=== PATIENT | male | born 1940 | race Caucasian/White ===

== ENCOUNTER 2019-03-06 09:00 | Outpatient (RCR) | payer MEDICARE, BC, SELFPAY ==
[2019-02-26 09:43] VITALS: BP 127/88; PULSE 73; RESP 18; TEMP 35.9; BMI 27.2
--- NOTE | 2019-02-26 11:29 | PCM.WC.HP ---
(1) Ulcer of left lower extremity with fat layer exposed Status: Acute Current Visit: Yes Code(s): L97.922 - Non-pressure chronic ulcer of unspecified part of left lower leg with fat layer exposed (2) Swelling of both lower extremities Status: Acute Current Visit: Yes Code(s): M79.89 - Other specified soft tissue disorders History of Present Illness Date of Service: 02/26/19 Chief Complaint: Non healing left lower extremity ulcer. History of Wound: Mr. Quiñonez is an 78 year old who was referred by his PCP due to non healing left lower extremity ulcer. Initial noted in November. Denies nay known precipitating factor but did state that he had much worse lower extremity swelling at that time. He was seen at an urgent care and advised to apply neosporin ointment and was also treated with oral antibiotics. He did this for about 3 months without any significnat improvement. He subsequentky followed up with his PCP and was reffered here. He attests to mild drainage and pain. He however deneis chills, fever or otherwise feeling of unwell. Past Medical History Allergies/Adverse Reactions: Allergies No Known Allergies Allergy (Verified 02/26/19 10:14) Home Medications: Ambulatory Orders Medication Instructions Recorded Calcium Carb/Vitamin D3/Vit K1 1 ea PO 02/26/19 [Calcium + D Soft Chewable Tab] Digoxin DAILY 02/26/19 Esomeprazole Mag Trihydrate 20 mg PO 02/26/19 [Nexium] Fluticasone 0.05% [Flonase Nasal 2 spray NASAL DAILY 02/26/19 Penelope] Metoprolol Succinate 25 mg PO BID 02/26/19 Spironolactone 25 mg 02/26/19 Tamsulosin HCl 0 mg 02/26/19 Warfarin [Coumadin ([facility])] 4 mg PO DAILY 02/26/19 Smoking Status: Former smoker Review of Systems Constitutional: Denies: Anorexia, Chills, Fever Eyes: Denies: Pain, Redness HEENT: Denies: Difficulty Swallowing Cardiovascular: Denies: Chest Pain, Chest Pressure Respiratory: Denies: Cough, Hemoptysis Gastrointestinal: Denies: Hematemesis Skin: Denies: Jaundice - Physical Exam Vital Signs Temp Pulse Resp BP 96.6 F L 73 18 127/88 H 02/26/19 09:43 02/26/19 09:43 02/26/19 09:43 02/26/19 09:43 General: Alert, Oriented x3, Cooperative, No apparent distress HEENT: Atraumatic, Normocephalic Oral: Moist Mucosa Neck: Supple Lungs: Normal air movement Cardiovascular: Regular rate, - - Irregularly irregular rhythm Abdomen: Soft, Non Tender Extremities: No cyanosis, Edema Skin: Ulcer/ Wound Wound Measurements and Assessment WC - Nurse 1 - General Ulcer Measurement Start: 02/26/19 09:41 Freq: Status: Active Protocol: Activity Type Activity Date Activity User E-Sign Co-Sign Detail Recorded Client Recorded Date Recorded By Document 02/26/19 09:43 DL [id number] 02/26/19 10:10 DL Document 02/26/19 10:34 MW [id number] 02/26/19 10:34 MW 02/26/19 02/26/19 09:43 10:34 Wound Center Nurse 1 [Ulcer Assessment] #1 LLE Med -Current Size (cm) - Length 1.6 -Current Size (cm) - Width 1.8 -Current Size (cm) - Depth 0.2 -Total Square Cm 2.88 -Photo Taken Yes -Epithelialization None Present -Classification - Thickness Full Thickness without Exposed Support Structure -Exudate Amt Small -Exudate Type Serosanguineous -Wound Margin Distinct, Outline Attached -Granulation Amt None Present (0 %) -Necrosis Amt Large (67-100%) -Necrotic Tissue Type Adherent Slough -Structure Exposed N/A -Texture (Julia-wound Skin Appearance) Localized Edema ,Scarring -Color (Julia-wound Skin Appearance) Erythema -Temperature (Julia-wound Skin No Abnormality Appearance) (Pt Warm) -Tenderness on Palpation (Julia-wound No Skin Appearance) -Ulcer Cleansing Rinsed/ Irrigated with Saline -Anesthetic Used 5% Lidocaine Gel [Edema Assessment] -Lower Limb Edema Present Yes -Right Calf (cm) 34.0 -Right Ankle (cm) 21.0 -Left Calf (cm) 33.5 -Left Ankle (cm) 22.0 WC - Nurse 2 - General Ulcer CM Notes Start: 02/26/19 09:41 Freq: Status: Active Protocol: Activity Type Activity Date Activity User E-Sign Co-Sign Detail Recorded Client Recorded Date Recorded By Document 02/26/19 10:26 MW [id number] 02/26/19 10:32 MW 02/26/19 10:26 Wound Center Nurse 2 [Procedure/Treatment] #1 LLE Med -Time 10:26 -Correct Patient Yes -Correct Side, Site, Position Yes -Correct Procedure Yes -Procedure Performed Yes -Type of Procedure Debridement -Clinical Debridement Subcutaneous -Post Debridement Size (cm) - Length 1.6 -Post Debridement Size (cm) - Width 1.2 -Post Debridement Size (cm) - Depth 0.2 -Total Square Cm 1.92 -Wound/Ulcer Outcome Not Healed -Ulcer Cleansing Rinsed/ Irrigated with Saline -Foul Odor after Cleansing No -Bioengineered Tissue No -Bleeding Controlled with Pressure -Offloading No -Treatment Response Procedure Tolerated Well [See Physician Procedure note for Specifics] Pain Scale: 0-10 Numeric [Pain] -Is Patient Pain Free? Yes Musculoskeletal: No Muscle Wasting Neurological: Cranial nerves II-XII grossly intact Psych/Mental Status: Normal Affect Debridement Note Post-Debridement Measurements/Treatment WC - Nurse 2 - General Ulcer CM Notes Start: 02/26/19 09:41 Freq: Status: Active Protocol: Activity Type Activity Date Activity User E-Sign Co-Sign Detail Recorded Client Recorded Date Recorded By Document 02/26/19 10:26 MW [id number] 02/26/19 10:32 MW 02/26/19 10:26 Wound Center Nurse 2 #1 LLE Med -Time 10:26 -Correct Patient Yes -Correct Side, Site, Position Yes -Correct Procedure Yes -Procedure Performed Yes -Type of Procedure Debridement -Clinical Debridement Subcutaneous -Post Debridement Size (cm) - Length 1.6 -Post Debridement Size (cm) - Width 1.2 -Post Debridement Size (cm) - Depth 0.2 -Total Square Cm 1.92 -Wound/Ulcer Outcome Not Healed -Ulcer Cleansing Rinsed/ Irrigated with Saline -Foul Odor after Cleansing No -Bioengineered Tissue No -Bleeding Controlled with Pressure -Offloading No -Treatment Response Procedure Tolerated Well Pain Scale: 0-10 Numeric Is Patient Pain Free? Yes Wound debrided: Left lower extremity Wound Grade/Stage: Stage II Type of Debridement: Excisional debridement Anesthesia Used: 4% Lidocaine Solution Depth: Down to and including healthy tissue, in the subcutaneous layer Percentage of wound debrided: 100 Instrument Used: 7mm curette Tissue Removed: Slough and devitalized tissue Severity: Fat Layer Exposed Amount of bleeding with debridement: Mild Bleeding Controlled with: Pressure Patient tolerated procedure well Assessment/Plan Active Problems Ulcer of left lower extremity with fat layer exposed (Acute) Swelling of both lower extremities (Acute) Assessment: Non healing left lower extremity ulcer likley secondary to Venous insufficiency. Plan: Debridement done as documented above, procedure was well tolerated.Venous and arterial studies ordered. No cultures taken today. Pomogran daily with adaptic over top. Double layer Tubi investigation manager for edema management. He was also advised to exercise as tolerated, elevate lower extremities when seated and in bed and avoid ildle standing. His questions were answered and he was advised to call with any further questions or concerns. Follow up in 1 week.
[2019-03-05 09:26] VITALS: BP 126/61; PULSE 71; RESP 18; TEMP 36.1; BMI 27.2
--- NOTE | 2019-03-05 09:51 | PCM.WC.PN ---
(1) Ulcer of left lower extremity with fat layer exposed Status: Acute Current Visit: Yes Code(s): L97.922 - Non-pressure chronic ulcer of unspecified part of left lower leg with fat layer exposed (2) Swelling of both lower extremities Status: Acute Current Visit: Yes Code(s): M79.89 - Other specified soft tissue disorders Type of Wound Date of Service: 03/05/19 Chief Complaint: Non healing left lower extremity ulcer. History of Wound: Mr. Quiñonez is an 78 year old who was referred by his PCP due to non healing left lower extremity ulcer. Initial noted in November. Denies nay known precipitating factor but did state that he had much worse lower extremity swelling at that time. He was seen at an urgent care and advised to apply neosporin ointment and was also treated with oral antibiotics. He did this for about 3 months without any significnat improvement. He subsequentky followed up with his PCP and was reffered here. He attests to mild drainage and pain. He however deneis chills, fever or otherwise feeling of unwell. Progress of Wound: Improving. No new concerns at this time. - Physical Exam Vital Signs Temp Pulse Resp BP 97 F L 71 18 126/61 H 03/05/19 09:26 03/05/19 09:26 03/05/19 09:26 03/05/19 09:26 General: Alert, Oriented x3, Cooperative, No apparent distress HEENT: Atraumatic, Normocephalic Oral: Moist Mucosa Neck: Supple Lungs: Normal air movement Extremities: No cyanosis Skin: Ulcer/ Wound Wound Measurements and Assessment WC - Nurse 1 - General Ulcer Measurement Start: 02/26/19 09:41 Freq: Status: Active Protocol: Activity Type Activity Date Activity User E-Sign Co-Sign Detail Recorded Client Recorded Date Recorded By Document 03/05/19 09:26 RB [id number] 03/05/19 09:28 RB 03/05/19 09:26 Wound Center Nurse 1 [Ulcer Assessment] #1 LLE Med -Combined with other wound No -Current Size (cm) - Length 1.7 -Current Size (cm) - Width 1.7 -Current Size (cm) - Depth 0.1 -Total Square Cm 2.89 -Tunneling No -Undermining/Tunneling No -Circular Undermining No -Exudate Amt Small -Exudate Type Serosanguineous -Wound Margin Distinct, Outline Attached -Granulation Amt Medium (34-66%) -Granulation Quality [place] -Slough/Fibrin Yes -Necrosis Amt Small (1-33%) -Necrotic Tissue Type Adherent Slough -Structure Exposed N/A -Texture (Julia-wound Skin Appearance) Assessed -Moisture (Julia-wound Skin Appearance Assessed ) -Color (Julia-wound Skin Appearance) Assessed -Temperature (Julia-wound Skin No Abnormality Appearance) (Pt Warm) -Tenderness on Palpation (Julia-wound No Skin Appearance) -Ulcer Cleansing Wound Cleanser -Foul Odor after Cleansing No -Anesthetic Used 5% Lidocaine Gel [Edema Assessment] -Lower Limb Edema Present Yes -Left Calf (cm) 33 -Left Ankle (cm) 20.5 WC - Nurse 2 - General Ulcer CM Notes Start: 02/26/19 09:41 Freq: Status: Active Protocol: Activity Type Activity Date Activity User E-Sign Co-Sign Detail Recorded Client Recorded Date Recorded By Document 03/05/19 09:39 MW [id number] 03/05/19 09:41 MW 03/05/19 09:39 Wound Center Nurse 2 [Procedure/Treatment] #1 LLE Med -Time 09:39 -Correct Patient Yes -Correct Side, Site, Position Yes -Correct Procedure Yes -Procedure Performed Yes -Type of Procedure Debridement -Clinical Debridement Subcutaneous -Post Debridement Size (cm) - Length 1.1 -Post Debridement Size (cm) - Width 1.5 -Post Debridement Size (cm) - Depth 0.1 -Total Square Cm 1.65 -Wound/Ulcer Outcome Not Healed -Ulcer Cleansing Rinsed/ Irrigated with Saline -Foul Odor after Cleansing No -Bioengineered Tissue No -Bleeding Controlled with Pressure -Offloading No -Treatment Response Procedure Tolerated Well [See Physician Procedure note for Specifics] Pain Scale: 0-10 Numeric [Pain] -Is Patient Pain Free? Yes Musculoskeletal: No Muscle Wasting Neurological: Cranial nerves II-XII grossly intact Psych/Mental Status: Normal Affect Debridement Note Post-Debridement Measurements/Treatment WC - Nurse 2 - General Ulcer CM Notes Start: 02/26/19 09:41 Freq: Status: Active Protocol: Activity Type Activity Date Activity User E-Sign Co-Sign Detail Recorded Client Recorded Date Recorded By Document 02/26/19 10:26 MW [id number] 02/26/19 10:32 MW Document 03/05/19 09:39 MW [id number] 03/05/19 09:41 MW 02/26/19 03/05/19 10:26 09:39 Wound Center Nurse 2 #1 LARISA Med -Time 10: 09:39 -Correct Patient Yes Yes -Correct Side, Site, Position Yes Yes -Correct Procedure Yes Yes -Procedure Performed Yes Yes -Type of Procedure Debridement Debridement -Clinical Debridement Subcutaneous Subcutaneous -Post Debridement Size (cm) - Length 1.6 1.1 -Post Debridement Size (cm) - Width 2.0 1.5 -Post Debridement Size (cm) - Depth 0.2 0.1 -Total Square Cm 3.20 1.65 -Wound/Ulcer Outcome Amputation Not Healed Anticipated -Ulcer Cleansing Rinsed/ Rinsed/ Irrigated with Irrigated with Saline Saline -Foul Odor after Cleansing No No -Bioengineered Tissue No No -Bleeding Controlled with Pressure Pressure -Offloading No No -Treatment Response Procedure Procedure Tolerated Well Tolerated Well Pain Scale: 0-10 Numeric Is Patient Pain Free? Yes Yes Wound debrided: Left lower extremity Wound Grade/Stage: Stage II Type of Debridement: Excisional debridement Anesthesia Used: 4% Lidocaine Solution Depth: Down to and including healthy tissue, in the subcutaneous layer Percentage of wound debrided: 100 Instrument Used: 3mm curette Tissue Removed: Slough and devitalized tissue Severity: Fat Layer Exposed Amount of bleeding with debridement: Mild Bleeding Controlled with: Pressure Patient tolerated procedure well Assessment/Plan Active Problems Ulcer of left lower extremity with fat layer exposed (Acute) Swelling of both lower extremities (Acute) Assessment: Non healing left lower extremity ulcer likley secondary to Venous insufficiency. Plan: Improving. Debridement done as documented above, procedure was well tolerated.Venous and arterial studies ordered and scheduled for tomorrow. . Continue Pomogran daily with adaptic over top. Double layer Tubi principal security architect for edema management. He was also advised to exercise as tolerated, elevate lower extremities when seated and in bed and avoid ildle standing. His questions were answered and he was advised to call with any further questions or concerns. Follow up in 1 week.
--- NOTE | 2019-03-06 08:48 | VDLE_ITS ---
Reason For Study: EDEMA` RIGHT LEFT CFV is compressible, spontaneous, phasic, CFV is compressible, spontaneous, phasic, competent and demonstrates normal competent, and demonstrates normal augmentation. augmentation. FV is compressible, spontaneous, phasic, FV is compressible, spontaneous, phasic, competent and demonstrates normal competent and demonstrates normal augmentation. augmentation. POP V is compressible, spontaneous, phasic, POP V is compressible, spontaneous, phasic, competent and demonstrates normal competent and demonstrates normal augmentation. augmentation. T/P Trunk is compressible. T/P Trunk is compressible. PTV is compressible. PTV is compressible. RT PerV is compressible. LT PerV is compressible. SFJ is competent and measures .62 X .64 cm. SFJ is competent and measures .37 X .40 cm. SSV at junction is competent and measures .33 SSV at junction is competent and measures .22 X .36 cm. X .23 cm. GSV above knee is competent. GSV above knee is competent. GSV below knee is competent. GSV below knee is INCOMPETENT for greater Procedure than 0.5 seconds. Exam performed in department. Left Embroidery Operator , located approximately 10 cm A preliminary report was called and/or faxed from the [facility], is INCOMPETENT for to [facility]. greater than .5 seconds. Interpretation Summary Deep veins of the lower extremities are bilaterally patent and compressible segmentally. There is no evidence of deep vein thrombosis on either side. Valvular competence appears intact within the proximal deep venous systems bilaterally. The great saphenous veins appear bilaterally patent and compressible segmentally. Sapheno-femoral junctions are bilaterally competent . The right great saphenous vein appears segmentally competent. The left great saphenous vein appears competent above the knee. The left great saphenous vein appears incompetent below the knee. Small saphenous veins are patent and competent bilaterally. An incompetent environmental services tech vein is noted in the left calf, located 10 centimeters proximal to the left medial malleolus. Ordering Physician: Abdirahman Cross Referring Physician: ISAAC HERBERT Performed By: Preeti Ling RDCS, RVT
--- NOTE | 2019-03-06 08:48 | ART_ITS ---
Reason For Study: PAD Procedure A bilateral lower extremity continuous wave Doppler with analog waveform analysis,segmental pressures,and ankle brachial indexes without exercise. Left Segmental Pressures Left brachial= 138mmHg. Left posterior tibial artery = 211mmHg. Left dorsalis pedis artery = NCmmHg. Left digit = 82 mmHg. The left posterior tibial artery waveforms are biphasic. The left dorsalis pedis waveforms are monophasic. Right Segmental Pressures Right brachial= 131mmHg. Right posterior tibial artery = NCmmHg. Right dorsalis pedis artery = 219mmHg. Right digit = 109 mmHg. The right posterior tibial artery waveforms are monophasic. The right dorsalis pedis waveforms are biphasic. Indices The right ankle brachial index by the dorsalis pedis is 1.59. The right digital-brachial index is .79. The left ankle brachial index by the posterior tibial artery is 1.53. The left digital- brachial index is .59. Interpretation Summary Biphasic and monophasic Doppler waveforms are noted at ankle level bilaterally. Pulse-volume recording waveform amplitudes appear diminished at calf and ankle levels bilaterally. Resting ankle- brachial indices are supra-normal bilaterally. The right digital-brachial index is normal. The left digital-brachial index is mildly diminished. There is evidence of arterial calcification bilaterally, which artifactually elevates arterial pressure measurements. Therefore, calculated ankle-brachial indices and digital-brachial indices may be unreliable in determining the presence of arterial occlusive disease. 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 Clinical correlation is advised. Ordering Physician: Abdirahman Cross Referring Physician: ARABELLA HERBERT Performed By: YANIRA FREY RDCS
== END 2019-03-08 23:59 ==
LOC: CVS 09:00
PROVIDERS: Family Provider Family Medicine; PCP Family Medicine; Visit Provider Internal Medicine
DX: I73.9 Peripheral vascular disease, unspecified (principal); L97.822 Non-pressure chronic ulcer of other part of left lower leg with fat layer exposed; R60.0 Localized edema; M79.89 Other specified soft tissue disorders; Z87.891 Personal history of nicotine dependence
CPT/HCPCS: 11042; 93923; 93970; 99203; G0463

== ENCOUNTER 2019-04-03 08:45 | Outpatient (RCR) | payer MEDICARE, BC, SELFPAY ==
[2019-03-05 09:26] VITALS: BMI 27.2
[2019-03-09 01:13] VITALS: BP 126/61; PULSE 71; RESP 18; TEMP 36.1
[2019-03-13 10:14] VITALS: BP 140/71; PULSE 64; RESP 16; TEMP 35.7; BMI 27.2
--- NOTE | 2019-03-13 12:37 | PCM.WC.PN ---
(1) Swelling of both lower extremities Status: Chronic Current Visit: Yes Code(s): M79.89 - Other specified soft tissue disorders (2) Ulcer of left lower extremity with fat layer exposed Status: Chronic Current Visit: Yes Code(s): L97.922 - Non-pressure chronic ulcer of unspecified part of left lower leg with fat layer exposed Type of Wound Date of Service: 03/13/19 Chief Complaint: Non healing left lower extremity ulcer. History of Wound: Mr. Quiñonez is an 78 year old who was referred by his PCP due to non healing left lower extremity ulcer. Initial noted in November. Denies nay known precipitating factor but did state that he had much worse lower extremity swelling at that time. He was seen at an urgent care and advised to apply neosporin ointment and was also treated with oral antibiotics. He did this for about 3 months without any significnat improvement. He subsequentky followed up with his PCP and was reffered here. He attests to mild drainage and pain. He however deneis chills, fever or otherwise feeling of unwell. Progress of Wound: Improving. No new concerns at this time. - Physical Exam Vital Signs Temp Pulse Resp BP 96.2 F L 64 16 140/71 H 03/13/19 10:14 03/13/19 10:14 03/13/19 10:14 03/13/19 10:14 General: Alert, Oriented x3, Cooperative, No apparent distress HEENT: Atraumatic, Normocephalic Oral: Moist Mucosa Neck: Supple Lungs: Normal air movement Extremities: No cyanosis Skin: Ulcer/ Wound Wound Measurements and Assessment WC - Nurse 1 - General Ulcer Measurement Start: 03/13/19 10:14 Freq: Status: Active Protocol: Activity Type Activity Date Activity User E-Sign Co-Sign Detail Recorded Client Recorded Date Recorded By Document 03/13/19 10:14 [facility] [id number] 03/13/19 10:21 [facility] 03/13/19 10:14 Wound Center Nurse 1 [Ulcer Assessment] #1 LLE Med -Combined with other wound No -Current Size (cm) - Length 1.6 -Current Size (cm) - Width 1.3 -Current Size (cm) - Depth 0.2 -Total Square Cm 2.08 -Photo Taken No -Epithelialization None Present -Tunneling No -Undermining/Tunneling No -Circular Undermining No -Exudate Amt Small -Exudate Type Serosanguineous -Wound Margin Distinct, Outline Attached -Granulation Amt Small (1-33%) -Granulation Quality Red -Slough/Fibrin Yes -Necrosis Amt Medium (34-66%) -Necrotic Tissue Type Adherent Slough -Texture (Julia-wound Skin Appearance) Assessed, Scarring -Moisture (Julia-wound Skin Appearance Assessed ) -Color (Julia-wound Skin Appearance) Assessed -Temperature (Julia-wound Skin No Abnormality Appearance) (Pt Warm) -Tenderness on Palpation (Julia-wound Yes Skin Appearance) -Ulcer Cleansing Rinsed/ Irrigated with Saline -Foul Odor after Cleansing No -Anesthetic Used 5% Lidocaine Gel [Edema Assessment] -Lower Limb Edema Present Yes -Left Calf (cm) 33.2 -Left Ankle (cm) 20.9 WC - Nurse 2 - General Ulcer CM Notes Start: 03/13/19 10:14 Freq: Status: Active Protocol: Activity Type Activity Date Activity User E-Sign Co-Sign Detail Recorded Client Recorded Date Recorded By Document 03/13/19 10:40 MW [id number] 03/13/19 10:43 MW 03/13/19 10:40 Wound Center Nurse 2 [Procedure/Treatment] #1 LLE Med -Time 10:40 -Correct Patient Yes -Correct Side, Site, Position Yes -Correct Procedure Yes -Procedure Performed Yes -Type of Procedure Debridement -Clinical Debridement Subcutaneous -Post Debridement Size (cm) - Length 1.1 -Post Debridement Size (cm) - Width 1.1 -Post Debridement Size (cm) - Depth 0.1 -Total Square Cm 1.21 -Wound/Ulcer Outcome Not Healed -Ulcer Cleansing Rinsed/ Irrigated with Saline -Foul Odor after Cleansing No -Bioengineered Tissue No -Bleeding Controlled with Pressure -Offloading No -Treatment Response Procedure Tolerated Well [See Physician Procedure note for Specifics] Pain Scale: 0-10 Numeric [Pain] -Is Patient Pain Free? Yes Neurological: Cranial nerves II-XII grossly intact Psych/Mental Status: Normal Affect Debridement Note Post-Debridement Measurements/Treatment WC - Nurse 2 - General Ulcer CM Notes Start: 03/13/19 10:14 Freq: Status: Active Protocol: Activity Type Activity Date Activity User E-Sign Co-Sign Detail Recorded Client Recorded Date Recorded By Document 03/13/19 10:40 MW [id number] 03/13/19 10:43 MW 03/13/19 10:40 Wound Center Nurse 2 #1 LLE Med -Time 10:40 -Correct Patient Yes -Correct Side, Site, Position Yes -Correct Procedure Yes -Procedure Performed Yes -Type of Procedure Debridement -Clinical Debridement Subcutaneous -Post Debridement Size (cm) - Length 1.1 -Post Debridement Size (cm) - Width 1.1 -Post Debridement Size (cm) - Depth 0.1 -Total Square Cm 1.21 -Wound/Ulcer Outcome Not Healed -Ulcer Cleansing Rinsed/ Irrigated with Saline -Foul Odor after Cleansing No -Bioengineered Tissue No -Bleeding Controlled with Pressure -Offloading No -Treatment Response Procedure Tolerated Well Pain Scale: 0-10 Numeric Is Patient Pain Free? Yes Wound debrided: Left lower extremity Wound Grade/Stage: Stage II Type of Debridement: Excisional debridement Anesthesia Used: 4% Lidocaine Solution Depth: Down to and including healthy tissue, in the subcutaneous layer Percentage of wound debrided: 100 Instrument Used: 3mm curette Tissue Removed: Slough and devitalized tissue Severity: Fat Layer Exposed Amount of bleeding with debridement: Mild Bleeding Controlled with: Compression and gauze Patient tolerated procedure well Assessment/Plan Active Problems Ulcer of left lower extremity with fat layer exposed (Chronic) Swelling of both lower extremities (Chronic) Assessment: Non healing left lower extremity ulcer likley secondary to Venous insufficiency. Plan: Improving. Debridement done as documented above, procedure was well tolerated. Venous and arterial studies reviewed. Evidence of venous insufficiency and moderate arterial disease. Advised to follow-up with primary care physician/vascular surgery. Continue Pomogran daily with adaptic over top. Double layer Tubi embedded systems developer for edema management. He was also advised to exercise as tolerated, elevate lower extremities when seated and in bed and avoid ildle standing. His questions were answered and he was advised to call with any further questions or concerns. Follow up in 1 week.
[2019-03-20 10:10] VITALS: BP 118/74; PULSE 75; RESP 16; TEMP 36.1; BMI 27.2
--- NOTE | 2019-03-20 10:39 | PN.PCM_ITS ---
(1) Swelling of both lower extremities Status: Chronic Current Visit: Yes Code(s): M79.89 - Other specified soft tissue disorders (2) Ulcer of left lower extremity with fat layer exposed Status: Chronic Current Visit: Yes Code(s): L97.922 - Non-pressure chronic ulcer of unspecified part of left lower leg with fat layer exposed Type of Wound Date of Service: 03/20/19 Chief Complaint: Non healing left lower extremity ulcer. History of Wound: Mr. Quiñonez is an 78 year old who was referred by his PCP due t o non healing left lower extremity ulcer. Initial noted in November. Denies nay known precipitating factor but did state that he had much worse lower extremity swelling at that time. He was seen at an urgent care and advised to apply neosporin ointment and was also treated with oral antibiotics. He did this for about 3 months without any significnat improvement. He subsequentky followed up with his PCP and was reffered here. He attests to mild drainage and pain. He however deneis chills, fever or otherwise feeling of unwell. Progress of Wound: Stable. No new concerns at this time. - Physical Exam Vital Signs Temp Pulse Resp BP 97 F L 75 16 118/74 03/20/19 10:10 03/20/19 10:10 03/20/19 10:10 03/20/19 10:10 General: Alert, Oriented x3, Cooperative, No apparent distress HEENT: Atraumatic, Normocephalic Oral: Moist Mucosa Neck: Supple Lungs: Normal air movement Extremities: No cyanosis Skin: Ulcer/ Wound Wound Measurements and Assessment WC - Nurse 1 - General Ulcer Measurement Start: 03/13/19 10:14 Freq: Status: Active Protocol: Activity Type Activity Date Activity User E-Sign Co-Sign Detail Recorded Client Recorded Date Recorded By Document 03/20/19 10:10 [facility] [id number] 03/20/19 10:13 [facility] 03/20/19 10:10 Wound Center Nurse 1 [Ulcer Assessment] #1 LLE Med -Combined with other wound No -Current Size (cm) - Length 1.1 -Current Size (cm) - Width 1 -Current Size (cm) - Depth 0.1 -Total Square Cm 1.1 -Date of Last Picture (Recall this 03/20/19 field) -Photo Taken Yes -Epithelialization Small 1-33% -Tunneling No -Undermining/Tunneling No -Circular Undermining No -Exudate Amt Small -Exudate Type Serosanguineous -Wound Margin Distinct, Outline Attached -Granulation Amt Medium (34-66%) -Granulation Quality Red -Slough/Fibrin Yes -Necrosis Amt Medium (34-66%) -Necrotic Tissue Type Adherent Slough -Texture (Julia-wound Skin Appearance) Assessed, Scarring -Moisture (Julia-wound Skin Appearance Assessed,Dry/ ) Scaly -Color (Julia-wound Skin Appearance) Assessed, Hemosiderin Staining -Temperature (Julia-wound Skin No Abnormality Appearance) (Pt Warm) -Tenderness on Palpation (Julia-wound No Skin Appearance) -Ulcer Cleansing Rinsed/ Irrigated with Saline -Foul Odor after Cleansing No -Anesthetic Used 5% Lidocaine Gel [Edema Assessment] -Lower Limb Edema Present No -Left Calf (cm) 33 -Left Ankle (cm) 19.9 WC - Nurse 2 - General Ulcer CM Notes Start: 03/13/19 10:14 Freq: Status: Active Protocol: Activity Type Activity Date Activity User E-Sign Co-Sign Detail Recorded Client Recorded Date Recorded By Document 03/20/19 10:32 MW [id number] 03/20/19 10:37 MW 03/20/19 10:32 Wound Center Nurse 2 [Procedure/Treatment] #1 LLE Med -Time 10:32 -Correct Patient Yes -Correct Side, Site, Position Yes -Correct Procedure Yes -Procedure Performed Yes -Type of Procedure Debridement -Clinical Debridement Subcutaneous -Post Debridement Size (cm) - Length 1.1 -Post Debridement Size (cm) - Width 1.1 -Post Debridement Size (cm) - Depth 0.1 -Total Square Cm 1.21 -Wound/Ulcer Outcome Not Healed -Ulcer Cleansing Rinsed/ Irrigated with Saline -Foul Odor after Cleansing No -Bioengineered Tissue No -Bleeding Controlled with Pressure -Offloading No -Treatment Response Procedure Tolerated Well [See Physician Procedure note for Specifics] Pain Scale: 0-10 Numeric [Pain] -Is Patient Pain Free? Yes Musculoskeletal: No Muscle Wasting Neurological: Cranial nerves II-XII grossly intact Psych/Mental Status: Normal Affect Debridement Note Post-Debridement Measurements/Treatment WC - Nurse 2 - General Ulcer CM Notes Start: 03/13/19 10:14 Freq: Status: Active Protocol: Activity Type Activity Date Activity User E-Sign Co-Sign Detail Recorded Client Recorded Date Recorded By Document 03/13/19 10:40 MW [id number] 03/13/19 10:43 MW Document 03/20/19 10:32 MW [id number] 03/20/19 10:37 MW 03/13/19 03/20/19 10:40 10:32 Wound Center Nurse 2 #1 LLE Med -Time 10:40 10:32 -Correct Patient Yes Yes -Correct Side, Site, Position Yes Yes -Correct Procedure Yes Yes -Procedure Performed Yes Yes -Type of Procedure Debridement Debridement -Clinical Debridement Subcutaneous Subcutaneous -Post Debridement Size (cm) - Length 1.1 1.1 -Post Debridement Size (cm) - Width 1.1 1.1 -Post Debridement Size (cm) - Depth 0.1 0.1 -Total Square Cm 1.21 1.21 -Wound/Ulcer Outcome Not Healed Not Healed -Ulcer Cleansing Rinsed/ Rinsed/ Irrigated with Irrigated with Saline Saline -Foul Odor after Cleansing No No -Bioengineered Tissue No No -Bleeding Controlled with Pressure Pressure -Offloading No No -Treatment Response Procedure Procedure Tolerated Well Tolerated Well Pain Scale: 0-10 Numeric Is Patient Pain Free? 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 Plan: Stable. No significantt change in the past week. Debridement done as documented above, procedure was well tolerated. Venous and arterial studies reviewed. Evidence of venous insufficiency and moderate arterial disease. Advised to follow-up with primary care physician/vascular surgery. Continue Po mogran daily with adaptic over top. 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 Will apply for a skin sub. Has had 4 weeks of traditional woundcare here so far with modest improvement and no change in the past week. He also had woundcare prior to coming in here. He was also advised to exercise as tolerated, elevate lower extremities when seated and in bed and avoid ildle standing. His questions were answered and he was advised to call with any further questions or concerns. Follow up in 1 week.
[2019-03-27 10:53] VITALS: BP 126/81; PULSE 75; RESP 18; TEMP 36; BMI 27.2
--- NOTE | 2019-03-27 12:43 | PN.PCM_ITS ---
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 History of Wound: Mr. Quiñonez is an 78 year old who was referred by his PCP due t o non healing left lower extremity ulcer. Initial noted in November. Denies nay known precipitating factor but did state that he had much worse lower extremity swelling at that time. He was seen at an urgent care and advised to apply neosporin ointment and was also treated with oral antibiotics. He did this for about 3 months without any significnat improvement. He subsequentky followed up with his PCP and was reffered here. He attests to mild drainage and pain. He however deneis chills, fever or otherwise feeling of unwell. Progress of Wound: Mild improvement. No new concerns at this time. Now approved for Grafix. - Physical Exam Vital Signs Temp Pulse Resp BP 96.8 F L 75 18 126/81 H 03/27/19 10:53 03/27/19 10:53 03/27/19 10:53 03/27/19 10:53 General: Alert, Oriented x3, Cooperative, No apparent distress HEENT: Atraumatic, Normocephalic Oral: Moist Mucosa Neck: Supple Lungs: Normal air movement Extremities: No cyanosis Skin: Ulcer/ Wound Wound Measurements and Assessment WC - Nurse 1 - General Ulcer Measurement Start: 03/13/19 10:14 Freq: Status: Active Protocol: Activity Type Activity Date Activity User E-Sign Co-Sign Detail Recorded Client Recorded Date Recorded By Document 03/27/19 10:53 DL [id number] 03/27/19 11:00 DL 03/27/19 10:53 Wound Center Nurse 1 [Ulcer Assessment] #1 LLE Med -Current Size (cm) - Length 0.8 -Current Size (cm) - Width 0.9 -Current Size (cm) - Depth 0.2 -Total Square Cm 0.72 -Photo Taken No -Exudate Amt Small -Exudate Type Serosanguineous -Wound Margin Distinct, Outline Attached -Granulation Amt Large (67-100%) -Granulation Quality Red -Necrosis Amt Small (1-33%) -Necrotic Tissue Type Adherent Slough -Structure Exposed N/A -Texture (Julia-wound Skin Appearance) Scarring -Moisture (Julia-wound Skin Appearance No Abnormality ) -Color (Julia-wound Skin Appearance) Hemosiderin Staining -Temperature (Julia-wound Skin No Abnormality Appearance) (Pt Warm) -Tenderness on Palpation (Julia-wound No Skin Appearance) -Ulcer Cleansing Rinsed/ Irrigated with Saline -Foul Odor after Cleansing No -Anesthetic Used 5% Lidocaine Gel [Edema Assessment] -Left Calf (cm) 32 -Left Ankle (cm) 19 WC - Nurse 2 - General Ulcer CM Notes Start: 03/13/19 10:14 Freq: Status: Active Protocol: Activity Type Activity Date Activity User E-Sign Co-Sign Detail Recorded Client Recorded Date Recorded By Document 03/27/19 11:36 MW [id number] 03/27/19 11:40 MW 03/27/19 11:36 Wound Center Nurse 2 [Procedure/Treatment] #1 LLE Med -Time 11:36 -Correct Patient Yes -Correct Side, Site, Position Yes -Correct Procedure Yes -Procedure Performed Yes -Type of Procedure Debridement -Clinical Debridement Subcutaneous -Post Debridement Size (cm) - Length 1.0 -Post Debridement Size (cm) - Width 1.0 -Post Debridement Size (cm) - Depth 0.1 -Total Square Cm 1.00 -Wound/Ulcer Outcome Not Healed -Ulcer Cleansing Rinsed/ Irrigated with Saline -Foul Odor after Cleansing No -Bioengineered Tissue Yes -Type of bioengineered Tissue GRAFIX-Pime -Expiration Date 01/01/20 -Product Lot Number [id number] -Percent Used 100 -Saline Lot Number [id number] -Bleeding Controlled with Pressure -Offloading No -Treatment Response Procedure Tolerated Well [See Physician Procedure note for Specifics] Pain Scale: 0-10 Numeric [Pain] -Is Patient Pain Free? Yes Musculoskeletal: No Muscle Wasting Neurological: Cranial nerves II-XII grossly intact Psych/Mental Status: Normal Affect Debridement Note Post-Debridement Measurements/Treatment WC - Nurse 2 - General Ulcer CM Notes Start: 03/13/19 10:14 Freq: Status: Active Protocol: Activity Type Activity Date Activity User E-Sign Co-Sign Detail Recorded Client Recorded Date Recorded By Document 03/13/19 10:40 MW [id number] 03/13/19 10:43 MW Document 03/20/19 10:32 MW [id number] 03/20/19 10:37 MW Document 03/27/19 11:36 MW [id number] 03/27/19 11:40 MW 03/13/19 03/20/19 03/27/19 10:40 10:32 11:36 Wound Center Nurse 2 #1 LLE Med -Time 10:40 10:32 11:36 -Correct Patient Yes Yes Yes -Correct Side, Site, Position Yes Yes Yes -Correct Procedure Yes Yes Yes -Procedure Performed Yes Yes Yes -Type of Procedure Debridement Debridement Debridement -Clinical Debridement Subcutaneous Subcutaneous Subcutaneous -Post Debridement Size (cm) - Length 1.1 1.1 1.0 -Post Debridement Size (cm) - Width 1.1 1.1 1.0 -Post Debridement Size (cm) - Depth 0.1 0.1 0.1 -Total Square Cm 1.21 1.21 1.00 -Wound/Ulcer Outcome Not Healed Not Healed Not Healed -Ulcer Cleansing Rinsed/ Rinsed/ Rinsed/ Irrigated with Irrigated with Irrigated with Saline Saline Saline -Foul Odor after Cleansing No No No -Bioengineered Tissue No No Yes -Type of bioengineered Tissue Master -Expiration Date 01/01/20 -Product Lot Number [id number] -Percent Used 100 -Saline Lot Number [id number] -Bleeding Controlled with Pressure Pressure Pressure -Offloading No No No -Treatment Response Procedure Procedure Procedure Tolerated Well Tolerated Well Tolerated Well Pain Scale: 0-10 Numeric Is Patient Pain Free? 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 Plan: Debridement done as documented above, procedure was well tolerated. Initial application of Grafix done today using 100% of product. Moistened with saline and adaptic touch over top. 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 He was also advised to exercise as tolerated, elevate lower extremities when seated and in bed and avoid ildle standing. Increased protein intake also recommended. His questions were answered and he was advised to call with any further questions or concerns. Follow up in 1 week.
[2019-04-03 10:15] VITALS: BP 137/70; PULSE 77; RESP 16; TEMP 36.4; BMI 27.2
--- NOTE | 2019-04-03 11:08 | PCM.WC.PN ---
(1) Swelling of both lower extremities Status: Chronic Current Visit: Yes Code(s): M79.89 - Other specified soft tissue disorders (2) Ulcer of left lower extremity with fat layer exposed Status: Chronic Current Visit: Yes Code(s): L97.922 - Non-pressure chronic ulcer of unspecified part of left lower leg with fat layer exposed Type of Wound Date of Service: 04/03/19 Chief Complaint: Non healing left lower extremity ulcer. History of Wound: Mr. Quiñonez is an 78 year old who was referred by his PCP due to non healing left lower extremity ulcer. Initial noted in November. Denies nay known precipitating factor but did state that he had much worse lower extremity swelling at that time. He was seen at an urgent care and advised to apply neosporin ointment and was also treated with oral antibiotics. He did this for about 3 months without any significnat improvement. He subsequentky followed up with his PCP and was reffered here. He attests to mild drainage and pain. He however deneis chills, fever or otherwise feeling of unwell. Progress of Wound: No new concerns at this time. Improving. Has had 1 application of Grafix so far. - Physical Exam Vital Signs Temp Pulse Resp BP 97.5 F L 77 16 137/70 H 04/03/19 10:15 04/03/19 10:15 04/03/19 10:15 04/03/19 10:15 General: Alert, Oriented x3, Cooperative, No apparent distress HEENT: Atraumatic, Normocephalic Oral: Moist Mucosa Lungs: Normal air movement Extremities: No cyanosis Skin: Ulcer/ Wound Wound Measurements and Assessment WC - Nurse 1 - General Ulcer Measurement Start: 03/13/19 10:14 Freq: Status: Active Protocol: Activity Type Activity Date Activity User E-Sign Co-Sign Detail Recorded Client Recorded Date Recorded By Document 04/03/19 10:15 [id number] 04/03/19 10:23 BS 04/03/19 10:15 Wound Center Nurse 1 [Ulcer Assessment] #1 LLE Med -Combined with other wound No -Current Size (cm) - Length 1.0 -Current Size (cm) - Width 1.0 -Current Size (cm) - Depth 0.1 -Total Square Cm 1.00 -Photo Taken No -Granulation Quality [place],Red -Moisture (Julia-wound Skin Appearance Assessed,Dry/ ) Scaly -Temperature (Julia-wound Skin No Abnormality Appearance) (Pt Warm) -Tenderness on Palpation (Julia-wound No Skin Appearance) -Ulcer Cleansing Rinsed/ Irrigated with Saline -Anesthetic Used 5% Lidocaine Gel - Nurse 2 - General Ulcer CM Notes Start: 03/13/19 10:14 Freq: Status: Active Protocol: Activity Type Activity Date Activity User E-Sign Co-Sign Detail Recorded Client Recorded Date Recorded By Document 04/03/19 10:42 MW [id number] 04/03/19 10:48 MW 04/03/19 10:42 Wound Center Nurse 2 [Procedure/Treatment] -Time 10:43 -Correct Patient Yes -Correct Side, Site, Position Yes -Correct Procedure Yes -Procedure Performed Yes -Type of Procedure Debridement -Clinical Debridement Subcutaneous -Post Debridement Size (cm) - Length 0.8 -Post Debridement Size (cm) - Width 0.7 -Post Debridement Size (cm) - Depth 0.1 -Total Square Cm 0.56 -Wound/Ulcer Outcome Not Healed -Ulcer Cleansing Rinsed/ Irrigated with Saline -Foul Odor after Cleansing No -Bioengineered Tissue No -Type of bioengineered Tissue GRAFIX-Pime -Expiration Date 01/07/20 -Product Lot Number [id number] -Percent Used 100 -Saline Lot Number [id number] -Bleeding Controlled with Pressure -Offloading No -Treatment Response Procedure Tolerated Well [See Physician Procedure note for Specifics] Pain Scale: 0-10 Numeric [Pain] -Is Patient Pain Free? Yes Neurological: Cranial nerves II-XII grossly intact Psych/Mental Status: Normal Affect Debridement Note Post-Debridement Measurements/Treatment - Nurse 2 - General Ulcer CM Notes Start: 03/13/19 10:14 Freq: Status: Active Protocol: Activity Type Activity Date Activity User E-Sign Co-Sign Detail Recorded Client Recorded Date Recorded By Document 03/13/19 10:40 MW [id number] 03/13/19 10:43 MW Document 03/20/19 10:32 MW [id number] 03/20/19 10:37 MW Document 03/27/19 11:36 MW [id number] 03/27/19 11:40 MW Document 04/03/19 10:42 MW [id number] 04/03/19 10:48 MW 03/13/19 03/20/19 03/27/19 10:40 10:32 11:36 Wound Center Nurse 2 #1 [facility] Med -Time 10:40 10:32 11:36 -Correct Patient Yes Yes Yes -Correct Side, Site, Position Yes Yes Yes -Correct Procedure Yes Yes Yes -Procedure Performed Yes Yes Yes -Type of Procedure Debridement Debridement Debridement -Clinical Debridement Subcutaneous Subcutaneous Subcutaneous -Post Debridement Size (cm) - Length 1.1 1.1 1.0 -Post Debridement Size (cm) - Width 1.1 1.1 1.0 -Post Debridement Size (cm) - Depth 0.1 0.1 0.1 -Total Square Cm 1.21 1.21 1.00 -Wound/Ulcer Outcome Not Healed Not Healed Not Healed -Ulcer Cleansing Rinsed/ Rinsed/ Rinsed/ Irrigated with Irrigated with Irrigated with Saline Saline Saline -Foul Odor after Cleansing No No No -Bioengineered Tissue No No Yes -Type of bioengineered Tissue GRAFIX-Pime -Expiration Date 01/01/20 -Product Lot Number [id number] -Percent Used 100 -Saline Lot Number [id number] -Bleeding Controlled with Pressure Pressure Pressure -Offloading No No No -Treatment Response Procedure Procedure Procedure Tolerated Well Tolerated Well Tolerated Well Pain Scale: 0-10 Numeric Is Patient Pain Free? Yes Yes Yes 04/03/19 10:42 Wound Center Nurse 2 #1 [facility] Med -Time 10:43 -Correct Patient Yes -Correct Side, Site, Position Yes -Correct Procedure Yes -Procedure Performed Yes -Type of Procedure Debridement -Clinical Debridement Subcutaneous -Post Debridement Size (cm) - Length 0.8 -Post Debridement Size (cm) - Width 0.7 -Post Debridement Size (cm) - Depth 0.1 -Total Square Cm 0.56 -Wound/Ulcer Outcome Not Healed -Ulcer Cleansing Rinsed/ Irrigated with Saline -Foul Odor after Cleansing No -Bioengineered Tissue No -Type of bioengineered Tissue GRAFIX-Pime -Expiration Date 01/07/20 -Product Lot Number [id number] -Percent Used 100 -Saline Lot Number [id number] -Bleeding Controlled with Pressure -Offloading No -Treatment Response Procedure Tolerated Well Pain Scale: 0-10 Numeric Is Patient Pain Free? 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 Plan: Debridement done as documented above, procedure was well tolerated. 2nd application of Grafix done today using 100% of product. Moistened with saline and adaptic touch over top. 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 He was also advised to exercise as tolerated, elevate lower extremities when seated and in bed and avoid ildle standing. Increased protein intake also recommended. His questions were answered and he was advised to call with any further questions or concerns. Follow up in 1 week.
== END 2019-04-07 23:59 ==
LOC: WC 08:45
PROVIDERS: Family Provider Family Medicine; PCP Family Medicine; Visit Provider Internal Medicine
DX: I87.2 Venous insufficiency (chronic) (peripheral) (principal); M79.89 Other specified soft tissue disorders; L97.822 Non-pressure chronic ulcer of other part of left lower leg with fat layer exposed
CPT/HCPCS: 11042; 15271; Q4132; Q4133

== ENCOUNTER 2019-05-01 09:45 | Outpatient (RCR) | payer MEDICARE, BC, SELFPAY ==
[2019-04-08 01:04] VITALS: BP 137/70; PULSE 77; RESP 16; TEMP 36.4
[2019-04-10 11:59] VITALS: BP 133/78; PULSE 18; RESP 18; TEMP 36.4; BMI 27.2
--- NOTE | 2019-04-10 12:39 | PCM.WC.PN ---
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 History of Wound: Mr. Quiñonez is an 78 year old who was referred by his PCP due to non healing left lower extremity ulcer. Initial noted in November. Denies nay known precipitating factor but did state that he had much worse lower extremity swelling at that time. He was seen at an urgent care and advised to apply neosporin ointment and was also treated with oral antibiotics. He did this for about 3 months without any significnat improvement. He subsequentky followed up with his PCP and was reffered here. He attests to mild drainage and pain. He however deneis chills, fever or otherwise feeling of unwell. Progress of Wound: No new concerns at this time. Improving. Has had 2 application of Grafix so far. - Physical Exam Vital Signs Temp Pulse Resp BP 97.6 F L 18 L 18 133/78 H 04/10/19 11:59 04/10/19 11:59 04/10/19 11:59 04/10/19 11:59 General: Alert, Oriented x3, Cooperative, No apparent distress HEENT: Atraumatic, Normocephalic Oral: Moist Mucosa Neck: Supple Lungs: Normal air movement Extremities: No cyanosis Skin: Ulcer/ Wound Wound Measurements and Assessment WC - Nurse 1 - General Ulcer Measurement Start: 04/10/19 11:59 Freq: Status: Active Protocol: Activity Type Activity Date Activity User E-Sign Co-Sign Detail Recorded Client Recorded Date Recorded By Document 04/10/19 11:59 DL [id number] 04/10/19 12:01 DL 04/10/19 11:59 Wound Center Nurse 1 [Ulcer Assessment] #1 LLE Med -Current Size (cm) - Length 0.8 -Current Size (cm) - Width 0.8 -Current Size (cm) - Depth 0.1 -Total Square Cm 0.64 -Photo Taken No -Exudate Type Sanguineous -Wound Margin Distinct, Outline Attached -Granulation Amt None Present (0 %) -Necrosis Amt Large (67-100%) -Necrotic Tissue Type Adherent Slough -Structure Exposed N/A -Texture (Julia-wound Skin Appearance) Scarring -Color (Julia-wound Skin Appearance) Hemosiderin Staining -Temperature (Julia-wound Skin No Abnormality Appearance) (Pt Warm) -Ulcer Cleansing Wound Cleanser -Foul Odor after Cleansing No -Anesthetic Used 5% Lidocaine Gel [Edema Assessment] -Left Calf (cm) 31.5 -Left Ankle (cm) 19 WC - Nurse 2 - General Ulcer CM Notes Start: 04/10/19 11:59 Freq: Status: Active Protocol: Activity Type Activity Date Activity User E-Sign Co-Sign Detail Recorded Client Recorded Date Recorded By Document 04/10/19 12:24 MW [id number] 04/10/19 12:30 MW 04/10/19 12:24 Wound Center Nurse 2 [Procedure/Treatment] #1 LLE Med -Time 12:24 -Correct Patient Yes -Correct Side, Site, Position Yes -Correct Procedure Yes -Procedure Performed Yes -Type of Procedure Debridement -Clinical Debridement Subcutaneous -Post Debridement Size (cm) - Length 0.6 -Post Debridement Size (cm) - Width 0.5 -Post Debridement Size (cm) - Depth 0.1 -Total Square Cm 0.30 -Wound/Ulcer Outcome Not Healed -Ulcer Cleansing Rinsed/ Irrigated with Saline -Foul Odor after Cleansing No -Bioengineered Tissue Yes -Type of bioengineered Tissue GRAFIX-Pime -Expiration Date 09/11/19 -Product Lot Number [id number] -Percent Used 100 -Saline Lot Number [id number] -Bleeding Controlled with Pressure -Offloading No -Treatment Response Procedure Tolerated Well [See Physician Procedure note for Specifics] Pain Scale: 0-10 Numeric [Pain] -Is Patient Pain Free? Yes Musculoskeletal: No Muscle Wasting Neurological: Cranial nerves II-XII grossly intact Psych/Mental Status: Normal Affect Debridement Note Post-Debridement Measurements/Treatment - Nurse 2 - General Ulcer CM Notes Start: 04/10/19 11:59 Freq: Status: Active Protocol: Activity Type Activity Date Activity User E-Sign Co-Sign Detail Recorded Client Recorded Date Recorded By Document 04/10/19 12:24 MW [id number] 04/10/19 12:30 MW 10/03/19 12:24 Wound Center Nurse 2 #1 LLKavon Med -Time 12:24 -Correct Patient Yes -Correct Side, Site, Position Yes -Correct Procedure Yes -Procedure Performed Yes -Type of Procedure Debridement -Clinical Debridement Subcutaneous -Post Debridement Size (cm) - Length 0.6 -Post Debridement Size (cm) - Width 0.5 -Post Debridement Size (cm) - Depth 0.1 -Total Square Cm 0.30 -Wound/Ulcer Outcome Not Healed -Ulcer Cleansing Rinsed/ Irrigated with Saline -Foul Odor after Cleansing No -Bioengineered Tissue Yes -Type of bioengineered Tissue GRAFIX-Pime -Expiration Date 09/11/19 -Product Lot Number [id number] -Percent Used 100 -Saline Lot Number [id number] -Bleeding Controlled with Pressure -Offloading No -Treatment Response Procedure Tolerated Well Pain Scale: 0-10 Numeric Is Patient Pain Free? 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 Plan: Debridement done as documented above, procedure was well tolerated. 3rd application of Grafix done today using 100% of product. Moistened with saline and adaptic touch over top. Double layer Tubi hotshot superintendent for edema management. He was also advised to exercise as tolerated, elevate lower extremities when seated and in bed and avoid ildle standing. Increased protein intake also recommended. His questions were answered and he was advised to call with any further questions or concerns. Follow up in 1 week.
[2019-04-17 10:59] VITALS: BP 132/76; PULSE 69; RESP 18; TEMP 36.6; BMI 27.2
--- NOTE | 2019-04-17 11:28 | PN.PCM_ITS ---
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 History of Wound: Mr. Quiñonez is an 78 year old who was referred by his PCP due t o non healing left lower extremity ulcer. Initial noted in November. Denies nay known precipitating factor but did state that he had much worse lower extremity swelling at that time. He was seen at an urgent care and advised to apply neosporin ointment and was also treated with oral antibiotics. He did this for about 3 months without any significnat improvement. He subsequentky followed up with his PCP and was reffered here. He attests to mild drainage and pain. He however deneis chills, fever or otherwise feeling of unwell. Progress of Wound: No new concerns at this time. Improving. Has had 3 application of Grafix so far. - Physical Exam Vital Signs Temp Pulse Resp BP 98 F 69 18 132/76 H 04/17/19 10:59 04/17/19 10:59 04/17/19 10:59 04/17/19 10:59 General: Alert, Oriented x3, Cooperative, No apparent distress HEENT: Atraumatic, Normocephalic Oral: Moist Mucosa Neck: Supple Lungs: Normal air movement Skin: Ulcer/ Wound Wound Measurements and Assessment WC - Nurse 1 - General Ulcer Measurement Start: 04/10/19 11:59 Freq: Status: Active Protocol: Activity Type Activity Date Activity User E-Sign Co-Sign Detail Recorded Client Recorded Date Recorded By Document 04/17/19 10:59 RB [id number] 04/17/19 11:01 RB 04/17/19 10:59 Wound Center Nurse 1 [Ulcer Assessment] #1 LLE Med -Combined with other wound No -Current Size (cm) - Length 0.1 -Current Size (cm) - Width 0.1 -Current Size (cm) - Depth 0.1 -Total Square Cm 0.01 -Tunneling No -Undermining/Tunneling No -Circular Undermining No -Exudate Amt Small -Exudate Type Serosanguineous -Wound Margin Flat & Intact -Granulation Amt Small (1-33%) -Granulation Quality [place] -Slough/Fibrin Yes -Necrosis Amt Large (67-100%) -Necrotic Tissue Type Adherent Slough -Structure Exposed N/A -Texture (Julia-wound Skin Appearance) Assessed -Moisture (Julia-wound Skin Appearance Assessed ) -Color (Julia-wound Skin Appearance) Assessed -Temperature (Julia-wound Skin No Abnormality Appearance) (Pt Warm) -Tenderness on Palpation (Julia-wound No Skin Appearance) -Ulcer Cleansing Wound Cleanser -Foul Odor after Cleansing No -Anesthetic Used 5% Lidocaine Gel [Edema Assessment] -Lower Limb Edema Present Yes -Left Calf (cm) 32.5 -Left Ankle (cm) 20 WC - Nurse 2 - General Ulcer CM Notes Start: 04/10/19 11:59 Freq: Status: Active Protocol: Activity Type Activity Date Activity User E-Sign Co-Sign Detail Recorded Client Recorded Date Recorded By Document 04/17/19 11:20 MW [id number] 04/17/19 11:27 MW 04/17/19 11:20 Wound Center Nurse 2 [Procedure/Treatment] #1 LLE Med -Time 11:20 -Correct Patient Yes -Correct Side, Site, Position Yes -Correct Procedure Yes -Procedure Performed Yes -Type of Procedure Debridement -Clinical Debridement Subcutaneous -Post Debridement Size (cm) - Length 0.4 -Post Debridement Size (cm) - Width 0.4 -Post Debridement Size (cm) - Depth 0.1 -Total Square Cm 0.16 -Wound/Ulcer Outcome Not Healed -Ulcer Cleansing Rinsed/ Irrigated with Saline -Foul Odor after Cleansing No -Bioengineered Tissue Yes -Type of bioengineered Tissue GRAFIX-Pime -Expiration Date 09/11/19 -Product Lot Number [id number] -Percent Used 100 -Saline Lot Number [id number] -Bleeding Controlled with Pressure -Offloading No -Treatment Response Procedure Tolerated Well [See Physician Procedure note for Specifics] Pain Scale: 0-10 Numeric [Pain] -Is Patient Pain Free? Yes Musculoskeletal: No Muscle Wasting Neurological: Cranial nerves II-XII grossly intact Psych/Mental Status: Normal Affect Debridement Note Post-Debridement Measurements/Treatment WC - Nurse 2 - General Ulcer CM Notes Start: 04/10/19 11:59 Freq: Status: Active Protocol: Activity Type Activity Date Activity User E-Sign Co-Sign Detail Recorded Client Recorded Date Recorded By Document 04/10/19 12:24 MW [id number] 04/10/19 12:30 MW Document 04/17/19 11:20 MW [id number] 04/17/19 11:27 MW 04/10/19 04/17/19 12:24 11:20 Wound Center Nurse 2 #1 LLE Med -Time 12:24 11:20 -Correct Patient Yes Yes -Correct Side, Site, Position Yes Yes -Correct Procedure Yes Yes -Procedure Performed Yes Yes -Type of Procedure Debridement Debridement -Clinical Debridement Subcutaneous Subcutaneous -Post Debridement Size (cm) - Length 0.6 0.4 -Post Debridement Size (cm) - Width 0.5 0.4 -Post Debridement Size (cm) - Depth 0.1 0.1 -Total Square Cm 0.30 0.16 -Wound/Ulcer Outcome Not Healed Not Healed -Ulcer Cleansing Rinsed/ Rinsed/ Irrigated with Irrigated with Saline Saline -Foul Odor after Cleansing No No -Bioengineered Tissue Yes Yes -Type of bioengineered Tissue GRAFIX-Pime GRAFIX-Pime -Expiration Date 09/11/19 09/11/19 -Product Lot Number [id number] -Percent Used 100 100 -Saline Lot Number [id number] -Bleeding Controlled with Pressure Pressure -Offloading No No -Treatment Response Procedure Procedure Tolerated Well Tolerated Well Pain Scale: 0-10 Numeric Is Patient Pain Free? 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 Plan: Debridement done as documented above, procedure was well tolerated. 4th application of Grafix done today using 100% of product. Moistened with saline and adaptic touch over top. Double layer Tubi slope hoist operator for edema management. He was also advised to exercise as tolerated, elevate lower extremities when seated and in bed and avoid ildle standing. Increased protein intake also recommended. His questions were answered and he was advised to call with any further questions or concerns. Follow up in 1 week.
[2019-04-24 09:50] VITALS: BP 132/75; PULSE 77; RESP 16; TEMP 35.6; BMI 27.2
--- NOTE | 2019-04-24 10:32 | PN.PCM_ITS ---
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 History of Wound: Mr. Quiñonez is an 78 year old who was referred by his PCP due t o non healing left lower extremity ulcer. Initial noted in November. Denies nay known precipitating factor but did state that he had much worse lower extremity swelling at that time. He was seen at an urgent care and advised to apply neosporin ointment and was also treated with oral antibiotics. He did this for about 3 months without any significnat improvement. He subsequentky followed up with his PCP and was reffered here. He attests to mild drainage and pain. He however deneis chills, fever or otherwise feeling of unwell. Progress of Wound: No new concerns at this time. Minimal area left. - Physical Exam Vital Signs Temp Pulse Resp BP 96.0 F L 77 16 132/75 H 04/24/19 09:50 04/24/19 09:50 04/24/19 09:50 04/24/19 09:50 General: Alert, No apparent distress HEENT: Atraumatic, Normocephalic Oral: Moist Mucosa Neck: Supple Extremities: No clubbing Skin: Ulcer/ Wound Wound Measurements and Assessment WC - Nurse 1 - General Ulcer Measurement Start: 04/10/19 11:59 Freq: Status: Active Protocol: Activity Type Activity Date Activity User E-Sign Co-Sign Detail Recorded Client Recorded Date Recorded By Document 04/24/19 09:50 [id number] 04/24/19 09:56 CS 04/24/19 09:50 Wound Center Nurse 1 [Ulcer Assessment] #1 LLE Med -Combined with other wound No -Current Size (cm) - Length 0.1 -Current Size (cm) - Width 0.1 -Current Size (cm) - Depth 0.1 -Total Square Cm 0.01 -Photo Taken No -Epithelialization Medium 34-66% -Tunneling No -Undermining/Tunneling No -Circular Undermining No -Exudate Amt None Present -Wound Margin Distinct, Outline Attached -Granulation Amt None Present (0 %) -Granulation Quality N/A -Necrosis Amt Large (67-100%) -Necrotic Tissue Type Eschar -Structure Exposed N/A -Texture (Julia-wound Skin Appearance) No Abnormality, Assessed -Moisture (Julia-wound Skin Appearance No Abnormality, ) Assessed -Color (Julia-wound Skin Appearance) No Abnormality, Assessed -Temperature (Julia-wound Skin No Abnormality Appearance) (Pt Warm) -Tenderness on Palpation (Julia-wound No Skin Appearance) -Ulcer Cleansing Rinsed/ Irrigated with Saline -Foul Odor after Cleansing No -Anesthetic Used 5% Lidocaine Gel [Edema Assessment] -Lower Limb Edema Present No -Left Calf (cm) 32.0 -Left Ankle (cm) 19.6 WC - Nurse 2 - General Ulcer CM Notes Start: 04/10/19 11:59 Freq: Status: Active Protocol: Activity Type Activity Date Activity User E-Sign Co-Sign Detail Recorded Client Recorded Date Recorded By Document 04/24/19 10:01 MW [id number] 04/24/19 10:04 MW 04/24/19 10:01 Wound Center Nurse 2 [Procedure/Treatment] #1 LLE Med -Time 10:02 -Correct Patient Yes -Correct Side, Site, Position Yes -Correct Procedure Yes -Procedure Performed Yes -Type of Procedure Debridement -Clinical Debridement Selective -Post Debridement Size (cm) - Length 0.1 -Post Debridement Size (cm) - Width 0.1 -Post Debridement Size (cm) - Depth 0.1 -Total Square Cm 0.01 -Wound/Ulcer Outcome Not Healed -Ulcer Cleansing Rinsed/ Irrigated with Saline -Foul Odor after Cleansing No -Bioengineered Tissue No -Bleeding Controlled with Pressure -Offloading No -Treatment Response Procedure Tolerated Well [See Physician Procedure note for Specifics] Pain Scale: 0-10 Numeric [Pain] -Is Patient Pain Free? Yes Musculoskeletal: No Muscle Wasting Neurological: Cranial nerves II-XII grossly intact Psych/Mental Status: Normal Affect Debridement Note Post-Debridement Measurements/Treatment WC - Nurse 2 - General Ulcer CM Notes Start: 04/10/19 11:59 Freq: Status: Active Protocol: Activity Type Activity Date Activity User E-Sign Co-Sign Detail Recorded Client Recorded Date Recorded By Document 04/10/19 12:24 MW [id number] 04/10/19 12:30 MW Document 04/17/19 11:20 MW [id number] 04/17/19 11:27 MW Document 04/24/19 10:01 MW [id number] 04/24/19 10:04 MW 04/10/19 04/17/19 04/24/19 12:24 11:20 10:01 Wound Center Nurse 2 #1 LARISA Med -Time 12:24 11:20 10:02 -Correct Patient Yes Yes Yes -Correct Side, Site, Position Yes Yes Yes -Correct Procedure Yes Yes Yes -Procedure Performed Yes Yes Yes -Type of Procedure Debridement Debridement Debridement -Clinical Debridement Subcutaneous Subcutaneous Selective -Post Debridement Size (cm) - Length 0.6 0.4 0.1 -Post Debridement Size (cm) - Width 0.5 0.4 0.1 -Post Debridement Size (cm) - Depth 0.1 0.1 0.1 -Total Square Cm 0.30 0.16 0.01 -Wound/Ulcer Outcome Not Healed Not Healed Not Healed -Ulcer Cleansing Rinsed/ Rinsed/ Rinsed/ Irrigated with Irrigated with Irrigated with Saline Saline Saline -Foul Odor after Cleansing No No No -Bioengineered Tissue Yes Yes No -Type of bioengineered Tissue GRAFIX-Pime GRAFIX-Pime -Expiration Date 09/11/19 09/11/19 -Product Lot Number [id number] -Percent Used 100 100 -Saline Lot Number [id number] -Bleeding Controlled with Pressure Pressure Pressure -Offloading No No No -Treatment Response Procedure Procedure Procedure Tolerated Well Tolerated Well Tolerated Well Pain Scale: 0-10 Numeric Is Patient Pain Free? Yes Yes Yes Wound debrided: Left leg Type of Debridement: Selective debridement Anesthesia Used: 4% Lidocaine Solution Depth: Down to and including healthy tissue Percentage of wound debrided: 100 Instrument Used: - - 1mm Tissue Removed: Devitalized tissue Severity: Fat Layer Exposed Amount of bleeding with debridement: Mild Bleeding Controlled with: Pressure Patient tolerated procedure well Assessment/Plan Active Problems Ulcer of left lower extremity with fat layer exposed (Chronic) Swelling of both lower extremities (Chronic) Assessment: Non healing left lower extremity ulcer likley secondary to Venous insufficiency. Plan: Debridement done as documented above, procedure was well tolerated. Minimal area left. No Grafix applied today. Pomogran daily with adaptic over top. Moisturize skiin adequately. Double layer Tubi well point pumping supervisor for edema management. He was also advised to exercise as tolerated, elevate lower extremities when seated and in bed and avoid ildle standing. Increased protein intake also recommended. His questions were answered and he was advised to call with any further questions or concerns. Follow up in 1 week.
[2019-05-01 09:50] VITALS: BP 123/70; PULSE 79; RESP 18; TEMP 35.9; BMI 27.2
--- NOTE | 2019-05-01 10:10 | PN.PCM_ITS ---
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 History of Wound: Mr. Quiñonez is an 78 year old who was referred by his PCP due t o non healing left lower extremity ulcer. Initial noted in November. Denies nay known precipitating factor but did state that he had much worse lower extremity swelling at that time. He was seen at an urgent care and advised to apply neosporin ointment and was also treated with oral antibiotics. He did this for about 3 months without any significnat improvement. He subsequentky followed up with his PCP and was reffered here. He attests to mild drainage and pain. He however deneis chills, fever or otherwise feeling of unwell. Progress of Wound: No new concerns at this time. Healed. - Physical Exam Vital Signs Temp Pulse Resp BP 96.7 F L 79 18 123/70 H 05/01/19 09:50 05/01/19 09:50 05/01/19 09:50 05/01/19 09:50 General: Alert, Oriented x3, Cooperative, No apparent distress HEENT: Atraumatic, Normocephalic Oral: Moist Mucosa Neck: Supple Lungs: Normal air movement Extremities: No cyanosis, Edema Wound Measurements and Assessment WC - Nurse 1 - General Ulcer Measurement Start: 04/10/19 11:59 Freq: Status: Active Protocol: Activity Type Activity Date Activity User E-Sign Co-Sign Detail Recorded Client Recorded Date Recorded By Document 05/01/19 09:50 DL [id number] 05/01/19 09:57 DL 05/01/19 09:50 Wound Center Nurse 1 [Ulcer Assessment] #1 LLE Med -Current Size (cm) - Length 0.1 -Current Size (cm) - Width 0.1 -Current Size (cm) - Depth 0.1 -Total Square Cm 0.01 -Photo Taken No -Exudate Amt None Present -Wound Margin Flat & Intact -Granulation Amt Large (67-100%) -Granulation Quality Grimsley -Necrosis Amt None Present (0 %) -Structure Exposed N/A -Texture (Julia-wound Skin Appearance) Scarring -Moisture (Julia-wound Skin Appearance No Abnormality, ) Dry/Scaly -Color (Julia-wound Skin Appearance) Hemosiderin Staining -Temperature (Julia-wound Skin No Abnormality Appearance) (Pt Warm) -Tenderness on Palpation (Julia-wound No Skin Appearance) -Ulcer Cleansing Rinsed/ Irrigated with Saline -Foul Odor after Cleansing No -Anesthetic Used 5% Lidocaine Gel [Edema Assessment] -Left Calf (cm) 31 -Left Ankle (cm) 18.7 WC - Nurse 2 - General Ulcer CM Notes Start: 04/10/19 11:59 Freq: Status: Active Protocol: Activity Type Activity Date Activity User E-Sign Co-Sign Detail Recorded Client Recorded Date Recorded By Document 05/01/19 10:07 MW [id number] 05/01/19 10:08 MW 05/01/19 10:07 Wound Center Nurse 2 [Procedure/Treatment] #1 LLE Med -Time 10:08 -Correct Patient Yes -Correct Side, Site, Position Yes -Correct Procedure Yes -Procedure Performed No -Post Debridement Size (cm) - Length 0 -Post Debridement Size (cm) - Width 0 -Post Debridement Size (cm) - Depth 0 -Total Square Cm 0 -Wound/Ulcer Outcome Healed- Epithelialized [See Physician Procedure note for Specifics] Pain Scale: 0-10 Numeric [Pain] -Is Patient Pain Free? Yes Musculoskeletal: No Muscle Wasting Neurological: Cranial nerves II-XII grossly intact Debridement Note Post-Debridement Measurements/Treatment - Nurse 2 - General Ulcer CM Notes Start: 04/10/19 11:59 Freq: Status: Active Protocol: Activity Type Activity Date Activity User E-Sign Co-Sign Detail Recorded Client Recorded Date Recorded By Document 04/10/19 12:24 MW [id number] 04/10/19 12:30 MW Document 04/17/19 11:20 MW [id number] 04/17/19 11:27 MW Document 04/24/19 10:01 MW [id number] 04/24/19 10:04 MW Document 05/01/19 10:07 MW [id number] 05/01/19 10:08 MW 04/10/19 04/17/19 04/24/19 12:24 11:20 10:01 Wound Center Nurse 2 #1 [facility] Med -Time 12:24 11:20 10:02 -Correct Patient Yes Yes Yes -Correct Side, Site, Position Yes Yes Yes -Correct Procedure Yes Yes Yes -Procedure Performed Yes Yes Yes -Type of Procedure Debridement Debridement Debridement -Clinical Debridement Subcutaneous Subcutaneous Selective -Post Debridement Size (cm) - Length 0.6 0.4 0.1 -Post Debridement Size (cm) - Width 0.5 0.4 0.1 -Post Debridement Size (cm) - Depth 0.1 0.1 0.1 -Total Square Cm 0.30 0.16 0.01 -Wound/Ulcer Outcome Not Healed Not Healed Not Healed -Ulcer Cleansing Rinsed/ Rinsed/ Rinsed/ Irrigated with Irrigated with Irrigated with Saline Saline Saline -Foul Odor after Cleansing No No No -Bioengineered Tissue Yes Yes No -Type of bioengineered Tissue GRAFIX-Pime GRAFIX-Pime -Expiration Date 09/11/19 09/11/19 -Product Lot Number [id number] -Percent Used 100 100 -Saline Lot Number [id number] -Bleeding Controlled with Pressure Pressure Pressure -Offloading No No No -Treatment Response Procedure Procedure Procedure Tolerated Well Tolerated Well Tolerated Well Pain Scale: 0-10 Numeric Is Patient Pain Free? Yes Yes Yes 05/01/19 10:07 Wound Center Nurse 2 #1 [facility] Med -Time 10:08 -Correct Patient Yes -Correct Side, Site, Position Yes -Correct Procedure Yes -Procedure Performed No -Type of Procedure -Clinical Debridement -Post Debridement Size (cm) - Length 0 -Post Debridement Size (cm) - Width 0 -Post Debridement Size (cm) - Depth 0 -Total Square Cm 0 -Wound/Ulcer Outcome Healed- Epithelialized -Ulcer Cleansing -Foul Odor after Cleansing -Bioengineered Tissue -Type of bioengineered Tissue -Expiration Date -Product Lot Number -Percent Used -Saline Lot Number -Bleeding Controlled with -Offloading -Treatment Response Pain Scale: 0-10 Numeric Is Patient Pain Free? 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 Plan: Healed. No new concerns at this time. Pomogran and adaptic for 1 week then adaptic over area x 2 weeks. Call with any concerns. Moisturize skiin adequately. Double layer Tubi key worker for edema management. He was also advised to exercise as tolerated, elevate lower extremities when seated and in bed and avoid ildle standing. His questions were answered and he was advised to call with any further questions or concerns. Discharged from the wound clinic.
--- NOTE | 2019-05-01 10:20 | WC ---
healed photo taken of wound . adaptic and gauze applied to healed area.
== END 2019-05-08 23:59 ==
LOC: WC 09:45
PROVIDERS: Family Provider Family Medicine; PCP Family Medicine; Visit Provider Internal Medicine
DX: I87.2 Venous insufficiency (chronic) (peripheral) (principal); L97.822 Non-pressure chronic ulcer of other part of left lower leg with fat layer exposed; M79.89 Other specified soft tissue disorders
CPT/HCPCS: 15271; 97597; 99213; Q4132; Q4133; G0463

== ENCOUNTER 2019-12-08 10:05 | Emergency (ER) | payer MEDICARE, BC, SELFPAY ==
[2019-12-08 10:06] VITALS: BP 152/91; PULSE 86; RESP 17; TEMP 36.1; O2SAT 91; BMI 25.9
--- NOTE | 2019-12-08 10:17 | ED.VIS.GEN ---
History of Present Illness Chief Complaint: Nosebleed Narrative: Patient is an 79-year-old male who presents with epistaxis. Couple of weeks ago his warfarin dosing was increased because his INR was subtherapeutic. His last INR was 2.2 about 1 week ago. He has been having intermittent nosebleeds over the past 5 days. This has mostly been from the left side. His current episode began while in the shower just before presentation here. He otherwise denies any recent illness such as fevers cough congestion rhinorrhea vomiting chest pain shortness of breath. Past Medical History - Allergies and Home Meds Allergies/Adverse Reactions: Allergies No Known Allergies Allergy (Verified 12/08/19 10:06) Primary Care Physician: Vin Zuñiga MD [Primary Care Provider] - Past Medical History: - - Atrial fibrillation Smoking Status: Former smoker Review of Systems All systems negative except as indicated General: Denies: Fever Eyes: Denies: Visual changes - bilaterally ENT: Reports: - - Epistaxis. Denies: Bilateral ear pain Cardiovascular: Denies: Chest pain Respiratory: Denies: Dyspnea Gastrointestinal: Denies: Nausea, Vomiting Skin: Denies: Rash Neurological: Denies: Headache Hematologic: Reports: Easy bleeding Allergy: Denies: Uticaria Physical Exam Vital Signs/Narrative: Vital Signs Temp Pulse Resp BP Pulse Ox 12/08/19 10:06 96.9 F L 86 17 152/91 H 91 Inital Vital Signs reviewed: Yes General: Well nourished Head: Normocephalic Eyes: EOMI ENT: - - Dried blood and mild oozing bilateral nares no clots unable to identify definite source of bleeding Cardiovascular: Regular rate Respiratory: No distress Skin: Normal color Neurological: Alert Psychological: Normal affect Diagnostic/Tx/Re-eval Laboratory Last Values PT 23.6 SECONDS (11.7-14.9) H 12/08/19 10:35 INR 2.2 12/08/19 10:35 - Medical Decision Making INR 2.2. At initial presentation patient had no brisk bleeding but did have some bilateral oozing. Afrin was sprayed in both nostrils. FloSeal was used bilaterally. Patient has been observed. His bleeding has remained controlled. No active bleeding on reevaluation. Patient referred to otolaryngology for outpatient follow-up and understands to return for new worsening or recurrent symptoms. He is agreeable with this plan. Patient was discharged. ED Disposition - Plan for ED Patient: Disposition: Home or Assisted Living Diagnosis: Epistaxis Instructions: ED Epistaxis Adult Referrals: Vin Zuñiga MD [Primary Care Provider] - Colton Paz MD [STAFF PHYSICIAN] -
[2019-12-08 10:51] LABS: International Normalized Ratio 2.2; Prothrombin Time (Protime)PT. 23.6 SECONDS (11.7-14.9)
[2019-12-08] MEDS: Oxymetazoline 0.05% 1 SPRAY SPRAY.BTL 2 SPRAY NASAL (12:12)
== END 2019-12-08 12:16 | disposition home or self-care (01) ==
PROVIDERS: Emergency Provider Emergency Medicine; PCP Family Medicine
DX: R04.0 Epistaxis (principal); I48.91 Unspecified atrial fibrillation; Z87.891 Personal history of nicotine dependence
CPT/HCPCS: 85610; 99282

== ENCOUNTER 2020-03-16 09:47 | Outpatient (RCR) | payer MEDICARE, BC, SELFPAY ==
[2020-03-16 10:54] LABS: International Normalized Ratio 2.6; Prothrombin Time (Protime)PT. 27.4 SECONDS (11.7-14.9)
== END 2020-03-16 18:00 | disposition home or self-care (01) ==
LOC: LAB 09:47
PROVIDERS: PCP Family Medicine
DX: I48.21 Permanent atrial fibrillation (principal)
CPT/HCPCS: 36415; 85610

== ENCOUNTER → 2020-03-30 11:28 | Outpatient (CLI) | payer MEDICARE, BC, SELFPAY ==
[2020-03-30 15:54] LABS: Hematocrit 49.3 % (40-54); Hemoglobin 15.8 g/dL (13.0-16.5); Mean Corpuscular Hgb 32.3 pg (27.0-32.0); Mean Corpuscular Volume 100.8 fL (80-94); Mean Platelet Vol. 9.9 fl (6.2-12.0); Platelet Count 205 K/mm3 (150-450); RBC Distribution Width CV 13.2 % (11.6-14.6); RBC Distribution Width SD 48.7 fl (35.1-43.9); Red Blood Count 4.89 M/mm3 (4.6-6.2); White Blood Count 8.1 K/mm3 (4.4-11.0)
[2020-03-30 16:31] LABS: Iron 106 ug/dL (65-175)
[2020-03-30 16:49] LABS: Erythrocyte Sedimentation Rate 5 mm/hr (0-20)
== END ==
PROVIDERS: PCP Family Medicine; Referring Provider Internal Medicine Gastroenterology; Visit Provider Internal Medicine Gastroenterology
DX: D64.9 Anemia, unspecified (principal); K62.5 Hemorrhage of anus and rectum
CPT/HCPCS: 36415; 83540; 85027; 85652

== ENCOUNTER 2020-04-15 09:47 | Outpatient (RCR) | payer MEDICARE, BC, SELFPAY ==
[2020-04-15 10:14] LABS: International Normalized Ratio 2.3; Prothrombin Time (Protime)PT. 25.2 SECONDS (11.7-14.9)
== END 2020-04-15 18:00 | disposition home or self-care (01) ==
LOC: LAB 09:47
PROVIDERS: PCP Family Medicine
DX: I48.21 Permanent atrial fibrillation (principal)
CPT/HCPCS: 36415; 85610

== ENCOUNTER → 2020-04-21 09:18 | Outpatient (CLI) | payer MEDICARE, BC, SELFPAY ==
[2020-04-21 10:55] LABS: Digoxin Level 1.77 ng/mL (0.80-2.00)
== END ==
PROVIDERS: PCP Family Medicine
DX: I48.21 Permanent atrial fibrillation (principal)
CPT/HCPCS: 36415; 80162

== ENCOUNTER 2020-05-12 10:20 | Outpatient (RCR) | payer MEDICARE, BC, SELFPAY ==
[2020-05-12 11:29] LABS: International Normalized Ratio 2.5; Prothrombin Time (Protime)PT. 26.7 SECONDS (11.7-14.9)
== END 2020-05-12 18:00 | disposition home or self-care (01) ==
LOC: LAB 10:20
PROVIDERS: PCP Family Medicine
DX: I48.21 Permanent atrial fibrillation (principal)
CPT/HCPCS: 36415; 85610

== ENCOUNTER 2020-06-16 10:16 | Outpatient (RCR) | payer MEDICARE, BC, SELFPAY ==
[2020-06-16 11:14] LABS: International Normalized Ratio 2.3; Prothrombin Time (Protime)PT. 24.8 SECONDS (11.7-14.9)
== END 2020-06-16 18:00 | disposition home or self-care (01) ==
LOC: LAB 10:16
PROVIDERS: PCP Family Medicine
DX: I48.21 Permanent atrial fibrillation (principal)
CPT/HCPCS: 36415; 85610

== ENCOUNTER 2020-07-15 10:20 | Outpatient (RCR) | payer MEDICARE, BC, SELFPAY ==
[2020-07-15 12:56] LABS: International Normalized Ratio 2.2; Prothrombin Time (Protime)PT. 23.6 SECONDS (11.7-14.9)
== END 2020-07-15 18:00 | disposition home or self-care (01) ==
LOC: LAB 10:20
PROVIDERS: PCP Family Medicine
DX: I48.21 Permanent atrial fibrillation (principal)
CPT/HCPCS: 36415; 85610

== ENCOUNTER 2020-08-18 09:43 | Outpatient (RCR) | payer MEDICARE, BC, SELFPAY ==
[2020-08-18 11:07] LABS: International Normalized Ratio 2.3; Prothrombin Time (Protime)PT. 24.6 SECONDS (11.7-14.9)
== END 2020-08-18 18:00 | disposition home or self-care (01) ==
LOC: LAB 09:43
PROVIDERS: PCP Family Medicine
DX: I48.21 Permanent atrial fibrillation (principal)
CPT/HCPCS: 36415; 85610

== ENCOUNTER 2020-09-16 09:20 | Outpatient (RCR) | payer MEDICARE, BC, SELFPAY ==
[2020-09-16 10:15] LABS: Prothrombin Time (Protime)PT. 22.1 SECONDS (11.7-14.9)
== END 2020-09-16 18:00 | disposition home or self-care (01) ==
LOC: LAB 09:20
PROVIDERS: PCP Family Medicine
DX: I48.21 Permanent atrial fibrillation (principal)
CPT/HCPCS: 36415; 85610

== ENCOUNTER 2020-11-03 09:29 | Outpatient (RCR) | payer MEDICARE, BC, SELFPAY ==
[2020-10-19 10:24] LABS: International Normalized Ratio 1.9
[2020-11-03 09:51] LABS: International Normalized Ratio 2.5
== END 2020-11-03 18:00 | disposition home or self-care (01) ==
LOC: LAB 09:29
PROVIDERS: PCP Family Medicine
DX: I48.21 Permanent atrial fibrillation (principal)
CPT/HCPCS: 36415; 85610

== ENCOUNTER 2020-11-17 09:24 | Outpatient (RCR) | payer MEDICARE, BC, SELFPAY ==
[2020-11-17 10:07] LABS: International Normalized Ratio 2.1; Prothrombin Time (Protime)PT. 22.8 SECONDS (11.7-14.9)
== END 2020-11-17 18:00 | disposition home or self-care (01) ==
LOC: LAB 09:24
PROVIDERS: PCP Family Medicine
DX: I48.21 Permanent atrial fibrillation (principal)
CPT/HCPCS: 36415; 85610

== ENCOUNTER 2020-12-29 09:27 | Outpatient (RCR) | payer MEDICARE, BC, SELFPAY ==
[2020-12-15 10:05] LABS: International Normalized Ratio 2.8; Prothrombin Time (Protime)PT. 28.4 SECONDS (11.7-14.9)
[2020-12-29 10:42] LABS: International Normalized Ratio 2.1; Prothrombin Time (Protime)PT. 22.9 SECONDS (11.7-14.9)
== END 2020-12-29 18:00 | disposition home or self-care (01) ==
LOC: LAB 09:27
PROVIDERS: PCP Family Medicine
DX: I48.21 Permanent atrial fibrillation (principal)
CPT/HCPCS: 36415; 85610

== ENCOUNTER 2021-02-03 09:19 | Outpatient (RCR) | payer MEDICARE, BC, SELFPAY ==
[2021-01-12 10:05] LABS: International Normalized Ratio 2.1; Prothrombin Time (Protime)PT. 22.8 SECONDS (11.7-14.9)
[2021-02-03 09:42] LABS: International Normalized Ratio 1.8
== END 2021-02-03 18:00 | disposition home or self-care (01) ==
LOC: LAB 09:19
PROVIDERS: PCP Family Medicine
DX: I48.21 Permanent atrial fibrillation (principal)
CPT/HCPCS: 36415; 85610

== ENCOUNTER 2021-02-16 09:20 | Outpatient (RCR) | payer MEDICARE, BC, SELFPAY ==
[2021-02-16 10:06] LABS: International Normalized Ratio 2.1; Prothrombin Time (Protime)PT. 23.2 SECONDS (11.7-14.9)
== END 2021-02-16 18:00 | disposition home or self-care (01) ==
LOC: LAB 09:20
PROVIDERS: PCP Family Medicine
DX: I48.21 Permanent atrial fibrillation (principal)
CPT/HCPCS: 36415; 85610

== ENCOUNTER 2021-03-22 09:25 | Outpatient (RCR) | payer MEDICARE, BC, SELFPAY ==
[2021-03-08 19:48] VITALS: BMI 25.9
[2021-03-22 10:09] LABS: International Normalized Ratio 2.7; Prothrombin Time (Protime)PT. 27.7 SECONDS (11.7-14.9)
== END 2021-04-20 09:36 | disposition home or self-care (01) ==
LOC: LAB 09:25
PROVIDERS: PCP Family Medicine
DX: I48.21 Permanent atrial fibrillation (principal)
CPT/HCPCS: 36415; 85610

== ENCOUNTER 2021-04-20 09:38 | Outpatient (RCR) | payer MEDICARE, BC, SELFPAY ==
[2021-04-20 09:38] VITALS: BMI 25.9
[2021-04-20 10:50] LABS: International Normalized Ratio 2.2; Prothrombin Time (Protime)PT. 23.9 SECONDS (11.7-14.9)
== END 2021-05-08 03:23 | disposition home or self-care (01) ==
LOC: LAB 09:38
PROVIDERS: PCP Family Medicine
DX: I48.21 Permanent atrial fibrillation (principal)
CPT/HCPCS: 36415; 85610

== ENCOUNTER 2021-05-19 09:52 | Outpatient (RCR) | payer MEDICARE, BC, SELFPAY ==
[2021-05-08 03:23] VITALS: BMI 25.9
[2021-05-19 10:27] LABS: International Normalized Ratio 2.7; Prothrombin Time (Protime)PT. 28.2 SECONDS (11.7-14.9)
== END 2021-06-07 18:00 | disposition home or self-care (01) ==
LOC: LAB 09:52
PROVIDERS: PCP Family Medicine
DX: I48.21 Permanent atrial fibrillation (principal)
CPT/HCPCS: 36415; 85610

== ENCOUNTER 2021-06-13 09:24 | Outpatient (RCR) | payer MEDICARE, BC, SELFPAY ==
[2021-06-08 02:04] VITALS: BMI 25.9
[2021-06-13 10:49] LABS: International Normalized Ratio 3.6; Prothrombin Time (Protime)PT. 35.2 SECONDS (11.7-14.9)
== END 2021-07-09 18:00 | disposition home or self-care (01) ==
LOC: LAB 09:24
PROVIDERS: PCP Family Medicine
DX: I48.21 Permanent atrial fibrillation (principal)
CPT/HCPCS: 36415; 85610

== ENCOUNTER 2021-08-09 09:29 | Outpatient (RCR) | payer MEDICARE, BC, SELFPAY ==
[2021-07-10 03:40] VITALS: BMI 25.9
[2021-08-09 11:26] LABS: International Normalized Ratio 2.5; Prothrombin Time (Protime)PT. 26.6 SECONDS (11.7-14.9)
== END 2021-08-09 18:00 | disposition home or self-care (01) ==
LOC: LAB 09:29
PROVIDERS: PCP Family Medicine
DX: I48.21 Permanent atrial fibrillation (principal)
CPT/HCPCS: 36415; 85610

== ENCOUNTER 2021-09-08 12:02 | Outpatient (RCR) | payer MEDICARE, BC, SELFPAY ==
[2021-09-06 09:22] VITALS: BMI 25.9
[2021-09-07 11:42] LABS: Hematocrit 50.9 % (40-54); Hemoglobin 16.6 g/dL (13.0-16.5); Mean Corp Hgb Conc 32.6 g/dL (32-36); Mean Corpuscular Hgb 32.2 pg (27.0-32.0); Mean Corpuscular Volume 98.8 fL (80-94); Mean Platelet Vol. 9.6 fl (6.2-12.0); Platelet Count 220 K/mm3 (150-450); RBC Distribution Width CV 13.1 % (11.6-14.6); RBC Distribution Width SD 47.8 fl (35.1-43.9); Red Blood Count 5.15 M/mm3 (4.6-6.2); White Blood Count 8.4 K/mm3 (4.4-11.0)
[2021-09-08 12:49] LABS: INR Fingerstick 2.5; Prothrombin Time Fingerstick 29.1 SEC (11.7-14.9)
== END 2021-10-06 18:00 | disposition home or self-care (01) ==
LOC: LAB 12:02
PROVIDERS: PCP Family Medicine
DX: I48.21 Permanent atrial fibrillation (principal)
CPT/HCPCS: 36415; 36416; 85027; 85610

== ENCOUNTER 2021-10-12 09:20 | Outpatient (RCR) | payer MEDICARE, BC, SELFPAY ==
[2021-10-07 01:00] VITALS: BMI 25.9
[2021-10-12 10:29] LABS: INR Fingerstick 2.7; Prothrombin Time Fingerstick 31.4 SEC (11.7-14.9)
== END 2021-10-12 18:00 | disposition home or self-care (01) ==
LOC: LAB 09:20
PROVIDERS: PCP Family Medicine
DX: I48.21 Permanent atrial fibrillation (principal)
CPT/HCPCS: 36416; 85610

== ENCOUNTER 2021-11-30 09:17 | Outpatient (RCR) | payer MEDICARE, BC, SELFPAY ==
[2021-11-06 02:42] VITALS: BMI 25.9
[2021-11-11 07:43] LABS: INR Fingerstick 3.1; Prothrombin Time Fingerstick 35.6 SEC (11.7-14.9)
[2021-11-19 09:18] LABS: INR Fingerstick 2.6; Prothrombin Time Fingerstick 30.4 SEC (11.7-14.9)
[2021-11-30 10:08] LABS: Prothrombin Time Fingerstick 28.1 SEC (11.7-14.9)
[2021-11-30 10:09] LABS: INR Fingerstick 2.4
== END 2021-11-30 18:00 | disposition home or self-care (01) ==
LOC: LAB 09:17
PROVIDERS: PCP Family Medicine
DX: I48.21 Permanent atrial fibrillation (principal)
CPT/HCPCS: 36416; 85610

== ENCOUNTER 2022-01-04 08:47 | Outpatient (RCR) | payer MEDICARE, BC, SELFPAY ==
[2021-12-06 20:19] VITALS: BMI 25.9
[2022-01-04 10:06] LABS: INR Fingerstick 2.1; Prothrombin Time Fingerstick 25.1 SEC (11.7-14.9)
== END 2022-01-04 23:59 | disposition home or self-care (01) ==
LOC: LAB 08:47
PROVIDERS: PCP Family Medicine
DX: I48.21 Permanent atrial fibrillation (principal)
CPT/HCPCS: 36416; 85610

== ENCOUNTER 2022-02-08 09:34 | Outpatient (RCR) | payer MEDICARE, BC, SELFPAY ==
[2022-01-06 06:44] VITALS: BMI 25.9
[2022-02-08 10:42] LABS: INR Fingerstick 2.8; Prothrombin Time Fingerstick 32.6 SEC (11.7-14.9)
== END 2022-02-08 18:00 | disposition home or self-care (01) ==
LOC: LAB 09:34
PROVIDERS: PCP Family Medicine
DX: I48.21 Permanent atrial fibrillation (principal)
CPT/HCPCS: 36416; 85610

== ENCOUNTER 2022-03-17 08:59 | Outpatient (RCR) | payer MEDICARE, BC, SELFPAY ==
[2022-03-08 22:25] VITALS: BMI 25.9
[2022-03-20 08:36] LABS: INR Fingerstick 2.3; Prothrombin Time Fingerstick 27.1 SEC (11.7-14.9)
== END 2022-03-17 18:00 | disposition home or self-care (01) ==
LOC: LAB 08:59
PROVIDERS: PCP Family Medicine
DX: I48.21 Permanent atrial fibrillation (principal)
CPT/HCPCS: 36416; 85610

== ENCOUNTER 2022-04-12 08:48 | Outpatient (RCR) | payer MEDICARE, BC, SELFPAY ==
[2022-04-07 20:26] VITALS: BMI 25.9
[2022-04-12 09:14] LABS: INR Fingerstick 2.8; Prothrombin Time Fingerstick 32.3 SEC (11.7-14.9)
== END 2022-04-12 18:00 | disposition home or self-care (01) ==
LOC: LAB 08:48
PROVIDERS: PCP Family Medicine
DX: I48.21 Permanent atrial fibrillation (principal)
CPT/HCPCS: 36416; 85610

== ENCOUNTER → 2022-04-20 | Outpatient (CLI) | payer MEDICARE, BC, SELFPAY ==
--- NOTE | 2022-04-20 12:50 | ART_ITS ---
Reason For Study: PVD Procedure A bilateral lower extremity continuous wave Doppler with analog waveform analysis,segmental pressures,and ankle brachial indexes without exercise. Left Segmental Pressures Left brachial= 129mmHg. Left thigh = 179mmHg. Left calf = 124mmHg. Left posterior tibial artery = >254mmHg. Left dorsalis pedis artery = 110mmHg. Left digit = 43 mmHg. The left posterior tibial artery waveforms are biphasic. The left dorsalis pedis waveforms are monophasic. Right Segmental Pressures Right brachial= 133mmHg. Right thigh = 181mmHg. Right calf = 130mmHg. Right posterior tibial artery = 114mmHg. Right dorsalis pedis artery = >254mmHg. Right digit = 82 mmHg. The right posterior tibial artery waveforms are biphasic. The right dorsalis pedis waveforms are monophasic. Indices The right ankle brachial index by the dorsalis pedis is N/C. The right ankle brachial index by the posterior tibial artery is 0.86. The right digital-brachial index is 0.62. The left ankle brachial index by the dorsalis pedis is 0.83. The left ankle brachial index by the posterior tibial artery is N/C. The left digital-brachial index is 0.32. VL/Lower Ext Art Exam w/o Exercis Interpretation Summary Right DOUGLAS 0.86, mild arterial insufficiency. Doppler/PVR waveforms and segmenta l pressures reveal distal SFA/popliteal disease Left DOUGLAS 0.83, mild arterial insufficiency. Doppler/PVR waveforms and segmental pressures reveal distal SFA/popliteal disease Ordering Physician: Juni Correia Referring Physician: JUIN CORREIA DPM Performed By: NATALIE WONG [facility]
== END | disposition home or self-care (01) ==
LOC: CVS 12:44
PROVIDERS: PCP Family Medicine; Visit Provider Podiatrist
DX: I73.9 Peripheral vascular disease, unspecified (principal)
CPT/HCPCS: 93923

== ENCOUNTER 2022-05-17 09:01 | Outpatient (RCR) | payer MEDICARE, BC, SELFPAY ==
[2022-05-09 10:02] VITALS: BMI 25.9
[2022-05-17 09:19] LABS: INR Fingerstick 2.4; Prothrombin Time Fingerstick 28.1 SEC (11.7-14.9)
== END 2022-06-07 18:00 | disposition home or self-care (01) ==
LOC: LAB 09:01
PROVIDERS: PCP Family Medicine
DX: I48.21 Permanent atrial fibrillation (principal)
CPT/HCPCS: 36416; 85610

== ENCOUNTER 2022-06-21 09:03 | Outpatient (RCR) | payer MEDICARE, BC, SELFPAY ==
[2022-06-07 22:45] VITALS: BMI 25.9
[2022-06-21 10:43] LABS: INR Fingerstick 2.3; Prothrombin Time Fingerstick 27.1 SEC (11.7-14.9)
== END 2022-06-21 18:00 | disposition home or self-care (01) ==
LOC: LAB 09:03
PROVIDERS: PCP Family Medicine
DX: I48.21 Permanent atrial fibrillation (principal)
CPT/HCPCS: 36416; 85610

== ENCOUNTER 2022-07-19 09:12 | Outpatient (RCR) | payer MEDICARE, BC, SELFPAY ==
[2022-07-08 22:52] VITALS: BMI 25.9
[2022-07-19 14:59] LABS: INR Fingerstick 2.5; Prothrombin Time Fingerstick 29.1 SEC (11.7-14.9)
== END 2022-07-19 11:00 | disposition home or self-care (01) ==
LOC: LAB 09:12
PROVIDERS: PCP Family Medicine
DX: I48.21 Permanent atrial fibrillation (principal)
CPT/HCPCS: 36416; 85610

== ENCOUNTER 2022-08-23 09:11 | Outpatient (RCR) | payer MEDICARE, BC, SELFPAY ==
[2022-08-09 07:53] VITALS: BMI 25.9
[2022-08-23 10:23] LABS: International Normalized Ratio 2.8; Prothrombin Time (Protime)PT. 29.5 SECONDS (11.7-14.9)
[2022-08-23 10:52] LABS: Digoxin Level 1.55 ng/mL (0.80-2.00)
== END 2022-08-23 18:00 | disposition home or self-care (01) ==
LOC: LAB 09:11
PROVIDERS: PCP Family Medicine
DX: I48.21 Permanent atrial fibrillation (principal)
CPT/HCPCS: 36415; 80162; 85610

== ENCOUNTER 2022-09-28 09:17 | Outpatient (RCR) | payer MEDICARE, BC, SELFPAY ==
[2022-09-05 19:51] VITALS: BMI 25.9
== END 2022-10-06 21:30 | disposition home or self-care (01) ==
LOC: LAB 09:17
PROVIDERS: PCP Family Medicine
DX: I48.0 Paroxysmal atrial fibrillation (principal)

== ENCOUNTER 2022-11-01 08:48 | Outpatient (RCR) | payer MEDICARE, BC, SELFPAY ==
[2022-10-06 21:30] VITALS: BMI 25.9
[2022-11-02 12:16] LABS: INR Fingerstick 3.3; Prothrombin Time Fingerstick 35.1 SEC (11.7-14.9)
== END 2022-11-05 00:32 | disposition home or self-care (01) ==
LOC: LAB 08:48
PROVIDERS: PCP Family Medicine
DX: I48.0 Paroxysmal atrial fibrillation (principal)
CPT/HCPCS: 36416; 85610

== ENCOUNTER 2022-12-01 09:09 | Outpatient (RCR) | payer MEDICARE, BC, SELFPAY ==
[2022-11-05 00:32] VITALS: BMI 25.9
[2022-11-16 08:22] LABS: INR Fingerstick 2.9; Prothrombin Time Fingerstick 30.8 SEC (11.7-14.9)
[2022-12-01 09:18] LABS: INR Fingerstick 2.7; Prothrombin Time Fingerstick 29.2 SEC (11.7-14.9)
== END 2022-12-01 11:00 | disposition home or self-care (01) ==
LOC: LAB 09:09
PROVIDERS: PCP Family Medicine; Referring Provider Nurse Practitioner Acute Care; Visit Provider Nurse Practitioner Acute Care
DX: I48.0 Paroxysmal atrial fibrillation (principal)
CPT/HCPCS: 36416; 85610

== ENCOUNTER 2023-01-04 09:15 | Outpatient (RCR) | payer MEDICARE, BC, SELFPAY ==
[2022-12-07 08:10] VITALS: BMI 25.9
[2023-01-04 09:28] LABS: INR Fingerstick 2.7; Prothrombin Time Fingerstick 29.4 SEC (11.7-14.9)
== END 2023-01-04 18:00 | disposition home or self-care (01) ==
LOC: LAB 09:15
PROVIDERS: PCP Family Medicine; Referring Provider Nurse Practitioner Acute Care; Visit Provider Nurse Practitioner Acute Care
DX: I48.0 Paroxysmal atrial fibrillation (principal)
CPT/HCPCS: 36416; 85610

== ENCOUNTER → 2023-01-22 | Outpatient (CLI) | payer MEDICARE, BC, SELFPAY ==
[2023-01-22 10:10] LABS: Absolute Lymphocyte Count 3.09 X10^3/uL (0.83-4.51); Absolute Neutrophil Count 3.2 X10^3/uL (2.0-7.7); Basophil% 1.3 % (0-1); Eosinophil# 0.33 X10^3/uL; Eosinophils% 4.4 % (0-5); Hematocrit 52.4 % (40-54); Lymphocyte # 3.09 X10^3/ul (0.83-4.51); Lymphocyte % 41.1 % (19-41); Mean Corp Hgb Conc 32.4 g/dL (32-36); Mean Corpuscular Hgb 32.7 pg (27.0-32.0); Mean Corpuscular Volume 100.8 fL (80-94); Mean Platelet Vol. 9.9 fl (6.2-12.0); Monocyte# 0.78 X10^3/uL; Monocyte% 10.4 % (0-10); NRBC Flagged by Analyzer 0 % (0-5); Neutrophil # 3.21 X10^3/uL (2.7-7.7); Neutrophil % 42.7 % (47-70); Platelet Count 193 K/mm3 (150-450); RBC Distribution Width CV 13.3 % (11.6-14.6); RBC Distribution Width SD 49.1 fl (35.1-43.9); White Blood Count 7.5 K/mm3 (4.4-11.0)
[2023-01-22 10:35] LABS: ALB/GLOB Ratio 0.8 RATIO (0.9-2.4); AST(SGOT) 49 U/L (15-37); Alanine Aminotransfer ALT/SGPT 84 U/L (16-61); Albumin, Serum 3.4 g/dL (3.2-5.0); Alkaline Phosphatase 99 U/L (45-117); Anion Gap 2 (5-15); BUN 17 mg/dL (7-18); BUN/Creat Ratio 12.6 RATIO (10-20); Calcium,Total 10.1 mg/dL (8.5-10.1); Chloride 105 mmol/L (98-107); Cholesterol 123 mg/dL (200); Creatinine, Serum 1.35 mg/dL (0.70-1.30); EST Glomerular Filtration Rate 54 mL/min (>60); Est Glom Filt Rate - Afr Amer 65 mL/min (>60); Globulin 4.2 g/dL (2.2-4.2); Glucose 120 mg/dL (74-106); High Density Lipoprotein 35 mg/dL; Potassium 4.8 mmol/L (3.5-5.1); Protein, Total 7.6 g/dL (6.4-8.2); Sodium Level 139 mmol/L (136-145); Triglycerides 127 mg/dL; Very Low Density Lipoprotein 25 mg/dL (5-40)
== END | disposition home or self-care (01) ==
LOC: MTLAB 09:09
PROVIDERS: PCP Family Medicine; Referring Provider Family Medicine; Visit Provider Family Medicine
DX: I10 Essential (primary) hypertension (principal); I48.91 Unspecified atrial fibrillation
CPT/HCPCS: 36415; 80053; 80061; 85025

== ENCOUNTER 2023-02-01 09:10 | Outpatient (RCR) | payer MEDICARE, BC, SELFPAY ==
[2023-01-05 21:13] VITALS: BMI 25.9
[2023-02-01 09:21] LABS: INR Fingerstick 2.4; Prothrombin Time Fingerstick 25.9 SEC (11.7-14.9)
[2023-02-01 12:27] LABS: Anion Gap 6 (5-15); BUN 16 mg/dL (7-18); BUN/Creat Ratio 11.1 RATIO (10-20); Calcium,Total 9.6 mg/dL (8.5-10.1); Chloride 104 mmol/L (98-107); Creatinine, Serum 1.44 mg/dL (0.70-1.30); EST Glomerular Filtration Rate 50 mL/min (>60); Est Glom Filt Rate - Afr Amer 60 mL/min (>60); Glucose 120 mg/dL (74-106); Potassium 4.6 mmol/L (3.5-5.1); Sodium Level 141 mmol/L (136-145)
[2023-02-01 13:07] LABS: Hemoglobin A1c 6.2 % (3.8-5.6)
== END 2023-02-05 18:00 | disposition home or self-care (01) ==
LOC: LAB 09:10
PROVIDERS: PCP Family Medicine; Referring Provider Nurse Practitioner Acute Care; Visit Provider Nurse Practitioner Acute Care
DX: I48.0 Paroxysmal atrial fibrillation (principal); R73.9 Hyperglycemia, unspecified
CPT/HCPCS: 36415; 36416; 80048; 83036; 85610

== ENCOUNTER → 2023-02-05 | Outpatient (CLI) | payer MEDICARE, BC, SELFPAY ==
--- NOTE | 2023-02-05 11:00 | RAD_ITS ---
INDICATION: pain EXAMINATION/TECHNIQUE: X-RAY - XR Abdomen W/ Decub and/or Erect Views COMPARISON: None FINDINGS: BOWEL GAS PATTERN: Non-obstructive. Large amount retained stool in the colon. FREE AIR: Not assessed on a single supine view. ORGANOMEGALY: Not seen. CALCIFICATIONS: No abnormal calcifications observed. LOWER CHEST: No acute pathology. BONES AND SOFT TISSUES: No acute pathology. Degenerative changes of the spine and hips. RAD/Abd Inc Decub and/or Erect IMPRESSION: Non-obstructive bowel gas pattern. Large amount retained stool in the colon. Electronically Signed: Jim Stephen MD at 2:30 EDT ,
[2023-02-05 12:42] LABS: Absolute Lymphocyte Count 2.89 X10^3/uL (0.83-4.51); Absolute Neutrophil Count 7.4 X10^3/uL (2.0-7.7); Basophil# 0.07 X10^3/uL; Basophil% 0.6 % (0-1); Eosinophil# 0.08 X10^3/uL; Eosinophils% 0.7 % (0-5); Hemoglobin 17.1 g/dL (13.0-16.5); Lymphocyte # 2.89 X10^3/ul (0.83-4.51); Lymphocyte % 24.5 % (19-41); Mean Corp Hgb Conc 32.9 g/dL (32-36); Mean Corpuscular Hgb 32.5 pg (27.0-32.0); Mean Corpuscular Volume 98.9 fL (80-94); Mean Platelet Vol. 10.4 fl (6.2-12.0); Monocyte# 1.32 X10^3/uL; Monocyte% 11.2 % (0-10); NRBC Flagged by Analyzer 0 % (0-5); Neutrophil # 7.42 X10^3/uL (2.7-7.7); Neutrophil % 62.7 % (47-70); Platelet Count 230 K/mm3 (150-450); RBC Distribution Width CV 12.8 % (11.6-14.6); RBC Distribution Width SD 46.1 fl (35.1-43.9); Red Blood Count 5.26 M/mm3 (4.6-6.2); White Blood Count 11.8 K/mm3 (4.4-11.0)
[2023-02-05 12:44] LABS: Erythrocyte Sedimentation Rate 5 mm/hr (0-20)
[2023-02-05 12:51] LABS: Bacteria 0 SEEN /hpf (None Seen); Mucous, Urine 0 SEEN /hpf (<or=2+); Squamous Epithelial Cells - UA 0 SEEN /hpf (0-5); White Blood Cells 0 SEEN /hpf (0-5)
[2023-02-05 13:18] LABS: Color, Urine Yellow (Yellow); Glucose, Dipstick Normal (Normal); Ketone-Dipstick 5 mg/dl (Negative); Leukocyte Esterase-Dipstick Negative /ul (Negative); Nitrite-Dipstick Negative (Negative); Occult Blood-Urine 25 /ul (Negative); Protein-Dipstick 500 mg/dl (Negative); Urine Bilirubin Dipstick Negative (Negative); Urine Clarity Clear (Clear); Urine Urobilinogen Normal (Normal)
[2023-02-05 13:28] LABS: Red Blood Cells-Urine 0-5 SEEN /hpf (0-5)
[2023-02-05 14:33] LABS: ALB/GLOB Ratio 0.8 RATIO (0.9-2.4); AST(SGOT) 25 U/L (15-37); Alanine Aminotransfer ALT/SGPT 31 U/L (16-61); Albumin, Serum 3.7 g/dL (3.2-5.0); Alkaline Phosphatase 83 U/L (45-117); Amylase 49 U/L (25-115); Anion Gap 8 (5-15); BUN 14 mg/dL (7-18); BUN/Creat Ratio 10.9 RATIO (10-20); Calcium,Total 10.1 mg/dL (8.5-10.1); Chloride 97 mmol/L (98-107); Creatinine, Serum 1.28 mg/dL (0.70-1.30); EST Glomerular Filtration Rate 57 mL/min (>60); Est Glom Filt Rate - Afr Amer 69 mL/min (>60); Globulin 4.6 g/dL (2.2-4.2); Glucose 142 mg/dL (74-106); Lipase 41 U/L (13-75); Potassium 3.3 mmol/L (3.5-5.1); Protein, Total 8.3 g/dL (6.4-8.2); Sodium Level 133 mmol/L (136-145)
== END | disposition home or self-care (01) ==
PROVIDERS: PCP Family Medicine; Referring Provider Family Medicine; Visit Provider Family Medicine
DX: R10.9 Unspecified abdominal pain (principal); R31.9 Hematuria, unspecified
CPT/HCPCS: 36415; 74019; 80053; 81001; 82150; 83690; 85025; 85652; 87086

== ENCOUNTER 2023-02-16 16:50 | Emergency (ER) | payer MEDICARE, BC, SELFPAY ==
[2023-02-16 16:51] VITALS: BP 161/82; PULSE 79; RESP 18; TEMP 36.6; O2SAT 98; BMI 25.2
--- NOTE | 2023-02-16 18:27 | ED.RN ---
PT LWBS [id number]
== END 2023-02-16 18:27 | disposition left against medical advice (07) ==
LOC: ED 18:30
PROVIDERS: PCP Family Medicine
DX: R10.9 Unspecified abdominal pain (principal)

== ENCOUNTER → 2023-02-16 | Outpatient (CLI) | payer MEDICARE, BC, SELFPAY ==
--- NOTE | 2023-02-16 10:56 | CT_ITS ---
STUDY: CT ABDOMEN AND PELVIS WITHOUT CONTRAST REASON FOR EXAM: Male, 82 years old. ABD PAIN RADIATION DOSAGE (If Supplied By Facility): CTDIvol = ( 17.08 ) mGy, DLP = ( 849.90 ) mGycm TECHNIQUE: Transaxial images were obtained from the dome of the diaphragm to the symphysis pubis without oral contrast, and without intravenous contrast. Sagittal and coronal images were reconstructed. Individualized dose optimization techniques were used for this CT. COMPARISON: None. FINDINGS: There is a 1.8 cm x 1.1 cm irregular nodule in the right lower lobe adjacent to the pleural surface. Thickening of the right major fissure. Tiny bilateral pleural effusions. Coronary artery calcification. Normal liver. There are multiple gallstones. Mild thickening of the gallbladder wall. Increased markings in the surrounding peritoneal fat. Cholecystitis should be ruled out. Normal spleen. Normal pancreas. Normal bilateral adrenal glands. Questionable 1.9 cm x 1.9 cm solid nodule in the upper pole of the right kidney. Normal left kidney. Normal visualized stomach. Normal small intestine. There is thickening of the descending colon with increased markings in the surrounding fat. Focal colitis should be ruled out. There are multiple colonic diverticula consistent with diverticulosis. There is non-visualization of the appendix. There is diffuse atherosclerotic calcification of the abdominal aorta and its major visceral branches, without a demonstrated aneurysm. Normal inferior vena cava. Normal retroperitoneum. Normal urinary bladder. There is enlargement of the prostate gland. It measures 4.4 cm x 6.6 cm. This causes indentation at the bladder base. Small amount of free fluid in the pelvis. Normal abdominal wall. There are diffuse degenerative changes of the visualized lumbar spine. CT/Abdomen/Pelvis without Cont IMPRESSION: 1.8 cm x 1.1 cm spiculated nodule in the right lower lobe. Multiple gallstones. Mild degree of gallbladder wall thickening with increased markings in the surrounding fat. Thickening of the ascending colon with increased markings in the surrounding fat. Inflammatory process should be ruled out. Prostatic enlargement with indentation of the bladder base. 1.9 cm x 1.9 sinus all nodule in the upper pole of the right kidney. Electronically Signed: Britton Salvador MD at 11:55 EDT ,
== END | disposition home or self-care (01) ==
LOC: CT 10:12
PROVIDERS: PCP Family Medicine; Referring Provider Family Medicine; Visit Provider Family Medicine
DX: R10.9 Unspecified abdominal pain (principal)
CPT/HCPCS: 74176

== ENCOUNTER 2023-03-08 09:48 | Outpatient (RCR) | payer MEDICARE, BC, SELFPAY ==
[2023-02-06 00:10] VITALS: BMI 25.9
[2023-03-08 10:02] LABS: INR Fingerstick 2.4; Prothrombin Time Fingerstick 26.2 SEC (11.7-14.9)
== END 2023-03-08 18:00 | disposition home or self-care (01) ==
LOC: LAB 09:48
PROVIDERS: Nurse Practitioner Acute Care; PCP Family Medicine; Visit Provider Family Medicine
DX: I48.0 Paroxysmal atrial fibrillation (principal)
CPT/HCPCS: 36416; 85610

== ENCOUNTER → 2023-03-26 | Outpatient (CLI) | payer MEDICARE, BC, SELFPAY ==
--- NOTE | 2023-03-26 13:10 | CT_ITS ---
INDICATION: Incidental lung nodule noted on CT abdomen EXAMINATION: CT CHEST WITHOUT CONTRAST - CT Chest W/O Contrast Injection TECHNIQUE: Helically acquired images were obtained of the chest. A radiation dose optimization technique was used for this scan. IV Contrast dosage and agent: None. RADIATION DOSAGE (If Supplied By Facility): CTDIvol = ( 11.93 ) mGy, DLP = ( 394.23 ) mGycm COMPARISON: CT scan of the abdomen and pelvis of 02/16/2023. FINDINGS: LUNGS, PLEURA AND LARGE AIRWAYS: Persistent 1.6 x 1.6 x 1.4 cm nodular density in the right lower lobe contiguous with linear atelectatic changes extending to the right hilum. Mild stranding/scarring in the left lower lobe. No focal consolidation otherwise is seen. No evidence of pleural effusions. No pneumothorax. THYROID: No thyroid lesions. HEART AND PERICARDIUM: Dextrocardia. Mild cardiomegaly. No pericardial effusion. CORONARY ARTERIES: Coronary artery calcification are seen. VESSELS: Atherosclerotic calcifications and tortuosity of the thoracic aorta without evidence of aneurysm. MEDIASTINUM AND HUDSON: Prominent mediastinal nodes in the aortopulmonic window, the largest measures about 1.7 cm. Mildly dilated distal esophagus with reflect gastroesophageal reflux. No hiatal hernia. UPPER ABDOMEN: No acute pathology. BONES: Degenerative changes of the thoracic spine and increased kyphosis. CT/Chest without Contrast IMPRESSION: 1. Persistent right lower lobe nodule associated with linear atelectatic changes which although it could be due to scarring, malignancy cannot be excluded. Correlation with PET scan is recommended. 2. Prominent mediastinal nodes. 3. Dextrocardia and mild cardiomegaly. Electronically Signed: David Sotomayor MD at 8:58 EDT ,
== END | disposition home or self-care (01) ==
LOC: CT 13:10
PROVIDERS: PCP Family Medicine; Referring Provider Family Medicine; Visit Provider Family Medicine
DX: R91.1 Solitary pulmonary nodule (principal)
CPT/HCPCS: 71250

== ENCOUNTER 2023-04-04 09:15 | Outpatient (RCR) | payer MEDICARE, BC, SELFPAY ==
[2023-03-08 21:52] VITALS: BMI 25.9
[2023-04-04 09:24] LABS: INR Fingerstick 2.2; Prothrombin Time Fingerstick 23.8 SEC (11.7-14.9)
== END 2023-04-04 18:00 | disposition home or self-care (01) ==
LOC: LAB 09:15
PROVIDERS: PCP Family Medicine; Referring Provider Family Medicine; Visit Provider Family Medicine
DX: I48.91 Unspecified atrial fibrillation
CPT/HCPCS: 36416; 85610

== ENCOUNTER → 2023-04-17 | Outpatient (CLI) | payer MEDICARE, BC, SELFPAY ==
--- NOTE | 2023-04-17 08:30 | PET_ITS ---
EXAMINATION: FDG PET-CT INDICATIONS: An 82-year-old male with a history of pulmonary nodularity. COMPARISON EXAMINATION: None available. INDEX LESION SIZE SUV INTERPRETATION Right lower lung field, right lower lobe 1.6 max Quantitative criteria for viable neoplasm are not fulfilled, sequential radiologic investigation recommended. NON-INDEX LESION SIZE SUV INTERPRETATION Carinal level mediastinum 2.3 max Quantitative criteria for viable neoplasm are not fulfilled, TECHNIQUE: Following the intravenous administration of 10.6 mCi of F-18 deoxyglucose, multiplanar image acquisitions of the head, neck, chest, abdomen and pelvis to level of mid-thigh, lower extremities obtained at one hour post radiopharmaceutical administration contemporaneously interpreted with the current CT of the head, neck, chest, abdomen and pelvis to level of mid-thigh, lower extremities dated 04/17/23 via coregistration reveal: HEIGHT: 72 inches. WEIGHT: 182 lbs. FINDINGS: Head/Neck: There is no evidence of abnormal increased glucose metabolism in the pharyngeal mucosal space, parapharyngeal space, bilateral-lateral and anterior neck, hypopharynx and distribution of the laryngeal structures. The visualized portion of the cerebral cortical-subcortical structures demonstrate symmetric and preserved glucose metabolism. CHEST: Enhanced radiopharmaceutical concentration is defined in the right lower posterolateral lung zone, right lower lobe. The calculated maximum standard uptake value is 1.6. Facilitated uptake is noted in the right lower paratracheal lymph node station 4R. The calculated maximum standard uptake value is 2.3. Pertinent chest CT findings are as follows. There is atherosclerotic calcification defined in the thoracic aorta without evidence of dilatation-aneurysm formation. Coronary arterial calcification is observed. Bilateral axillary soft tissue densities are ametabolic. A small right hemithorax pleural effusion demonstrates no evidence of increased tracer uptake. Abdomen/Pelvis: Normal physiologic distribution of the radiopharmaceutical is apparent in the hepatic (3.6) and splenic parenchyma, both renal units, bladder and visualized intestinal tract. Diffuse radiopharmaceutical concentration is noted in all four quadrants of the abdomen and pelvis. Abdomen and pelvis CT findings are as follows. There is atherosclerotic calcification defined in the abdominal aorta without evidence of dilatation-aneurysm formation. Abdominal-pelvic arterial calcification is observed. Calcification is demonstrated in the pancreatic tail. Cholelithiasis is defined. Colonic diverticulosis is noted without evidence of diverticulitis. A fat containing left inguinal hernia is noted. Right and left inguinal soft tissue densities with fatty hilus are ametabolic. Skeletal: Degenerative changes are noted in the cervical, thoracic and lumbar spine. There is no visualized sclerotic-lytic changes manifest on review of the appendicular-axial skeletal structures. PET/PET/CT Tumor Base -Thigh Init IMPRESSION: 1. NEGATIVE EXAMINATION. There is no definitive quantitative scintigraphic evidence of viable neoplasm. 2. Enhanced tracer uptake noted in the right lower lung field, right lower lobe does not fulfill quantitative criteria for malignant transformation. (Munoz et al, Annals of Internal Medicine, 138:724, 2003) 3. Metabolic and/or anatomic stability may be ensured in the right hemithorax pulmonary parenchymal abnormality with repeat FDG PET study and/or CT of the thorax in three-six months if clinically indicated. (Xiu, Journal of Nuclear Medicine 45:88, P2004 Jaqueline, Seminars in Thoracic and Cardiovascular Surgery 14:292, 2002) 4. Facilitated uptake is noted in the carinal level mediastinum to the right of the midline does not fulfill quantitative criteria for malignant transformation. (Keshav gamboa al, Journal of Clinical Oncology 16:2142, 1998) Electronic Signature Kingsley Mejia D.O. Accurate Quantification of SUVs for this report are calculated using the exclusive [employer], ([place].S. Patent No. [id number] [id number] [id number] [place] patent [id number] [id number] ). Standardization and correction of the FDG SUV metric exclusively available with [employer] intellectual property, allow for vendor non-specific objective quantitative sequential FDG PET-CT comparison and otherwise unobtainable optimization of the sensitivity and specificity of the examination. [email or web address] Electronically Signed: Kingsley Mejia DO at 23:28 EDT ,
== END | disposition home or self-care (01) ==
LOC: ONC 08:36
PROVIDERS: PCP Family Medicine; Referring Provider Family Medicine; Visit Provider Family Medicine
DX: R91.1 Solitary pulmonary nodule (principal)
CPT/HCPCS: 78815; A9552

== ENCOUNTER 2023-05-02 09:43 | Outpatient (RCR) | payer MEDICARE, BC, SELFPAY ==
[2023-04-08 01:42] VITALS: BMI 25.9
[2023-05-02 09:50] LABS: INR Fingerstick 2.7; Prothrombin Time Fingerstick 29.4 SEC (11.7-14.9)
== END 2023-05-02 18:00 | disposition home or self-care (01) ==
LOC: LAB 09:43
PROVIDERS: PCP Family Medicine; Referring Provider Family Medicine; Visit Provider Family Medicine
DX: I48.91 Unspecified atrial fibrillation
CPT/HCPCS: 36416; 85610

== ENCOUNTER 2023-06-07 09:23 | Outpatient (RCR) | payer MEDICARE, BC, SELFPAY ==
[2023-05-08 22:46] VITALS: BMI 25.9
[2023-06-07 09:33] LABS: INR Fingerstick 2.3; Prothrombin Time Fingerstick 24.8 SEC (11.7-14.9)
== END 2023-06-07 18:00 | disposition home or self-care (01) ==
LOC: LAB 09:23
PROVIDERS: PCP Family Medicine; Referring Provider Family Medicine; Visit Provider Family Medicine
DX: I48.91 Unspecified atrial fibrillation
CPT/HCPCS: 36416; 85610

== ENCOUNTER 2023-07-05 09:55 | Outpatient (RCR) | payer MEDICARE, BC, SELFPAY ==
[2023-06-08 03:04] VITALS: BMI 25.9
[2023-07-05 11:28] LABS: Anion Gap 3 (5-15); BUN 17 mg/dL (7-18); BUN/Creat Ratio 12.8 RATIO (10-20); Calcium,Total 9.8 mg/dL (8.5-10.1); Chloride 106 mmol/L (98-107); Creatinine, Serum 1.33 mg/dL (0.70-1.30); EST Glomerular Filtration Rate 54 mL/min (>60); Est Glom Filt Rate - Afr Amer 66 mL/min (>60); Glucose 151 mg/dL (74-106); Potassium 4.3 mmol/L (3.5-5.1); Sodium Level 142 mmol/L (136-145)
[2023-07-05 11:31] LABS: Prothrombin Time (Protime)PT. 22.4 SECONDS (11.7-14.9)
== END 2023-07-08 18:00 | disposition home or self-care (01) ==
LOC: LAB 09:55
PROVIDERS: PCP Family Medicine; Referring Provider Family Medicine; Visit Provider Family Medicine
DX: I48.91 Unspecified atrial fibrillation
CPT/HCPCS: 36415; 80048; 85610

== ENCOUNTER 2023-08-08 09:26 | Outpatient (RCR) | payer MEDICARE, BC, SELFPAY ==
[2023-07-08 20:53] VITALS: BMI 25.9
[2023-08-08 09:37] LABS: INR Fingerstick 2.4
== END 2023-08-08 18:00 | disposition home or self-care (01) ==
LOC: LAB 09:26
PROVIDERS: PCP Family Medicine; Referring Provider Family Medicine; Visit Provider Family Medicine
DX: I48.91 Unspecified atrial fibrillation (principal)
CPT/HCPCS: 36416; 85610

== ENCOUNTER 2023-09-05 09:26 | Outpatient (RCR) | payer MEDICARE, BC, SELFPAY ==
[2023-08-08 21:40] VITALS: BMI 25.9
[2023-09-05 09:46] LABS: INR Fingerstick 2.6; Prothrombin Time Fingerstick 26.2 SEC (11.7-14.9)
== END 2023-09-06 18:00 | disposition home or self-care (01) ==
LOC: LAB 09:26
PROVIDERS: PCP Family Medicine; Referring Provider Family Medicine; Visit Provider Family Medicine
DX: I48.91 Unspecified atrial fibrillation
CPT/HCPCS: 36416; 85610

== ENCOUNTER 2023-10-03 09:31 | Outpatient (RCR) | payer MEDICARE, BC, SELFPAY ==
[2023-09-06 22:09] VITALS: BMI 25.9
[2023-10-03 09:46] LABS: INR Fingerstick 2.4; Prothrombin Time Fingerstick 25.1 SEC (11.7-14.9)
== END 2023-10-06 18:00 | disposition home or self-care (01) ==
LOC: LAB 09:31
PROVIDERS: PCP Family Medicine; Referring Provider Family Medicine; Visit Provider Family Medicine
DX: I48.91 Unspecified atrial fibrillation
CPT/HCPCS: 36416; 85610

== ENCOUNTER → 2023-11-26 | Outpatient (CLI) | payer MEDICARE, BC, SELFPAY ==
--- NOTE | 2023-12-03 10:49 | STRESSREP ---
Stress Test Report Date: 11/26/2023 Procedure: Pharmacologic stress nuclear imaging study Indications: Chest pain, dyspnea on exertion Consent: Per the patient Procedure: The patient underwent pharmacologic (Regadenoson) evaluation with a peak heart rate of 112 beats per minute (82%predicted maximal heart rate) and a peak blood pressure of 166/94 mmHg. The baseline ECG demonstrated atrial fibrillation left bundle branch block. EKG during lexiscan infusion revealed no significant ischemic changes. EKG post infusion revealed no significant ischemic changes [There were no cardiac dysrhythmias pretest, during pharmacologic infusion, or recovery]. [There was no complaint of chest discomfort during pharmacologic infusion or recovery]. The examination was discontinued secondary to completion of protocol. Impression: 1. Lexiscan stress test test is negative for Lexiscan infusion induced EKG changes of ischemia. 2. Lexiscan stress test test is negative for Lexiscan infusion induced chest pain. 3. Results of the nuclear portion of the test is as below Myocardial perfusion imaging study: Technique: The patient was injected with 11.8 millicuries of technetium 99m Cardiolite and subsequently rest SPECT Cardiolite nuclear imaging was obtained in the horizontal long, vertical long, and short axis views. The patient underwent pharmacologic [Regadenoson 0.4mg] evaluation. Please see above for details. The patient was injected with 32.5 millicuries of technetium 99m Cardiolite and subsequently stress SPECT Cardiolite nuclear imaging was obtained in the horizontal long, vertical long, and short axis views. A gated Cardiolite study at peak stress was obtained. Interpretation: Rest and stress SPECT Cardiolite nuclear imaging status post realignment, normalization, and attenuation correction demonstrate no evidence of significant ischemia or infarction. Gated images reveal septal hypokinesis. The reported LVEF is 69%. Impression: 1. There is no evidence of significant ischemia or infarction. 2. Estimated ejection fraction is 69%. This note was generated with Ocean[employer] software. It may contain incorrect words, spelling, and punctuation that were not noted in checking the note before signing.
== END | disposition home or self-care (01) ==
PROVIDERS: PCP Family Medicine
DX: R06.09 Other forms of dyspnea (principal)
CPT/HCPCS: 78452; 93017; A9500; A4216; J2785

== ENCOUNTER 2023-12-05 09:57 | Outpatient (RCR) | payer MEDICARE, BC, SELFPAY ==
[2023-10-06 21:31] VITALS: BMI 25.9
[2023-11-07 09:32] LABS: INR Fingerstick 2.6; Prothrombin Time Fingerstick 26.3 SEC (11.7-14.9)
[2023-12-05 10:16] LABS: INR Fingerstick 2.6; Prothrombin Time Fingerstick 26.8 SEC (11.7-14.9)
== END 2023-12-05 18:00 | disposition home or self-care (01) ==
LOC: LAB 09:57
PROVIDERS: PCP Family Medicine; Referring Provider Family Medicine; Visit Provider Family Medicine
DX: I48.91 Unspecified atrial fibrillation
CPT/HCPCS: 36416; 85610

== ENCOUNTER 2024-01-02 09:41 | Outpatient (RCR) | payer MEDICARE, BC, SELFPAY ==
[2023-12-10 08:51] VITALS: BMI 25.9
[2024-01-02 09:54] LABS: INR Fingerstick 2.4; Prothrombin Time Fingerstick 24.9 SEC (11.7-14.9)
== END 2024-01-02 18:00 | disposition home or self-care (01) ==
LOC: LAB 09:41
PROVIDERS: PCP Family Medicine; Referring Provider Family Medicine; Visit Provider Family Medicine
DX: I48.91 Unspecified atrial fibrillation
CPT/HCPCS: 36416; 85610

== ENCOUNTER 2024-02-06 09:20 | Outpatient (RCR) | payer MEDICARE, BC, SELFPAY ==
[2024-01-06 22:23] VITALS: BMI 25.9
[2024-02-06 09:30] LABS: INR Fingerstick 2.6; Prothrombin Time Fingerstick 26.7 SEC (11.7-14.9)
== END 2024-02-06 18:00 | disposition home or self-care (01) ==
LOC: LAB 09:20
PROVIDERS: PCP Family Medicine; Referring Provider Family Medicine; Visit Provider Family Medicine
DX: I48.91 Unspecified atrial fibrillation
CPT/HCPCS: 36416; 85610

== ENCOUNTER 2024-03-05 09:53 | Outpatient (RCR) | payer MEDICARE, BC, SELFPAY ==
[2024-02-06 20:25] VITALS: BMI 25.9
[2024-03-05 10:14] LABS: INR Fingerstick 3.4; Prothrombin Time Fingerstick 33.4 SEC (11.7-14.9)
== END 2024-03-05 18:00 | disposition home or self-care (01) ==
LOC: LAB 09:53
PROVIDERS: PCP Family Medicine; Referring Provider Family Medicine; Visit Provider Family Medicine
DX: I48.91 Unspecified atrial fibrillation
CPT/HCPCS: 36416; 85610

== ENCOUNTER → 2024-03-12 | Outpatient (CLI) | payer MEDICARE, BC, SELFPAY ==
[2024-03-12 10:44] LABS: Digoxin Level 1.02 ng/mL (0.80-2.00)
== END | disposition home or self-care (01) ==
PROVIDERS: PCP Family Medicine; Referring Provider Nurse Practitioner Adult Health; Visit Provider Nurse Practitioner Adult Health
DX: I48.21 Permanent atrial fibrillation (principal)
CPT/HCPCS: 36415; 80162

== ENCOUNTER 2024-03-19 08:10 | Outpatient (RCR) | payer MEDICARE, BC, SELFPAY ==
[2024-03-09 02:05] VITALS: BMI 25.9
[2024-03-19 08:31] LABS: Absolute Lymphocyte Count 2.87 X10^3/uL (0.83-4.51); Absolute Neutrophil Count 3.3 X10^3/uL (2.0-7.7); Basophil# 0.07 X10^3/uL; Eosinophil# 0.28 X10^3/uL; Eosinophils% 3.9 % (0-5); Hematocrit 48.2 % (40-54); Hemoglobin 15.7 g/dL (13.0-16.5); Lymphocyte # 2.87 X10^3/ul (0.83-4.51); Lymphocyte % 39.6 % (19-41); Mean Corp Hgb Conc 32.6 g/dL (32-36); Mean Corpuscular Hgb 32.8 pg (27.0-32.0); Mean Corpuscular Volume 100.6 fL (80-94); Mean Platelet Vol. 9.8 fl (6.2-12.0); Monocyte# 0.68 X10^3/uL; Monocyte% 9.4 % (0-10); NRBC Flagged by Analyzer 0 % (0-5); Neutrophil # 3.32 X10^3/uL (2.7-7.7); Neutrophil % 45.8 % (47-70); Platelet Count 185 K/mm3 (150-450); RBC Distribution Width CV 13.8 % (11.6-14.6); RBC Distribution Width SD 50.1 fl (35.1-43.9); Red Blood Count 4.79 M/mm3 (4.6-6.2); White Blood Count 7.2 K/mm3 (4.4-11.0)
[2024-03-19 08:48] LABS: International Normalized Ratio 2.3
[2024-03-19 09:43] LABS: ALB/GLOB Ratio 0.9 RATIO (0.9-2.4); AST(SGOT) 26 U/L (15-37); Alanine Aminotransfer ALT/SGPT 24 U/L (16-61); Albumin, Serum 3.7 g/dL (3.2-5.0); Alkaline Phosphatase 78 U/L (45-117); Anion Gap 3 (5-15); BUN 16 mg/dL (7-18); BUN/Creat Ratio 12.4 RATIO (10-20); Calcium,Total 10.1 mg/dL (8.5-10.1); Chloride 107 mmol/L (98-107); Cholesterol 125 mg/dL (200); Creatinine, Serum 1.29 mg/dL (0.70-1.30); EST Glomerular Filtration Rate 56 mL/min (>60); Est Glom Filt Rate - Afr Amer 68 mL/min (>60); Globulin 3.9 g/dL (2.2-4.2); Glucose 121 mg/dL (74-106); High Density Lipoprotein 37 mg/dL; PSA,Total- Diagnostic 2.23 ng/mL (0.0-4.0); Potassium 4.3 mmol/L (3.5-5.1); Protein, Total 7.6 g/dL (6.4-8.2); Sodium Level 139 mmol/L (136-145); Triglycerides 86 mg/dL; Very Low Density Lipoprotein 17 mg/dL (5-40)
== END 2024-03-19 18:00 | disposition home or self-care (01) ==
LOC: LAB 08:10
PROVIDERS: PCP Family Medicine; Referring Provider Family Medicine; Visit Provider Family Medicine
DX: I10 Essential (primary) hypertension; N40.0 Benign prostatic hyperplasia without lower urinary tract symptoms; I48.91 Unspecified atrial fibrillation
CPT/HCPCS: 36415; 80053; 80061; 84153; 84443; 85025; 85610

== ENCOUNTER 2024-04-17 16:06 | Outpatient (RCR) | payer MEDICARE, BC, SELFPAY ==
[2024-04-07 22:58] VITALS: BMI 25.9
[2024-04-17 16:33] LABS: International Normalized Ratio 2.2; Prothrombin Time (Protime)PT. 24.5 SECONDS (11.7-14.9)
[2024-05-08 07:21] LABS: INR Fingerstick 1.9; Prothrombin Time Fingerstick 20.4 SEC (11.7-14.9)
== END 2024-04-17 18:00 | disposition home or self-care (01) ==
LOC: LAB 16:06
PROVIDERS: PCP Family Medicine; Referring Provider Family Medicine; Visit Provider Family Medicine
DX: Z79.01 Long term (current) use of anticoagulants
CPT/HCPCS: 36416; 85610

== ENCOUNTER 2024-05-14 09:42 | Outpatient (RCR) | payer MEDICARE, BC, SELFPAY ==
[2024-05-08 20:55] VITALS: BMI 25.9
[2024-05-14 09:53] LABS: INR Fingerstick 2.1; Prothrombin Time Fingerstick 23.4 SEC (11.7-14.9)
== END 2024-06-07 18:00 | disposition home or self-care (01) ==
LOC: LAB 09:42
PROVIDERS: PCP Family Medicine; Referring Provider Family Medicine; Visit Provider Family Medicine
DX: I48.0 Paroxysmal atrial fibrillation (principal)

== ENCOUNTER 2024-06-12 08:56 | Outpatient (RCR) | payer MEDICARE, BC, SELFPAY ==
[2024-06-07 22:42] VITALS: BMI 25.9
[2024-06-12 09:18] LABS: INR Fingerstick 2.3; Prothrombin Time Fingerstick 24.6 SEC (11.7-14.9)
== END 2024-06-12 18:00 | disposition home or self-care (01) ==
LOC: LAB 08:56
PROVIDERS: PCP Family Medicine; Referring Provider Family Medicine; Visit Provider Family Medicine
DX: I48.0 Paroxysmal atrial fibrillation (principal)
CPT/HCPCS: 36416; 85610

== ENCOUNTER 2024-07-17 07:09 | Inpatient (IN) | payer MEDICARE, BC, SELFPAY ==
[2024-07-17] VITALS (15 sets, daily range): BP systolic 96–126; BP diastolic 64–77; PULSE 76–98; RESP 15–24; TEMP 36.6–37.8; O2SAT 89–98; BMI 25.0; BMI 20.5
--- NOTE | 2024-07-17 07:23 | EKG12_ITS ---
Test Reason : fall Blood Pressure : */* mmHG Vent. Rate : 96 BPM Atrial Rate : * BPM P-R Int : * ms QRS Dur : 136 ms QT Int : 354 ms P-R-T Axes : * 0 189 degrees QTcB Int : 447 ms Atrial fibrillation with premature ventricular or aberrantly conducted complexes Non-specific intra-ventricular conduction block T wave abnormality, consider inferior ischemia T wave abnormality, consider anterolateral ischemia Abnormal ECG Confirmed by Dmitri Francisco ([id number]), editor book STEPHY JORDAN ([id number]) on 07/18/2024 9:34:01 AM Referred By: Confirmed By: Dmitri Francisco
--- NOTE | 2024-07-17 07:25 | EDS_ITS ---
HPI HPI - Fall History of Present Illness Chief Complaint: Fall Narrative Narrative: 83-year-old male presents with his via EMS status post fall this morning. He also had a generalized weakness. He has past medical history of atrial fibrillation, on warfarin. He saw his construction coordinator yesterday who was pleased and states that he does not have to see him for quite some time. This morning, as the patient usually sleeps in a swivel recliner, and sometimes gets up to watch TV in the middle of the night, was found facedown on the floor. He states he went to get up, and felt very weak. He called for his in the bedroom. She called a neighbor to attempt to stand him up, but they were unable to do so. Instead they called the squad because he was too weak to stand. He denies hitting his head or loss of consciousness, no headache or neck pain. did state that he did complain that he did feel short of breath. PFSH PFS Home Medications ?Medication ?Instructions ?Recorded ?Last Taken ?Type Tamsulosin Hcl 0 mg 02/26/19 Unknown History calcium 500 mg-vitamin D3 1,000 1 ea PO 02/26/19 Unknown History unit-vitamin K 40 mcg chewable tablet digoxin 250 mcg (0.25 mg) tablet DAILY 02/26/19 Unknown History esomeprazole magnesium 20 mg 20 mg PO 02/26/19 Unknown History capsule,delayed release fluticasone propionate 50 2 spray NASAL DAILY 02/26/19 Unknown History mcg/actuation nasal spray,suspension metoprolol succinate 25 mg 25 mg PO BID 02/26/19 Unknown History tablet,extended release 24 hr warfarin 4 mg tablet 4 mg PO MOWEFR 02/26/19 Unknown History warfarin 2 mg tablet 2 mg PO SUTUTHSA 12/08/19 Unknown History spironolactone 25 mg tablet 25 mg PO BID 07/17/24 Unknown History Allergy/AdvReac Type Severity Reaction Status Date / Time No Known Allergies Allergy Verified 02/16/23 16:53 Social History Smoking Status: Former smoker ROS ROS ED ROS Narrative Constitutional: No fever, no chills. HEENT: No sore throat. No neck pain. No loss of vision. No rhinorrhea. Cardiovascular: No chest pain. No palpitations. No pedal edema. Respiratory: No cough, positive shortness of breath. Abdominal: No abdominal pain. No nausea. No vomiting. Genitourinary: No dysuria. No hematuria. Musculoskeletal: No myalgias. No arthralgias. Neurologic: No headaches. No dizziness. No lightheadedness. Skin: No rash. No change in color. EXAM Physical Exam Narrative Exam Narrative: Temperature 100.0 ?F. Vital signs noted. Nontoxic-appearing. HEENT exam is grossly unremarkable. Neck soft and supple. Cardiovascular examination reveals an irregularly irregular rhythm that is rate controlled. Lungs are clear to auscultation bilaterally with decreased breath sounds at the left base. Abdomen is soft nontender with normoactive bowel sounds. Neurological examination is nonfocal and nonlateralizing. No noted pedal edema. Const Vital Signs: 07/17/24 07:09 07/17/24 07:23 07/17/24 07:24 Temperature 100.0 F H 100.0 F H Temperature Source Oral Oral Pulse Rate 88 92 Respiratory Rate 16 24 H Blood Pressure 114/77 119/64 Blood Pressure Mean 89 82 Pulse Ox 89 89 89 Oxygen Delivery Method Room Air Nasal Cannula Room Air MDM MDM MDM Narrative Medical decision making narrative: As patient has elevated temperature here although is not tachycardic sepsis workup was pursued. He was 89% on room air and does not wear oxygen at home. Differential diagnosis includes but not limited to pneumonia versus upper respiratory infection versus urinary tract infection versus other viral syndrome. Patient administered Tylenol. He was placed on a environmental monitoring specialist. Additionally, patient hypoxic at 89% on room air and does not wear oxygen at home. He was placed on nasal cannula oxygen with resultant pulse ox at 96 to 97%. I reviewed his laboratory work and he has elevated white count of 13.0, hemoglobin 16.4 with hematocrit 47.8, platelet count normal at 234. INR subtherapeutic at 1.8, sodium normal at 136 with potassium 4.1, chloride 103, BUN of 18 and creatinine 1.22. Lactic acid is normal at 1.7. Initially, he was not meeting other SIRS criteria. BNP is elevated at 409 but I doubt florid CHF. I do not feel this is the cause of his hypoxia. Additionally, chest x-ray in 1 view interpreted by myself independently shows bibasilar pneumonia. I reviewed the radiologist report which comments on atelectasis versus infiltrate. While I doubt severe sepsis, given his low-grade fever, hypoxia, and leukocytosis, a fever pneumonia. His states that he is not coughing that much. He was started on azithromycin and Rocephin. Blood culture obtained. I reviewed his respiratory swab and is negative for COVID, influenza, and RSV. Given his age and comorbidities, I do feel that he requires admission for pneumonia. Patient was discussed with Dr. Pearl for admission. Patient is in stable condition. History & Record Review Discussion w/independent historian: Patient and Family Lab Data Attestation: I reviewed the patient's lab results. Labs: Laboratory Results - last 24 hr 07/17/24 07/17/24 06:52 07:32 WBC 13.0 H RBC 4.97 Hgb 16.4 Hct 47.8 MCV 96.2 H MCH 33.0 H MCHC 34.3 RDW Std Deviation 45.1 H RDW Coeff of Hillary 13.0 Plt Count 234 MPV 9.8 Immature Gran % (Auto) 0.500 Neut % (Auto) 79.8 H Lymph % (Auto) 10.7 L Jay % (Auto) 7.8 Eos % (Auto) 0.5 Baso % (Auto) 0.7 Absolute Neuts (auto) 10.4 H Absolute Lymphs (auto) 1.39 Nucleated RBC % 0 PT 21.0 H INR 1.8 APTT 32.0 Sodium 136 Potassium 4.1 Chloride 103 Carbon Dioxide 26.0 Anion Gap 7 BUN 18 Creatinine 1.22 Estim Creat Clear Calc 48.59 Est GFR (MDRD) Af Amer 73 Est GFR (MDRD) Non-Af 60 BUN/Creatinine Ratio 14.8 Glucose 152 H Lactic Acid 1.7 Calcium 10.4 H Total Bilirubin 2.10 H AST 30 ALT 26 Alkaline Phosphatase 83 B-Natriuretic Peptide 409.8 H Total Protein 7.6 Albumin 3.5 Globulin 4.1 Albumin/Globulin Ratio 0.9 Radiography Diagnostic Testing: Clinical Impression(s) from Imaging Studies Chest X-Ray 07/17/24 07:40 IMPRESSION: Dextrocardia. Mild cardiomegaly. Findings suggestive of bibasilar atelectasis and/or mild scarring. Electronically Signed: Britton Salvador MD at 8:53 EST , Discharge Plan Dx/Rx/DC Orders Clinical Impression: Pneumonia, Hypoxia, Elevated brain natriuretic peptide (BNP) level, Fall, Skin tear, Weakness Disposition Disposition: Acute Care [facility]
--- NOTE | 2024-07-17 07:40 | RAD_ITS ---
STUDY: X-RAY CHEST REASON FOR EXAM: Male, 83 years old. Shortness of breath . Hypoxic. TECHNIQUE: Single AP portable view of the chest. COMPARISON: None. FINDINGS: EKG electrodes are seen. Minimal increased markings at the lung bases suggestive of atelectasis and/or infiltrate. There is no demonstrated pleural abnormality. Dextrocardia. Cardiomegaly. Normal mediastinum and jaydon. Normal visualized pulmonary arteries. There is atherosclerotic calcification of the aortic arch with tortuosity. There are diffuse degenerative changes of the visualized thoracic spine. Normal visualized ribs, clavicles, and shoulders. There is no demonstrated abnormality of the visualized soft tissue structures of the upper abdomen. RAD/Chest 1 View (Portable) IMPRESSION: Dextrocardia. Mild cardiomegaly. Findings suggestive of bibasilar atelectasis and/or mild scarring. Electronically Signed: Britton Salvador MD at 8:53 EST ,
[2024-07-17 07:43] LABS: Absolute Lymphocyte Count 1.39 X10^3/uL (0.83-4.51); Absolute Neutrophil Count 10.4 X10^3/uL (2.0-7.7); Basophil# 0.09 X10^3/uL; Basophil% 0.7 % (0-1); Eosinophil# 0.06 X10^3/uL; Eosinophils% 0.5 % (0-5); Hematocrit 47.8 % (40-54); Hemoglobin 16.4 g/dL (13.0-16.5); Lymphocyte # 1.39 X10^3/ul (0.83-4.51); Lymphocyte % 10.7 % (19-41); Mean Corp Hgb Conc 34.3 g/dL (32-36); Mean Corpuscular Volume 96.2 fL (80-94); Mean Platelet Vol. 9.8 fl (6.2-12.0); Monocyte# 1.01 X10^3/uL; Monocyte% 7.8 % (0-10); NRBC Flagged by Analyzer 0 % (0-5); Neutrophil # 10.38 X10^3/uL (2.7-7.7); Neutrophil % 79.8 % (47-70); Platelet Count 234 K/mm3 (150-450); RBC Distribution Width SD 45.1 fl (35.1-43.9); Red Blood Count 4.97 M/mm3 (4.6-6.2)
[2024-07-17 08:01] LABS: ALB/GLOB Ratio 0.9 RATIO (0.9-2.4); AST(SGOT) 30 U/L (15-37); Alanine Aminotransfer ALT/SGPT 26 U/L (16-61); Albumin, Serum 3.5 g/dL (3.2-5.0); Alkaline Phosphatase 83 U/L (45-117); Anion Gap 7 (5-15); BUN 18 mg/dL (7-18); BUN/Creat Ratio 14.8 RATIO (10-20); Calcium,Total 10.4 mg/dL (8.5-10.1); Chloride 103 mmol/L (98-107); Creatinine, Serum 1.22 mg/dL (0.70-1.30); EST Glomerular Filtration Rate 60 mL/min (>60); Est Glom Filt Rate - Afr Amer 73 mL/min (>60); Estimated Creatinine Clearance 48.59 ml/min; Globulin 4.1 g/dL (2.2-4.2); Glucose 152 mg/dL (74-106); Potassium 4.1 mmol/L (3.5-5.1); Protein, Total 7.6 g/dL (6.4-8.2); Sodium Level 136 mmol/L (136-145)
[2024-07-17 08:09] LABS: BNP,B-Type NATRIURETIC PEPTIDE 409.8 pg/mL (0-100)
[2024-07-17] MEDS: Acetaminophen 325 MG Tablet 650 MG PO (08:12)
[2024-07-17 08:13] LABS: Lactic Acid 1.7 mmol/L (0.4-1.9)
[2024-07-17] MEDS: Diphth,Pertuss(Acell),Tet Vac 0.5 ML Vial IM (08:14)
[2024-07-17 08:48] LABS: International Normalized Ratio 1.8
[2024-07-17 09:27] LABS: Bacteria 0 SEEN /hpf (None Seen); Mucous, Urine 0 SEEN /hpf (<or=2+); White Blood Cells 0 SEEN /hpf (0-5)
--- NOTE | 2024-07-17 09:41 | HP.PCM.HOS_ITS ---
HPI - General General Date of Service: 07/17/24 HPI Narrative ROMAN JONES, is a 83 M who presents with progressive generalized weakness. Patient has multiple comorbidities including paroxysmal A-fib, hypothyroidism dextrocardia. The patient woke up on the morning of his presentation with profound generalized weakness. Patient apparently later found denied hitting his head or losing consciousness. On further questioning patient denied any subjective fever no chills presented to the emergency department as a result. Imaging studies demonstrated bibasilar infiltrates. Patient was found to have leukocytosis as well as low-grade fever patient was also found to have elevated proBNP admitted to a monitored bed for further management [facility] Home Medications ?Medication ?Instructions ?Recorded ?Last Taken ?Type digoxin 250 mcg (0.25 mg) tablet 0.25 mg PO DAILY 02/26/19 07/16/24 History fluticasone propionate 50 2 spray NASAL DAILY 02/26/19 07/16/24 History mcg/actuation nasal spray,suspension metoprolol succinate 25 mg 25 mg PO BID 02/26/19 07/16/24 History tablet,extended release 24 hr levothyroxine 25 mcg tablet 25 mcg PO DAILY 07/17/24 07/16/24 History (Synthroid) multivitamin (Daily Multi-Vitamin 1 tab PO DAILY 07/17/24 07/16/24 History tablet) omega 3 350 mg-dha 235 mg-epa 90 1 cap PO DAILY 07/17/24 07/16/24 History mg-fish oil 597 mg capsule,delay rel ([place]-3) spironolactone 25 mg tablet 12.5 mg PO BID 07/17/24 07/16/24 History warfarin 2.5 mg tablet 2.5 mg PO DAILY 07/17/24 07/16/24 History Allergy/AdvReac Type Severity Reaction Status Date / Time No Known Allergies Allergy Verified 02/16/23 16:53 Social History Smoking Status: Former smoker ROS ROS Narrative GENERAL: denies fever, chills, night sweats, weight loss, anorexia HEENT: denies headache, sinus congestion, or drainage, dysphagia RESPIRATORY: denies cough, sputum production, shortness of breath, dyspnea on exertion CARDIAC: denies chest pain, palpitations, orthopnea, PND GASTROINTESTINAL: denies abdominal pain, nausea, vomiting, melena, GENITOURINARY: denies dysuria, urgency, frequency, heamaturia EXTREMITY: denies swelling MUSCULOSKELETAL: denies current joint pain or tenderness NEUROLOGIC: denies focal numbness, weakness, tingling HEMATOLOGIC: denies easy bruising and/or hemorrhage INTEGUMENT: denies rashes PSYCHIATRIC: denies suicidal or homicidal ideation Vital Signs Vital Signs Vital Signs: 07/17/24 07:09 07/17/24 07:23 07/17/24 07:24 Temperature 100.0 F H 100.0 F H Temperature Source Oral Oral Pulse Rate 88 92 Respiratory Rate 16 24 H Blood Pressure 114/77 119/64 Blood Pressure Mean 89 82 Pulse Ox 89 89 89 Oxygen Delivery Method Room Air Nasal Cannula Room Air Weight Weight: 83.6 kg Body Mass Index (BMI) 25.0 Physical Exam Narrative GENERAL: cooperative HEENT: Atraumatic; normocephalic EYES; Anicteric, Normal Conjunctiva NECK; supple, normal thyroid, RESPIRATORY: Diminished to auscultation CARDIOVASCULAR: Regular S1 S2, GI: soft, normoactive bowel sounds, : No Renal angle tenderness; EXTREMITIES: No edema, no clubbing, MUSCULOSKELETAL: no muscle wasting NEURO: Awake; no lateralizing signs. SKIN: No Rash PSYCH; Flat affect Results Lab / Micro Data 07/17/24 06:52 07/17/24 06:52 Labs: Laboratory Results - last 24 hr 07/17/24 06:52: WBC 13.0 H, RBC 4.97, Hgb 16.4, Hct 47.8, MCV 96.2 H, MCH 33.0 H , MCHC 34.3, RDW Std Deviation 45.1 H, RDW Coeff of Hillary 13.0, Plt Count 234, MPV 9.8, Immature Gran % (Auto) 0.500, Neut % (Auto) 79.8 H, Lymph % (Auto) 10.7 L, [place] % (Auto) 7.8, Eos % (Auto) 0.5, Baso % (Auto) 0.7, Absolute Neuts (auto) 10.4 H, Absolute Lymphs (auto) 1.39, Nucleated RBC % 0, PT 21.0 H, INR 1.8, APTT 32.0, Sodium 136, Potassium 4.1, Chloride 103, Carbon Dioxide 26.0, Anion Gap 7, BUN 18, Creatinine 1.22, Estim Creat Clear Calc 48.59, Est GFR (MDRD) Af Amer 73, Est GFR (MDRD) Non-Af 60, BUN/Creatinine Ratio 14.8, Glucose 152 H, Calcium 10.4 H, Total Bilirubin 2.10 H, AST 30, ALT 26, Alkaline Phosphatase 83, Total Protein 7.6, Albumin 3.5, Globulin 4.1, Albumin/Globulin Ratio 0.9 07/17/24 07:32: Lactic Acid 1.7, B-Natriuretic Peptide 409.8 H Micro: Microbiology 07/17/24 07:32 Mucosa - Nose SARS-CoV-2, Influenza & RSV (PCR) - Final Imaging Radiology Impression Chest X-Ray 07/17/24 07:40 IMPRESSION: Dextrocardia. Mild cardiomegaly. Findings suggestive of bibasilar atelectasis and/or mild scarring. Electronically Signed: Britton Salvador MD at 8:53 EST , Assessment & Plan Assessment/Plan (1) Fall: (2) Elevated brain natriuretic peptide (BNP) level: (3) Hypoxia: PLAN: Plan Patient is an 83-year-old gentleman presented with progressive generalized weakness patient was found to have acute hypoxia with elevated proBNP bibasilar infiltrate low-grade fever and leukocytosis admitted to monitored bed for further management 1. Acute hypoxia ? Suspected to be secondary to combination of congestive heart failure and suspected pneumonia admitted to regular nursing floor where patient is currently being managed 2. Pneumonia - Suspected to be secondary to streptococcal pneumonia, Blood and sputum cultures sent. Also requested for COVID assay as well as acute viral respiratory panel. Patient placed on Rocephin and Zithromax and placed on oxygen titrated to keep Pulse Ox greater than 90 3. Acute congestive heart failure Unspecified. Admitted to monitored bed patient started on Lasix ordered 2D echo for EF assessment 4. Paroxysmal A-fib Rate controlled on metoprolol and digoxin, patient is on systemic anticoagulation with warfarin continued ordered daily PT/INR for further evaluation 5. Hypertension ? Blood pressure controlled, home medications continued with dose adjustment as needed 6. Hypothyroidism ? Patient is on levothyroxine home dose continued 7. Physical deconditioning ? Requested for PT OT eval and social worker assistant to assist with discharge planning 8. DVT prophylaxis ? Patient is on warfarin no need for additional measures Time spent in the patient's overall evaluation,decision-making process, review of diagnostic data, adjustment of management, discussion with other providers, nursing nursing and ancillary staff involved in patient's care documentation, 75 Minutes Advance planning; did discuss with the patient and family regarding advanced directives as well as CODE STATUS. Did explain the various scenarios involved ( FULL CODE, DNR CCA, DNR CCA with no intubation, and DNR CC and what each meant) patient elected to be DNR CCA no intubation. Order was placed. Time spent on discussion 16 minutes. Charges/Coding Multi Select Codes Visit Charges Visit Charges: 12410 Init Hosp Hospitalists' Procedures Procedures: 60413 Advncd Care Plan 30 Min
[2024-07-17 10:00] LABS: Color, Urine Yellow (Yellow); Glucose, Dipstick Normal (Normal); Ketone-Dipstick Negative (Negative); Leukocyte Esterase-Dipstick Negative /ul (Negative); Nitrite-Dipstick Negative (Negative); Occult Blood-Urine 150 /ul (Negative); Protein-Dipstick 100 mg/dl (Negative); Urine Bilirubin Dipstick Negative (Negative); Urine Clarity Clear (Clear); Urine Urobilinogen Normal (Normal)
[2024-07-17 10:08] LABS: Red Blood Cells-Urine 0-5 SEEN /hpf (0-5); Squamous Epithelial Cells - UA 0-5 SEEN /hpf (0-5)
--- NOTE | 2024-07-17 10:14 | CASEMGMT ---
Care Management Face to Face with patient for initial transition planning/care coordination assessment in the ED. This rfp writer introduced self and role at [facility]. Patient lying in bed, alert and oriented. Patient's , Rosita, and [id number], Analia, bedside. Patient willing to participate in assessment and is able to answer all questions appropriately; patient's answered some as well. Admitting Diagnosis: Elevated brain natriuretic peptide (BNP) level; fall; hypoxia Other diagnosis history: a-fib, hypothyroidism, dextrocardia PCP: Dr. Rebollar Specialists: Dr. Braydon Saucedo, auto claim representative in [place]. Dr. Perez, medical laboratory assistant in [place]. Dr. Correia, fire dispatcher. [facility] for hearing aids. Preferred Pharmacy: [facility]. [facility] mail-in as well. Insurance: Medicare A and B (primary). [place] (secondary). Prescription Benefit: yes, [employer] Living Will/HPOA: patient's HCPOA is patient's , Rosita. Rosita states having documents at home, but stated patient would not want me to bring them in. Patient and patient's were educated that copies would be made to keep on file if brought in. LNOK: 3 children; 1 son, Tae, lives locally. Living Arrangements: 1 story condo with a finished basement; patient's man oma is in the basement with handrails present; independent at baseline. Transportation: patient and patient's both drive. DME: walker, cane, walk in shower, shower seat, suction cup grab bar. Patient on O2 in ED, but states not needing it at home. HHC: none SNF/Rehab: none Patient goals: Patient wishes to discharge home and denies need for SNF or HHC at this time. This SW broached topic of SNF/HHC and educated patient and patient's on PT/OT evaluations and possible need for additional supports at discharge. Patient states having no further needs or concerns at this time. Disposition Plan: admission to acute; RN CM/SW to follow for discharge planning needs that may arise. Amber Lux, CHANGE MANAGEMENT, CRANE RIGGER
[2024-07-17] MEDS: Ceftriaxone 2 GM in 0.9% Normal Saline (50mL MB+) 50 ML IV (10:37)
[2024-07-17] MEDS: Digoxin 250 MCG Tablet PO (11:28)
[2024-07-17] MEDS: Metoprolol(XL)Succ 25 MG Tablet PO ×2 (11:28→22:47)
[2024-07-17] MEDS: Spironolactone 25 MG Tablet 12.5 MG PO ×2 (11:31→22:48)
--- NOTE | 2024-07-17 12:07 | ECHOCS_ITS ---
Reason For Study: CONGESTIVE HEART FAILURE Procedure This was a 2D Doppler, Color Flow transthoracic echocardiogram. The study was technically difficult. Contrast injection was performed. The patient was scanned supine. Patient has dextrocardia. The study was technically limited. Exam performed portable in patient room. Left Ventricle Normal LV size. Moderate concentric left ventricular hypertrophy. The left ventricular ejection fraction is 40 %. There is mild to moderate global hypokinesis of the left ventricle. Right Ventricle Normal RV size. Normal systolic function. Tricuspid Valve Normal tricuspid valve. Mild (1+) tricuspid valve insufficiency. Pulmonary artery systolic pressure is 34 mmHg. Aortic Valve Trisinus/trileaflet aortic valve. Mild focal aortic valve calcification. Pulmonic Valve The pulmonic valve is not well visualized. Great Vessels Calcified aortic root. Pericardium/Pleural No pericardial effusion. Medication Diluted definity 3ml given slow IV push to enhance endocardial definition. MMode/2D Measurements & Calculations LVIDd: 3.5 cm IVSd: 1.4 cm LVOT diam: 2.4 cm LVIDs: 2.1 cm LVPWd: 1.4 cm LVOT area: 4.4 cm2 FS: 39.0 % Ao root diam: 3.0 cm Ao sinus diam: 3.[address] Junction: 2.6 cm LA dimension(2D): 4.3 cm Doppler Measurements & Calculations MV E max mitzy: 97.8 cm/sec Ao V2 max: 165.9 cm/sec LV V1 max: 167.1 cm/sec Ao max P.1 mmHg LV V1 max P.2 mmHg Ao V2 mean: 112.3 cm/sec LV V1 mean P.5 mmHg Ao mean P.6 mmHg LV V1 mean: 120.9 cm/sec Ao V2 VTI: 29.1 cm LV V1 VTI: 29.7 cm AV (velocity ratio): 1.0 NIC(I,D): 4.5 cm2 NIC(V,D): 4.4 cm2 SV(LVOT): 130.4 ml TV V2 max: 258.9 cm/sec PA V2 max: 87.2 cm/sec TV max P.8 mmHg TR max mitzy: 278.0 cm/sec TR max P.9 mmHg ECHO/Echo Complete W/ Contrast Interpretation Summary The left ventricular ejection fraction is 40 %. Normal LV size. There is mild to moderate global hypokinesis of the left ventricle. Moderate concentric left ventricular hypertrophy. Mild focal aortic valve calcification. The study was technically difficult. The study was technically limited. Contras t injection was performed. Ordering Physician: Rome Stanley Performed By: Kylah Cedeño RDCS
[2024-07-17] MEDS: Azithromycin 500 MG in 0.9% Normal Saline (250mL Bag) 250 ML 255 MG IV (12:17)
[2024-07-17 13:07] LABS: Troponin-I HS 90 pg/mL (3.0-78.0)
[2024-07-17 13:38] LABS: Digoxin Level 2.45 ng/mL (0.80-2.00)
[2024-07-17] MEDS: Furosemide 40 MG/4 ML Vial IV ×2 (14:34→22:48)
[2024-07-17 15:36] LABS: Troponin-I HS 82 pg/mL (3.0-78.0)
[2024-07-17 18:39] LABS: Troponin-I HS 84 pg/mL (3.0-78.0)
[2024-07-18 04:10] VITALS: BP 134/87; PULSE 87; RESP 18; TEMP 36.6; O2SAT 95
[2024-07-18 06:00] VITALS: BMI 20.5
[2024-07-18 06:23] LABS: Absolute Lymphocyte Count 2.58 X10^3/uL (0.83-4.51); Absolute Neutrophil Count 7.1 X10^3/uL (2.0-7.7); Basophil# 0.08 X10^3/uL; Basophil% 0.7 % (0-1); Eosinophil# 0.33 X10^3/uL; Eosinophils% 2.9 % (0-5); Hematocrit 45.8 % (40-54); Hemoglobin 15.6 g/dL (13.0-16.5); Lymphocyte # 2.58 X10^3/ul (0.83-4.51); Lymphocyte % 22.7 % (19-41); Mean Corp Hgb Conc 34.1 g/dL (32-36); Mean Corpuscular Hgb 33.1 pg (27.0-32.0); Mean Platelet Vol. 9.8 fl (6.2-12.0); Monocyte# 1.19 X10^3/uL; Monocyte% 10.5 % (0-10); NRBC Flagged by Analyzer 0 % (0-5); Neutrophil # 7.12 X10^3/uL (2.7-7.7); Neutrophil % 62.8 % (47-70); Platelet Count 229 K/mm3 (150-450); RBC Distribution Width CV 13.1 % (11.6-14.6); RBC Distribution Width SD 46.5 fl (35.1-43.9); Red Blood Count 4.72 M/mm3 (4.6-6.2); White Blood Count 11.4 K/mm3 (4.4-11.0)
[2024-07-18] MEDS: Furosemide 40 MG/4 ML Vial IV (06:44)
[2024-07-18 06:51] LABS: Anion Gap 5 (5-15); BUN 23 mg/dL (7-18); BUN/Creat Ratio 15.8 RATIO (10-20); Calcium,Total 9.9 mg/dL (8.5-10.1); Chloride 101 mmol/L (98-107); Creatinine, Serum 1.46 mg/dL (0.70-1.30); EST Glomerular Filtration Rate 49 mL/min (>60); Est Glom Filt Rate - Afr Amer 59 mL/min (>60); Estimated Creatinine Clearance 35.89 ml/min; Glucose 106 mg/dL (74-106); Magnesium 1.9 mg/dL (1.6-2.6); Sodium Level 138 mmol/L (136-145)
[2024-07-18 07:00] LABS: International Normalized Ratio 1.6; Prothrombin Time (Protime)PT. 19.2 SECONDS (11.7-14.9)
--- NOTE | 2024-07-18 07:24 | PN.HOSP_ITS ---
Reason for Visit Reason for Visit: Diagnoses Hypoxemia (07/17/24) Other specified abnormal findings of blood chemistry (07/17/24) Unspecified fall, initial encounter (07/17/24) Subjective Subjective Patient seen admit to significant improvement in overall clinical condition. Breathing continues to improve. Adjusted patient Lasix dose. Objective Data Objective Data Vital Signs: Vital Signs Temp Pulse Resp BP Pulse Ox O2 Del Method O2 Flow Rate 98 F 87 18 134/87 H 95 Room Air 2 07/18/24 04:10 07/18/24 04:10 07/18/24 04:10 07/18/24 04:10 07/18/24 04:10 07/18/24 04:15 07/17/24 14:30 Oxygen Flow Rate (L/min) 2 Oxygen Delivery Method Room Air Weight: 68.6 kg Body Mass Index (BMI) 20.5 Intake & Output: Intake and Output for Last 24 Hours 07/16/24 07/17/24 07/18/24 23:59 23:59 23:59 Intake Total 305 / 305 600 / 600 Balance 305 / 305 600 / 600 Lab / Micro Data 07/18/24 05:26 07/18/24 05:26 Labs: Laboratory Results - last 24 hr 07/17/24 06:52: WBC 13.0 H, RBC 4.97, Hgb 16.4, Hct 47.8, MCV 96.2 H, MCH 33.0 H , MCHC 34.3, RDW Std Deviation 45.1 H, RDW Coeff of Hillary 13.0, Plt Count 234, MPV 9.8, Immature Gran % (Auto) 0.500, Neut % (Auto) 79.8 H, Lymph % (Auto) 10.7 L, [place] % (Auto) 7.8, Eos % (Auto) 0.5, Baso % (Auto) 0.7, Absolute Neuts (auto) 10.4 H, Absolute Lymphs (auto) 1.39, Nucleated RBC % 0, PT 21.0 H, INR 1.8, APTT 32.0, Sodium 136, Potassium 4.1, Chloride 103, Carbon Dioxide 26.0, Anion Gap 7, BUN 18, Creatinine 1.22, Estim Creat Clear Calc 48.59, Est GFR (MDRD) Af Amer 73, Est GFR (MDRD) Non-Af 60, BUN/Creatinine Ratio 14.8, Glucose 152 H, Calcium 10.4 H, Total Bilirubin 2.10 H, AST 30, ALT 26, Alkaline Phosphatase 83, Total Protein 7.6, Albumin 3.5, Globulin 4.1, Albumin/Globulin Ratio 0.9 07/17/24 07:32: Lactic Acid 1.7, B-Natriuretic Peptide 409.8 H 07/17/24 09:25: Urine Color Yellow, Urine Clarity Clear, Urine pH 5.0, Ur Specific [place] 1.020, Urine Protein 100 H, Urine Glucose (UA) Normal, Urine Ketones Negative, Urine Occult Blood 150 H, Urine Nitrite Negative, Urine Bilirubin Negative, Urine Urobilinogen Normal, Ur Leukocyte Esterase Negative, Urine RBC 0-5 SEEN, Urine WBC 0 SEEN, Ur Squamous Epith Cells 0-5 SEEN, Urine Bacteria 0 SEEN, Urine Mucus 0 SEEN 07/17/24 12:30: Troponin I High Sens 90 H, Digoxin 2.45 H* 07/17/24 14:30: Troponin I High Sens 82 H 07/17/24 17:56: Troponin I High Sens 84 H 07/18/24 05:26: WBC 11.4 H, RBC 4.72, Hgb 15.6, Hct 45.8, MCV 97.0 H, MCH 33.1 H , MCHC 34.1, RDW Std Deviation 46.5 H, RDW Coeff of Hillary 13.1, Plt Count 229, MPV 9.8, Immature Gran % (Auto) 0.400, Neut % (Auto) 62.8, Lymph % (Auto) 22.7, [place] % (Auto) 10.5 H, Eos % (Auto) 2.9, Baso % (Auto) 0.7, Absolute Neuts (auto) 7.1, Absolute Lymphs (auto) 2.58, Nucleated RBC % 0, PT 19.2 H, INR 1.6, Sodium 138, Potassium 4.0, Chloride 101, Carbon Dioxide 31.0, Anion Gap 5, BUN 23 H, C reatinine 1.46 H, Estim Creat Clear Calc 35.89, Est GFR (MDRD) Af Amer 59 L, Est GFR (MDRD) Non-Af 49 L, BUN/Creatinine Ratio 15.8, Glucose 106, Calcium 9.9, Magnesium 1.9 Micro: Microbiology 07/17/24 14:38 Urine, Clean Catch Legionella Antigen - Final 07/17/24 14:38 Urine, Clean Catch Streptococcus pneumoniae Antigen (M - Final 07/17/24 13:47 Nasal Secretion MRSA (PCR) - Final 07/17/24 12:30 Mucosa - Nasopharyngeal Coronavirus COVID-19 PCR - Final 07/17/24 12:30 Mucosa - Nasopharyngeal Respiratory Panel (PCR) - Final 07/17/24 07:32 Mucosa - Nose SARS-CoV-2, Influenza & RSV (PCR) - Final Radiography Diagnostic Testing: Radiology Impression Chest X-Ray 07/17/24 07:40 IMPRESSION: Dextrocardia. Mild cardiomegaly. Findings suggestive of bibasilar atelectasis and/or mild scarring. Electronically Signed: Britton Salvador MD at 8:53 EST , Physical Exam Narrative GENERAL: cooperative HEENT: Atraumatic; normocephalic EYES; Anicteric, Normal Conjunctiva NECK; supple, normal thyroid, RESPIRATORY: Diminished to auscultation CARDIOVASCULAR: Regular S1 S2, GI: soft, normoactive bowel sounds, : No Renal angle tenderness; EXTREMITIES: No edema, no clubbing, MUSCULOSKELETAL: no muscle wasting NEURO: Awake; no lateralizing signs. SKIN: No Rash PSYCH; Flat affect Assessment & Plan Assessment/Plan (1) Fall: (2) Elevated brain natriuretic peptide (BNP) level: (3) Hypoxia: PLAN: Plan Patient is an 83-year-old gentleman presented with progressive generalized weakness patient was found to have acute hypoxia with elevated proBNP bibasilar infiltrate low-grade fever and leukocytosis admitted to monitored bed for further management 1. Acute hypoxia ? Suspected to be secondary to combination of congestive heart failure and suspected pneumonia admitted to regular nursing floor where patient is currently being managed ? 07/18/2024; patient hypoxia improving. 2. Pneumonia - Suspected to be secondary to streptococcal pneumonia, Blood and sputum cultures sent. Also requested for COVID assay as well as acute viral respiratory panel. Patient placed on Rocephin and Zithromax and placed on oxygen titrated to keep Pulse Ox greater than 90 3. Acute congestive heart failure Unspecified. Admitted to monitored bed patient started on Lasix ordered 2D echo for EF assessment ? 07/18/2024 4. Elevated troponins - due to demand ischemia from hypoxia, 2D echo ordered for regional wall motion abnormality 5. Paroxysmal A-fib Rate controlled on metoprolol and digoxin, patient is on systemic anticoagulation with warfarin continued ordered daily PT/INR for further evaluation 6. Hypertension ? Blood pressure controlled, home medications continued with dose adjustment as needed 7. Hypothyroidism ? Patient is on levothyroxine home dose continued 8. Physical deconditioning ? Requested for PT OT eval and geriatric social worker to assist with discharge planning 9. DVT prophylaxis ? Patient is on warfarin no need for additional measures Time spent in the patient's overall evaluation,decision-making process, review of diagnostic data, adjustment of management, discussion with other providers, nursing nursing and ancillary staff involved in patient's care documentation, 50 Minutes Charges/Coding Visit Charges Inpatient E&M: [address] [facility] Hosp L3
[2024-07-18 09:42] LABS: Digoxin Level 1.24 ng/mL (0.80-2.00)
[2024-07-18] MEDS: Ceftriaxone 2 GM in 0.9% Normal Saline (50mL MB+) 50 ML IV (10:39)
[2024-07-18] MEDS: Spironolactone 25 MG Tablet 12.5 MG PO ×2 (10:40→21:22)
[2024-07-18 10:42] VITALS: PULSE 82
[2024-07-18] MEDS: Metoprolol(XL)Succ 25 MG Tablet PO ×2 (10:42→21:22)
[2024-07-18] MEDS: Multivitamins,Therapeutic Tablet 1 TABLET PO (10:42)
[2024-07-18] MEDS: Levothyroxine 25 MCG TABLET PO (10:42)
[2024-07-18 10:48] VITALS: BP 120/63; PULSE 87; RESP 16; TEMP 36.9; O2SAT 92
[2024-07-18] MEDS: Fluticasone 0.05% 1 SPRAY NASAL.SRY 2 SPRAY NASAL (11:04)
[2024-07-18] MEDS: Azithromycin 500 MG in 0.9% Normal Saline (250mL Bag) 250 ML 255 MG IV (11:35)
--- NOTE | 2024-07-18 14:06 | CASEMGMT ---
TIMOTHY CM into pt room, pt sitting up in chair in no distress on RA. Pt denies any need for homegoing services. Pt states that he feels his strength is fine and he denies need for a SN to check on his respiratory status or for any disease/medication teaching.
[2024-07-18 14:59] VITALS: BP 122/73; PULSE 76; RESP 16; TEMP 36.9; O2SAT 93
[2024-07-18 17:16] LABS: Phosphorus 3.3 mg/dL (2.5-4.9)
[2024-07-18] MEDS: Furosemide 20 MG Tablet PO (17:54)
[2024-07-18 21:22] VITALS: BP 137/74; PULSE 95
[2024-07-18 21:26] VITALS: BP 137/74; PULSE 95; RESP 16; TEMP 37; O2SAT 96
[2024-07-19 00:29] VITALS: PULSE 82
[2024-07-19 03:33] VITALS: BP 129/79; PULSE 78; RESP 16; TEMP 36.7; O2SAT 94
[2024-07-19 05:34] VITALS: BMI 20.5
[2024-07-19 06:45] LABS: Absolute Lymphocyte Count 2.71 X10^3/uL (0.83-4.51); Absolute Neutrophil Count 5.4 X10^3/uL (2.0-7.7); Basophil# 0.09 X10^3/uL; Basophil% 0.9 % (0-1); Eosinophil# 0.48 X10^3/uL; Eosinophils% 4.8 % (0-5); Hematocrit 46.4 % (40-54); Hemoglobin 15.7 g/dL (13.0-16.5); Lymphocyte # 2.71 X10^3/ul (0.83-4.51); Lymphocyte % 27.3 % (19-41); Mean Corp Hgb Conc 33.8 g/dL (32-36); Mean Corpuscular Hgb 32.7 pg (27.0-32.0); Mean Corpuscular Volume 96.7 fL (80-94); Mean Platelet Vol. 9.7 fl (6.2-12.0); Monocyte# 1.26 X10^3/uL; Monocyte% 12.7 % (0-10); NRBC Flagged by Analyzer 0 % (0-5); Neutrophil # 5.35 X10^3/uL (2.7-7.7); Neutrophil % 53.9 % (47-70); Platelet Count 241 K/mm3 (150-450); RBC Distribution Width CV 12.9 % (11.6-14.6); RBC Distribution Width SD 45.6 fl (35.1-43.9); White Blood Count 9.9 K/mm3 (4.4-11.0)
[2024-07-19 06:59] LABS: International Normalized Ratio 1.4; Prothrombin Time (Protime)PT. 17.8 SECONDS (11.7-14.9)
[2024-07-19 07:18] LABS: Anion Gap 7 (5-15); BUN 31 mg/dL (7-18); BUN/Creat Ratio 20.1 RATIO (10-20); Calcium,Total 9.6 mg/dL (8.5-10.1); Chloride 102 mmol/L (98-107); Creatinine, Serum 1.54 mg/dL (0.70-1.30); EST Glomerular Filtration Rate 46 mL/min (>60); Est Glom Filt Rate - Afr Amer 55 mL/min (>60); Estimated Creatinine Clearance 34.08 ml/min; Glucose 103 mg/dL (74-106); Potassium 3.7 mmol/L (3.5-5.1); Sodium Level 137 mmol/L (136-145)
[2024-07-19 07:35] VITALS: O2SAT 94
[2024-07-19 07:57] VITALS: PULSE 73
[2024-07-19] MEDS: Metoprolol(XL)Succ 25 MG Tablet PO (07:57)
[2024-07-19] MEDS: Multivitamins,Therapeutic Tablet 1 TABLET PO (07:58)
[2024-07-19] MEDS: Furosemide 20 MG Tablet PO (07:58)
[2024-07-19] MEDS: Levothyroxine 25 MCG TABLET PO (07:58)
[2024-07-19] MEDS: Fluticasone 0.05% 1 SPRAY NASAL.SRY 2 SPRAY NASAL (07:59)
[2024-07-19] MEDS: Spironolactone 25 MG Tablet 12.5 MG PO (07:59)
[2024-07-19 08:35] VITALS: BP 116/79; PULSE 73; RESP 16; TEMP 36.6; O2SAT 94
[2024-07-19 08:40] VITALS: PULSE 99
--- NOTE | 2024-07-19 09:44 | DS.PCM_ITS ---
Providers Date of Admission: 07/17/24 Date of Discharge: 07/19/24 Primary Care Physician: Deshawn Rebollar MD Reason For Visit: PNEUMONIA Diagnosis Discharge Diagnosis (1) Fall: Status: Acute Code(s): W19.XXXA - Unspecified fall, initial encounter (2) Elevated brain natriuretic peptide (BNP) level: Status: Acute Code(s): R79.89 - Other specified abnormal findings of blood chemistry (3) Hypoxia: Status: Acute Code(s): R09.02 - Hypoxemia Plan Patient is an 83-year-old gentleman presented with progressive generalized weakness patient was found to have acute hypoxia with elevated proBNP bibasilar infiltrate low-grade fever and leukocytosis admitted to monitored bed for further management 1. Acute hypoxia ? Suspected to be secondary to combination of congestive heart failure and suspected pneumonia admitted to regular nursing floor where patient is currently being managed ? 07/18/2024; patient hypoxia improving. 2. Pneumonia - Suspected to be secondary to streptococcal pneumonia, Blood and sputum cultures sent. Also requested for COVID assay as well as acute viral respiratory panel. Patient placed on Rocephin and Zithromax and placed on oxygen titrated to keep Pulse Ox greater than 90 3. 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 The left ventricular ejection fraction is 40 %. Normal LV size. There is mild to moderate global hypokinesis of the left ventricle. Moderate concentric left ventricular hypertrophy. Mild focal aortic valve calcification. The study was technically difficult. The study was technically limited. Contrast injection was performed. Discharged on lasix, aldactone amd TEJAS I 4. Elevated troponins - due to demand ischemia from hypoxia, 2D echo ordered for regional wall motion abnormality 5. Paroxysmal A-fib Rate controlled on metoprolol and digoxin, patient is on systemic anticoagulation with warfarin continued ordered daily PT/INR for further evaluation 6. Hypertension ? Blood pressure controlled, home medications continued with dose adjustment as needed 7. Hypothyroidism ? Patient is on levothyroxine home dose continued 8. Physical deconditioning ? Requested for PT OT eval and school social worker to assist with discharge planning 9. DVT prophylaxis ? Patient is on warfarin no need for additional measures Time spent in the patient's overall evaluation,decision-making process, review of diagnostic data, adjustment of management, discussion with other providers, nursing nursing and ancillary staff involved in patient's care documentation, 35 Minutes Medications at Discharge Home Medications digoxin 250 mcg (0.25 mg) tablet 0.25 mg PO DAILY 02/26/19 fluticasone propionate 50 mcg/actuation nasal spray,suspension 2 spray NASAL DAILY 02/26/19 metoprolol succinate 25 mg tablet,extended release 24 hr 25 mg PO BID 02/26/19 levothyroxine 25 mcg tablet (Synthroid) 25 mcg PO DAILY 07/17/24 multivitamin (Daily Multi-Vitamin tablet) 1 tab PO DAILY 07/17/24 omega 3 350 mg-dha 235 mg-epa 90 mg-fish oil 597 mg capsule,delay rel ([place]-3) 1 cap PO DAILY 07/17/24 spironolactone 25 mg tablet 12.5 mg PO BID 07/17/24 warfarin 2.5 mg tablet 2.5 mg PO DAILY 07/17/24 cefdinir 300 mg capsule 300 mg PO BID #10 caps 07/19/24 furosemide 20 mg tablet 20 mg PO DAILY #30 tabs 07/19/24 lisinopril 2.5 mg tablet 2.5 mg PO DAILY #30 tabs 07/19/24 Physical Exam Narrative GENERAL: cooperative HEENT: Atraumatic; normocephalic EYES; Anicteric, Normal Conjunctiva NECK; supple, normal thyroid, RESPIRATORY: Diminished to auscultation CARDIOVASCULAR: Regular S1 S2, GI: soft, normoactive bowel sounds, : No Renal angle tenderness; EXTREMITIES: No edema, no clubbing, MUSCULOSKELETAL: no muscle wasting NEURO: Awake; no lateralizing signs. SKIN: No Rash PSYCH; Flat affect Weight / BMI Weight Weight: 68.7 kg Body Mass Index (BMI) 20.5 ABG / Lab / Microbiology Data 07/19/24 06:27 07/19/24 06:27 Laboratory: Laboratory Results - last 24 hr 07/18/24 05:26: Phosphorus 3.3 07/19/24 06:27: WBC 9.9, RBC 4.80, Hgb 15.7, Hct 46.4, MCV 96.7 H, MCH 32.7 H, MCHC 33.8, RDW Std Deviation 45.6 H, RDW Coeff of Hillary 12.9, Plt Count 241, MPV 9.7, Immature Gran % (Auto) 0.400, Neut % (Auto) 53.9, Lymph % (Auto) 27.3, [place] % (Auto) 12.7 H, Eos % (Auto) 4.8, Baso % (Auto) 0.9, Absolute Neuts (auto) 5.4, Absolute Lymphs (auto) 2.71, Nucleated RBC % 0, PT 17.8 H, INR 1.4, Sodium 137, Potassium 3.7, Chloride 102, Carbon Dioxide 29.0, Anion Gap 7, BUN 31 H, C reatinine 1.54 H, Estim Creat Clear Calc 34.08, Est GFR (MDRD) Af Amer 55 L, Est GFR (MDRD) Non-Af 46 L, BUN/Creatinine Ratio 20.1 H, Glucose 103, Calcium 9.6 Microbiology: Microbiology 07/17/24 14:38 Urine, Clean Catch Legionella Antigen - Final 07/17/24 14:38 Urine, Clean Catch Streptococcus pneumoniae Antigen (M - Final 07/17/24 13:47 Nasal Secretion MRSA (PCR) - Final 07/17/24 12:30 Mucosa - Nasopharyngeal Coronavirus COVID-19 PCR - Final 07/17/24 12:30 Mucosa - Nasopharyngeal Respiratory Panel (PCR) - Final 07/17/24 07:32 Mucosa - Nose SARS-CoV-2, Influenza & RSV (PCR) - Final Radiography Diagnostic Testing: Radiology Impression Echocardiogram 07/17/24 12:07 Interpretation Summary The left ventricular ejection fraction is 40 %. Normal LV size. There is mild to moderate global hypokinesis of the left ventricle. Moderate concentric left ventricular hypertrophy. Mild focal aortic valve calcification. The study was technically difficult. The study was technically limited. Contrast injection was performed. Ordering Physician: Rome Stanley Performed By: Kylah Cedeño RDCS D/C Instructions Discharge Diet: 2000 mg Sodium Diet Discharge Activity: Return to Normal Activity Call your doctor if you observe: Fever of 101 or Higher, Shortness of breath, Fainting spells and Chest pain DC O2, CPAP, BIPAP Needs Home O2 Discharge instructions: No DC home with Oxygen: No Meaningful Use Info Meaningful Use Meaningful Use Diagnoses (Choose all that apply): CHF CHF TEJAS/ARB ordered at discharge?: Yes Documented LVEF (%): 40 Ischemic Stroke Statin Dosing Therapy Reference: STATIN DOSE THERAPY REFERENCE: * Patients > 75 years receive moderate or high dose statin therapy. * Patients 75 years or YOUNGER should receive HIGH intensity statin dose unless contraindicated. You will be required to document reason for non-treatment if statin daily dose does not meet guidelines. HIGH DOSE STATIN THERAPY DAILY Atorvastatin > than or = to 40 mg Rosuvastatin > than or = to 20 mg Amlodipine + Atorvastatin > than or = to 2.5/40 mg Ezetimibe + Simvastatin 10/80 mg Simvastatin 80mg Discharge Plan Admission Admit Date/Time: 07/17/24 09:35 Attending Provider: Rome Stanley Primary Care Provider: Deshawn Rebollar Discharge Orders/Prescriptions Prescriptions: New furosemide 20 mg Tablet 20 mg PO DAILY Qty: 30 0RF cefdinir 300 mg capsule 300 mg PO BID Qty: 10 0RF lisinopril 2.5 mg tablet 2.5 mg PO DAILY Qty: 30 0RF Continued digoxin 250 MCG tablet 0.25 mg PO DAILY metoprolol succinate 25 MG tablet extended release 24 hr 25 mg PO BID fluticasone propionate 1 SPRAY spray,suspension 2 spray NASAL DAILY spironolactone 25 mg tablet 12.5 mg PO BID multivitamin [Daily Multi-Vitamin] Tablet 1 tab PO DAILY [place]-3 350 mg-235 mg- 90 mg-597 mg capsule,delayed release(DR/EC) 1 cap PO DAILY warfarin 2.5 mg tablet 2.5 mg PO DAILY levothyroxine [Synthroid] 25 mcg tablet 25 mcg PO DAILY Referrals / Follow Up: Desahwn Rebollar MD [Primary Care Provider] - Within 1 Week Disposition Disposition (needs filled in before D/C Order can be placed): Home, Self Care Charges/Coding Visit Charges Inpatient E&M: 73007 Disch Hosp >30min
[2024-07-19] MEDS: Ceftriaxone 2 GM in 0.9% Normal Saline (50mL MB+) 50 ML IV (09:49)
[2024-07-19] MEDS: Acetaminophen 325 MG Tablet 650 MG PO (09:51)
[2024-07-19] MEDS: Azithromycin 500 MG in 0.9% Normal Saline (250mL Bag) 250 ML 255 MG IV (10:32)
== END 2024-07-19 12:15 | disposition home or self-care (01) | DRG 194 ==
LOC: ED 09:37 → MS3 11:17
PROVIDERS: Admitting Provider Internal Medicine; Emergency Provider Emergency Medicine; PCP Family Medicine; Visit Provider Internal Medicine
DX: J15.4 Pneumonia due to other streptococci (principal); I24.89 Other forms of acute ischemic heart disease; E03.9 Hypothyroidism, unspecified; I10 Essential (primary) hypertension; I48.0 Paroxysmal atrial fibrillation; W19.XXXA Unspecified fall, initial encounter; R09.02 Hypoxemia; Z87.891 Personal history of nicotine dependence; Z23 Encounter for immunization; R79.89 Other specified abnormal findings of blood chemistry; Z79.899 Other long term (current) drug therapy; Z79.890 Hormone replacement therapy; R53.81 Other malaise
CPT/HCPCS: 36415; 71045; 80048; 80053; 80162; 81001; 83605; 83735; 83880; 84100; 84484; 85025; 85610; 85730; 87040; 87077; 87086; 87088; 87449; 87631; 87633; 87635; 87641; 90715; 93005; 93306; 94668; 97116; 97162; 97530; 97802; 99252; 99285; Q9957; A4216; C8929; G0463; J0696; J1940

== ENCOUNTER → 2024-07-29 | Outpatient (CLI) | payer MEDICARE, BC, SELFPAY ==
[2024-07-29 12:32] LABS: International Normalized Ratio 2.1; Prothrombin Time (Protime)PT. 24.2 SECONDS (11.7-14.9)
== END | disposition home or self-care (01) ==
LOC: MFPLAB 09:58
PROVIDERS: PCP Family Medicine; Referring Provider Family Medicine; Visit Provider Family Medicine
DX: Z09 Encounter for follow-up examination after completed treatment for conditions other than malignant neoplasm (principal); I48.91 Unspecified atrial fibrillation
CPT/HCPCS: 36415; 85610

== ENCOUNTER 2024-09-02 10:16 | Outpatient (RCR) | payer MEDICARE, BC, SELFPAY ==
[2024-07-09 03:48] VITALS: BMI 25.9
[2024-09-02 10:25] LABS: INR Fingerstick 2.1; Prothrombin Time Fingerstick 22.7 SEC (11.7-14.9)
== END 2024-09-05 18:00 | disposition home or self-care (01) ==
LOC: LAB 10:16
PROVIDERS: PCP Family Medicine; Referring Provider Family Medicine; Visit Provider Family Medicine
DX: I48.91 Unspecified atrial fibrillation
CPT/HCPCS: 36416; 85610

== ENCOUNTER → 2024-09-18 | Outpatient (CLI) | payer MEDICARE, BC, SELFPAY ==
[2024-09-18 15:49] LABS: Anion Gap 12 (5-15); BUN 21 mg/dL (4-19); BUN/Creat Ratio 15.9 RATIO (10-20); Calcium,Total 10.3 mg/dL (7.6-11.0); Carbon Dioxide 26.3 mmol/L (21.0-32.0); Chloride 101 mmol/L (98-108); Creatinine, Serum 1.31 mg/dL (0.70-1.20); EST Glomerular Filtration Rate 53 (>60); Glucose 107 mg/dL (70-99); Potassium 4.2 mmol/L (3.3-5.1); Sodium Level 139 mmol/L (133-145)
== END | disposition home or self-care (01) ==
LOC: MFPLAB 11:52
PROVIDERS: PCP Family Medicine; Referring Provider Family Medicine; Visit Provider Family Medicine
DX: E03.8 Other specified hypothyroidism (principal); N18.30 Chronic kidney disease, stage 3 unspecified
CPT/HCPCS: 36415; 80048; 84443

== ENCOUNTER 2024-09-30 10:17 | Outpatient (RCR) | payer MEDICARE, BC, SELFPAY ==
[2024-09-06 03:43] VITALS: BMI 25.9
[2024-09-30 10:27] LABS: INR Fingerstick 1.9; Prothrombin Time Fingerstick 21.3 SEC (11.7-14.9)
== END 2024-09-30 18:00 | disposition home or self-care (01) ==
LOC: LAB 10:17
PROVIDERS: PCP Family Medicine; Referring Provider Family Medicine; Visit Provider Family Medicine
DX: I48.91 Unspecified atrial fibrillation (principal)
CPT/HCPCS: 36416; 85610

== ENCOUNTER 2024-10-14 10:16 | Outpatient (RCR) | payer MEDICARE, BC, SELFPAY ==
[2024-10-06 21:45] VITALS: BMI 25.9
[2024-10-14 10:25] LABS: INR Fingerstick 2.3; Prothrombin Time Fingerstick 24.4 SEC (11.7-14.9)
== END 2024-11-05 18:00 | disposition home or self-care (01) ==
LOC: LAB 10:16
PROVIDERS: PCP Family Medicine; Referring Provider Family Medicine; Visit Provider Family Medicine
DX: I48.91 Unspecified atrial fibrillation
CPT/HCPCS: 36416; 85610

== ENCOUNTER 2024-11-25 09:29 | Outpatient (RCR) | payer MEDICARE, BC, SELFPAY ==
[2024-11-05 20:35] VITALS: BMI 25.9
[2024-11-11 10:18] LABS: INR Fingerstick 1.9
[2024-11-18 10:00] LABS: INR Fingerstick 1.9; Prothrombin Time Fingerstick 20.9 SEC (11.7-14.9)
[2024-11-25 09:37] LABS: INR Fingerstick 2.1; Prothrombin Time Fingerstick 23.4 SEC (11.7-14.9)
== END 2024-11-25 18:00 | disposition home or self-care (01) ==
LOC: LAB 09:29
PROVIDERS: PCP Family Medicine; Referring Provider Family Medicine; Visit Provider Family Medicine
DX: I48.91 Unspecified atrial fibrillation
CPT/HCPCS: 36416; 85610

== ENCOUNTER 2024-12-30 09:38 | Outpatient (RCR) | payer MEDICARE, BC, SELFPAY ==
[2024-12-06 20:37] VITALS: BMI 25.9
[2024-12-30 09:50] LABS: INR Fingerstick 4.2; Prothrombin Time Fingerstick 41.6 SEC (11.7-14.9)
[2024-12-30 10:11] LABS: International Normalized Ratio 4.1; Prothrombin Time (Protime)PT. 40.7 SECONDS (11.7-14.9)
== END 2024-12-30 18:00 | disposition home or self-care (01) ==
LOC: LAB 09:38
PROVIDERS: PCP Family Medicine; Referring Provider Family Medicine; Visit Provider Family Medicine
DX: I48.91 Unspecified atrial fibrillation (principal)
CPT/HCPCS: 36415; 36416; 85610

== ENCOUNTER 2025-02-03 09:31 | Outpatient (RCR) | payer MEDICARE, BC, SELFPAY ==
[2025-01-06 10:12] LABS: INR Fingerstick 2.1
[2025-02-03 09:40] LABS: INR Fingerstick 2.2
== END 2025-02-05 20:52 | disposition home or self-care (01) ==
LOC: LAB 09:31
PROVIDERS: PCP Family Medicine; Referring Provider Family Medicine; Visit Provider Family Medicine
DX: I48.91 Unspecified atrial fibrillation (principal)
CPT/HCPCS: 36416; 85610

== ENCOUNTER 2025-03-03 10:07 | Outpatient (RCR) | payer MEDICARE, BC, SELFPAY ==
[2025-03-03 10:17] LABS: INR Fingerstick 1.9
== END 2025-03-03 18:00 | disposition home or self-care (01) ==
LOC: LAB 10:07
PROVIDERS: PCP Family Medicine; Referring Provider Family Medicine; Visit Provider Family Medicine
DX: I48.91 Unspecified atrial fibrillation (principal)
CPT/HCPCS: 36416; 85610

== ENCOUNTER 2025-03-25 10:06 | Outpatient (RCR) | payer MEDICARE, BC, SELFPAY ==
[2025-03-18 10:03] LABS: INR Fingerstick 1.8
[2025-03-25 10:17] LABS: INR Fingerstick 2.5
== END 2025-04-07 18:00 | disposition home or self-care (01) ==
LOC: LAB 10:06
PROVIDERS: PCP Family Medicine; Referring Provider Family Medicine; Visit Provider Family Medicine
DX: Z51.81 Encounter for therapeutic drug level monitoring
CPT/HCPCS: 36416; 85610

== ENCOUNTER → 2025-04-03 | Outpatient (CLI) | payer MEDICARE, BC, SELFPAY ==
--- NOTE | 2025-04-03 | LES_PTH ---
PATIENT: ROMAN JONES LOC: [facility] U#:[id number] AGE/SX: 84/M ROOM: RE04/03/[address]: Deshawn Rebollar MD : [id number] BED: DIS: 04/03/2025 SPEC #: [id number] RECD: 04/03/25 16:03 STATUS: CARROLL IRAIS #: [id number] NARINDER: 04/03/25 00:[address]: Deshawn Rebollar DEPT: SURGICAL PATHOLOGY RECD BY: Jose Mcdonald Tissues: A - Skin of arm Procedures: Surgery Specimen Level IV HEADER OPERATION: Skin biopsy of left forearm PRE-OP DIAGNOSIS: Skin lesion TISSUE SUBMITTED: A- Left arm MICROSCOPIC DIAGNOSIS A. Skin, left arm, "lesion", excision: * Basal cell carcinoma, ulcerated, involving deep and peripheral surgical margins. MICROSCOPIC DESCRIPTION Slides are reviewed. GROSS DESCRIPTION A. Received in formalin labeled with the patient's name and date of . Designated as " left arm" is a 1.0 x 0.7 x 0.4 cm sorto-boone irregular portion of skin. The resection margin is inked green. There is a 0.8 x 0.7 cm sorto-yellow to red-dark brown scab comprising approximately 90% of the epidermal surface. The specimen is serially sectioned. Entirely submitted in 1 cassette. MO 04/06/2025 CPT:38204
== END | disposition home or self-care (01) ==
LOC: LABSPEC 13:44
PROVIDERS: PCP Family Medicine; Referring Provider Family Medicine; Visit Provider Family Medicine
DX: C44.619 Basal cell carcinoma of skin of left upper limb, including shoulder (principal)
CPT/HCPCS: 88305

== ENCOUNTER 2025-04-29 10:01 | Outpatient (RCR) | payer MEDICARE, BC, SELFPAY ==
[2025-04-29 11:30] LABS: Prothrombin Time (Protime)PT. 27.6 SECONDS (11.7-14.9)
== END 2025-04-29 18:00 | disposition home or self-care (01) ==
LOC: LAB 10:01
PROVIDERS: PCP Family Medicine; Referring Provider Family Medicine; Visit Provider Family Medicine
DX: E03.9 Hypothyroidism, unspecified; Z51.81 Encounter for therapeutic drug level monitoring
CPT/HCPCS: 36415; 84443; 85610

== ENCOUNTER 2025-05-29 09:30 | Outpatient (RCR) | payer MEDICARE, BC, SELFPAY ==
[2025-05-29 10:49] LABS: Prothrombin Time (Protime)PT. 26.6 SECONDS (11.7-14.9)
== END 2025-06-06 18:00 | disposition home or self-care (01) ==
LOC: LAB 09:30
PROVIDERS: PCP Family Medicine; Referring Provider Family Medicine; Visit Provider Family Medicine
DX: Z51.81 Encounter for therapeutic drug level monitoring; I48.91 Unspecified atrial fibrillation
CPT/HCPCS: 36415; 85610; 96374

== ENCOUNTER 2025-06-24 09:56 | Outpatient (RCR) | payer MEDICARE, BC, SELFPAY ==
[2025-06-24 10:09] LABS: INR Fingerstick 2.0
== END 2025-06-24 18:00 | disposition home or self-care (01) ==
LOC: LAB 09:56
PROVIDERS: PCP Family Medicine; Referring Provider Family Medicine; Visit Provider Family Medicine
DX: Z51.81 Encounter for therapeutic drug level monitoring
CPT/HCPCS: 36416; 85610

== ENCOUNTER 2025-06-26 10:12 | Inpatient (IN) | payer MEDICARE, BC, SELFPAY ==
[2025-06-26] VITALS (15 sets, daily range): BP systolic 131–181; BP diastolic 59–97; PULSE 80–141; RESP 17–30; TEMP 36.6–37.9; O2SAT 88–99; BMI 23.2; BMI 23.0
--- NOTE | 2025-06-26 10:28 | EX.ED.DYSGE1 ---
HPI History of Present Illness Chief Complaint: Shortness of Breath Informant: patient Onset/Context/Timing Onset: Today Context: Sudden Onset Timing: Continuous Quality: Heaviness Location: Chest Worsened by: Activity, moving Relieved by: Rest Narrative Narrative: Patient presents with shortness of breath that began this morning. He states he woke up he felt like his heart was beating fast. Patient states a history of atrial fibrillation. states the patient is almost always in atrial fibrillation. states that they have followed with cardiology who states that there is no other treatment to keep him in a sinus rhythm. Patient is on Coumadin. Patient states he feels like there is heaviness in his chest. Patient states it is worse with any movement or activity. Patient states it is better with rest. Patient admits to some subjective chills. states patient has been shaking more today. [facility] Medical History Shingles Venous insufficiency Tricuspid insufficiency PVD (peripheral vascular disease) Orthostatic hypotension Macular degeneration Hypertension GERD (gastroesophageal reflux disease) Cor pulmonale CHF (congestive heart failure) Pulmonary hypertension Ankylosing spondylitis Hypothyroidism Atrial fibrillation Home Medications ?Medication ?Instructions ?Recorded ?Last Taken ?Type digoxin 250 mcg (0.25 mg) tablet 0.25 mg PO DAILY 02/26/19 07/16/24 History fluticasone propionate 50 2 spray NASAL DAILY 02/26/19 07/16/24 History mcg/actuation nasal spray,suspension levothyroxine 25 mcg tablet 25 mcg PO DAILY 07/17/24 07/16/24 History (Synthroid) multivitamin (Daily Multi-Vitamin 1 tab PO DAILY 07/17/24 07/16/24 History tablet) omega 3 350 mg-dha 235 mg-epa 90 1 cap PO DAILY 07/17/24 07/16/24 History mg-fish oil 597 mg capsule,delay rel ([place]-3) spironolactone 25 mg tablet 12.5 mg PO BID 07/17/24 07/16/24 History warfarin 2.5 mg tablet 2.5 mg PO DAILY 07/17/24 07/16/24 History furosemide 20 mg tablet 20 mg PO DAILY #30 tabs 07/19/24 Unknown Rx lisinopril 2.5 mg tablet 2.5 mg PO DAILY #30 tabs 07/19/24 Unknown Rx cholecalciferol (vitamin D3) 125 125 mcg PO QDAY 08/12/24 Unknown History mcg (5,000 unit) capsule esomeprazole magnesium 20 mg 20 mg PO QDAY 08/12/24 Unknown History capsule,delayed release (Nexium) vitamins A,C,V-wqmz-mzoolu 4,296 1 cap PO BID 08/12/24 Unknown History mcg-226 mg-90 mg capsule (PreserVision AREDS) metoprolol succinate 25 mg mg PO BID 09/08/24 Unknown History tablet,extended release 24 hr Allergy/AdvReac Type Severity Reaction Status Date / Time No Known Allergies Allergy Verified 06/26/25 10:14 Family History Father Heart disease Brother Heart disease Sister Heart valve replaced Surgical History History of hand surgery History of cardiac radiofrequency ablation Social History Smoking Status: Former smoker ROS ROS ED Constitutional Constitutional ED: Reports chills and subjective; Denies fever(s) Eyes Eyes: Denies blurry vision or change in vision ENT ENT ED: Denies rhinorrhea or sore throat Cardiovascular Cardiovascular: Reports chest pain; Denies palpitations Respiratory/Chest Respiratory/Chest: Reports dyspnea; Denies cough Gastrointestinal Gastrointestinal: Reports nausea and vomiting Genitourinary Genitourinary ED: Denies dysuria or hematuria Musculoskeletal Musculoskeletal: Denies back pain or neck pain Integumentary Denies abscess or rash Neurologic Neurologic: Denies headache(s) or weakness Allergic/Immunologic Allergic/Immunologic ED: Denies mouth swelling or urticaria EXAM Physical Exam Const Vital Signs: 06/26/25 10:13 06/26/25 10:40 06/26/25 11:13 Temperature 98.2 F Temperature Source Oral Pulse Rate 141 H 100 Respiratory Rate 20 H 30 H Respiratory Effort Short of Breath Blood Pressure 181/86 H 154/97 H Blood Pressure Mean 117 116 Pulse Ox 94 95 Oxygen Delivery Method Room Air Room Air Room Air Positive well nourished and well developed General Appearance ED: well developed and NAD HEENT Reports moist mucous membranes Neck supple and no JVD Resp normal respiratory effort Auscultation: diminished lung sounds Cardio Rate: tachycardic Rhythm: abnormal rhythm irregularly irregular GI non-tender and non-distended Palpation: soft Neuro oriented x3, CN's II-XII intact bilaterally and no sensory deficits noted Sensorium / Orientation: alert Motor Exam: strength 5/5 throughout Psych mental status grossly normal MDM MDM MDM Narrative Medical decision making narrative: Differential diagnosis includes cardiac dysrhythmia, cardiac ischemia, pneumonia, bronchitis, sepsis, urinary tract infection, dehydration, and viral illness. EKG will be obtained to assess for cardiac dysrhythmia and cardiac ischemia. Chest x-ray will be obtained to assess for pneumonia or bronchitis. CBC will be obtained to assess for leukocytosis and anemia. Basic metabolic profile will be obtained to assess for electrolyte abnormality and renal function. Serum lactate will be obtained to assess for sepsis. PT with INR and PTT will be obtained to assess for coagulopathy. Digoxin level will be obtained to assess for digoxin toxicity. Urinalysis will be obtained to assess for urinary tract infection and hematuria. COVID-19, influenza, and RSV PCR will be obtained to assess for viral illness. Blood cultures will be obtained to assess for sepsis. Urine culture will be obtained to assess for urinary tract infection. History & Record Review Additional record(s) reviewed:: Prior inpatient record, Prior outpatient record and Prior labs Lab Data Attestation: I reviewed the patient's lab results. Lab results narrative: CBC was reviewed. There is a leukocytosis of 12.2. The remainder is within normal limits. Basic metabolic profile was reviewed BUN was slightly elevated at 23 and creatinine was 1.33. Glucose was slightly elevated at 142. PT with INR and PTT were reviewed. Pro time was 24.1. INR is 2.1. PTT was 37.1. Serum lactate was reviewed and was elevated at 4.0. Urinalysis was reviewed. There is no evidence of urinary tract infection or hematuria. Serum digoxin level was reviewed and was therapeutic at 1.1. COVID-19 PCR was reviewed and was negative. Influenza PCR was reviewed and was negative for influenza A and influenza B. RSV PCR was reviewed and was negative. Labs: Laboratory Results - last 24 hr 06/26/25 06/26/25 10:45 10:47 WBC 12.2 H RBC 4.52 L Hgb 15.4 Hct 45.9 MCV 101.5 H MCH 34.1 H MCHC 33.6 RDW Std Deviation 48.7 H RDW Coeff of [place] 13.9 Plt Count 228 MPV 9.5 Immature Gran % (Auto) 0.500 Neut % (Auto) 76.6 H Lymph % (Auto) 14.7 L [place] % (Auto) 6.8 Eos % (Auto) 1.0 Baso % (Auto) 0.4 Absolute Neuts (auto) 9.4 H Absolute Lymphs (auto) 1.80 Nucleated RBC % 0 PT 24.1 H INR 2.1 APTT 37.1 H Sodium 139 Potassium 4.8 Chloride 98 Carbon Dioxide 29.3 Anion Gap 12 BUN 23 H Creatinine 1.33 H Estim Creat Clear Calc 43.76 L Est GFR (MDRD) Non-Af 52 L BUN/Creatinine Ratio 17.5 Glucose 142 H Lactic Acid 4.0 H* Calcium 10.3 Urine Color Yellow Urine Clarity Clear Urine pH 6.0 Ur Specific [place] 1.010 Urine Protein 100 H Urine Glucose (UA) Normal Urine Ketones Negative Urine Occult Blood 25 H Urine Nitrite Negative Urine Bilirubin Negative Urine Urobilinogen Normal Ur Leukocyte Esterase Negative Urine RBC 0 SEEN Urine WBC 0 SEEN Ur Squamous Epith Cells 0 SEEN Urine Bacteria 0 SEEN Urine Mucus 0 SEEN Digoxin 1.10 Radiography Chest X-Ray - ED: 2 View, Read by ED Physician, Read by Radiologist and Left Infiltrate Diagnostic Testing: Clinical Impression(s) from Imaging Studies Chest X-Ray 06/26/25 11:43 IMPRESSION: Patchy left lung opacities, consistent with pneumonia. Reading Location: [facility] [place] and lateral chest x-ray was obtained. There are 2 views. On my independent interpretation, lung granado show a left lower lobe infiltrate. There is dextrocardia. Bony thorax is normal. Radiologist also interpreted the x-ray and agrees. EKG Initial EKG: Attestation: I personally reviewed and interpreted this EKG as follows: Interpretation: Atrial Fibrillation (115) and LBBB Comments: EKG was obtained. On my independent interpretation, shows atrial fibrillation with a rate of 115. QRS interval slightly prolonged at 128 ms. QTc interval was 392 ms. [place] was normal. There is a left bundle branch block pattern noted. Prior EKG tracings: available for review Prior: Unchanged (07/17/2024) Management Discussion w/another healthcare provider: Hospitalist (Dr. Ortega) Treatment and Re-Evaluation :: Patient was given IV fluids. Patient was started on Rocephin and Zithromax. Case was discussed with the hospitalist. She will admit the patient to her service. Patient understood and was agreeable with the plan. All questions were answered. Discharge Plan Dx/Rx/DC Orders Clinical Impression: Pneumonia, Sepsis, LBBB (left bundle branch block), Atrial fibrillation Disposition Disposition: Acute Care Hospital [facility]
--- NOTE | 2025-06-26 10:34 | EKG12_ITS ---
Test Reason : AFIB Blood Pressure : */* mmHG Vent. Rate : 115 BPM Atrial Rate : * BPM P-R Int : * ms QRS Dur : 128 ms QT Int : 284 ms P-R-T Axes : * 8 187 degrees QTcB Int : 392 ms Atrial fibrillation with rapid ventricular response Left bundle branch block Abnormal ECG Reconfirmed by Jhon Lees ([id number]), editorial project manager SUSANNA BROWNING ([id number]) on 06/29/2025 10:16:43 AM Also confirmed by Jhon Lees ([id number]), editorial project manager SUSANNA BROWNING ([id number]) on 06/30/2025 8:13:39 AM Referred By: CLARICE/JESSICA Confirmed By: Jhon Lees
[2025-06-26] MEDS: 0.9% Normal Saline (1000mL) 1,000 ML 1000 ML IV (10:44)
[2025-06-26 10:55] LABS: Hematocrit 45.9 % (40-54); Hemoglobin 15.4 g/dL (13.0-16.5); Immature Granulocytes Count 0.060 X10^3/uL (0.0-0.0); Mean Corp Hgb Conc 33.6 g/dL (32-36); Mean Corpuscular Volume 101.5 fL (80-94); Mean Platelet Vol. 9.5 fl (6.2-12.0); NRBC Flagged by Analyzer 0 % (0-5); Platelet Count 228 K/mm3 (150-450); RBC Distribution Width CV 13.9 % (11.6-14.6); RBC Distribution Width SD 48.7 fl (35.1-43.9); Red Blood Count 4.52 M/mm3 (4.6-6.2); White Blood Count 12.2 K/mm3 (4.4-11.0)
[2025-06-26 11:05] LABS: Prothrombin Time (Protime)PT. 24.1 SECONDS (11.7-14.9)
[2025-06-26 11:06] LABS: Partial Thromboplast Time 37.1 Seconds (24.1-36.2)
[2025-06-26 11:06] LABS: Mucous, Urine 0 SEEN /hpf (<or=2+); Red Blood Cells-Urine 0 SEEN /hpf (0-5); Squamous Epithelial Cells - UA 0 SEEN /hpf (0-5)
[2025-06-26 11:11] LABS: Color, Urine Yellow (Yellow); Glucose, Dipstick Normal (Normal); Ketone-Dipstick Negative (Negative); Leukocyte Esterase-Dipstick Negative /ul (Negative); Nitrite-Dipstick Negative (Negative); Occult Blood-Urine 25 /ul (Negative); Protein-Dipstick 100 mg/dl (Negative); Specific Gravity, Urine 1.010 (1.002-1.030); Urine Bilirubin Dipstick Negative (Negative)
[2025-06-26 11:25] LABS: Anion Gap 12 (5-15); BUN 23 mg/dL (4-19); BUN/Creat Ratio 17.5 RATIO (10-20); Calcium,Total 10.3 mg/dL (7.6-11.0); Carbon Dioxide 29.3 mmol/L (21.0-32.0); Chloride 98 mmol/L (98-108); Estimated Creatinine Clearance 43.76 ml/min (50-250); Glucose 142 mg/dL (70-99); Potassium 4.8 mmol/L (3.3-5.1)
--- NOTE | 2025-06-26 11:43 | RAD_ITS ---
PROCEDURE: CHEST PA AND LATERAL 06/26/2025 REASON FOR EXAM: DYSPNEA. History of AFib. TECHNIQUE: Procedure Code: RADCXR Modality: DX Procedure: CHEST PA AND LATERAL COMPARISON: 07/17/2024 FINDINGS: LUNGS AND PLEURA: Patchy opacity in the left mid and lower lung. No pleural effusion or pneumothorax. HEART AND MEDIASTINUM: Dextrocardia again noted. The cardiac silhouette is enlarged. The mediastinal contour is normal. AORTA: Calcified thoracic aorta. BONES: No acute osseous abnormality. RAD/Chest PA and Lateral IMPRESSION: Patchy left lung opacities, consistent with pneumonia. Reading Location: [id number]
--- NOTE | 2025-06-26 12:25 | PCM.HP.STD ---
HPI - General General Date of Admission: 06/26/25 Date of Service: 06/26/25 Chief Complaint: shortness of breath HPI Narrative ROMAN JONES, is a 84 M with a PMH as outlined who was admitted via [facility] ED On 06/26/2025 with a complaint of shortness of breath. He woke up feeling like his heart was beating very fast;he also had chills and rigor. He does have a history of afib and is always in afib, though often rate controlled. HE admitted to chest heaviness and a cough which was not productive. He had no other complaints. decided to bring him to the ED to be evaluated. Vitals in the ED were blood pressure of 154/97, pulse rate of 100 and respiratory rate of 30. He was saturating at 95% on room air. CBC showed hemoglobin of 15.4 with WBC of 12.2 and platelets of 228. Chemistry showed sodium of 139 with potassium of 4.8 and Bicarb of 29.3. Creatinine is 1.33. Lactic acid is 4. Urinalysis showed no evidence of UTI. Respiratory panel for COVID influenza and RSV were negative. Chest x-ray showed patchy left lung opacities consistent with pneumonia. He has been admitted to medicine for hypoxia due to community-acquired pneumonia. [facility] Medical History Shingles Venous insufficiency Tricuspid insufficiency PVD (peripheral vascular disease) Orthostatic hypotension Macular degeneration Hypertension GERD (gastroesophageal reflux disease) Cor pulmonale CHF (congestive heart failure) Pulmonary hypertension Ankylosing spondylitis Hypothyroidism Atrial fibrillation Home Medications ?Medication ?Instructions ?Recorded ?Last Taken ?Type digoxin 250 mcg (0.25 mg) tablet 0.25 mg PO DAILY 02/26/19 07/16/24 History fluticasone propionate 50 2 spray NASAL DAILY 02/26/19 07/16/24 History mcg/actuation nasal spray,suspension levothyroxine 25 mcg tablet 25 mcg PO DAILY 07/17/24 07/16/24 History (Synthroid) multivitamin (Daily Multi-Vitamin 1 tab PO DAILY 07/17/24 07/16/24 History tablet) omega 3 350 mg-dha 235 mg-epa 90 1 cap PO DAILY 07/17/24 07/16/24 History mg-fish oil 597 mg capsule,delay rel ([place]-3) spironolactone 25 mg tablet 12.5 mg PO BID 07/17/24 07/16/24 History warfarin 2.5 mg tablet 3 mg PO DAILY 07/17/24 07/16/24 History furosemide 20 mg tablet 20 mg PO DAILY #30 tabs 07/19/24 Unknown Rx lisinopril 2.5 mg tablet 2.5 mg PO DAILY #30 tabs 07/19/24 Unknown Rx cholecalciferol (vitamin D3) 125 125 mcg PO QDAY 08/12/24 Unknown History mcg (5,000 unit) capsule vitamins A,C,A-kdlo-qgpkit 4,296 1 cap PO BID 08/12/24 Unknown History mcg-226 mg-90 mg capsule (PreserVision AREDS) metoprolol succinate 25 mg 25 mg PO BID 09/08/24 Unknown History tablet,extended release 24 hr Allergy/AdvReac Type Severity Reaction Status Date / Time No Known Allergies Allergy Verified 06/26/25 10:14 Family History Father Heart disease Brother Heart disease Sister Heart valve replaced Surgical History History of hand surgery History of cardiac radiofrequency ablation Social History Smoking Status: Former smoker ROS Constitutional Constitutional: Reports chills, fatigue, malaise and weakness; Denies anorexia or fever(s) Eyes Eyes: Denies change in vision ENT HEENT: Denies dysphagia, headache(s), nasal congestion, nasal discharge or sore throat Cardiovascular Cardiovascular: Reports chest pain, dyspnea on exertion, palpitations and rapid heart rate; Denies edema, lightheadedness, orthopnea, paroxysmal nocturnal dyspnea or syncope Respiratory/Chest Respiratory/Chest: Reports cough, dyspnea, productive cough, shortness of breath at rest and shortness of breath with exertion; Denies excessive phlegm production, hemoptysis or wheezing Gastrointestinal Gastrointestinal: Denies abdominal pain, constipation, diarrhea, dyspepsia, nausea or vomiting Genitourinary Genitourinary: Denies burning urination or dysuria Neurologic Neurologic: Denies confusion, dizziness, focal weakness, headache(s), numbness, seizures or syncope Psychiatric Psychiatric: Denies anxiety or depression Endocrine Endocrinology: Denies cold intolerance Patient's Goals Of Care . What would you like to achieve or improve as a result of your hospital stay?: to get better Vital Signs Vital Signs Vital Signs: 06/26/25 10:13 06/26/25 10:40 06/26/25 11:13 Temperature 98.2 F Temperature Source Oral Pulse Rate 141 H 100 Respiratory Rate 20 H 30 H Respiratory Effort Short of Breath Blood Pressure 181/86 H 154/97 H Blood Pressure Mean 117 116 Pulse Ox 94 95 Oxygen Delivery Method Room Air Room Air Room Air Weight Weight: 171 lb 5 oz Body Mass Index (BMI) 23.2 Physical Exam Const alert, oriented x3 and no apparent distress Constitutional Narrative: frail, weak General Appearance: cooperative HEENT normocephalic, head/scalp atraumatic, moist oral mucous membranes and oropharynx normal Mouth: oral and palatal mucosa normal Eyes EOMs intact bilaterally and conjunctivae normal Neck supple and no JVD Resp Resp Narrative: moderately diminished breath sounds bibasally. Coarse crackles in left lower lung field, no wheezing. on 2L of oxygen by nasal canula Cardio S1 normal heart sound, S2 normal heart sound and no murmurs Cardio Narrative: afib, now rate controlled GI normal to inspection, nondistended, normoactive bowel sounds, soft to palpation, non-tender and non-distended Extremity full ROM and no clubbing, cyanosis or edema Neuro oriented x3, moves all extremities and no focal motor deficits Sensorium / Orientation: awake Motor Exam: strength 5/5 throughout Psych affect normal Results Lab / Micro Data 06/26/25 10:47 06/26/25 10:47 Labs: Laboratory Results - last 24 hr 06/26/25 10:45: Urine Color Yellow, Urine Clarity Clear, Urine pH 6.0, Ur Specific [place] 1.010, Urine Protein 100 H, Urine Glucose (UA) Normal, Urine Ketones Negative, Urine Occult Blood 25 H, Urine Nitrite Negative, Urine Bilirubin Negative, Urine Urobilinogen Normal, Ur Leukocyte Esterase Negative, Urine RBC 0 SEEN, Urine WBC 0 SEEN, Ur Squamous Epith Cells 0 SEEN, Urine Bacteria 0 SEEN, Urine Mucus 0 SEEN 06/26/25 10:47: WBC 12.2 H, RBC 4.52 L, Hgb 15.4, Hct 45.9, MCV 101.5 H, MCH 34.1 H, MCHC 33.6, RDW Std Deviation 48.7 H, RDW Coeff of [place] 13.9, Plt Count 228, MPV 9.5, Immature Gran % (Auto) 0.500, Neut % (Auto) 76.6 H, Lymph % (Auto) 14.7 L, [place] % (Auto) 6.8, Eos % (Auto) 1.0, Baso % (Auto) 0.4, Absolute Neuts (auto) 9.4 H, Absolute Lymphs (auto) 1.80, Nucleated RBC % 0, PT 24.1 H, INR 2.1, APTT 37.1 H, Sodium 139, Potassium 4.8, Chloride 98, Carbon Dioxide 29.3, Anion Gap 12, BUN 23 H, Creatinine 1.33 H, Estim Creat Clear Calc 43.76 L, Est GFR (MDRD) Non-Af 52 L, BUN/Creatinine Ratio 17.5, Glucose 142 H, Lactic Acid 4.0 H*, Calcium 10.3, Digoxin 1.10 Micro: Microbiology 06/26/25 10:40 Mucosa - Nose SARS-CoV-2, Influenza & RSV (PCR) - Final Imaging Radiology Impression Chest X-Ray 06/26/25 11:43 IMPRESSION: Patchy left lung opacities, consistent with pneumonia. Reading Location: [facility] Assessment & Plan Assessment/Plan (1) Sepsis: (2) Pneumonia: PLAN: Plan #Severe Sepsis due to pneumonia Admit to PCU. Admitted with a complaint of shortness of breath. WBCs elevated at 12.2 and lactic acid is 4. Chest x-ray does show evidence of pneumonia. Hydrated with IV fluid normal saline at 125 cc/h. Started on IV vancomycin and Zosyn. Get urine for strep and Legionella. Get blood cultures and sputum cultures. Repeat lactic acid after hydration to monitor for resolution. #A-fib: Was in RVR on admission but heart rate is now controlled. On metoprolol. Also on Coumadin. monitor INR #Hypertension: on lisinopril, metoprolol and spironolactone #Hypothyroidism: on sythroid #Heart failure: Not in exacerbation. On Lasix and metoprolol as well as spironolactone and lisinopril. Hold lisinopril and Lasix close patient is here for sepsis and has been hydrated with IV fluids. #GERD: On PPI DVT prophylaxis: not indicated as patient already on coumadin Code status:full code Patient counseled extensively about different types of CODE STATUS including full code, DNR CCA and DNR CCA. Patient elects to be full code. Total [id number] time 17 minutes. # Charges/Coding Visit Charges Inpatient E&M: 76850 Init Hosp L3 Procedures Hospitalists Procedures: 00007 Advncd Care Plan 30 Min
[2025-06-26] MEDS: Ceftriaxone 2 GM in 0.9% Normal Saline (50mL MB+) 50 ML IV (12:41)
[2025-06-26] MEDS: 0.9% Normal Saline (1000mL) 1,000 ML 999 ML IV (12:42)
[2025-06-26] MEDS: Azithromycin 500 MG in 0.9% Normal Saline (250mL Bag) 250 ML 255 MG IV (13:27)
[2025-06-26 14:50] LABS: Reflex Lactate? Y
--- OUTSIDE RECORDS SUMMARY | 2025-06-26 15:53 | XMS RPT_ITS | CCD ---
Author Organization [facility] Care Team Providers Care Director Of Enterprise Architecture Name Role Phone BRAYDON SAUCEDO Attending Unavailable PROVIDER, UNKNOWN Referring Unavailable Vin Zuñiga Primary Care Unavailable Dr. Vin Zuñiga Primary Care Provider Dr. Juan Carlos Meyer Attending Provider [phone] Tamiko Correia Referring Provider Dr. Vin Zuñiga Primary Care Provider Dr. Juan Carlos Meyer Attending Provider [phone] Tamiko Correia Referring Provider Cesar YUSUF, Fab Jacobson Primary Care Provider Fab Guerrero MD Primary Care Provider Deshawn Rebollar MD Primary Care Provider [phone] Vin Zuñiga MD Primary Care Provider Deshawn Rebollar MD Primary Care Provider Deshawn Rebollar MD Attending Provider Deshawn Rebollar MD Referring Provider ADRIANA GRANADOS Other Provider Guillermo Mishra MD Emergency Provider Jaden YUSUF, Dr. Peter Admit Provider Unavailable Jaden YUSUF, Dr. Peter Attending Provider Unavailmiguel Sosa MD, Dr. Matute Attending Provider Dr. Rome Stanley MD Other Provider Unavailable Dr. Dmitri Francisco MD Attending Provider Deshawn Rebollar MD Primary Care Provider Deshawn Rebollar MD Attending Provider Aurelio YUSUF, Chalon Referring Provider ADRIANA GRANADOS Other Provider Aurelio YUSUF, Chalon Primary Care Provider Aurelio YUSUF, Chalon Referring Provider Aurelio YUSUF, Chaseon Attending Provider ADRIANA GRANADOS Other Provider Aurelio YUSUF, Chalon Primary Care Provider Aurelio YUSUF, Chalon Attending Provider Aurelio YUSUF, Chalon Referring Provider ADRIANA GRANADOS Other Provider Aurelio YUSUF, Chalon Primary Care Provider Aurelio YUSUF, Deshawn Attending Provider Aurelio YUSUF, Chalon Referring Provider ADRIANA GRANADOS Other Provider Fe Sharma Attending Provider Aurelio YUSUF, Deshawn Primary Care Physician Deshawn Rebollar MD Attending Physician Aureilo YUSUF, Chalon Referring Provider ADRIANA GRANADOS Nurse Practitioner Fe Sharma Attending Physician BRAYDON SAUCEDO Attending Unavailable AURELIO, CHALON Primary Care Unavailable Aurelio, Chalon Attending Unavailable Aurelio, Chalon Referring Unavailable Aurelio, Chalon Primary Care Unavailable MERCER, PATT Consulting Unavailable Aurelio, Chalon Primary Care Unavailable Aurelio, Chalon Referring Unavailable Aurelio, Chalon Attending Unavailable Aurelio, Chalon Referring Unavailable Aurelio, Chalon Attending Unavailable MERCER, PATT Consulting Unavailable Aurelio, Chalon Primary Care Unavailable Aurelio, Chalon Referring Unavailable Aurelio, Chalon Attending Unavailable MERCER, PATT Consulting Unavailable Aureilo, Chalon Primary Care Unavailable Aurelio, Chalon Referring Unavailable Aurelio, Chalon Attending Unavailable MERCER, PATT Consulting Unavailable Aurelio, Chalon Primary Care Unavailable Aurelio, Chalon Primary Care Unavailable Aurelio, Chalon Referring Unavailable Aurelio, Chalon Attending Unavailable MERCER, PATT Consulting Unavailable Aurelio, Chalon Referring Unavailable Aurelio, Chalon Attending Unavailable Aurelio, Chalon Primary Care Unavailable MERCER, PATT Consulting Unavailable Aurelio, Chalon Referring Unavailable Aurelio, Chalon Attending Unavailable Aurelio, Chalon Primary Care Unavailable MERCER, PATT Consulting Unavailable Aurelio, Chalon Referring Unavailable Aurelio, Chalon Attending Unavailable Aurelio, Chalon Primary Care Unavailable MERCER, PATT Consulting Unavailable Aurelio, Chalon Attending Unavailable Aurelio, Chalon Referring Unavailable Aurelio, Chalon Primary Care Unavailable MERCER, PATT Consulting Unavailable Aurelio, Chalon Attending Unavailable Aurelio, Chalon Referring Unavailable Aurelio, Chalon Primary Care Unavailable Aurelio, Chalon Referring Unavailable Aurelio, Chalon Primary Care Unavailable Dmitri Francisco Attending Unavailable Aurelio, Chalon Primary Care Unavailable Aurelio, Chalon Referring Unavailable Cem BURTON, Fe Attending Unavailable Rome Stanley Attending Unavailable [employer] emery Consulting Unavailable Aurelio, Chalon Primary Care Unavailable Rome Stanley Admitting Unavailable Aurelio, Chalon Primary Care Unavailable Giovani Sosa Attending Unavailable Aurelio, Chalon Primary Care Unavailable Aurelio, Chalon Referring Unavailable Aurelio, Chalon Attending Unavailable Aurelio, Chalon Attending Unavailable Aurelio, Chalon Referring Unavailable Aurelio, Chalon Primary Care Unavailable MERCER, PATT Consulting Unavailable Aurelio, Chalon Attending Unavailable Aurelio, Chalon Referring Unavailable Aurelio, Chalon Primary Care Unavailable MERCER, PATT Consulting Unavailable Aurelio, Chalon Attending Unavailable Aurelio, Chalon Referring Unavailable Aurelio, Chalon Primary Care Unavailable SYLVIE, PATT Consulting Unavailable Rome Stanley Attending Unavailable Rome Stanley Admitting Unavailable Aurelio, Chalon Primary Care Unavailable Aurelio, Chalon Primary Care Unavailable Rome Stanley Attending Unavailable Medications Current Medications Medication Drug Class(es) Dates Sig (Normalized) Sig (Original) ascorbic acid 226 mg / beta carotene 93952 unt / cuprous oxide 0.8 mg / dl-alpha tocopheryl acetate 200 unt / zinc oxide 34.8 mg oral capsule (2 sources) Vitamin C Start: 08-12-2024 Calcium Carb-Cholecalcifer ol (CALCIUM PLUS VITAMIN D3 PO) (20 sources) Calcium Carb-Cholecalciferol (CALCIUM PLUS VITAMIN D3 PO) Take by mouth See administration instructions. 2 daily Active Calcium Carb-Cho lecalciferol (CALCIUM PLUS VITAMIN D3 PO) Take by mouth See administration instructions. 2 daily 0 Active cholecalciferol 0.125 mg oral capsule (9 sources) Vitamin D Start: 08-12-2024 take 1 capsule by mouth once daily digoxin 0.25 mg oral tablet (20 sources) Cardiac Glycoside Start: 02-26-2019 take 0.25 mg by mouth once daily Start: 02-26-2019 End: 05-28-2024 take 1 tablet by mouth once daily digoxin (Lanoxin) 250 MCG tablet Take 1 tablet (250 mcg) by mouth daily. 90 tablet 3 05/28/2024 Active docosahexaenoic acid 120 mg / eicosapentaenoic acid 180 mg oral capsule (20 sources) take 2 capsules by mouth once daily omega-3 (Fish Oil) 1000 MG capsule Take 1,000 mg by mouth See administration instructions. 2 daily Active esomeprazole 20 mg delayed release oral capsule (20 sources) Proton Pump Inhibitor Start: 08-12-19 take 1 capsule by mouth once daily Start: 02-26-2019 End: 07-17-2024 Esomeprazole Magnesium 20 MG capsule Discontinued 20 mg PO February 26, 2019 12:00am July 17, 2024 10:42am Esomeprazole Mag nesium (NEXIUM PO) Take by mouth See administration instructions. As needed Active Esomeprazole Mag nesium (NEXIUM PO) Take by mouth See administration instructions. As needed 0 Active fluticasone propionate 0.05 mg/actuat metered dose nasal spray (20 sources) Corticosteroid Start: 02-26-2019 Start: 02-26-2019 Fluticasone Pr opionate Active 2 SPRAY NASAL DAILY February 26, 2019 12:00am Start: 08-27-2018 take 2 spray(s) nasa l route in the morning fluticasone (Flonase) 50 MCG/ACT nasal spray Administer 2 sprays into affected nostril(s) in the morning. 0 08/27/2018 Active furosemide 20 mg oral tablet (9 sources) Loop Diuretic Start: 07-19-2024 take 1 tablet by mouth once daily levothyroxine sodium 0.025 mg oral tablet (10 sources) l-Thyroxine Start: 07-17-2024 take 1 tablet by mouth once daily lisinopril 2.5 mg oral tablet (9 sources) Angiotensin Converting Enzyme Inhibitor Start: 07-19-2024 take 1 tablet by mouth once daily 24 hr metoprolol succinate 25 mg extended release oral tablet (20 sources) beta-Adrenergic Vincenzo Start: 09-08-2024 take 1 tablet by mouth twice daily Start: 08-12-2024 End: 09-08-2024 take 1 tablet by mouth twice daily Metoprolol Tartrate 25 mg tablet Discontinued 25 mg PO TWICE A DAY August 12, 2024 1:00am September 08, 2024 2:29pm Start: 05-17-2022 End: 08-01-2022 take 1 tablet by mouth every twenty-four hours in the morning metoprolol succinate XL (Toprol-XL) 25 MG 24 hr tablet Take 1 tablet (25 mg) by mouth in the morning and 1 tablet (25 mg) before bedtime. 180 tablet 1 05/17/2022 08/01/2022 Discontinued (Reorder) Start: 02-26-2019 End: 08-12-2024 take 1 tablet by mouth twice daily Metoprolol Succinate 25 MG tablet extended release 24 hr Discontinued 25 mg PO TWICE A DAY February 26, 2019 12:00am August 12, 2024 11:15am Multiple Vitamin (multivitamin) tablet (20 sources) take 1 tablet by sonia th once daily Multiple Vitamin (multivitamin) tablet Take 1 tablet by mouth daily. Active take 1 tablet by mouth once sanjay y Multiple Vitamin (multivitamin) tablet Take 1 tablet by mouth daily. 0 Active Multiple Vitamins-Minerals (Systane ICaps AREDS2) tablet (20 sources) take 2 tablets by mouth once daily Multiple Vitamins-Minerals (Systane ICaps AREDS2) tablet Take by mouth See administration instructions. 2 daily Active take 2 tablets by mouth once nasrin ly Multiple Vitamins-Minerals (Systane ICaps AREDS2) tablet Take by mouth See administration instructions. 2 daily 0 Active Multivitamin (Daily Multi-Vi tamin) tablet (9 sources) Start: 07-17-2024 Start: 07-17-2024 Multivitamin ( Daily Multi-Vitamin) tablet Active 1 {tbl} PO DAILY July 17, 2024 1:00am [place] 5-Hzp-Als-Fish Oil (Om ega-3) 350 mg-235 mg- 90 mg-597 mg capsule,delayed release(DR/EC) (9 sources) Start: 07-17-2024 Start: 07-17-2024 [place] 3-Dha-Ep a-Fish Oil ([place]-3) 350 mg-235 mg- 90 mg-597 mg capsule,delayed release(DR/EC) Active 1 NMA PO DAILY July 17, 2024 1:00am spironolactone 25 mg oral ta blet (20 sources) Aldosterone Antagonist Start: 07-17-2024 Start: 12-18-2022 End: 12-13-2023 spironolactone (Aldactone) 2 5 MG tablet TAKE ONE-HALF (1/2) TABLET DAILY 45 tablet 3 12/13/2023 Active Start: 05-11-2022 End: 08-01-2022 take 0.5 tablet by mouth once daily spironolactone (Aldactone) 25 MG tablet Take 0.5 tablets (12.5 mg) by mouth daily. 45 tablet 1 08/01/2022 Active Start: 02-26-2019 Spironolactone Active 25 MG February 26, 2019 10:23am Start: 02-26-2019 End: 07-17-2024 Spironolactone 25 MG tablet Discontinued 25 mg February 26, 2019 12:00am July 17, 2024 10:32am Start: 02-26-2019 Spironolactone Active 25 MG February 25, 2019 11:00pm Start: 02-26-2019 Spironolactone Active 25 MG February 26, 2019 12:00am tamsulosin hydrochloride 0.4 mg oral capsule (20 sources) alpha-Adrenergic Ivncenzo Start: 07-28-2022 End: 07-28-2023 take 1 capsule by mouth once daily tamsulosin (Flomax) 0.4 MG 24 hr capsule Take 1 capsule (0.4 mg) by mouth daily. 90 capsule 1 12/14/2022 Active Start: 02-26-2019 Tamsulosin Hcl Active 0 MG February 26, 2019 10:23am Start: 02-26-2019 End: 07-17-2024 Tamsulosin Hcl 0.4 MG capsul e Discontinued 0 mg February 26, 2019 12:00am July 17, 2024 10:42am Start: 02-26-2019 Tamsulosin Hcl Active 0 MG February 25, 2019 11:00pm Start: 02-26-2019 Tamsulosin Hcl Active 0 MG February 26, 2019 12:00am Vitamins A,C,O-Wxcm-Dlxuxq (Preservision Areds) 4,296 mcg-226 mg-90 mg capsule (7 sources) Start: 08-12-2024 Vitamins A,C,X-Pyay-Kudvrz (Preservision Areds) 4,296 mcg-226 mg-90 mg capsule Active 1 NMA PO TWICE A DAY August 12, 2024 1:00am warfarin sodium 2.5 mg oral tablet (20 sources) Vitamin K Antagonist Start: 07-17-2024 take 1 tablet by mouth once daily Start: 12-08-2019 End: 07-17-2024 take 1 tablet by mouth once Warfarin 2 MG tablet Disco ntinued 2 mg PO every Sunday, , , Sat December 08, 2019 12:00am July 17, 2024 10:42am Start: 02-26-2019 End: 07-17-2024 Warfarin 4 MG tablet Discont inued 4 mg PO MOWEFR February 26, 2019 12:00am July 17, 2024 10:42am Completed/Discontinued Medications Medication Drug Class(es) Dates Sig (Normalized) Sig (Original) calcium carbonate 1250 mg / cholecalciferol 1000 unt / vitamin k 0.4 mg chewable tablet (20 sources) Vitamin D Start: 02-26-2019 End: 07-17-2024 Calcium-Vitamin D3-Vitamin K 1 EACH tablet,chewable Discontinued 1 NMA PO February 26, 2019 12:00am July 17, 2024 10:41am Start: 02-26-2019 Calcium-Vitami n D3-Vitamin K Active 1 EACH PO February 26, 2019 12:00am cefdinir 300 mg oral capsule (9 sources) Cephalosporin Antibacterial Start: 07-19-2024 End: 09-08-2024 take 1 capsule by mouth twice daily Cefdinir 300 mg capsule Discontinued 300 mg PO TWICE A DAY 10 July 19, 2024 1:00am September 08, 2024 2:25pm ipratropium bromide 0.042 mg/actuat metered dose nasal spray (9 sources) Anticholinergic Start: 08-12-2024 End: 03-03-2025 Ipratropium [place] 42 mcg (0.06 %) spray,non-aerosol Discontinued 2 NMA INTRANASAL 3 to 4 times per day as needed August 12, 2024 1:00am September 08, 2024 2:25pm administer into each nostril polyethylene glycol 3350 17805 mg powder for oral solution (9 sources) Osmotic Laxative Start: 08-12-2024 End: 09-08-2024 Polyethylene Glycol 3350 (Miralax) 17 gram powder in packet Discontinued 17 g PO daily August 12, 2024 1:00am September 08, 2024 2:26pm Problems Active Problems Problem Classification Problem Date Documented Date Episodic/Chronic Cardiac dysrhythmias (20 sources) Chronic atrial fibrillation; Translations: [Permanent atrial fibrillation] Onset: 09-26-2016 Chronic Chronic kidney disease (20 sources) Chronic kidney disease stage 3; Translations: [Chronic renal disease, stage III] Onset: 12-02-2021 04-20-2022 Chronic Chronic ulcer of skin (20 sources) Ulcer of lower extremity; Translations: [Non-pressure chronic ulcer of unspecified part of left lower leg with fat layer exposed] Onset: 09-21-2022 12-08-2019 Chronic Conduction disorders (16 sources) Left bundle branch block; Translations: [Left bundle-branch block, unspecified] 09-08-2024 Chronic Congestive heart failure; nonhypertensive (9 sources) Congestive heart failure; Translations: [Heart failure, unspecified] 08-12-2024 Chronic Esophageal disorders (20 sources) Gastroesophageal reflux disease; Translations: [Gastro-esophageal reflux disease without esophagitis] Onset: 03-17-2020 04-20-2022 Chronic Essential hypertension (20 sources) Hypertensive disorder; Translations: [Essential (primary) hypertension] Onset: 09-26-2016 04-20-2022 Chronic Heart valve disorders (20 sources) Tricuspid valve regurgitation; Translations: [Rheumatic tricuspid insufficiency] Onset: 09-26-2016 04-20-2022 Chronic Hyperplasia of prostate (20 sources) Benign prostatic hyperplasia; Translations: [Benign prostatic hyperplasia without lower urinary tract symptoms] Onset: 09-19-2021 04-20-2022 Chronic Malaise and fatigue (11 sources) Asthenia; Translations: [Weakness] 07-27-2024 Episodic Open wounds of head; neck; and trunk (11 sources) Tear of skin; Translations: [Open wound(s) (multiple) of unspecified site(s), without mention of complication] 07-27-2024 Episodic Other aftercare (1 source) Encounter for therapeutic drug level monitoring; Translations: [Encounter for therapeutic drug level monitoring] Onset: 05-08-2025 Episodic Other aftercare (1 source) USP (current) use of anticoagulants; Translations: [USP (current) use of anticoagulants] Onset: 03-08-2025 Episodic Other and ill-defined heart disease (16 sources) Left ventricular systolic dysfunction; Translations: [Other ill-defined heart diseases] 09-08-2024 Chronic Other circulatory disease (9 sources) Orthostatic hypotension; Translations: [Orthostatic hypotension] 08-12-2024 Episodic Other connective tissue disease (20 sources) Swelling of bilateral lower limbs; Translations: [Other specified soft tissue disorders] Onset: 09-21-2022 12-08-2019 Episodic Other diseases of veins and lymphatics (9 sources) Vascular insufficiency; Translations: [Venous insufficiency (chronic) (peripheral)] 08-12-2024 Episodic Other lower respiratory disease (11 sources) Hypoxia; Translations: [Hypoxemia] 07-27-2024 Episodic Other skin disorders (1 source) Disorder of the skin and subcutaneous tissue, unspecified; Translations: [Disorder of the skin and subcutaneous tissue, unspecified] Onset: 04-09-2025 Episodic Other upper respiratory disease (20 sources) Bleeding from nose; Translations: [Epistaxis] Onset: 09-21-2022 12-09-2019 Episodic Peripheral and visceral atherosclerosis (9 sources) Peripheral vascular disease; Translations: [Peripheral vascular disease, unspecified] 08-12-2024 Chronic Pulmonary heart disease (18 sources) Pulmonary hypertension; Translations: [Pulmonary hypertension, unspecified] 08-12-2024 Chronic Retinal detachments; defects; vascular occlusion; and retinopathy (9 sources) Degenerative disorder of macula ; Translations: [Unspecified macular degeneration] 08-12-2024 Chronic Rheumatoid arthritis and related disease (20 sources) Ankylosing spondylitis; Translations: [Ankylosing spondylitis of cervicothoracic region] Onset: 09-15-2020 04-20-2022 Chronic Thyroid disorders (10 sources) Hypothyroidism; Translations: [Hypothyroidism, unspecified] Onset: 05-08-2025 08-12-2024 Chronic Unclassified (2 sources) 6 Month Follow-up; Translations: [6 Month Follow-up] Onset: 07-16-2024 Past or Other Problems Problem Classification Problem Date Documented Da te Episodic/Chronic E Codes: Fall (12 sources) Fall; Translations: [Unspecified fall, initial encounter] Onset: 07-21-2024 07-27-2024 Episodic Other aftercare (1 source) Encounter for follow-up examination after completed treatment for conditions other than malignant neoplasm; Translations: [Encounter for follow-up examination after completed treatment for conditions other than malignant neoplasm] Onset: 08-18-2024 Episodic Other lower respiratory disease (15 sources) Dyspnea on exertion; Translations: [Other forms of dyspnea] Onset: 11-06-2023 11-06-2023 Episodic Other lower respiratory disease (1 source) Hypoxemia; Translations: [Hypoxemia] Onset: 07-21-2024 Episodic Other screening for suspected conditions (not mental disorders or infectious disease) (12 sources) Hormone level - finding; Translations: [Other specified abnormal findings of blood chemistry] Onset: 07-21-2024 07-27-2024 Episodic Pneumonia (except that caused by tuberculosis or sexually transmitted disease) (12 sources) Pneumonia; Translations: [Pneumonia, unspecified organism] Onset: 07-22-2024 07-27-2024 Episodic Results Test Name Value Interpretation Reference Range Facility 36on 05-05-2025 36 Spoke with [address] pt[address] Dr Rebollar (PCP) manages his Coumadin. Dr Sosa is his narcotics agent. He does not need a refill. [facility] [address] Saucedo 07/16/2024 Annual RTC expected July 2025 INR 03/25/2025 therapeutic 2.5 - managed by Dr. Rebollar. [facility] Surgical pathology reportOrd ered By: Norma Victor on 04-08-2025 Surgical pathology study [facility] Surgery Specimen Level Kelly 04-03-2025 Surgery Specimen Level IV -------- Patient Age/Sex Location Account Attending Physician -------- RAYMOND JONES 84/M LABSPEC [id number] Dr. Deshawn Rebollar MD -------- Specimen: [id number] Received: 04/03/25 Status: CARROLL Delgado Num: [id number] Spec Type: Lesion Subm Dr: Dr. Deshawn Rebollar MD HEADER OPERATION: Skin biopsy of left forearm PRE-OP DIAGNOSIS: Skin lesion TISSUE SUBMITTED: A- Left arm -------- MICROSCOPIC DIAGNOSIS A. Skin, left arm, lesion, excision: * Basal cell carcinoma, ulcerated, involving deep and peripheral surgical margins. MICROSCOPIC DESCRIPTION Slides are reviewed. GROSS DESCRIPTION A. Received in formalin labeled with the patient's name and date of . Designated as left arm is a 1.0 x 0.7 x 0.4 cm sorto-boone irregular portion of skin. The resection margin is inked green. There is a 0.8 x 0.7 cm sorto-yellow to red-dark brown scab comprising approximately 90% of the epidermal surface. The specimen is serially sectioned. Entirely submitted in 1 cassette. [place] 04/06/2025 CPT:34300 -------- Patient Age/Sex Location Account Attending Physician -------- RAYMOND JONES 84/M [facility] [id number] Dr. Deshawn Rebollar MD -------- Signed (signature on file) Dr. Norma Victor MD 04/08/25 1036 -------- [facility] Comment on above: Performed By: #### L 300.3900 #### [facility] [address] [place], [place], [address] International normalized rat io (INR) measurement by fingerstickOrdered By: Deshawn Rebollar on 03-25-2025 INR Coag (BldC) [Relative time] 2.5 [facility] Comment on above: Critical Value > 4.0 Protime w/INR Fingerstickon 03-25-2025 INR Coag (PPP) [Relative time] 2.5 {INR} Normal [facility] Comment on above: Result Comment: Crit ical Value > 4.0 Performed By: #### L 500.2500 #### [facility] [address] [place], [place], [id number] Protime [place]agsen 26.5 SEC High 11.7-14.9 [facility] Comment on above: Performed By: #### L 500.2500 #### [facility] [address] [place], [place], [id number] Whole blood prothrombin time Ordered By: Deshawn Rebollar on 03-25-2025 PT Coag (Bld) [Time] 26.5 s High 11.7-14.9 [facility] Protime w/INR Fingerstickon 03-18-2025 INR Coag (PPP) [Relative time] 1.8 {INR} Normal [facility] Comment on above: Result Comment: Crit ical Value > 4.0 Performed By: #### L 500.2500 #### [facility] [address] [place], [place], [address] Protime [place]agsen 19.8 SEC High 11.7-14.9 [facility] Comment on above: Performed By: #### L 500.2500 #### [facility] [address] [place], [place], [id number] Cardiology Visit Reporton Cardiology Visit Report [facility] [address] [place], [place] [address] OFFICE VISIT Date of Service: 03/10/25 MR#: [id number] Acct: [id number] Name: RAYMOND JONES Rep #: [id number] : 1940 Provider: ERNST smith Age/Sex: 84/M Location: [facility] Status: Signed HPI HPI History of Present Illness Details: Patient is a 84-year-old white male who presents today for cardiovascular follow-up visit. Patient carries a history of atrial fibrillation which is now persistent/permanent. He had previously been evaluated and treated by Dr. Braydon Saucedo has had multiple cardioversions and different antiarrhythmic therapies. It was deemed that he would be remain in permanent atrial fibrillation with rate control and oral anticoagulation therapy with Coumadin by Dr. Saucedo. 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 Patient has a chronic left bundle branch block on his EKG he also has a history of LV dysfunction heart failure with preserved ejection fraction of 40% diagnosed in an echocardiogram July 2024. He was admitted to [facility] with a pneumonia in July 2024. The patient is on long-term Coumadin therapy managed through Dr. Rebollar's office. His target INR is 2???3. The patient is echocardiogram July 17, 2024 showed an LVEF of 40% with moderate global hypokinesis. He had moderate concentric left ventricular hypertrophy mild focal aortic valve calcification. The patient had a stress test which was a Lexiscan pharmacologic stress November 26, 2023. That showed no evidence of ischemia or infarction. From a cardiac standpoint, the patient is doing well. He denies any palpitations, chest pain, pressure or heaviness. He denies SOB, Orthopnea, and PND. He does not have bleeding issues; no blood in urine, stool, or nosebleeds. He denies any decrease in energy level, myalgias, or claudication. He does not have edema, or sudden weight gain. He denies lightheadedness, dizziness, syncopal or near syncopal episodes, and headaches. 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: No Accompanied by: Is patient in pain?: No Allergies No Known Allergies Allergy (Verified 03/10/25 13:37) Medications ???Medication ???Instructions ???Recorded ???Confirmed ???Type digoxin 250 mcg (0.25 mg) tablet 0.25 mg PO DAILY 02/26/19 03/10/25 History fluticasone propionate 50 2 spray NASAL DAILY 02/26/1903/10 History mcg/actuation nasal spray,suspension levothyroxine 25 mcg tablet 25 mcg PO DAILY 07/17/24 03/10/25 History (Synthroid) multivitamin (Daily Multi-Vitamin 1 tab PO DAILY 07/17/24 03/10/25 History tablet) omega 3 350 mg-dha 235 mg-epa 90 1 cap PO DAILY 07/17/24 03/10/25 H istory mg-fish oil 597 mg capsule,delay rel ([place]-3) spironolactone 25 mg tablet 12.5 mg PO BID 07/17/24 03/10/25 H istory warfarin 2.5 mg tablet 2.5 mg PO DAILY 07/17/24 03/10/25 History furosemide 20 mg tablet 20 mg PO DAILY #30 tabs 07/19/24 0 03/10/25 Rx lisinopril 2.5 mg tablet 2.5 mg PO DAILY #30 tabs 07/19/24 03/10/25 Rx cholecalciferol (vitamin D3) 125 125 mcg PO QDAY 08/12/24 03/10/25 History mcg (5,000 unit) capsule esomeprazole magnesium 20 mg 20 mg PO QDAY 08/12/24 03/10/25 Hi story capsule,delayed release (Nexium) vitamins A,C,F-cyzv-tkuvla 4,296 1 cap PO BID 08/12/24 03/10/25 His tory mcg-226 mg-90 mg capsule (PreserVision AREDS) metoprolol succinate 25 mg mg PO BID 09/08/24 03/10/25 Histor y tablet,extended release 24 hr Ejection fraction %: 40 Have you fallen in the past year?: Yes (July) [facility] Medical History Shingles Venous insufficiency Tricuspid insufficiency PVD (peripheral vascular disease) Orthostatic hypotension Macular degeneration Hypertension GERD (gastroesophageal reflux disease) Cor pulmonale CHF (congestive heart failure) Pulmonary hypertension Ankylosing spondylitis Hypothyroidism Atrial fibrillation Surgical History History of hand surgery History of cardiac radiofrequency ablation Family History Father Heart disease Brother Heart disease Sister Heart valve replaced Social History Smoking Status: Former smoker (more content not included)... Normal [facility] International normalized rat io (INR) measurement by fingerstickOrdered By: Deshawn Rebollar on 03-03-2025 INR Coag (BldC) [Relative time] 1.9 [facility] Comment on above: Critical Value > 4.0 Prothrombin Time w/INRon INR Normal [facility] Comment on above: Result Comment: PT R EFUSED IS A FINGERSTICK Performed By: #### L 100.0100 #### [facility] [address] [place], [address] PROTIME Normal 11.7-14.9 [facility] Comment on above: Result Comment: PT R EFUSED IS A FINGERSTICK Performed By: #### L 100.0100 #### [facility] [address] [place], [address] Protime w/INR Fingerstickon 03-03-2025 INR Coag (PPP) [Relative time] 1.9 {INR} Normal [facility] Comment on above: Result Comment: Crit ical Value > 4.0 Performed By: #### L 100.0100 #### [facility] [address] [place], [address] Protime Coagsen 20.8 SEC High 11.7-14.9 [facility] Comment on above: Performed By: #### L 100.0100 #### [facility] [address] [place], [address] Whole blood prothrombin time Ordered By: Deshawn Rebollar on 03-03-2025 PT Coag (Bld) [Time] 20.8 s High 11.7-14.9 [facility] International normalized rat io (INR) measurement by fingerstickOrdered By: Deshawn Rebollar on 02-03-2025 INR Coag (BldC) [Relative time] 2.2 [facility] Comment on above: Critical Value > 4.0 Prothrombin Time w/INRon INR Normal [facility] Comment on above: Order Comment: Order Date: 12/30/24Order Info: 6301-6 - PT Result Comment: ROSAURA ENT IS A FINGERSTICK Performed By: #### L 100.0100 #### [facility] [address] [place], [place], [id number] (184) PROTIME Normal 11.7-14.9 [facility] Comment on above: Order Comment: Order Date: 12/30/24Order Info: 6301-6 - PT Result Comment: ROSAURA ENT IS A FINGERSTICK Performed By: #### L 100.0100 #### [facility] [address] [place], [place], [address] (112) Protime w/INR Fingerstickon 02-03-2025 INR Coag (PPP) [Relative time] 2.2 {INR} Normal [facility] Comment on above: Result Comment: Crit ical Value > 4.0 Performed By: #### L 501.4020 #### [facility] [address] [place], [address] Protime Coagsen 23.7 SEC High 11.7-14.9 [facility] Comment on above: Performed By: #### L 501.4020 #### [facility] [address] [place], [place], [id number] Whole blood prothrombin time Ordered By: Deshawn Rebollar on 02-03-2025 PT Coag (Bld) [Time] 23.7 s High 11.7-14.9 [facility] Protime w/INR Fingerstickon 01-06-2025 INR Coag (PPP) [Relative time] 2.1 {INR} Normal [facility] Comment on above: Result Comment: Crit ical Value > 4.0 Performed By: #### L 100.0100 #### [facility] [address] [place], [place], [id number] Protime [place]agsen 22.9 SEC High 11.7-14.9 [facility] Comment on above: Performed By: #### L 100.0100 #### [facility] [address] [place], [place], [id number] International normalized rat io (INR) calculationOrdered By: Deshawn Rebollar on 12-30-2024 INR Coag (Bld) [Relative time] 4.1 {INR} Critically high [facility] Prothrombin Time w/INRon INR Coag (PPP) [Relative time] 4.1 {INR} Invalid Interpretation Code [facility] Comment on above: Order Comment: CRITI RASHIDA VALUE CALLED TO MERISSA FORD12/30/24 Mikayla Amezcua.RESULTS READ BACK BY SAME. Performed By: #### L 100.0100 #### [facility] [address] [place], [address] PT Coag (PPP) [Time] 40.7 s High 11.7-14.9 [facility] Comment on above: Order Comment: CRITI RASHIDA VALUE [facility]12/30/24 Mikayla Amezcua.RESULTS READ BACK BY SAME. Performed By: #### L 100.0100 #### [facility] [address] [place], [place], [phone] (001) Prothrombin timeOrdered By: Deshawn Rebollar on 12-30-2024 PT Coag (PPP) [Time] 40.7 s High 11.7-14.9 [facility] Protime w/INR Fingerstickon 12-30-2024 INR Coag (PPP) [Relative time] 4.2 {INR} Invalid Interpretation Code [facility] Comment on above: Result Comment: Crit ical Value > 4.0 Performed By: #### L 500.2500 #### [facility] [address] [place], [place], [id number] Protime Coagsen 41.6 SEC High 11.7-14.9 [facility] Comment on above: Performed By: #### L 500.2500 #### [facility] [address] [place], [address] Whole blood prothrombin time Ordered By: Deshawn Rebollar on 12-30-2024 PT Coag (Bld) [Time] 41.6 s High 11.7-14.9 [facility] International normalized rat io (INR) measurement by fingerstickOrdered By: Deshawn Rebollar on 11-25-2024 INR Coag (BldC) [Relative time] 2.1 [facility] Comment on above: Critical Value > 4.0 Protime w/INR Fingerstickon 11-25-2024 INR Coag (PPP) [Relative time] 2.1 {INR} Normal [facility] Comment on above: Result Comment: Crit ical Value > 4.0 Performed By: #### L 100.0100 #### [facility] [address] [place], [place], [id number] Protime [place]agsen 23.4 SEC High 11.7-14.9 [facility] Comment on above: Performed By: #### L 100.0100 #### [facility] [address] [place], [place], [phone] (517) Whole blood prothrombin time Ordered By: Deshawn Rebollar on 11-25-2024 PT Coag (Bld) [Time] 23.4 s High 11.7-14.9 [facility] Prothrombin Time w/INRon INR Normal [facility] Comment on above: Result Comment: JEFFERY ERSTICK Performed By: #### L 100.0100 #### [facility] [address] [place], [address] PROTIME Normal 11.7-14.9 [facility] Comment on above: Result Comment: FING ERSTICK Performed By: #### L 100.0100 #### [facility] [address] [place], [address] Protime w/INR Fingerstickon 11-18-2024 INR Coag (PPP) [Relative time] 1.9 {INR} Normal [facility] Comment on above: Result Comment: Crit ical Value > 4.0 Performed By: #### L 500.2500 #### [facility] [address] [place], [address] Protime Coagsen 20.9 SEC High 11.7-14.9 [facility] Comment on above: Performed By: #### L 500.2500 #### [facility] [address] [place], [address] Protime w/INR Fingerstickon 11-11-2024 INR Coag (PPP) [Relative time] 1.9 {INR} Normal [facility] Comment on above: Result Comment: Crit ical Value > 4.0 Performed By: #### L 501.4020 #### [facility] [address] [place], [address] Protime Coagsen 21.0 SEC High 11.7-14.9 [facility] Comment on above: Performed By: #### L 501.4020 #### [facility] [address] [place], [address] International normalized rat io (INR) measurement by fingerstickOrdered By: eDshawn Rebollar on 10-14-2024 INR Coag (BldC) [Relative time] 2.3 [facility] Comment on above: Critical Value > 4.0 Protime w/INR Fingerstickon 10-14-2024 INR Coag (PPP) [Relative time] 2.3 {INR} Normal [facility] Comment on above: Result Comment: Crit ical Value > 4.0 Performed By: #### L 580.4020 #### [facility] [address] [place], [address] Protime Coagsen 24.4 SEC High 11.7-14.9 [facility] Comment on above: Performed By: #### L 550.4020 #### [facility] [address] [place], [address] Whole blood prothrombin time Ordered By: Deshawn Rebollar on 10-14-2024 PT Coag (Bld) [Time] 24.4 s High 11.7-14.9 [facility] INR Coag (BldC) [Relative ti me]Ordered By: Deshawn Rebollar on 09-30-2024 INR Coag (Bld) [Relative time] 1.9 {INR} [facility] Comment on above: Critical Value > 4.0 International normalized rat io (INR) measurement by fingerstickOrdered By: Deshawn Rebollar on 09-30-2024 INR Coag (BldC) [Relative time] 1.9 [facility] Comment on above: Critical Value > 4.0 PT Coag (Bld) [Time]Ordered By: Deshawn Rebollar on 09-30-2024 Bedside Prothrombin Time 21.3 SEC High 11.7-14.9 [facility] Protime w/INR Fingerstickon 09-30-2024 INR Coag (PPP) [Relative time] 1.9 {INR} Normal [facility] Comment on above: Result Comment: Crit ical Value > 4.0 Performed By: #### L 300.3900 #### [facility] [address] [place], [address] Protime Coagsen 21.3 SEC High 11.7-14.9 [facility] Comment on above: Performed By: #### L 300.3900 #### [facility] [address] [place], [place], [address] Whole blood prothrombin time Ordered By: Deshawn Rebollar on 09-30-2024 PT Coag (Bld) [Time] 21.3 s High 11.7-14.9 [facility] Anion gap in Serum or Plasma Ordered By: Deshawn Rebollar on 09-18-2024 Anion gap [Moles/Vol] 12 mmol/L - [facility] BUN/creatinine ratioOrdered By: Deshawn Rebollar on 09-18-2024 Urea nitrogen/Creatinine [Mass ratio] 15.9 mg/mg - [facility] Basic Metabolic Profile (BMP )on 09-18-2024 BUN/CRE 15.9 RATIO Normal - [facility] Comment on above: Order Comment: Order Date: 09/18/24Order Info: 0667-1 - BMPOrder Info: 3016-3 - TSH Performed By: #### M 200.1000, L503.6005, L100.0100, L300.4310, L300.3900, L500.4050 #### [facility] [address] [place], [place], [id number] Calcium [Mass/Vol] 10.3 mg/dL Normal 7.6-11.0 [facility] Comment on above: Order Comment: Order Date: 09/18/24Order Info: 0667-1 - BMPOrder Info: 3016-3 - TSH Performed By: #### M 200.1000, L503.6005, L100.0100, L300.4310, L300.3900, L500.4050 #### [facility] [address] [place], [place], [id number] Chloride [Moles/Vol] 101 mmol/L Normal 98-108 [facility] Comment on above: Order Comment: Order Date: 09/18/24Order Info: 0667-1 - BMPOrder Info: 3016-3 - TSH Performed By: #### M 200.1000, L503.6005, L100.0100, L300.4310, L300.3900, L500.4050 #### [facility] [address] [place], [address] CO2 [Moles/Vol] 26.3 mmol/L Normal 21.0-32.0 [facility] Comment on above: Order Comment: Order Date: 09/18/24Order Info: 0667-1 - BMPOrder Info: 6-3 - TSH Performed By: #### M 200.1000, L503.6005, L100.0100, L300.4310, L300.3900, L500.4050 #### [facility] [address] [place], [address] Creatinine [Mass/Vol] 1.31 mg/dL High 0.70-1.20 [facility] Comment on above: Order Comment: Order Date: 09/18/24Order Info: 0667-1 - BMPOrder Info: 3 - TSH Performed By: #### M 200.1000, L503.6005, L100.0100, L300.4310, L300.3900, L500.4050 #### [facility] [address] [place], [address] GAP 12 Normal 5-15 [facility] Comment on above: Order Comment: Order Date: 09/18/24Order Info: 0667-1 - BMPOrder Info: 301-3 - TSH Performed By: #### M 200.1000, L503.6005, L100.0100, L300.4310, L300.3900, L500.4050 #### [facility] [address] [place], [address] GFR/1.73 sq M.predicted among non-blacks MDRD (S/P/Bld) [Vol rate/Area] 53 mL/min/{1.73_m2} Low >60 [facility] Comment on above: Order Comment: Order Date: 09/18/24Order Info: 0667-1 - BMPOrder Info: 301-3 - TSH Result Comment: mL/m in/1.73m2 CKD-EPI Creatinine Equation (2020) Performed By: #### M 200.1000, L503.6005, L100.0100, L300.4310, L300.3900, L500.4050 #### [facility] [address] [place], [address] Glucose [Mass/Vol] 107 mg/dL High 70-99 [facility] Comment on above: Order Comment: Order Date: 09/18/24Order Info: 0667-1 - BMPOrder Info: 3016-3 - TSH Performed By: #### M 200.1000, L503.6005, L100.0100, L300.4310, L300.3900, L500.4050 #### [facility] [address] [place], [address] Potassium [Moles/Vol] 4.2 mmol/L Normal 3.3-5.1 [facility] Comment on above: Order Comment: Order Date: 09/18/24Order Info: 0667-1 - BMPOrder Info: 3016-3 - TSH Performed By: #### M 200.1000, L503.6005, L100.0100, L300.4310, L300.3900, L500.4050 #### [facility] [address] [place], [address] Sodium [Moles/Vol] 139 mmol/L Normal 133-145 [facility] Comment on above: Order Comment: Order Date: 09/18/24Order Info: 0667-1 - BMPOrder Info: 3016-3 - TSH Performed By: #### M 200.1000, L503.6005, L100.0100, L300.4310, L300.3900, L500.4050 #### [facility] [address] [place], [address] Urea nitrogen [Mass/Vol] 21 mg/dL High 4-19 [facility] Comment on above: Order Comment: Order Date: 09/18/24Order Info: 0667-1 - BMPOrder Info: 3016-3 - TSH Performed By: #### M 200.1000, L503.6005, L100.0100, L300.4310, L300.3900, L500.4050 #### [facility] [address] [place], [address] Carbon dioxide, total [Moles /volume] in Central venous bloodOrdered By: Deshawn Rebollar on 09-18-2024 CO2 [Moles/Vol] 26.3 mmol/L 21.0-32.0 [facility] Chloride assayOrdered By: Leydi Rebollar on 09-18-2024 Chloride [Moles/Vol] 101 mmol/L 98-108 [facility] GFR/1.73 sq M.predicted bonifacio g non-blacks MDRD (S/P/Bld) [Vol rate/Area]Ordered By: Deshawn Rebollar on 09-18-2024 Estimated GFR (MDRD) Non-Af Amer 53 Low >60 [facility] Comment on above: mL/min/1.73m2 CKD-EP I Creatinine Equation (2020) Glomerular filtration rate ( GFR) estimation/1.73 sq m using serum, plasma, or whole bOrdered By: Deshawn Rebollar on 09-18-2024 GFR/1.73 sq M.predicted among non-blacks MDRD (S/P/Bld) [Vol rate/Area] 53 mL/min/{1.73_m2} Low >60 [facility] Comment on above: mL/min/1.73m2 CKD-EP I Creatinine Equation (2020) Potassium (Unsp spec) [Mass/ Vol]Ordered By: Deshawn Rebollar on 09-18-2024 Potassium [Moles/Vol] 4.2 mmol/L 3.3-5.1 [facility] Potassium measurement (mass/ volume)Ordered By: Deshawn Rebollar on 09-18-2024 Potassium (Unsp spec) [Mass/Vol] 4.2 mmol/L 3.3-5.1 [facility] Serum creatinine measurement (mass/volume)Ordered By: Deshawn Rebollar on 09-18-2024 Creatinine [Mass/Vol] 1.31 mg/dL High 0.70-1.20 [facility] Serum glucose measurement (m ass/volume)Ordered By: Deshawn Gomezke on 09-18-2024 Glucose [Mass/Vol] 107 mg/dL High 70-99 [facility] Serum or plasma calcium elida urement (mass/volume)Ordered By: Deshawn Rebollar on 09-18-2024 Calcium [Mass/Vol] 10.3 mg/dL 7.6-11.0 [facility] Serum or plasma urea nitroge n measurement (mass/volume)Ordered By: Deshawn Gomezke on 09-18-2024 Urea nitrogen [Mass/Vol] 21 mg/dL High 4-19 [facility] Sodium levelOrdered By: Chase lopez [facility] on 09-18-2024 Sodium [Moles/Vol] 139 mmol/L 133-145 [facility] TSH DL <= 0.005 mIU/L QnOrde red By: Deshawn Aurelio on 09-18-2024 Thyroid Stimulating Hormone (TSH) 2.680 uIU/mL 0.300-4.200 [facility] TSH Qn 2.680 uIU/mL 0.300-4.200 [facility] Thyroid Stim Hormone (TSH)on 09-18-2024 TSH 2.680 uIU/mL Normal 0.300-4.200 [facility] Comment on above: Order Comment: Order Date: 09/18/24Order Info: [id number] - BMPOrder Info: 3016-3 - TSH Performed By: #### M 200.1000, L503.6005, L100.0100, L300.4310, L300.3900, L500.4050 #### [facility] [address] [place] [place], [address] Cardiology Visit Reporton Cardiology Visit Report [facility] [address] [place] [address] OFFICE VISIT Date of Service: 09/08/24 MR#: [id number] Acct: [id number] Name: RAYMOND JONES Malik Rep #: [id number] : 1940 Provider: Dr. Dmitri lock MD Age/Sex: 83/M Location: [facility] Status: Signed HPI HPI History of Present Illness Details: Patient is a 83-year-old white male is in here for a new patient visit. Patient carries a history of atrial fibrillation which is now persistent/permanent. He had previously been evaluated and treated by Dr. Braydon Saucedo has had multiple cardioversions and different antiarrhythmic therapies. It was deemed that he would be remain in permanent atrial fibrillation with rate control and oral anticoagulation therapy with Coumadin by Dr. Saucedo. The patient denies any symptoms at this point in time he is aerobically active he does leg lifts and lifts light weights with his arms he walks in the summertime around the block at his neighborhood. 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 Patient has a chronic left bundle branch block on his EKG he also has a history of LV dysfunction heart failure with preserved ejection fraction of 40% diagnosed in an echocardiogram July 2024. He was admitted to [facility] with a pneumonia in July 2024. The patient is on long-term Coumadin therapy managed through Dr. Rebollar's office. His target INR is 2???3. It was 2.1 last week. The patient is echocardiogram July 17, 2024 showed an LVEF of 40% with moderate global hypokinesis. He had moderate concentric left ventricular hypertrophy mild focal aortic valve calcification. The patient had a stress test which was a Lexiscan pharmacologic stress November 26, 2023. That showed no evidence of ischemia or infarction. EKG done July 17, 2024 shows atrial fibrillation with a left bundle branch block and occasional PVCs. The patient denies any anginal type symptoms he denies any PND orthopnea denies any lower extremity edema. He does have a history of ankylosing spondylitis. 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 Accompanied by: Is patient in pain?: No Allergies No Known Allergies Allergy (Verified 09/08/24 13:23) Medications ???Medication ???Instructions ???Recorded ???Confirmed ???Type digoxin 250 mcg (0.25 mg) tablet 0.25 mg PO DAILY 02/26/19 09/08/24 History fluticasone propionate 50 2 spray NASAL DAILY 02/26/1909/08 History mcg/actuation nasal spray,suspension levothyroxine 25 mcg tablet 25 mcg PO DAILY 07/17/24 09/08/24 History (Synthroid) multivitamin (Daily Multi-Vitamin 1 tab PO DAILY 07/17/24 09/08/24 History tablet) omega 3 350 mg-dha 235 mg-epa 90 1 cap PO DAILY 07/17/24 09/08/24 H istory mg-fish oil 597 mg capsule,delay rel ([place]-3) spironolactone 25 mg tablet 12.5 mg PO BID 07/17/24 09/08/24 H istory warfarin 2.5 mg tablet 2.5 mg PO DAILY 07/17/24 09/08/24 History furosemide 20 mg tablet 20 mg PO DAILY #30 tabs 07/19/24 0 09/08/24 Rx lisinopril 2.5 mg tablet 2.5 mg PO DAILY #30 tabs 07/19/24 09/08/24 Rx cholecalciferol (vitamin D3) 125 125 mcg PO QDAY 08/12/24 09/08/24 History mcg (5,000 unit) capsule esomeprazole magnesium 20 mg 20 mg PO QDAY 08/12/24 09/08/24 Hi story capsule,delayed release (Nexium) vitamins A,C,J-ebvs-rfbsxf 4,296 1 cap PO BID 08/12/24 09/08/24 His tory mcg-226 mg-90 mg capsule (PreserVision AREDS) metoprolol succinate 25 mg mg PO BID 09/08/24 09/08/24 Histor y tablet,extended release 24 hr Ejection fraction %: 40 Have you fallen in the past year?: Yes (Patient denies syncope he had a profound weakness ) [facility] Medical History Shingles Venous insufficiency Tricuspid insufficiency PVD (peripheral vascular disease) Orthostatic hypotension Macular degeneration Hypertension GERD (gastroesophageal reflux disease) Cor pulmonale CHF (congestive heart failure) Pulmonary hypertension Ankylosing spondylitis Hypothyroidism Atrial fibrillation Surgical History History of hand surgery History of cardiac radiofrequency ablation Family History Father Heart disease Brother Heart disease Sister Heart valve replaced Social History ( (more content not included)... Normal [facility] INR Coag (BldC) [Relative ti me]Ordered By: Deshawn Rebollar on 09-02-2024 INR Coag (Bld) [Relative time] 2.1 {INR} [facility] Comment on above: Critical Value > 4.0 International normalized rat io (INR) measurement by fingerstickOrdered By: Deshawn Rebollar on 09-02-2024 INR Coag (BldC) [Relative time] 2.1 [facility] Comment on above: Critical Value > 4.0 PT Coag (Bld) [Time]Ordered By: Deshawn Rebollar on 09-02-2024 Bedside Prothrombin Time 22.7 SEC High 11.7-14.9 [facility] Protime w/INR Fingerstickon 09-02-2024 INR Coag (PPP) [Relative time] 2.1 {INR} Normal [facility] Comment on above: Result Comment: Crit ical Value > 4.0 Performed By: #### M 200.1000, L503.6005, L100.0100, L300.4310, L300.3900, L500.4050 #### [facility] [address] [place], [place], [id number] [phone] Protime Coagsen 22.7 SEC High 11.7-14.9 [facility] Comment on above: Performed By: #### M 200.1000, L503.6005, L100.0100, L300.4310, L300.3900, L500.4050 #### [facility] [address] [place], [address] Whole blood prothrombin time Ordered By: Deshawn Rebollar on 09-02-2024 PT Coag (Bld) [Time] 22.7 s High 11.7-14.9 [facility] International normalized rat io (INR) calculationOrdered By: Deshawn Rebollar on 07-29-2024 INR Coag (Bld) [Relative time] 2.1 {INR} [facility] Prothrombin Time w/INRon INR Coag (PPP) [Relative time] 2.1 {INR} Normal [facility] Comment on above: Order Comment: Order Date: 07/22/24Order Info: [id number] - PT Performed By: #### L 100.0100 #### [facility] [address] [place], [address] Prothrombin timeOrdered By: Deshawn Rebollar on 07-29-2024 PT Coag (PPP) [Time] 24.2 s High 11.7-14.9 [facility] Comment on above: Order Comment: Order Date: 07/22/24Order Info: [id number] - PT Performed By: #### L 100.0100 #### [facility] [address] [place], [address] Culture, Blood (WB)on 2024 CUB Blood cultures x2, from two different sites No growth in 5 days. Normal [facility] Comment on above: Performed By: #### L 300.3900 #### [facility] [address] [place], [address] Basic Metabolic Profile (BMP )on 07-21-2024 BUN Normal 7-18 [facility] Comment on above: Result Comment: Canc elled via OM: Order cancelled - Patient discharged Performed By: #### L 500.2500 #### [facility] [address] [place], [address] BUN/CRE Normal 10-20 [facility] Comment on above: Result Comment: Canc elled via OM: Order cancelled - Patient discharged Performed By: #### L 500.2500 #### [facility] [address] [place], [address] CA,Total Normal 8.5-10.1 [facility] Comment on above: Result Comment: Canc elled via OM: Order cancelled - Patient discharged Performed By: #### L 500.2500 #### [facility] [address] [place], [address] CL Normal 98-107 [facility] Comment on above: Result Comment: Canc elled via OM: Order cancelled - Patient discharged Performed By: #### L 500.2500 #### [facility] [address] [place], [address] CO2 Normal 21.0-32.0 [facility] Comment on above: Result Comment: Canc elled via OM: Order cancelled - Patient discharged Performed By: #### L 500.2500 #### [facility] [address] [place], [address] CREAT,SERUM Normal 0.70-1.30 [facility] Comment on above: Result Comment: Canc elled via OM: Order cancelled - Patient discharged Performed By: #### L 500.2500 #### [facility] [address] [place], [address] EST GFR Normal >60 [facility] Comment on above: Result Comment: Canc elled via OM: Order cancelled - Patient discharged Performed By: #### L 500.2500 #### [facility] [address] [place], [address] EST GFR - AA Normal >60 [facility] Comment on above: Result Comment: Canc elled via OM: Order cancelled - Patient discharged Performed By: #### L 500.2500 #### [facility] [address] [place], [address] GAP Normal 5-15 [facility] Comment on above: Result Comment: Canc elled via OM: Order cancelled - Patient discharged Performed By: #### L 500.2500 #### [facility] [address] [place], [address] GLU Normal 74-106 [facility] Comment on above: Result Comment: Canc elled via OM: Order cancelled - Patient discharged Performed By: #### L 500.2500 #### [facility] [address] [place], [address] Potassium Normal 3.5-5.1 [facility] Comment on above: Result Comment: Canc elled via OM: Order cancelled - Patient discharged Performed By: #### L 500.2500 #### [facility] [address] [place], [address] Basic Metabolic Profile (BMP) Normal 136-145 [facility] Comment on above: Result Comment: Canc elled via OM: Order cancelled - Patient discharged Performed By: #### L 500.2500 #### [facility] [address] [place], [address] CBC W/Diff, Automatedon 07-09 Absolute Neut Normal 2.0-7.7 [facility] Comment on above: Result Comment: Canc elled via OM: Order cancelled - Patient discharged Performed By: #### L 100.0100 #### [facility] [address] [place], [address] HCT Normal 40-54 [facility] Comment on above: Result Comment: Canc elled via OM: Order cancelled - Patient discharged Performed By: #### L 100.0100 #### [facility] [address] [place], [address] HGB Normal 13.0-16.5 [facility] Comment on above: Result Comment: Canc elled via OM: Order cancelled - Patient discharged Performed By: #### L 100.0100 #### [facility] [address] [place], [address] MCH Normal 27.0-32.0 [facility] Comment on above: Result Comment: Canc elled via OM: Order cancelled - Patient discharged Performed By: #### L 100.0100 #### [facility] [address] [place], [address] MCHC Normal 32-36 [facility] Comment on above: Result Comment: Canc elled via OM: Order cancelled - Patient discharged Performed By: #### L 100.0100 #### [facility] [address] [place], [address] MCV Normal 80-94 [facility] Comment on above: Result Comment: Canc elled via OM: Order cancelled - Patient discharged Performed By: #### L 100.0100 #### [facility] [address] [place], [address] NEUT% Normal 47-70 [facility] Comment on above: Result Comment: Canc elled via OM: Order cancelled - Patient discharged Performed By: #### L 100.0100 #### [facility] [address] [place], [address] PLT Normal 150-450 [facility] Comment on above: Result Comment: Canc elled via OM: Order cancelled - Patient discharged Performed By: #### L 100.0100 #### [facility] [address] [place], [address] RBC Normal 4.6-6.2 [facility] Comment on above: Result Comment: Canc elled via OM: Order cancelled - Patient discharged Performed By: #### L 100.0100 #### [facility] [address] [place], [address] RDW CV Normal 11.6-14.6 [facility] Comment on above: Result Comment: Canc elled via OM: Order cancelled - Patient discharged Performed By: #### L 100.0100 #### [facility] [address] [place], [address] RDW SD Normal 35.1-43.9 [facility] Comment on above: Result Comment: Canc elled via OM: Order cancelled - Patient discharged Performed By: #### L 100.0100 #### [facility] [address] [place], [address] WBC Normal 4.4-11.0 [facility] Comment on above: Result Comment: Canc elled via OM: Order cancelled - Patient discharged Performed By: #### L 100.0100 #### [facility] [address] [place], [address] Prothrombin Time w/INRon INR Normal [facility] Comment on above: Result Comment: Canc elled via OM: Order cancelled - Patient discharged Performed By: #### L 300.3900 #### [facility] [address] [place], [address] PROTIME Normal 11.7-14.9 [facility] Comment on above: Result Comment: Canc elled via OM: Order cancelled - Patient discharged Performed By: #### L 300.3900 #### [facility] [address] [place], [address] Basic Metabolic Profile (BMP )on 07-20-2024 BUN Normal 7-18 [facility] Comment on above: Result Comment: Canc elled via OM: Order cancelled - Patient discharged Performed By: #### L 501.4020 #### [facility] [address] [place], [address] BUN/CRE Normal 10-20 [facility] Comment on above: Result Comment: Canc elled via OM: Order cancelled - Patient discharged Performed By: #### L 501.4020 #### [facility] [address] [place], [address] CA,Total Normal 8.5-10.1 [facility] Comment on above: Result Comment: Canc elled via OM: Order cancelled - Patient discharged Performed By: #### L 501.4020 #### [facility] [address] [place], [address] CL Normal 98-107 [facility] Comment on above: Result Comment: Canc elled via OM: Order cancelled - Patient discharged Performed By: #### L 501.4020 #### [facility] [address] [place], [address] CO2 Normal 21.0-32.0 [facility] Comment on above: Result Comment: Canc elled via OM: Order cancelled - Patient discharged Performed By: #### L 501.4020 #### [facility] [address] [place], [address] CREAT,SERUM Normal 0.70-1.30 [facility] Comment on above: Result Comment: Canc elled via OM: Order cancelled - Patient discharged Performed By: #### L 501.4020 #### [facility] [address] [place], [address] EST GFR Normal >60 [facility] Comment on above: Result Comment: Canc elled via OM: Order cancelled - Patient discharged Performed By: #### L 501.4020 #### [facility] [address] [place], [address] EST GFR - AA Normal >60 [facility] Comment on above: Result Comment: Canc elled via OM: Order cancelled - Patient discharged Performed By: #### L 501.4020 #### [facility] [address] [place], [address] GAP Normal 5-15 [facility] Comment on above: Result Comment: Canc elled via OM: Order cancelled - Patient discharged Performed By: #### L 501.4020 #### [facility] [address] [place], [address] GLU Normal 74-106 [facility] Comment on above: Result Comment: Canc elled via OM: Order cancelled - Patient discharged Performed By: #### L 501.4020 #### [facility] [address] [place], [address] Potassium Normal 3.5-5.1 [facility] Comment on above: Result Comment: Canc elled via OM: Order cancelled - Patient discharged Performed By: #### L 501.4020 #### [facility] [address] [place], [address] Basic Metabolic Profile (BMP) Normal 136-145 [facility] Comment on above: Result Comment: Canc elled via OM: Order cancelled - Patient discharged Performed By: #### L 501.4020 #### [facility] [address] [place], [address] CBC W/Diff, Automatedon 07-09 Absolute Neut Normal 2.0-7.7 [facility] Comment on above: Result Comment: Canc elled via OM: Order cancelled - Patient discharged Performed By: #### L 501.4020 #### [facility] [address] [place], [address] HCT Normal 40-54 [facility] Comment on above: Result Comment: Canc elled via OM: Order cancelled - Patient discharged Performed By: #### L 501.4020 #### [facility] [address] [place], [address] HGB Normal 13.0-16.5 [facility] Comment on above: Result Comment: Canc elled via OM: Order cancelled - Patient discharged Performed By: #### L 501.4020 #### [facility] [address] [place], [address] MCH Normal 27.0-32.0 [facility] Comment on above: Result Comment: Canc elled via OM: Order cancelled - Patient discharged Performed By: #### L 501.4020 #### [facility] [address] [place], [address] MCHC Normal 32-36 [facility] Comment on above: Result Comment: Canc elled via OM: Order cancelled - Patient discharged Performed By: #### L 501.4020 #### [facility] [address] [place], [address] MCV Normal 80-94 [facility] Comment on above: Result Comment: Canc elled via OM: Order cancelled - Patient discharged Performed By: #### L 501.4020 #### [facility] [address] [place], [address] NEUT% Normal 47-70 [facility] Comment on above: Result Comment: Canc elled via OM: Order cancelled - Patient discharged Performed By: #### L 501.4020 #### [facility] [address] [place], [address] PLT Normal 150-450 [facility] Comment on above: Result Comment: Canc elled via OM: Order cancelled - Patient discharged Performed By: #### L 501.4020 #### [facility] [address] [place], [address] RBC Normal 4.6-6.2 [facility] Comment on above: Result Comment: Canc elled via OM: Order cancelled - Patient discharged Performed By: #### L 501.4020 #### [facility] [address] [place], [address] RDW CV Normal 11.6-14.6 [facility] Comment on above: Result Comment: Canc elled via OM: Order cancelled - Patient discharged Performed By: #### L 501.4020 #### [facility] [address] [place], [address] RDW SD Normal 35.1-43.9 [facility] Comment on above: Result Comment: Canc elled via OM: Order cancelled - Patient discharged Performed By: #### L 501.4020 #### [facility] [address] [place], [address] WBC Normal 4.4-11.0 [facility] Comment on above: Result Comment: Canc elled via OM: Order cancelled - Patient discharged Performed By: #### L 501.4020 #### [facility] [address] [place], [address] Prothrombin Time w/INRon INR Normal [facility] Comment on above: Result Comment: Canc elled via OM: Order cancelled - Patient discharged Performed By: #### L 300.3900 #### [facility] [address] [place], [address] PROTIME Normal 11.7-14.9 [facility] Comment on above: Result Comment: Canc elled via OM: Order cancelled - Patient discharged Performed By: #### L 300.3900 #### [facility] [address] [place], [address] Absolute neutrophil countOrd ered By: Rome Stanley on 07-19-2024 Neutrophils (Bld) [#/Vol] 5.4 10*3/uL 2.0-7.7 [facility] Basic Metabolic Profile (BMP )on 07-19-2024 BUN/CRE 20.1 RATIO High 10-20 [facility] Comment on above: Performed By: #### L 500.2500 #### [facility] [address] [place], [address] CA,Total 9.6 mg/dL Normal 8.5-10.1 [facility] Comment on above: Performed By: #### L 500.2500 #### [facility] [address] [place], [address] Chloride [Moles/Vol] 102 mmol/L Normal 98-107 [facility] Comment on above: Performed By: #### L 500.2500 #### [facility] [address] [place], [address] CO2 [Moles/Vol] 29.0 mmol/L Normal 21.0-32.0 [facility] Comment on above: Performed By: #### L 500.2500 #### [facility] [address] [place], [address] Creatinine [Mass/Vol] 1.54 mg/dL High 0.70-1.30 [facility] Comment on above: Result Comment: The validity of the calculated GFR GFRAA in patients over 70 years has not been determined. Clinical correlation is essential. Performed By: #### L 500.2500 #### [facility] [address] [place], [address] ECRCL 34.08 ml/min Normal [facility] Comment on above: Performed By: #### L 500.2500 #### [facility] [address] [place], [address] EST GFR - AA 55 mL/min Low >60 [facility] Comment on above: Result Comment: Afri can Gabonese GFR Calc Performed By: #### L 500.2500 #### [facility] [address] [place], [address] GAP 7 Normal 5-15 [facility] Comment on above: Performed By: #### L 500.2500 #### [facility] [address] [place], [address] GFR/1.73 sq M.predicted among non-blacks MDRD (S/P/Bld) [Vol rate/Area] 46 mL/min/{1.73_m2} Low >60 [facility] Comment on above: Result Comment: Non- GFR Calc Performed By: #### L 500.2500 #### [facility] [address] [place], [address] Glucose [Mass/Vol] 103 mg/dL Normal 74-106 [facility] Comment on above: Result Comment: Fast ing Glucose result from 100 to 125 mg/dL suggests IMPAIRED HOMEOSTASIS per A.D.A. criteria. Performed By: #### L 500.2500 #### [facility] [address] [place], [address] Potassium [Moles/Vol] 3.7 mmol/L Normal 3.5-5.1 [facility] Comment on above: Performed By: #### L 500.2500 #### [facility] [address] [place], [address] Sodium [Moles/Vol] 137 mmol/L Normal 136-145 [facility] Comment on above: Performed By: #### L 500.2500 #### [facility] [address] [place], [address] Urea nitrogen [Mass/Vol] 31 mg/dL High 7-18 [facility] Comment on above: Performed By: #### L 500.2500 #### [facility] [address] [place], [address] Basophil percentageOrdered B y: Rome Stanley on 07-19-2024 Basophils/100 WBC (Bld) 0.9 % 0-1 [facility] Blood urea nitrogen (BUN)/cr eatinine ratioOrdered By: Rome Stanley on 07-19-2024 Urea nitrogen/Creatinine [Mass ratio] 20.1 mg/mg High 10-20 [facility] CBC W/Diff, Automatedon 07-09 Absolute Lymph 2.71 X10 3/uL Normal 0.83-4.51 [facility] Comment on above: Performed By: #### L 500.2500 #### [facility] [address] [place], [address] Absolute Neut 5.4 X10 3/uL Normal 2.0-7.7 [facility] Comment on above: Performed By: #### L 500.2500 #### [facility] [address] [place], [address] Basophils/100 WBC (Bld) 0.9 % Normal 0-1 [facility] Comment on above: Performed By: #### L 500.2500 #### [facility] [address] [place], [address] Eosinophils/100 WBC (Bld) 4.8 % Normal 0-5 [facility] Comment on above: Performed By: #### L 500.2500 #### [facility] [address] [place], [address] Erythrocyte distribution width (RBC) [Ratio] 12.9 % Normal 11.6-14.6 [facility] Comment on above: Performed By: #### L 500.2500 #### [facility] [address] [place], [address] Hematocrit (Bld) [Volume fraction] 46.4 % Normal 40-54 [facility] Comment on above: Performed By: #### L 500.2500 #### [facility] [address] [place], [address] Hemoglobin (Bld) [Mass/Vol] 15.7 g/dL Normal 13.0-16.5 [facility] Comment on above: Performed By: #### L 500.2500 #### [facility] [address] [place], [address] IG% 0.400 Normal 0.0-0.9 [facility] Comment on above: Result Comment: IG% - Immature Granulocytes (promyelocytes, myelocytes and metamyelocytes) > 1% indicates that a LEFT SHIFT is Present. Performed By: #### L 500.2500 #### [facility] [address] [place], [address] Lymphocytes/100 WBC (Bld) 27.3 % Normal 19-41 [facility] Comment on above: Performed By: #### L 500.2500 #### [facility] [address] [place], [address] MCH (RBC) [Entitic mass] 32.7 pg High 27.0-32.0 [facility] Comment on above: Performed By: #### L 500.2500 #### [facility] [address] [place], [address] MCHC (RBC) [Mass/Vol] 33.8 g/dL Normal 32-36 [facility] Comment on above: Performed By: #### L 500.2500 #### [facility] [address] [place], [address] MCV (RBC) [Entitic vol] 96.7 fL High 80-94 [facility] Comment on above: Performed By: #### L 500.2500 #### [facility] [address] [place], [address] Monocytes/100 WBC (Bld) 12.7 % High 0-10 [facility] Comment on above: Performed By: #### L 500.2500 #### [facility] [address] [place], [address] Neutrophils/100 WBC (Bld) 53.9 % Normal 47-70 [facility] Comment on above: Performed By: #### L 500.2500 #### [facility] [address] [place], [address] Nucleated RBC (Bld) [#/Vol] 0 10*3/uL Normal 0-5 [facility] Comment on above: Performed By: #### L 500.2500 #### [facility] [address] [place], [address] Platelet mean volume (Bld) [Entitic vol] 9.7 fL Normal 6.2-12.0 [facility] Comment on above: Performed By: #### L 500.2500 #### [facility] [address] [place], [address] Platelets (Bld) [#/Vol] 241 10*3/uL Normal 150-450 [facility] Comment on above: Performed By: #### L 500.2500 #### [facility] [address] [place], [address] RBC (Bld) [#/Vol] 4.80 10*6/uL Normal 4.6-6.[address] [facility] Comment on above: Performed By: #### L 500.2500 #### [facility] [address] [place], [address] RDW SD 45.6 fl High 35.1-43.9 [facility] Comment on above: Performed By: #### L 500.2500 #### [facility] [address] [place], [address] WBC (Bld) [#/Vol] 9.9 10*3/uL Normal 4.4-11.0 [facility] Comment on above: Performed By: #### L 500.2500 #### [facility] [address] [place], [address] Carbon dioxide measurementOr dered By: Rome Stanley on 07-19-2024 CO2 [Moles/Vol] 29.0 mmol/L 21.0-32.0 [facility] Chloride measurementOrdered By: Rome Stanley on 07-19-2024 Chloride [Moles/Vol] 102 mmol/L 98-107 [facility] Eosinophil percentageOrdered By: Rome Stanley on 07-19-2024 Eosinophils/100 WBC (Bld) 4.8 % 0-5 [facility] Erythrocyte distribution wid th ratioOrdered By: Rome Stanley on 07-19-2024 Erythrocyte distribution width (RBC) [Ratio] 12.9 % 11.6-14.6 [facility] Erythrocyte distribution wid th standard deviationOrdered By: Rome Stanley on 07-19-2024 Erythrocyte distribution width (RBC) [Entitic vol] 45.6 fL High 35.1-43.9 [facility] Estimated glomerular filtrat ion rate (GFR) AmericanOrdered By: Rome Stalney on 07-19-2024 Estimated GFR (MDRD) Amer 55 mL/min Low >60 [facility] Comment on above: GFR Calc Estimation of creatinine rei aranceOrdered By: Rome Stanley on 07-19-2024 Estimated Creatinine Clearance Calc 34.08 ml/min [facility] Glomerular filtration rate ( GFR) estimationOrdered By: Rome Stanley on 07-19-2024 Estimated GFR (MDRD) Non-Af Amer 46 mL/min Low >60 [facility] Comment on above: Non- GFR Calc Glucose measurementOrdered B y: Rome Stanley on 07-19-2024 Glucose [Mass/Vol] 103 mg/dL 74-106 [facility] Comment on above: Fasting Glucose resu lt from 100 to 125 mg/dL suggests IMPAIRED HOMEOSTASIS per A.D.A. criteria. Hematocrit Auto (Bld) [Volum e fraction]Ordered By: Rome Stanley on 07-19-2024 Hematocrit (Bld) [Volume fraction] 46.4 % 40-54 [facility] Hemoglobin measurementOrdere d By: Rome Stanley on 07-19-2024 Hemoglobin (Bld) [Mass/Vol] 15.7 g/dL 13.0-16.5 [facility] Immature granulocytes/100 WB C Auto (Bld)Ordered By: Rome Stanley on 07-19-2024 Immature granulocytes/100 WBC (Bld) 0.400 % 0.0-0.9 [facility] Comment on above: IG% - Immature Granu locytes (promyelocytes, myelocytes and metamyelocytes) > 1% indicates that a LEFT SHIFT is Present. International normalized rat io (INR) calculationOrdered By: Rome Stanley on 07-19-2024 INR Coag (Bld) [Relative time] 1.4 {INR} [facility] Lymphocytes Auto (Unsp spec) [#/Vol]Ordered By: Rome Stanley on 07-19-2024 Lymphocytes (Bld) [#/Vol] 2.71 10*3/uL 0.83-4.51 [facility] Lymphocytes/100 WBC Auto (Un sp spec)Ordered By: Rome Stanley on 07-19-2024 Lymphocytes/100 WBC (Bld) 27.3 % 19-41 [facility] MCV (mean corpuscular volume ) determinationOrdered By: Rome Stanley on 07-19-2024 MCV (RBC) [Entitic vol] 96.7 fL High 80-94 [facility] Mean corpuscular hemoglobin (MCH) determinationOrdered By: Rome Stanley on 07-19-2024 MCH (RBC) [Entitic mass] 32.7 pg High 27.0-32.0 [facility] Mean corpuscular hemoglobin concentration (MCHC) determinationOrdered By: Rome Stanley on 07-19-2024 MCHC (RBC) [Mass/Vol] 33.8 g/dL 32-36 [facility] Mean platelet volume determi nationOrdered By: Rome Stanley on 07-19-2024 Platelet mean volume (Bld) [Entitic vol] 9.7 fL 6.2-12.0 [facility] Monocyte percentageOrdered B y: Rome Stanley on 07-19-2024 Monocytes/100 WBC (Bld) 12.7 % High 0-10 [facility] Neutrophil percentageOrdered By: Rome Stanley on 07-19-2024 Neutrophils/100 WBC (Bld) 53.9 % 47-70 [facility] Nucleated red blood cell per centageOrdered By: Rome Stanley on 07-19-2024 Nucleated RBC/100 WBC (Bld) [Ratio] 0 % 0-5 [facility] Platelet countOrdered By: Tucker Stanley on 07-19-2024 Platelets (Bld) [#/Vol] 241 10*3/uL 150-450 [facility] Potassium measurementOrdered By: Rome Stanley on 07-19-2024 Potassium [Moles/Vol] 3.7 mmol/L 3.5-5.1 [facility] Prothrombin Time w/INRon INR Coag (PPP) [Relative time] 1.4 {INR} Normal [facility] Comment on above: Performed By: #### L 300.3618 #### [facility] [address] [place], [place], [address] PT Coag (PPP) [Time] 17.8 s High 11.7-14.9 [facility] Comment on above: Performed By: #### L 300.2280 #### [facility] [address] [place], [place], [id number] Prothrombin timeOrdered By: Rome Stanley on 07-19-2024 PT Coag (PPP) [Time] 17.8 s High 11.7-14.9 [facility] RBC Auto (Bld) [#/Vol]Ordere d By: Rome Stanley on 07-19-2024 RBC (Bld) [#/Vol] 4.80 10*6/uL 4.6-6.[address] [facility] Serum anion gap measurementO rdered By: Rome Stanley on 07-19-2024 Anion gap [Moles/Vol] 7 mmol/L 5-15 [facility] Serum or plasma calcium elida urement (mass/volume)Ordered By: Rome Stanley on 07-19-2024 Calcium [Mass/Vol] 9.6 mg/dL 8.5-10.1 [facility] Serum or plasma creatinine m easurement (mass/volume)Ordered By: Rome Stanley on 07-19-2024 Creatinine [Mass/Vol] 1.54 mg/dL High 0.70-1.30 [facility] Comment on above: The validity of the calculated GFR & GFRAA in patients over 70 years has not been determined. Clinical correlation is essential. Serum or plasma urea nitroge n measurement (mass/volume)Ordered By: Rome Stanley on 07-19-2024 Urea nitrogen [Mass/Vol] 31 mg/dL High 7-18 [facility] Sodium levelOrdered By: Justin Stanley on 07-19-2024 Sodium [Moles/Vol] 137 mmol/L 136-145 [facility] Urine Cultureon 07-19-2024 URC #1, 2 Below infectio n level. Mixed Gram Positive Organisms [place] Count 1000-10,000 MIX[facility] Mixed contaminants. Submit a new specimen if indicated. STAGA [place] Count <1000 Normal [facility] Comment on above: Performed By: #### M 200.1000, L503.6005, L100.0100, L300.4310, L300.3900, L500.4050 #### [facility] [address] [place], [address] White blood cell (WBC) count Ordered By: Rome Stanley on 07-19-2024 WBC (Bld) [#/Vol] 9.9 10*3/uL 4.4-11.0 [facility] Basic Metabolic Profile (BMP )on 07-18-2024 BUN/CRE 15.8 RATIO Normal 10-20 [facility] Comment on above: Performed By: #### L 100.0100 #### [facility] [address] [place], [address] CA,Total 9.9 mg/dL Normal 8.5-10.1 [facility] Comment on above: Performed By: #### L 100.0100 #### [facility] [address] [place], [address] Chloride [Moles/Vol] 101 mmol/L Normal 98-107 [facility] Comment on above: Performed By: #### L 100.0100 #### [facility] [address] [place], [address] CO2 [Moles/Vol] 31.0 mmol/L Normal 21.0-32.0 [facility] Comment on above: Performed By: #### L 100.0100 #### [facility] [address] [place], [address] Creatinine [Mass/Vol] 1.46 mg/dL High 0.70-1.30 [facility] Comment on above: Result Comment: The validity of the calculated GFR GFRAA in patients over 70 years has not been determined. Clinical correlation is essential. Performed By: #### L 100.0100 #### [facility] [address] [place], [address] ECRCL 35.89 ml/min Normal [facility] Comment on above: Performed By: #### L 100.0100 #### [facility] [address] [place], [address] EST GFR - AA 59 mL/min Low >60 [facility] Comment on above: Result Comment: Afri can Gabonese GFR Calc Performed By: #### L 100.0100 #### [facility] [address] [place], [address] GAP 5 Normal 5-15 [facility] Comment on above: Performed By: #### L 100.0100 #### [facility] [address] [place], [address] GFR/1.73 sq M.predicted among non-blacks MDRD (S/P/Bld) [Vol rate/Area] 49 mL/min/{1.73_m2} Low >60 [facility] Comment on above: Result Comment: Non- GFR Calc Performed By: #### L 100.0100 #### [facility] [address] [place], [address] Glucose [Mass/Vol] 106 mg/dL Normal 74-106 [facility] Comment on above: Result Comment: Fast ing Glucose result from 100 to 125 mg/dL suggests IMPAIRED HOMEOSTASIS per A.D.A. criteria. Performed By: #### L 100.0100 #### [facility] [address] [place], [address] Potassium [Moles/Vol] 4.0 mmol/L Normal 3.5-5.1 [facility] Comment on above: Performed By: #### L 100.0100 #### [facility] [address] [place], [address] Sodium [Moles/Vol] 138 mmol/L Normal 136-145 [facility] Comment on above: Performed By: #### L 100.0100 #### [place] [facility] [address] [place], [address] Urea nitrogen [Mass/Vol] 23 mg/dL High 7-18 [facility] Comment on above: Performed By: #### L 100.0100 #### [facility] [address] [place], [address] CBC W/Diff, Automatedon 01- 0-2024 Absolute Lymph 2.58 X10 3/uL Normal 0.83-4.51 [facility] Comment on above: Performed By: #### L 100.0100 #### [facility] [address] [place], [address] Absolute Neut 7.1 X10 3/uL Normal 2.0-7.7 [facility] Comment on above: Performed By: #### L 100.0100 #### [facility] [address] [place], [address] Basophils/100 WBC (Bld) 0.7 % Normal 0-1 [facility] Comment on above: Performed By: #### L 100.0100 #### [facility] [address] [place], [address] Eosinophils/100 WBC (Bld) 2.9 % Normal 0-5 [facility] Comment on above: Performed By: #### L 100.0100 #### [facility] [address] [place], [address] Erythrocyte distribution width (RBC) [Ratio] 13.1 % Normal 11.6-14.6 [facility] Comment on above: Performed By: #### L 100.0100 #### [facility] [address] [place], [address] Hematocrit (Bld) [Volume fraction] 45.8 % Normal 40-54 [facility] Comment on above: Performed By: #### L 100.0100 #### [facility] [address] [place], [address] Hemoglobin (Bld) [Mass/Vol] 15.6 g/dL Normal 13.0-16.5 [facility] Comment on above: Performed By: #### L 100.0100 #### [facility] [address] [place], [address] IG% 0.400 Normal 0.0-0.9 [facility] Comment on above: Result Comment: IG% - Immature Granulocytes (promyelocytes, myelocytes and metamyelocytes) > 1% indicates that a LEFT SHIFT is Present. Performed By: #### L 100.0100 #### [facility] [address] [place] [address], [address] Lymphocytes/100 WBC (Bld) 22.7 % Normal 19-41 [facility] Comment on above: Performed By: #### L 100.0100 #### [facility] [address] [place], [address] MCH (RBC) [Entitic mass] 33.1 pg High 27.0-32.0 [facility] Comment on above: Performed By: #### L 100.0100 #### [facility] [address] [place], [address] MCHC (RBC) [Mass/Vol] 34.1 g/dL Normal 32-36 [facility] Comment on above: Performed By: #### L 100.0100 #### [facility] [address] [place], [address] MCV (RBC) [Entitic vol] 97.0 fL High 80-94 [facility] Comment on above: Performed By: #### L 100.0100 #### [facility] [address] [place], [address] Monocytes/100 WBC (Bld) 10.5 % High 0-10 [facility] Comment on above: Performed By: #### L 100.0100 #### [facility] [address] [place], [address] Neutrophils/100 WBC (Bld) 62.8 % Normal 47-70 [facility] Comment on above: Performed By: #### L 100.0100 #### [facility] [address] [place], [address] Nucleated RBC (Bld) [#/Vol] 0 10*3/uL Normal 0-5 [facility] Comment on above: Performed By: #### L 100.0100 #### [facility] [address] [place], [address] Platelet mean volume (Bld) [Entitic vol] 9.8 fL Normal 6.2-12.0 [facility] Comment on above: Performed By: #### L 100.0100 #### [facility] [address] [place], [address] Platelets (Bld) [#/Vol] 229 10*3/uL Normal 150-450 [facility] Comment on above: Performed By: #### L 100.0100 #### [facility] [address] [place], [address] RBC (Bld) [#/Vol] 4.72 10*6/uL Normal 4.6-6.[address] [facility] Comment on above: Performed By: #### L 100.0100 #### [facility] [address] [place], [address] RDW SD 46.5 fl High 35.1-43.9 [facility] Comment on above: Performed By: #### L 100.0100 #### [facility] [address] [place], [address] WBC (Bld) [#/Vol] 11.4 10*3/uL High 4.4-11.[address] [facility] Comment on above: Performed By: #### L 100.0100 #### [facility] [address] [place], [place], [address] Digoxin Levelon 07-18-2024 DIG 1.24 ng/mL Normal 0.80-2.00 [facility] Comment on above: Performed By: #### L 501.4020 #### [facility] [address] [place], [place], [address] Digoxin levelOrdered By: Vikas Stanley on 07-18-2024 Digoxin Level 1.24 ng/mL 0.80-2.00 [facility] Magnesiumon 07-18-2024 Magnesium [Mass/Vol] 1.9 mg/dL Normal 1.6-2.6 [facility] Comment on above: Performed By: #### L 501.4020 #### [facility] [address] [place], [place], [id number] Magnesium measurementOrdered By: Rome Stanley on 07-18-2024 Magnesium [Mass/Vol] 1.9 mg/dL 1.6-2.6 [facility] Phosphoruson 07-18-2024 Phosphate [Mass/Vol] 3.3 mg/dL Normal 2.5-4.9 [facility] Comment on above: Performed By: #### L 500.2500 #### [facility] [address] [place], [place], [address] Phosphorus measurementOrdere d By: Rome Stanley on 07-18-2024 Phosphorus Level 3.3 mg/dL 2.5-4.9 [facility] Prothrombin Time w/INRon INR Coag (PPP) [Relative time] 1.6 {INR} Normal [facility] Comment on above: Performed By: #### L 500.2500 #### [facility] [address] [place], [place], [address] PT Coag (PPP) [Time] 19.2 s High 11.7-14.9 [facility] Comment on above: Performed By: #### L 500.2500 #### [facility] [address] [place], [address] 12 Lead EKGon 07-17-2024 12 Lead EKG [facility] [address] [place] [address] 12 Lead EKG 07/17/24 0733 MR#: [id number] Acct: [id number] Name: RAYMOND JONES Rep #: [id number] : 1940 83 From: Dmitri Francisco MD Attending Dr: Dr. Rome Stanley MD Status: ADM IN Ordering Dr: Guillermo Mishra MD Date: 07/17/24 Location: [facility] Sex: M C Admitted: 07/17/24 Test Reason : fall Blood Pressure : */* mmHG Vent. Rate : 96 BPM Atrial Rate : * BPM P-R Int : * ms QRS Dur : 136 ms QT Int : 354 ms P-R-T Axes : * 0 189 degrees QTcB Int : 447 ms Atrial fibrillation with premature ventricular or aberrantly conducted complexes Non-specific intra-ventricular conduction block T wave abnormality, consider inferior ischemia T wave abnormality, consider anterolateral ischemia Abnormal ECG Confirmed by Dmitri Francisco ([id number]), rewrite editor STEPHY JORDAN ([id number]) on 07/18/2024 9:34:01 AM Referred By: Confirmed By: Dmitri Francisco 07/18/24 0934 Date Dmitri Francisco MD CC: Dr. Guillermo Mishra MD; Dr. Deshawn Rebollar MD; Dr. Rome Stanley MD Signed Normal [facility] Albumin to globulin ratioOrd ered By: Guillermo Mishra on 07-17-2024 Albumin/Globulin [Mass ratio] 0.9 {ratio} 0.9-2.4 [facility] BNP (brain natriuretic pepti de measurement)Ordered By: Guillermo Mishra on 07-17-2024 Natriuretic peptide B (Bld) [Mass/Vol] 409.8 pg/mL High 0-100 [facility] BNP,B-Type NATRIURETIC PEPTI Prabhu 07-17-2024 Natriuretic peptide B (Bld) [Mass/Vol] 409.8 pg/mL High 0-100 [facility] Comment on above: Performed By: #### L 503.6620 #### [facility] [address] [place], [address] Bilirubin Test strip Ql (U)O rdered By: Guillermo Mishra on 07-17-2024 Bilirubin Ql (U) Negative Negative [facility] Bilirubin, totalOrdered By: Guillermo Mishra on 07-17-2024 Bilirubin [Mass/Vol] 2.10 mg/dL High 0.20-1.00 [facility] Comment on above: For patients on eltr ombopag therapy, use of Dimension [place] TBIL is not recommended. Blood cultureOrdered By: Esthela Mishra on 07-17-2024 Bacteria identified Cx Nom (Bld) No growth in 5 days. [facility] Bacteria identified Cx Nom (Bld) No growth in 5 days. [facility] CBC W/Diff, Automatedon Absolute Lymph 1.39 X10 3/uL Normal 0.83-4.51 [facility] Comment on above: Performed By: #### M 200.1000, L503.6005, L100.0100, L300.4310, L300.3900, L500.4050 #### [facility] [address] [place], [address] Absolute Neut 10.4 X10 3/uL High 2.0-7.7 [facility] Comment on above: Performed By: #### M 200.1000, L503.6005, L100.0100, L300.4310, L300.3900, L500.4050 #### [facility] [address] [place], [address] Basophils/100 WBC (Bld) 0.7 % Normal 0-1 [facility] Comment on above: Performed By: #### M 200.1000, L503.6005, L100.0100, L300.4310, L300.3900, L500.4050 #### [facility] [address] [place], [address] Eosinophils/100 WBC (Bld) 0.5 % Normal 0-5 [facility] Comment on above: Performed By: #### M 200.1000, L503.6005, L100.0100, L300.4310, L300.3900, L500.4050 #### [facility] [address] [place], [address] Erythrocyte distribution width (RBC) [Ratio] 13.0 % Normal 11.6-14.6 [facility] Comment on above: Performed By: #### M 200.1000, L503.6005, L100.0100, L300.4310, L300.3900, L500.4050 #### [facility] [address] [place], [address] Hematocrit (Bld) [Volume fraction] 47.8 % Normal 40-54 [facility] Comment on above: Performed By: #### M 200.1000, L503.6005, L100.0100, L300.4310, L300.3900, L500.4050 #### [facility] [address] [place], [address] Hemoglobin (Bld) [Mass/Vol] 16.4 g/dL Normal 13.0-16.5 [facility] Comment on above: Performed By: #### M 200.1000, L503.6005, L100.0100, L300.4310, L300.3900, L500.4050 #### [facility] [address] [place], [address] IG% 0.500 Normal 0.0-0.9 [facility] Comment on above: Result Comment: IG% - Immature Granulocytes (promyelocytes, myelocytes and metamyelocytes) > 1% indicates that a LEFT SHIFT is Present. Performed By: #### M 200.1000, L503.6005, L100.0100, L300.4310, L300.3900, L500.4050 #### [facility] [address] [place], [address] Lymphocytes/100 WBC (Bld) 10.7 % Low 19-41 [facility] Comment on above: Performed By: #### M 200.1000, L503.6005, L100.0100, L300.4310, L300.3900, L500.4050 #### [facility] [address] [place], [address] MCH (RBC) [Entitic mass] 33.0 pg High 27.0-32.0 [facility] Comment on above: Performed By: #### M 200.1000, L503.6005, L100.0100, L300.4310, L300.3900, L500.4050 #### [facility] [address] [place], [address] MCHC (RBC) [Mass/Vol] 34.3 g/dL Normal 32-36 [facility] Comment on above: Performed By: #### M 200.1000, L503.6005, L100.0100, L300.4310, L300.3900, L500.4050 #### [facility] [address] [place], [address] MCV (RBC) [Entitic vol] 96.2 fL High 80-94 [facility] Comment on above: Performed By: #### M 200.1000, L503.6005, L100.0100, L300.4310, L300.3900, L500.4050 #### [facility] [facility] [address] [place], [address] Monocytes/100 WBC (Bld) 7.8 % Normal 0-10 [facility] Comment on above: Performed By: #### M 200.1000, L503.6005, L100.0100, L300.4310, L300.3900, L500.4050 #### [facility] [address] [place], [address] Neutrophils/100 WBC (Bld) 79.8 % High 47-70 [facility] Comment on above: Performed By: #### M 200.1000, L503.6005, L100.0100, L300.4310, L300.3900, L500.4050 #### [facility] [address] [place], [address] Nucleated RBC (Bld) [#/Vol] 0 10*3/uL Normal 0-5 [facility] Comment on above: Performed By: #### M 200.1000, L503.6005, L100.0100, L300.4310, L300.3900, L500.4050 #### [facility] [address] [place], [address] Platelet mean volume (Bld) [Entitic vol] 9.8 fL Normal 6.2-12.0 [facility] Comment on above: Performed By: #### M 200.1000, L503.6005, L100.0100, L300.4310, L300.3900, L500.4050 #### [facility] [address] [place], [address] Platelets (Bld) [#/Vol] 234 10*3/uL Normal 150-450 [facility] Comment on above: Performed By: #### M 200.1000, L503.6005, L100.0100, L300.4310, L300.3900, L500.4050 #### [facility] [address] [place], [address] RBC (Bld) [#/Vol] 4.97 10*6/uL Normal 4.6-6.[address] [facility] Comment on above: Performed By: #### M 200.1000, L503.6005, L100.0100, L300.4310, L300.3900, L500.4050 #### [facility] [address] [place], [address] RDW SD 45.1 fl High 35.1-43.9 [facility] Comment on above: Performed By: #### M 200.1000, L503.6005, L100.0100, L300.4310, L300.3900, L500.4050 #### [facility] [address] [place], [address] WBC (Bld) [#/Vol] 13.0 10*3/uL High 4.4-11.[address] [facility] Comment on above: Performed By: #### M 200.1000, L503.6005, L100.0100, L300.4310, L300.3900, L500.4050 #### [facility] [address] [place], [address] Chest 1 View (Portable)on Chest 1 View (Portable) [facility] Imaging Services [address] [place] [address] Chest 1 View (Portable) MR#: [id number] Acct: [id number] Name: RAYMOND JONES Rep #: [id number] : 1940 M 83 From: Britton alcantara MD PCP: Dr. Deshawn Rebollar MD Status: [facility] ER Study: Chest 1 View (Portable) Date of Exam: 07/17/24 Exam# [id number] Ordering Dr: Guillermo Mishra MD [id number] STUDY: X-RAY CHEST REASON FOR EXAM: Male, 83 years old. Shortness of breath . Hypoxic. TECHNIQUE: Single AP portable view of the chest. COMPARISON: None. FINDINGS: EKG electrodes are seen. Minimal increased markings at the lung bases suggestive of atelectasis and/or infiltrate. There is no demonstrated pleural abnormality. Dextrocardia. Cardiomegaly. Normal mediastinum and jaydon. Normal visualized pulmonary arteries. There is atherosclerotic calcification of the aortic arch with tortuosity. There are diffuse degenerative changes of the visualized thoracic spine. Normal visualized ribs, clavicles, and shoulders. There is no demonstrated abnormality of the visualized soft tissue structures of the upper abdomen. RAD/Chest 1 View (Portable) IMPRESSION: Dextrocardia. Mild cardiomegaly. Findings suggestive of bibasilar atelectasis and/or mild scarring. Electronically Signed: Britton Salvador MD at 8:53 EST Reading Location ID and State: [address] [place] [address] , Service support , CC: Dr. Guillermo Mishra MD; Dr. Deshawn Rebollar MD Manager Research: Signed Normal [facility] Comprehensive Metabolic Prof ilon 07-17-2024 Albumin [Mass/Vol] 3.5 g/dL Normal 3.2-5.0 [facility] Comment on above: Performed By: #### M 200.1000, L503.6005, L100.0100, L300.4310, L300.3900, L500.4050 #### [facility] [address] [place], [address] Albumin/Globulin [Mass ratio] 0.9 {ratio} Normal 0.9-2.4 [facility] Comment on above: Performed By: #### M 200.1000, L503.6005, L100.0100, L300.4310, L300.3900, L500.4050 #### [facility] [address] [place], [address] ALK P 83 U/L Normal 45-117 [facility] Comment on above: Performed By: #### M 200.1000, L503.6005, L100.0100, L300.4310, L300.3900, L500.4050 #### [facility] [address] [place], [address] ALT [Catalytic activity/Vol] 26 U/L Normal 16-61 [facility] Comment on above: Performed By: #### M 200.1000, L503.6005, L100.0100, L300.4310, L300.3900, L500.4050 #### [facility] [address] [place], [address] AST [Catalytic activity/Vol] 30 U/L Normal 15-37 [facility] Comment on above: Performed By: #### M 200.1000, L503.6005, L100.0100, L300.4310, L300.3900, L500.4050 #### [facility] [address] [place], [address] Bilirubin [Mass/Vol] 2.10 mg/dL High 0.20-1.00 [facility] Comment on above: Result Comment: For patients on eltrombopag therapy, use of Dimension [place] TBIL is not recommended. Performed By: #### M 200.1000, L503.6005, L100.0100, L300.4310, L300.3900, L500.4050 #### [facility] [address] [place], [address] BUN/CRE 14.8 RATIO Normal 10-20 [facility] Comment on above: Performed By: #### M 200.1000, L503.6005, L100.0100, L300.4310, L300.3900, L500.4050 #### [facility] [address] [place], [address] CA,Total 10.4 mg/dL High 8.5-10.1 [facility] Comment on above: Performed By: #### M 200.1000, L503.6005, L100.0100, L300.4310, L300.3900, L500.4050 #### [facility] [address] [place], [address] Chloride [Moles/Vol] 103 mmol/L Normal 98-107 [facility] Comment on above: Performed By: #### M 200.1000, L503.6005, L100.0100, L300.4310, L300.3900, L500.4050 #### [facility] [address] [place], [address] CO2 [Moles/Vol] 26.0 mmol/L Normal 21.0-32.0 [facility] Comment on above: Performed By: #### M 200.1000, L503.6005, L100.0100, L300.4310, L300.3900, L500.4050 #### [facility] [address] [place], [address] Creatinine [Mass/Vol] 1.22 mg/dL Normal 0.70-1.30 [facility] Comment on above: Result Comment: The validity of the calculated GFR GFRAA in patients over 70 years has not been determined. Clinical correlation is essential. Performed By: #### M 200.1000, L503.6005, L100.0100, L300.4310, L300.3900, L500.4050 #### [facility] [address] [place], [address] ECRCL 48.59 ml/min Normal [facility] Comment on above: Performed By: #### M 200.1000, L503.6005, L100.0100, L300.4310, L300.3900, L500.4050 #### [facility] [address] [place], [address] EST GFR - AA 73 mL/min Normal >60 [facility] Comment on above: Result Comment: Afri can [place]e GFR Calc Performed By: #### M 200.1000, L503.6005, L100.0100, L300.4310, L300.3900, L500.4050 #### [facility] [address] [place], [address] GAP 7 Normal 5-15 [facility] Comment on above: Performed By: #### M 200.1000, L503.6005, L100.0100, L300.4310, L300.3900, L500.4050 #### [facility] [address] [place], [address] GFR/1.73 sq M.predicted among non-blacks MDRD (S/P/Bld) [Vol rate/Area] 60 mL/min/{1.73_m2} Normal >60 [facility] Comment on above: Result Comment: Non- GFR Calc Performed By: #### M 200.1000, L503.6005, L100.0100, L300.4310, L300.3900, L500.4050 #### [facility] [address] [place], [address] Globulin (S) [Mass/Vol] 4.1 g/dL Normal 2.2-4.2 [facility] Comment on above: Performed By: #### M 200.1000, L503.6005, L100.0100, L300.4310, L300.3900, L500.4050 #### [facility] [address] [place], [address] Glucose [Mass/Vol] 152 mg/dL High 74-106 [facility] Comment on above: Result Comment: Fast ing Glucose result greater than or equal to 126 mg/dL suggests DIABETES MELLITUS per A.D.A. criteria. Performed By: #### M 200.1000, L503.6005, L100.0100, L300.4310, L300.3900, L500.4050 #### [facility] [address] [place], [address] Potassium [Moles/Vol] 4.1 mmol/L Normal 3.5-5.1 [facility] Comment on above: Performed By: #### M 200.1000, L503.6005, L100.0100, L300.4310, L300.3900, L500.4050 #### [facility] [address] [place], [address] Sodium [Moles/Vol] 136 mmol/L Normal 136-145 [facility] Comment on above: Performed By: #### M 200.1000, L503.6005, L100.0100, L300.4310, L300.3900, L500.4050 #### [facility] [address] [place], [address] T PROT 7.6 g/dL Normal 6.4-8.2 [facility] Comment on above: Performed By: #### M 200.1000, L503.6005, L100.0100, L300.4310, L300.3900, L500.4050 #### [facility] [address] [place], [address] Urea nitrogen [Mass/Vol] 18 mg/dL Normal 7-18 [facility] Comment on above: Performed By: #### M 200.1000, L503.6005, L100.0100, L300.4310, L300.3900, L500.4050 #### [facility] [address] [place], [address] Digoxin Levelon 07-17-2024 DIG 2.45 ng/mL Invalid Interpretation Code 0.80-2.00 [facility] Comment on above: Result Comment: Crit ical Result(s) Called at: 13:36:51 07/17/2024 by: Makayla Ndiaye. Results read back by same. Digoxin concentrations greater than 2.00 ng/mL are potentially toxic. Performed By: #### L 500.2500 #### [facility] [address] [place], [address] Echo Complete W/ Contraston 07-17-2024 Echo Complete W/ Contrast [facility] Services [address] [place] [address] Echo Complete W/ Contrast 07/17/24 1444 MR#: [id number] Acct: [id number] Name: RAYMOND JONES Rep #: [id number] : 1940 83 From: Giovani Sosa MD Attending Dr: Dr. Rome Stanley MD Status: ADM IN Ordering Dr: Rome Stanley MD Date: 07/17/24 Location: [facility] Sex: M C Admitted: 07/17/24 Reason For Study: CONGESTIVE HEART FAILURE Procedure This was a 2D Doppler, Color Flow transthoracic echocardiogram. The study was technically difficult. Contrast injection was performed. The patient was scanned supine. Patient has dextrocardia. The study was technically limited. Exam performed portable in patient room. Left Ventricle Normal LV size. Moderate concentric left ventricular hypertrophy. The left ventricular ejection fraction is 40 %. There is mild to moderate global hypokinesis of the left ventricle. Right Ventricle Normal RV size. Normal systolic function. Tricuspid Valve Normal tricuspid valve. Mild (1+) tricuspid valve insufficiency. Pulmonary artery systolic pressure is 34 mmHg. Aortic Valve Trisinus/trileaflet aortic valve. Mild focal aortic valve calcification. Pulmonic Valve The pulmonic valve is not well visualized. Great Vessels Calcified aortic root. Pericardium/Pleural No pericardial effusion. Medication Diluted definity 3ml given slow IV push to enhance endocardial definition. MMode/2D Measurements Calculations LVIDd: 3.5 cm IVSd: 1.4 cm LVOT diam: 2.4 cm LVIDs: 2.1 cm LVPWd: 1.4 cm LVOT area: 4.4 cm2 FS: 39.0 % Ao root diam: 3.0 cm Ao sinus diam: 3.[address] Junction: 2.6 cm LA dimension(2D): 4.3 cm Doppler Measurements Calculations MV E max mitzy: 97.8 cm/sec Ao V2 max: 165.9 cm/sec LV V1 max: 167.1 cm/sec Ao max P.1 mmHg LV V1 max P.2 mmHg Ao V2 mean: 112.3 cm/sec LV V1 mean P.5 mmHg Ao mean P.6 mmHg LV V1 mean: 120.9 cm/sec Ao V2 VTI: 29.1 cm LV V1 VTI: 29.7 cm AV (velocity ratio): 1.0 NIC(I,D): 4.5 cm2 NIC(V,D): 4.4 cm2 SV(LVOT): 130.4 ml TV V2 max: 258.9 cm/sec PA V2 max: 87.2 cm/sec TV max P.8 mmHg TR max mitzy: 278.0 cm/sec TR max P.9 mmHg ECHO/Echo Complete W/ Contrast Interpretation Summary The left ventricular ejection fraction is 40 %. Normal LV size. There is mild to moderate global hypokinesis of the left ventricle. Moderate concentric left ventricular hypertrophy. Mild focal aortic valve calcification. The study was technically difficult. The study was technically limited. Contrast injection was performed. Ordering Physician: Rome Stanley Performed By: Kylah Cedeño RDCS 07/18/24 1128 Date Giovani Sosa MD CC: Dr. Deshawn Rebollar MD; Dr. Rome Stanley MD Date Dictated: 07/17/24 1444 Date Transcribed: 07/18/24 1128 Manager Research: Signed Normal [facility] Emergency Department Summary on 07-17-2024 Emergency Department Summary [facility] Medical Records Department [address] [place] [address] Emergency Department Summary 07/17/24 MR#: [id number] Acct: [id number] Name: RAYMOND JONES Rep #: [id number] : 1940 83 From: Guillermo Mishra MD PCP: Dr. Deshawn Rebollar MD Status:REG ER Location: ED HPI HPI - Fall History of Present Illness Chief Complaint: Fall Narrative Narrative: 83-year-old male presents with his via EMS status post fall this morning. He also had a generalized weakness. He has past medical history of atrial fibrillation, on warfarin. He saw his narcotics agent yesterday who was pleased and states that he does not have to see him for quite some time. This morning, as the patient usually sleeps in a swivel recliner, and sometimes gets up to watch TV in the middle of the night, was found facedown on the floor. He states he went to get up, and felt very weak. He called for his in the bedroom. She called a neighbor to attempt to stand him up, but they were unable to do so. Instead they called the squad because he was too weak to stand. He denies hitting his head or loss of consciousness, no headache or neck pain. did state that he did complain that he did feel short of breath. PFSH PFS Home Medications ???Medication ???Instructions ???Recorded ???Last Taken ???Type Tamsulosin Hcl 0 mg 02/26/19 Unknown History calcium 500 mg-vitamin D3 1,000 1 ea PO 02/26/19 Unknown History unit-vitamin K 40 mcg chewable tablet digoxin 250 mcg (0.25 mg) tablet DAILY 02/26/19 Unknown History esomeprazole magnesium 20 mg 20 mg PO 02/26/19 Unknown History capsule,delayed release fluticasone propionate 50 2 spray NASAL DAILY 02/26/19 Unknown History mcg/actuation nasal spray,suspension metoprolol succinate 25 mg 25 mg PO BID 02/26/19 Unknown History tablet,extended release 24 hr warfarin 4 mg tablet 4 mg PO MOWEFR 02/26/19 Unknown History warfarin 2 mg tablet 2 mg PO SUTUTHSA 12/08/19 Unknown History spironolactone 25 mg tablet 25 mg PO BID 07/17/24 Unknown History Allergy/AdvReac Type Severity Reaction Status Date / Time No Known Allergies Allergy Verified 02/16/23 16:53 Social History Smoking Status: Former smoker ROS ROS ED ROS Narrative Constitutional: No fever, no chills. HEENT: No sore throat. No neck pain. No loss of vision. No rhinorrhea. Cardiovascular: No chest pain. No palpitations. No pedal edema. Respiratory: No cough, positive shortness of breath. Abdominal: No abdominal pain. No nausea. No vomiting. Genitourinary: No dysuria. No hematuria. Musculoskeletal: No myalgias. No arthralgias. Neurologic: No headaches. No dizziness. No lightheadedness. Skin: No rash. No change in color. EXAM Physical Exam Narrative Exam Narrative: Temperature 100.0 ???F. Vital signs noted. Nontoxic-appearing. HEENT exam is grossly unremarkable. Neck soft and supple. Cardiovascular examination reveals an irregularly irregular rhythm that is rate controlled. Lungs are clear to auscultation bilaterally with decreased breath sounds at the left base. Abdomen is soft nontender with normoactive bowel sounds. Neurological examination is nonfocal and nonlateralizing. No noted pedal edema. Const Vital Signs: 07/17/24 07:09 07/17/24 07:23 07/17/24 07:24 Temperature 100.0 F H 100.0 F H Temperature Source Oral Oral Pulse Rate 88 92 Respiratory Rate 16 24 H Blood Pressure 114/77 119/64 Blood Pressure Mean 89 82 Pulse Ox 89 89 89 Oxygen Delivery Method Room Air Nasal Cannula Room Air MDM MDM MDM Narrative Medical decision making narrative: As patient has elevated temperature here although is not tachycardic sepsis workup was pursued. He was 89% on room air and does not wear oxygen at home. Differential diagnosis includes but not irene ited to pneumonia versus upper respiratory infection versus urinary tract infection versus other viral syndrome. Patient administered Tylenol. He was placed on a animal breeder. Additionally, patient hypoxic at 89% on room air and does not wear oxygen at home. He was placed on nasal cannula oxygen with resultant pulse ox at 96 to 97%. I reviewed his laboratory work and he has elevated white count of 13.0, hemoglobin 16.4 with hematocrit 47.8, platelet count normal at 234. INR subtherapeutic at 1.8, sodium normal at 136 with potassium 4.1, chloride 103, BUN of 18 and creatinine 1.22. Lactic acid is normal at 1.7. Initially, he was not meeting other SIRS criteria. BNP is elevated at 409 but I doubt florid CHF. I do not feel this is the cause of his hypoxia. Additionally, chest x-ray in 1 view interpreted by myself independently shows bibasilar pneumonia. I reviewed the radiologist report which comments on atelectasis versus infiltr (more content not included)... Normal [facility] Epithelial cells.squamous LM Ql (Urine sed)Ordered By: Guillermo Mishra on 07-17-2024 Epithelial cells.squamous LM.HPF (Urine sed) [#/Area] 0 /[HPF] 0-5 [facility] Glucose Ql (U)Ordered By: Hadley liz Mishra on 07-17-2024 Urine Glucose (UA) Normal mg/dl Normal [facility] H AND P Exam - [facility] 07-17-2024 H&P Exam - Hospitalist [facility] Medical Records Department [address] [place] [place] [address] H P Exam - Hospitalist 07/17/24 0941 MR#: [id number] Acct: [id number] Name: RAYMOND JONES Rep #: [id number] : 1940 83 From: Rome Stanley MD PCP: Dr. Deshawn Rebollar MD Status:REG ER Location: ED HPI - General General Date of Service: 07/17/24 HPI Narrative RAYMOND JONES, is a 83 M who presents with progressive generalized weakness. Patient has multiple comorbidities including paroxysmal A-fib, hypothyroidism dextrocardia. The patient woke up on the morning of his presentation with profound generalized weakness. Patient apparently later found denied hitting his head or losing consciousness. On further questioning patient denied any subjective fever no chills presented to the emergency department as a result. Imaging studies demonstrated bibasilar infiltrates. Patient was found to have leukocytosis as well as low-grade fever patient was also found to have elevated proBNP admitted to a monitored bed for further management PFSH Home Medications ???Medication ???Instructions ???Recorded ???Last Taken ???Type digoxin 250 mcg (0.25 mg) tablet 0.25 mg PO DAILY 02/26/19 07/16/24 History fluticasone propionate 50 2 spray NASAL DAILY 02/26/19 07/16/24 History mcg/actuation nasal spray,suspension metoprolol succinate 25 mg 25 mg PO BID 02/26/19 07/16/24 History tablet,extended release 24 hr levothyroxine 25 mcg tablet 25 mcg PO DAILY 07/17/24 07/16/24 History (Synthroid) multivitamin (Daily Multi-Vitamin 1 tab PO DAILY 07/17/24 07/16/24 History tablet) omega 3 350 mg-dha 235 mg-epa 90 1 cap PO DAILY 07/17/24 07/16/24 History mg-fish oil 597 mg capsule,delay rel ([place]-3) spironolactone 25 mg tablet 12.5 mg PO BID 07/17/24 07/16/24 History warfarin 2.5 mg tablet 2.5 mg PO DAILY 07/17/24 07/16/24 History Allergy/AdvReac Type Severity Reaction Status Date / Time No Known Allergies Allergy Verified 02/16/23 16:53 Social History Smoking Status: Former smoker ROS ROS Narrative GENERAL: denies fever, chills, night sweats, weight loss, anorexia HEENT: denies headache, sinus congestion, or drainage, dysphagia RESPIRATORY: denies cough, sputum production, shortness of breath, dyspnea on exertion CARDIAC: denies chest pain, palpitations, orthopnea, PND GASTROINTESTINAL: denies abdominal pain, nausea, vomiting, melena, GENITOURINARY: denies dysuria, urgency, frequency, heamaturia EXTREMITY: denies swelling MUSCULOSKELETAL: denies current joint pain or tenderness NEUROLOGIC: denies focal numbness, weakness, tingling HEMATOLOGIC: denies easy bruising and/or hemorrhage INTEGUMENT: denies rashes PSYCHIATRIC: denies suicidal or homicidal ideation Vital Signs Vital Signs Vital Signs: 07/17/24 07:09 07/17/24 07:23 07/17/24 07:24 Temperature 100.0 F H 100.0 F H Temperature Source Oral Oral Pulse Rate 88 92 Respiratory Rate 16 24 H Blood Pressure 114/77 119/64 Blood Pressure Mean 89 82 Pulse Ox 89 89 89 Oxygen Delivery Method Room Air Nasal Cannula Room Air Weight Weight: 83.6 kg Body Mass Index (BMI) 25.0 Physical Exam Narrative GENERAL: cooperative HEENT: Atraumatic; normocephalic EYES; Anicteric, Normal Conjunctiva NECK; supple, normal thyroid, RESPIRATORY: Diminished to auscultation CARDIOVASCULAR: Regular S1 S2, GI: soft, normoactive bowel sounds, : No Renal angle tenderness; EXTREMITIES: No edema, no clubbing, MUSCULOSKELETAL: no muscle wasting NEURO: Awake; no lateralizing signs. SKIN: No Rash PSYCH; Flat affect Results Lab / Micro Data 07/17/24 06:52 07/17/24 06:52 Labs: Laboratory Results - last 24 hr 07/17/24 06:52: WBC 13.0 H, RBC 4.97, Hgb 16.4, Hct 47.8, MCV 96.2 H, MCH 33.0 H, MCHC 34.3, RDW Std Deviation 45.1 H, RDW Coeff of Hillary 13.0, Plt Count 234, MPV 9.8, Immature Gran % (Auto) 0.500, Neut % (Auto) 79.8 H, Lymph % (Auto) 10.7 L, [place] % (Auto) 7.8, Eos % (Auto) 0.5, Baso % (Auto) 0.7, A bsolute Neuts (auto) 10.4 H, Absolute Lymphs (auto) 1.39, Nucleated RBC % 0, PT 21.0 H, INR 1.8, APTT 32.0, Sodium 136, Potassium 4.1, Chloride 103, Carbon Dioxide 26.0, Anion Gap 7, BUN 18, Creatinine 1.22, Estim Creat Clear Calc 48.59, Est GFR (MDRD) Af Amer 73, Est GFR (MDRD) Non-Af 60, BUN/Creatinine Ratio 14.8, Glucose 152 H, Calcium 10.4 H, Total Bilirubin 2.10 H, AST 30, ALT 26, Alkaline Phosphatase 83, Total Protein 7.6, Albumin 3.5, Globulin 4.1, Albumin/Globulin Ratio 0.9 07/17/24 07:32: Lactic Acid 1.7, B-Natriuretic Peptide 409.8 H Micro: Microbiology 07/17/24 07:32 Mucosa - Nose SARS-CoV-2, Influenza RSV (PCR) - Final Imaging Radiology Impression Chest X-Ray 07/17/24 07:40 IMPRESSION: Dextrocard (more content not included)... Normal [facility] Influenza virus A and B and SARS-CoV-2 (COVID-19) and Respiratory syncytial virus RNAOrdered By: Guillermo Mishra on 07-17-2024 SARS-CoV-2 (COVID-19) RNA NIURKA+probe Ql (Unsp spec) [facility] Ketones Test strip Ql (U)Ord ered By: Guillermo Mishra on 07-17-2024 Ketones Ql (U) Negative Negative [facility] L. pneumophila Ag Ql (U)Orde red By: Rome Stanley on 07-17-2024 Legionella Antigen [facility] [facility] L501.4020on 07-17-2024 TROPONIN-I HS 84 pg/mL High 3.0-78.0 [facility] Comment on above: Order Comment: 'TROP ' Serial specimen #1, #2 or #3: 2 Result Comment: Plea se Note: New Test Units and Gender Specific Reference Ranges. For more information see Policy Stat Procedure [place] High Sensitivity Troponin (TNIH) and attachments. Performed By: #### L 501.4020 #### [facility] [address] [place], [place], [id number] (283) TROPONIN-I HS 82 pg/mL High 3.0-78.0 [facility] Comment on above: Order Comment: 'TROP ' Serial specimen #1, #2 or #3: 2 Result Comment: Plea se Note: New Test Units and Gender Specific Reference Ranges. For more information see Policy Stat Procedure [place] High Sensitivity Troponin (TNIH) and attachments. Performed By: #### L 501.4020 #### [facility] [address] [place], [place], [id number] TROPONIN-I HS 90 pg/mL High 3.0-78.0 [facility] Comment on above: Order Comment: 'TROP ' Serial specimen #1, #2 or #3: 1 Result Comment: Plea se Note: New Test Units and Gender Specific Reference Ranges. For more information see Policy Stat Procedure [place] High Sensitivity Troponin (TNIH) and attachments. Performed By: #### L 500.2500 #### [facility] [address] [place], [place], [address] Laboratory - Chemistry and C hemistry - challengeOrdered By: Guillermo Mishra on 07-17-2024 AST [Catalytic activity/Vol] 30 U/L 15-37 [facility] Lactic Acidon 07-17-2024 Lactate [Moles/Vol] 1.7 mmol/L Normal 0.4-1.[address] [facility] Comment on above: Order Comment: Y Performed By: #### M 200.1000, L503.6005, L100.0100, L300.4310, L300.3900, L500.4050 #### [facility] [address] [place], [address] Lactic acid measurementOrder ed By: Guillermo Mishra on 07-17-2024 Lactate [Moles/Vol] 1.7 mmol/L 0.4-2.[address] [facility] Legionella Antigen Urineon 0 07-17-2024 LEGU Comments: Only Recommended for severe cases of pneumonia Only Recommended for severe cases of pneumonia URINE, CLEAN CATCH Legionella Ag, Urine Negative (See interpretation below) Normal [facility] Comment on above: Performed By: #### L 503.6620 #### [facility] [address] [facility] [place], [address] M100.019on 07-17-2024 M100.019 Negative Normal [facility] Comment on above: Performed By: #### L 503.6620 #### [facility] [place] [place], [address] M100.678on 07-17-2024 M100.678 Pending SARS-CoV-2 (COVID 19) Negative INFLUENZA A Negative INFLUENZA B Negative RSV PCR Negative Normal [facility] Comment on above: Performed By: #### L 503.6620 #### [facility] [address] [place] [place], [address] M8200.1000on 07-17-2024 M8200.1000 Negative Normal [facility] Comment on above: Performed By: #### L 300.3900 #### [facility] [place], [address] MRSA DNA NIURKA+probe Ql (Nose) Ordered By: Rome Stanley on 07-17-2024 MRSA (PCR) [facility] Microscopic analysis of urin e for red blood cells (RBC)Ordered By: Guillermo Mishra on 07-17-2024 Urine RBC 0-5 SEEN /hpf 0-5 [facility] Mucus LM Ql (Urine sed)Order ed By: Guillermo Mishra on 07-17-2024 Mucus Ql (Urine sed) 0 SEEN /hpf [facility] Nitrite Test strip Ql (U)Ord ered By: Guillermo Mishra on 07-17-2024 Nitrite Ql (U) Negative Negative [facility] Partial Thromboplast Timeon 07-17-2024 aPTT Coag (Bld) [Time] 32.0 s Normal 24.1-36.2 [facility] Comment on above: Performed By: #### L 300.3900 #### [facility] [address] [place], [address] Protein Test strip Ql (U)Ord ered By: Guillermo Mishra on 07-17-2024 Protein Ql (U) 100 mg/dl High Negative [facility] Prothrombin Time w/INRon INR Coag (PPP) [Relative time] 1.8 {INR} Normal [facility] Comment on above: Performed By: #### M 200.1000, L503.6005, L100.0100, L300.4310, L300.3900, L500.4050 #### [facility] [address] [place], [address] PT Coag (PPP) [Time] 21.0 s High 11.7-14.9 [facility] Comment on above: Performed By: #### M 200.1000, L503.6005, L100.0100, L300.4310, L300.3900, L500.4050 #### [facility] [address] [place], [address] RESPIRATORY PANEL MOLECULARo n 07-17-2024 RP PANEL ADENOVIRUS Not Detected INFLUENZA A Not Detected INFLUENZA A (SUBTYPE H1) Not Detected INFLUENZA A (SUBTYPE H3) Not Detected INFLUENZA B Not Detected HUMAN METAPHNEUMO Not Detected PARAINFLUENZA 1 Not Detected PARAINFLUENZA 2 Not Detected PARAINFLUENZA 3 Not Detected PARAINFLUENZA 4 Not Detected RHINOVIRUS Not Detected RSV A Not Detected RSV B Not Detected Normal [facility] Comment on above: Performed By: #### L 503.6620 #### [facility] [address] [place], [address] Respiratory pathogens DNA an d RNA panel NIURKA+probe (Resp)Ordered By: Rome Stanley on 07-17-2024 Respiratory Panel (PCR) [facility] [id number] By: Rome Stanley on 07-17-2024 SARS-CoV-2 (COVID-19) RNA NIURKA+probe Ql (Unsp spec) [facility] Serum globulin measurementOr dered By: Guillermo Mishra on 07-17-2024 Globulin (S) [Mass/Vol] 4.1 g/dL 2.2-4.2 [facility] Serum or plasma alanine singh otransferase (ALT) measurementOrdered By: Guillermo Mishra on 07-17-2024 ALT [Catalytic activity/Vol] 26 U/L 16-61 [facility] Serum or plasma albumin elida urement (mass/volume)Ordered By: Guillermo Mishra on 07-17-2024 Albumin [Mass/Vol] 3.5 g/dL 3.2-5.0 [facility] Serum or plasma alkaline inge sphatase measurementOrdered By: Guillermo Mishra on 07-17-2024 ALP [Catalytic activity/Vol] 83 U/L 45-117 [facility] Strep pneumoniae Antig(UR,CS F)on 07-17-2024 STPAG Comments: Only Recommended for severe cases of pneumonia Only Recommended for severe cases of pneumonia URINE, CLEAN CATCH URINE INTERPRETATION Strep pneumoniae Antig(UR,CSF) Strep pneumoniae Antig(UR,CSF) Negative Urine Presumptive negative for pneumococcal pneumonia, suggesting no current or recent pneumococcal infection. Infection due to S pneumoniae cannot be ruled out since the antigen present in the sample may be below the detection limit of the test. Strep pneumo Test Negative URINE (See interpretation below) Normal [facility] Comment on above: Performed By: #### L 503.6620 #### [facility] [address] [place], [place], [id number] Streptococcus pneumoniae ant igen assayOrdered By: Rome Stanley on 07-17-2024 Streptococcus pneumoniae Antigen (M [facility] Total proteinOrdered By: Esthela Mishra on 07-17-2024 Protein [Mass/Vol] 7.6 g/dL 6.4-8.2 [facility] Troponin IOrdered By: Rome Stanley on 07-17-2024 Troponin I High Sensitivity 84 pg/mL High 3.0-78.0 [facility] Comment on above: Please Note: New [place] t Units and Gender Specific Reference Ranges. For more information see Policy Stat Procedure [place] High Sensitivity Troponin (TNIH) and attachments. Urinalysis, Completeon 07-17 EPI,SQUAMOUS 0-5 SEEN Normal 0-5 [facility] Comment on above: Order Comment: [facility] CTOR TO SPECIFY Performed By: #### M 200.1000, L503.6005, L100.0100, L300.4310, L300.3900, L500.4050 #### [facility] [address] [place], [address] RBC 0-5 SEEN Normal 0-5 [facility] Comment on above: Order Comment: [facility] CTOR TO SPECIFY Performed By: #### M 200.1000, L503.6005, L100.0100, L300.4310, L300.3900, L500.4050 #### [facility] [address] [place], [address] BACTERIA 0 SEEN Normal None Seen [facility] Comment on above: Order Comment: [facility] CTOR TO SPECIFY Performed By: #### M 200.1000, L503.6005, L100.0100, L300.4310, L300.3900, L500.4050 #### [facility] [address] [place], [address] Mucus Ql (Urine sed) 0 SEEN Normal [facility] Comment on above: Order Comment: [facility] CTOR TO SPECIFY Performed By: #### M 200.1000, L503.6005, L100.0100, L300.4310, L300.3900, L500.4050 #### [facility] [address] [place], [address] WBC 0 SEEN Normal 0-5 [facility] Comment on above: Order Comment: [facility] CTOR TO SPECIFY Performed By: #### M 200.1000, L503.6005, L100.0100, L300.4310, L300.3900, L500.4050 #### [facility] [address] [place], [address] Urine blood detectionOrdered By: Guillermo Mishra on 07-17-2024 Urine Occult Blood 150 /ul High Negative [facility] Urine clarityOrdered By: Esthela Mishra on 07-17-2024 Clarity (U) Clear Clear [facility] Urine color determinationOrd ered By: Guillermo Mishra on 07-17-2024 Color (U) Yellow Yellow [facility] Urine cultureOrdered By: Esthela Mishra on 07-17-2024 Bacteria identified Cx Nom (U) Positive Abnormal [facility] Bacteria identified Cx Nom (U) Streptococcus agalactiae (B) Abnormal [facility] Urine leukocyte esterase det ection by dipstickOrdered By: Guillermo Mishra on 07-17-2024 Leukocyte esterase Test strip Ql (U) Negative Negative [facility] Urine pHOrdered By: Guillermo trotter on 07-17-2024 pH (U) 5.0 [pH] 5.0 - 8.0 [facility] Urine sediment bacteria coun t by microscopy (number/high power field)Ordered By: Guillermo Mishra on 07-17-2024 Bacteria LM.HPF (Urine sed) [#/Area] 0 /[HPF] None Seen [facility] Urine specific gravity measu rementOrdered By: Guillermo Mishra on 07-17-2024 Specific gravity (U) [Rel density] 1.020 1.002-1.030 [facility] Urobilinogen Ql (U)Ordered B y: Guillermo Mishra on 07-17-2024 Urine Urobilinogen Normal mg/dl Normal [facility] White blood cell countOrdere d By: Guillermo Mishra on 07-17-2024 Urine WBC 0 SEEN /hpf 0-5 [facility] aPTT Coag (PPP) [Time]Ordere d By: Guillermo Purcellemelinamiguel on 07-17-2024 aPTT Coag (Bld) [Time] 32.0 s 24.1-36.2 [facility] Office Visiton 07-16-2024 Follow-up visit [id number] Raymond Jones 1940 M Date Provider Department Center 07/16/2024 [id number]-XLNETBRAYDON SAUCEDO [facility] [address] Family History Problem Relation Age of Onset Heart disease Father Other Brother Comments: stents Other Sister Comments: heart valve replacement in her 40s Family Status - Relation Status Age at Father Brother Alive Sister Mother Level of Service:57723 [place] OFFICE/OUTPATIENT ESTABLISHED MOD [facility] 30 MIN Reason for Visit and Comments: 6 Month Follow-up [671] [facility] [employer] [facility] Progress Noteon 07-16-2024 Progress Note [facility] Cardiology Note Chief Complaint: Chief Complaint Patient presents with 6 Month Follow-up History of Present Illness: Raymond Jones is a 83 y.o. male presents for follow-up of permanent atrial fibrillation. He has a new left bundle branch block underwent nuclear stress testing demonstrating normal LV function and no ischemia. Overall he is feeling good. He likes to walk about 15-20 minutes/day if the weather is favorable. There is no lightheadedness presyncope syncope or awareness of his arrhythmia. He does not find his heart rates to be elevated according to his watch. Past Medical History: Past Medical History: Diagnosis Date Ankylosing spondylitis (HCC) Cor pulmonale (chronic) (HCC) GERD (gastroesophageal reflux disease) History of electrophysiologic study 07/19/2009 History of [id number] Hypertension Macular degeneration Orthostatic hypotension Permanent atrial fibrillation (HCC) CHADsV 3 - (HTN, 75yrs) Pulmonary HTN (HCC) PVD (peripheral vascular disease) (HCC) Tricuspid insufficiency Venous insufficiency (chronic) (peripheral) Past Surgical History Past Surgical History: Procedure Laterality Date ABLATION OF DYSRHYTHMIC FOCUS 02/27/2013 Mapping and ablation of typical caviotricuspid isthmus dependent right atrial flutter CAPSULOTOMY, HAND 02/14/2013 02/27/13,10/29/14, CARDIAC PROCEDURE Left 07/17/2009 HEMORRHOID SURGERY Family History Family History Problem Relation Name Age of Onset Heart disease Father Other ([id number]) Brother Lev santana Other ([id number]) Sister Melanie heart valve replacement in her 40s Social History Social History Tobacco Use Smoking status: Former Current packs/day: 0.00 Types: Cigarettes Quit date: 1958 Years since quittin.7 Smokeless tobacco: Never Substance Use Topics Alcohol use: No Drug use: No Comment: Caffeine: 1 large cup of coffee a day and occasional pop Allergies: No Known Allergies Medications: Current Outpatient Medications: Calcium Carb-Cholecalciferol (CALCIUM PLUS VITAMIN D3 PO), Take by mouth See administration instructions. 2 daily, Disp: , Rfl: digoxin (Lanoxin) 250 MCG tablet, Take 1 tablet (250 mcg) by mouth daily., Disp: 90 tablet, Rfl: 3 Esomeprazole Magnesium (NEXIUM PO), Take by mouth See administration instructions. As needed, Disp: , Rfl: fluticasone (Flonase) 50 MCG/ACT nasal spray, Administer 2 sprays into each nostril daily., Disp: 16 g, Rfl: 3 metoprolol succinate XL (Toprol-XL) 25 MG 24 hr tablet, TAKE 1 TABLET TWICE A DAY, Disp: 180 tablet, Rfl: 3 Multiple Vitamin (multivitamin) tablet, Take 1 tablet by mouth daily., Disp: , Rfl: omega-3 (Fish Oil) 1000 MG capsule, Take 1,000 mg by mouth See administration instructions. 2 daily, Disp: , Rfl: spironolactone (Aldactone) 25 MG tablet, TAKE ONE-HALF (1/2) TABLET DAILY, Disp: 45 tablet, Rfl: 3 tamsulosin (Flomax) 0.4 MG 24 hr capsule, Take 1 capsule (0.4 mg) by mouth daily., Disp: 90 capsule, Rfl: 1 warfarin (Coumadin) 4 MG tablet, TAKE 1 TABLET DAILY OR DIRECTED (Patient taking differently: Take 2.5 mg by mouth daily. TAKE 1 TABLET DAILY OR DIRECTED), Disp: 90 tablet, Rfl: 3 Multiple Vitamins-Minerals (Systane ICaps AREDS2) tablet, Take by mouth See administration instructions. 2 daily (Patient not taking: Reported on 07/16/2024), Disp: , Rfl: Review of Systems: Review of Systems Constitutional: Negative. Negative for activity change, chills, diaphoresis, fatigue and fever. HENT: Negative. Negative for nosebleeds and trouble swallowing. Eyes: Negative. Negative for discharge and visual disturbance. Respiratory: Negative. Negative for apnea, cough, chest tightness, shortness of breath and wheezing. Cardiovascular: Negative. Negative for chest pain, palpitations and leg swelling. Gastrointestinal: Negative. Negative for abdominal distention, abdominal pain, blood in stool, diarrhea, nausea and vomiting. Endocrine: Negative. Negative for cold intolerance and heat intolerance. Genitourinary: Negative. Negative for hematuria. Musculoskeletal: Negative. Negative for gait problem and myalgias. Skin: Negative. Negative for color change and rash. Neurological: Negative. Negative for dizziness, seizures, syncope, facial asymmetry, speech difficulty, weakness, light-headedness, numbness and headaches. Hematological: Negative. Does not bruise/bleed easily. Psychiatric/Behaviora l: Negative. Negative for dysphoric mood. Physical Examination: Vitals: Vitals: 07/16/24 1044 BP: 112/80 BP Location: Right arm Patient Position: Sitting BP Cuff Size: Adult Pulse: 68 Weight: 178 lb 12.8 oz (81.1 kg) Height: 6' (1.829 m) Body mass index is 24.25 kg/m?. Physical Exam Vitals reviewed. Constitutional: Appearance: Normal appearance. HENT: Head: Normocephalic. Right Ear: External ear normal. Left Ear: External ear normal. (more content not included)... Normal [facility] INR Coag (BldC) [Relative ti me]Ordered By: Deshawn Rebollar on 06-12-2024 INR Coag (Bld) [Relative time] 2.3 {INR} [facility] Comment on above: Critical Value > 4.0 PT Coag (Bld) [Time]Ordered By: Deshawn Rebollar on 06-12-2024 Bedside Prothrombin Time 24.6 SEC High 11.7-14.9 [facility] Prothrombin Time w/INRon INR Normal [facility] Comment on above: Order Comment: Order Date: 03/05/24Order Info: [id number] - PTComments: standing order one year 03/05/24 through 03/05/25 Result Comment: FING ER STICK Performed By: #### L 300.7885 #### [facility] [address] [place], [place], [address] PROTIME Normal 11.7-14.9 [facility] Comment on above: Order Comment: Order Date: 03/05/24Order Info: [id number] - PTComments: standing order one year 03/05/24 through 03/05/25 Result Comment: FING ER STICK Performed By: #### L 453.0097 #### [facility] [address] [place], [address] Protime w/INR Fingerstickon 06-12-2024 INR Coag (PPP) [Relative time] 2.3 {INR} Normal [facility] Comment on above: Result Comment: Crit ical Value > 4.0 Performed By: #### L 618.7141 #### [facility] [address] [place], [place], [address] Protime Co[place]en 24.6 SEC High 11.7-14.9 [facility] Comment on above: Performed By: #### L 007.5272 #### [facility] [address] [place], [address] 36on 06-10-2024 36 CARMELA - 4/24 LOS 08/02 JKS CBC - 01/28 CMP - 01/28 Normal [facility] 36on 05-28-2024 36 OV 10/2023 LO 03/2024 dig level 1.0 Normal [facility] 36on 05-27-2024 36 CARMELA-424 LO CBC-04/01 INR UP TO DATE Normal [facility] Protime w/INR Fingerstickon 05-14-2024 INR Coag (PPP) [Relative time] 2.1 {INR} Normal [facility] Comment on above: Result Comment: Crit ical Value > 4.0 Performed By: #### L 514.4712 #### [facility] [address] [place], [address] Protime Coagsen 23.4 SEC High 11.7-14.9 [facility] Comment on above: Performed By: #### L 194.8308 #### [facility] [address] [place], [address] Capillary blood internationa l normalized ratio (INR)Ordered By: Deshawn Rebollar on 10-03-2023 INR Coag (BldC) [Relative time] 2.4 [facility] Comment on above: Critical Value > 4.0 Whole blood prothrombin time Ordered By: Deshawn Rebollar on 10-03-2023 PT Coag (Bld) [Time] 25.1 s 11.7-14.9 [facility] Capillary blood internationa l normalized ratio (INR)Ordered By: Deshawn Rebollar on 09-05-2023 INR Coag (BldC) [Relative time] 2.6 [facility] Comment on above: Critical Value > 4.0 Whole blood prothrombin time Ordered By: Deshawn Rebollar on 09-05-2023 PT Coag (Bld) [Time] 26.2 s 11.7-14.9 [facility] Capillary blood internationa l normalized ratio (INR)Ordered By: Deshawn Rebollar on 08-08-2023 INR Coag (BldC) [Relative time] 2.4 [facility] Comment on above: Critical Value > 4.0 Whole blood prothrombin time Ordered By: Deshawn Rebollar on 08-08-2023 PT Coag (Bld) [Time] 25.0 s 11.7-14.9 [facility] Basophil percentageOrdered B y: Deshawn Rebollar on 07-05-2023 Chloride [Moles/Vol] 106 mmol/L 98-107 [facility] Glucose [Mass/Vol] 151 mg/dL 74-106 [facility] Comment on above: Fasting Glucose resu lt greater than or equal to 126 mg/dL suggests DIABETES MELLITUS per A.D.A. criteria. Potassium [Moles/Vol] 4.3 mmol/L 3.5-5.1 [facility] Sodium [Moles/Vol] 142 mmol/L 136-145 [facility] Laboratory - Chemistry and C hemistry - challengeOrdered By: Deshawn Rebollar on 07-05-2023 CO2 [Moles/Vol] 33.0 mmol/L 21.0-32.0 [facility] Urea nitrogen/Creatinine [Mass ratio] 12.8 mg/mg 10-20 [facility] Laboratory - CoagulationOrde red By: Deshawn Rebollar on 07-05-2023 PT Coag (PPP) [Time] 22.4 s 11.7-14.9 [facility] No Panel InformationOrdered By: Deshawn Rebollar on 07-05-2023 Estimated GFR (MDRD) Amer 66 mL/min >60 [facility] Comment on above: GFR Calc Estimated GFR (MDRD) Non-Af Amer 54 mL/min >60 [facility] Comment on above: Non- GFR Calc Serum or plasma calcium elida urement (mass/volume)Ordered By: Deshawn Rebollar on 07-05-2023 Calcium [Mass/Vol] 9.8 mg/dL 8.5-10.1 [facility] Serum or plasma creatinine m easurement (mass/volume)Ordered By: Deshawn Rebollar on 07-05-2023 Creatinine [Mass/Vol] 1.33 mg/dL 0.70-1.30 [facility] Comment on above: The validity of the calculated GFR & GFRAA in patients over 70 years has not been determined. Clinical correlation is essential. Serum or plasma urea nitroge n measurement (mass/volume)Ordered By: Deshawn Rebollar on 07-05-2023 Urea nitrogen [Mass/Vol] 17 mg/dL 7-18 [facility] Thin prep Papanicolaou smear with manual screeningOrdered By: Deshawn Rebollar on 07-05-2023 Thin prep Papanicolaou smear with manual screening 3 5-15 [facility] Whole blood international no rmalized ratio (INR)Ordered By: Deshawn Rebollar on 07-05-2023 INR Coag (Bld) [Relative time] 2.0 {INR} [facility] - CoagulationOrde red By: Deshawn Rebollar on 06-07-2023 INR Coag (Bld) [Relative time] 2.3 {INR} [facility] Comment on above: Critical Value > 4.0 Whole blood prothrombin time Ordered By: Deshawn Rebollar on 06-07-2023 PT Coag (Bld) [Time] 24.8 s 11.7-14.9 [facility] Laboratory - CoagulationOrde red By: Deshawn Rebollar on 05-02-2023 INR Coag (Bld) [Relative time] 2.7 {INR} [facility] Comment on above: Critical Value > 4.0 Whole blood prothrombin time Ordered By: Deshawn Gomezke on 05-02-2023 PT Coag (Bld) [Time] 29.4 s 11.7-14.9 [facility] Laboratory - CoagulationOrde red By: Deshawn Gomezke on 04-04-2023 INR Coag (Bld) [Relative time] 2.2 {INR} [facility] Comment on above: Critical Value > 4.0 Whole blood prothrombin time Ordered By: Deshawn Gomezke on 04-04-2023 PT Coag (Bld) [Time] 23.8 s 11.7-14.9 [facility] Laboratory - CoagulationOrde red By: SYMONE RICKETTS on 03-08-2023 INR Coag (Bld) [Relative time] 2.4 {INR} [facility] Comment on above: Critical Value > 4.0 Whole blood prothrombin time Ordered By: SYMONE RICKETTS on 03-08-2023 PT Coag (Bld) [Time] 26.2 s 11.7-14.9 [facility] Absolute lymphocyte countOrd ered By: Ezra Ross on 02-05-2023 Lymphocytes Auto (Unsp spec) [#/Vol] 2.89 10*3/uL 0.83-4.51 [facility] Basophil percentageOrdered B y: Ezra Ross on 02-05-2023 Basophil percentage 0 SEEN /hpf 0-5 [facility] Amylase [Catalytic activity/Vol] 49 U/L 25-115 [facility] Basophils/100 WBC (Bld) 0.6 % 0-1 [facility] Bilirubin [Mass/Vol] 2.30 mg/dL 0.20-1.00 [facility] Comment on above: For patients on eltr ombopag therapy, use of Dimension [place] TBIL is not recommended. Chloride [Moles/Vol] 97 mmol/L 98-107 [facility] Eosinophils/100 WBC (Bld) 0.7 % 0-5 [facility] Glucose [Mass/Vol] 142 mg/dL 74-106 [facility] Comment on above: Fasting Glucose resu lt greater than or equal to 126 mg/dL suggests DIABETES MELLITUS per A.D.A. criteria. Neutrophils (Bld) [#/Vol] 7.4 10*3/uL 2.0-7.7 [facility] Neutrophils/100 WBC (Bld) 62.7 % 47-70 [facility] Potassium [Moles/Vol] 3.3 mmol/L 3.5-5.1 [facility] Protein [Mass/Vol] 8.3 g/dL 6.4-8.2 [facility] Sodium [Moles/Vol] 133 mmol/L 136-145 [facility] WBC (Bld) [#/Vol] 11.8 10*3/uL 4.4-11.[address] [facility] Bilirubin Test strip Ql (U)O rdered By: Ezra Ross on 02-05-2023 Bilirubin Ql (U) Negative Negative [facility] Blood erythrocytes count (nu mber/volume)Ordered By: Ezra Ross on 02-05-2023 RBC (Bld) [#/Vol] 5.26 10*6/uL 4.6-6.[address] [facility] Blood hemoglobin measurement (mass/volume)Ordered By: Ezra Ross on 02-05-2023 Hemoglobin (Bld) [Mass/Vol] 17.1 g/dL 13.0-16.5 [facility] Blood lymphocytes/100 leukoc ytesOrdered By: Ezra Ross on 02-05-2023 Lymphocytes/100 WBC (Bld) 24.5 % 19-41 [facility] Blood monocytes/100 leukocyt esOrdered By: Ezra Ross on 02-05-2023 Monocytes/100 WBC (Bld) 11.2 % 0-10 [facility] Blood platelet mean volumeOr dered By: Ezra Ross on 02-05-2023 Platelet mean volume (Bld) [Entitic vol] 10.4 fL 6.2-12.0 [facility] Culture, urineOrdered By: Leydi Ross on 02-05-2023 Bacteria identified Cx Nom (U) Culture exhibits no growth. [facility] Determination of erythrocyte mean corpuscular volume (MCV)Ordered By: Ezra Ross on 02-05-2023 MCV (RBC) [Entitic vol] 98.9 fL 80-94 [facility] Erythrocyte sedimentation ra teOrdered By: Ezra Ross on 02-05-2023 ESR (Bld) [Velocity] 5 mm/h 0-20 [facility] Hematocrit Auto (Bld) [Volum e fraction]Ordered By: Ezra Ross on 02-05-2023 Hematocrit (Bld) [Volume fraction] 52.0 % 40-54 [facility] Ketones Test strip Ql (U)Ord ered By: Ezra Ross on 02-05-2023 Ketones Ql (U) 5 mg/dl Negative [facility] Laboratory - Chemistry and C hemistry - challengeOrdered By: Ezra Ross on 02-05-2023 ALP [Catalytic activity/Vol] 83 U/L 45-117 [facility] ALT [Catalytic activity/Vol] 31 U/L 16-61 [facility] CO2 [Moles/Vol] 28.0 mmol/L 21.0-32.0 [facility] Globulin (S) [Mass/Vol] 4.6 g/dL 2.2-4.2 [facility] Lipase [Catalytic activity/Vol] 41 U/L 13-75 [facility] Comment on above: Please note:LIPASE r evised reference range effective 22. New Lipase methodology. Expected to produce lower values than the previous assay method. NEW Reference Range: 13 - 75 U/L Urea nitrogen/Creatinine [Mass ratio] 10.9 mg/mg 10-20 [facility] Laboratory - Hematology and Cell countsOrdered By: Ezra Ross on 02-05-2023 Erythrocyte distribution width (RBC) [Entitic vol] 46.1 fL 35.1-43.9 [facility] Erythrocyte distribution width (RBC) [Ratio] 12.8 % 11.6-14.6 [facility] Immature granulocytes/100 WBC (Bld) 0.300 % 0.0-0.9 [facility] Comment on above: IG% - Immature Granu locytes (promyelocytes, myelocytes and metamyelocytes) > 1% indicates that a LEFT SHIFT is Present. MCH (RBC) [Entitic mass] 32.5 pg 27.0-32.0 [facility] Nucleated RBC/100 WBC (Bld) [Ratio] 0 % 0-5 [facility] MCHC Auto (RBC) [Mass/Vol]Or dered By: Ezra Ross on 02-05-2023 MCHC (RBC) [Mass/Vol] 32.9 g/dL 32-36 [facility] Mucus LM Ql (Urine sed)Order ed By: Ezra Ross on 02-05-2023 Mucus Ql (Urine sed) 0 SEEN /hpf [facility] Nitrite Test strip Ql (U)Ord ered By: Ezra Ross on 02-05-2023 Nitrite Ql (U) Negative Negative [facility] No Panel InformationOrdered By: Ezra Ross on 02-05-2023 Estimated GFR (MDRD) Amer 69 mL/min >60 [facility] Comment on above: GFR Calc Estimated GFR (MDRD) Non-Af Amer 57 mL/min >60 [facility] Comment on above: Non- GFR Calc Platelets bldOrdered By: John Ross on 02-05-2023 Platelets (Bld) [#/Vol] 230 10*3/uL 150-450 [facility] Protein Test strip Ql (U)Ord ered By: Ezra Ross on 02-05-2023 Protein Ql (U) 500 mg/dl Negative [facility] Serum or plasma albumin elida urement (mass/volume)Ordered By: Ezra Ross on 02-05-2023 Albumin [Mass/Vol] 3.7 g/dL 3.2-5.0 [facility] Serum or plasma albumin/glob ulin mass ratioOrdered By: Ezra Ross on 02-05-2023 Albumin/Globulin [Mass ratio] 0.8 {ratio} 0.9-2.4 [facility] Serum or plasma calcium elida urement (mass/volume)Ordered By: Ezra Ross on 02-05-2023 Calcium [Mass/Vol] 10.1 mg/dL 8.5-10.1 [facility] Serum or plasma creatinine m easurement (mass/volume)Ordered By: Ezra Ross on 02-05-2023 Creatinine [Mass/Vol] 1.28 mg/dL 0.70-1.30 [facility] Comment on above: The validity of the calculated GFR & GFRAA in patients over 70 years has not been determined. Clinical correlation is essential. Serum or plasma urea nitroge n measurement (mass/volume)Ordered By: Ezra Ross on 02-05-2023 Urea nitrogen [Mass/Vol] 14 mg/dL 7-18 [facility] Squamous epithelial cells de tection in urine sediment by light microscopyOrdered By: Ezra Ross on 02-05-2023 Epithelial cells.squamous LM Ql (Urine sed) 0 SEEN /hpf 0-5 [facility] Thin prep Papanicolaou smear with manual screeningOrdered By: Ezra Ross on 02-05-2023 Thin prep Papanicolaou smear with manual screening 25 U/L 15-37 [facility] Thin prep Papanicolaou smear with manual screening 8 5-15 [facility] Urine blood detectionOrdered By: Ezra Ross on 02-05-2023 RBC Ql (U) 25 /ul Negative [facility] RBC Ql (U) 0-5 SEEN /hpf 0-5 [facility] Urine clarityOrdered By: John Ross on 02-05-2023 Clarity (U) Clear Clear [facility] Urine color determinationOrd ered By: Ezra Ross on 02-05-2023 Color (U) Yellow Yellow [facility] Urine glucose detectionOrder ed By: Ezra Ross on 02-05-2023 Glucose Ql (U) Normal mg/dl Normal [facility] Urine leukocyte esterase det ection by dipstickOrdered By: Ezra Ross on 02-05-2023 Leukocyte esterase Test strip Ql (U) Negative Negative [facility] Urine pHOrdered By: Tram Ross on 02-05-2023 pH (U) 6.0 [pH] 5.0 - 8.0 [facility] Urine sediment bacteria coun t by microscopy (number/high power field)Ordered By: Ezra Ross on 02-05-2023 Bacteria LM.HPF (Urine sed) [#/Area] 0 /[HPF] None Seen [facility] Urine specific gravity measu rementOrdered By: Ezra Ross on 02-05-2023 Specific gravity (U) [Rel density] 1.020 1.002-1.030 [facility] Urobilinogen Auto test strip Ql (U)Ordered By: Ezra Ross on 02-05-2023 Urobilinogen Ql (U) Normal mg/dl Normal [facility] Basophil percentageOrdered B y: Deshawn Rebollar on 02-01-2023 Chloride [Moles/Vol] 104 mmol/L 98-107 [facility] Glucose [Mass/Vol] 120 mg/dL 74-106 [facility] Comment on above: Fasting Glucose resu lt from 100 to 125 mg/dL suggests IMPAIRED HOMEOSTASIS per A.D.A. criteria. Potassium [Moles/Vol] 4.6 mmol/L 3.5-5.1 [facility] Sodium [Moles/Vol] 141 mmol/L 136-145 [facility] Laboratory - Chemistry and C hemistry - challengeOrdered By: Deshawn Rebollar on 02-01-2023 CO2 [Moles/Vol] 31.0 mmol/L 21.0-32.0 [facility] Urea nitrogen/Creatinine [Mass ratio] 11.1 mg/mg 10-20 [facility] Laboratory - CoagulationOrde red By: SYMONE RICKETTS on 02-01-2023 INR Coag (Bld) [Relative time] 2.4 {INR} [facility] Comment on above: Critical Value > 4.0 No Panel InformationOrdered By: Deshawn Rebollar on 02-01-2023 Estimated GFR (MDRD) Amer 60 mL/min >60 [facility] Comment on above: GFR Calc Estimated GFR (MDRD) Non-Af Amer 50 mL/min >60 [facility] Comment on above: Non- GFR Calc Serum or plasma calcium elida urement (mass/volume)Ordered By: Deshawn Rebollar on 02-01-2023 Calcium [Mass/Vol] 9.6 mg/dL 8.5-10.1 [facility] Serum or plasma creatinine m easurement (mass/volume)Ordered By: Deshawn Rebollar on 02-01-2023 Creatinine [Mass/Vol] 1.44 mg/dL 0.70-1.30 [facility] Comment on above: The validity of the calculated GFR & GFRAA in patients over 70 years has not been determined. Clinical correlation is essential. Serum or plasma urea nitroge n measurement (mass/volume)Ordered By: Deshawn Rebollar on 02-01-2023 Urea nitrogen [Mass/Vol] 16 mg/dL 7-18 [facility] Thin prep Papanicolaou smear with manual screeningOrdered By: Deshawn Rebollar on 02-01-2023 Thin prep Papanicolaou smear with manual screening 6 5-15 [facility] Whole blood hemoglobin A1c/t otal hemoglobin ratio (mass fraction)Ordered By: Deshawn Rebollar on 02-01-2023 HbA1c (Bld) [Mass fraction] 6.2 % 3.8-5.6 [facility] Comment on above: Normal < 5.7 % Predi abetic 5.7 - 6.4 % Diabetic >or= 6.5 % Please note range changes. Whole blood prothrombin time Ordered By: SYMONE RICKETTS on 02-01-2023 PT Coag (Bld) [Time] 25.9 s 11.7-14.9 [facility] Absolute lymphocyte countOrd ered By: Deshawn Rebollar on 01-22-2023 Lymphocytes Auto (Unsp spec) [#/Vol] 3.09 10*3/uL 0.83-4.51 [facility] Basophil percentageOrdered B y: Deshawn Rebollar on 01-22-2023 Basophils/100 WBC (Bld) 1.3 % 0-1 [facility] Bilirubin [Mass/Vol] 1.70 mg/dL 0.20-1.00 [facility] Comment on above: For patients on eltr ombopag therapy, use of Dimension [place] TBIL is not recommended. Chloride [Moles/Vol] 105 mmol/L 98-107 [facility] Cholesterol [Mass/Vol] 123 mg/dL <200 [facility] Comment on above: <200 mg/dL Desirable 200-240 mg/dL Borderline >240 mg/dL High Risk Eosinophils/100 WBC (Bld) 4.4 % 0-5 [facility] Glucose [Mass/Vol] 120 mg/dL 74-106 [facility] Comment on above: Fasting Glucose resu lt from 100 to 125 mg/dL suggests IMPAIRED HOMEOSTASIS per A.D.A. criteria. Neutrophils (Bld) [#/Vol] 3.2 10*3/uL 2.0-7.7 [facility] Neutrophils/100 WBC (Bld) 42.7 % 47-70 [facility] Potassium [Moles/Vol] 4.8 mmol/L 3.5-5.1 [facility] Protein [Mass/Vol] 7.6 g/dL 6.4-8.2 [facility] Sodium [Moles/Vol] 139 mmol/L 136-145 [facility] Triglyceride [Mass/Vol] 127 mg/dL <199 [facility] Comment on above: The drugs N-Acetylcy steine and Metamizole may falsely depress this assay.Serum Triglycerides Reference Interval Normal <150 mg/dL Borderline high 150 - 199 mg/dL High 200 - 499 mg/dL Very High > or = 500 mg/dL WBC (Bld) [#/Vol] 7.5 10*3/uL 4.4-11.0 [facility] Blood erythrocytes count (nu mber/volume)Ordered By: Deshawn Rebollar on 01-22-2023 RBC (Bld) [#/Vol] 5.20 10*6/uL 4.6-6.[address] [facility] Blood hemoglobin measurement (mass/volume)Ordered By: Deshawn Rebollar on 01-22-2023 Hemoglobin (Bld) [Mass/Vol] 17.0 g/dL 13.0-16.5 [facility] Blood lymphocytes/100 leukoc ytesOrdered By: Deshawn Rebollar on 01-22-2023 Lymphocytes/100 WBC (Bld) 41.1 % 19-41 [facility] Blood monocytes/100 leukocyt esOrdered By: Deshawn Rebollar on 01-22-2023 Monocytes/100 WBC (Bld) 10.4 % 0-10 [facility] Blood platelet mean volumeOr dered By: Deshawn Rebollar on 01-22-2023 Platelet mean volume (Bld) [Entitic vol] 9.9 fL 6.2-12.0 [facility] Determination of erythrocyte mean corpuscular volume (MCV)Ordered By: Deshawn Rebollar on 01-22-2023 MCV (RBC) [Entitic vol] 100.8 fL 80-94 [facility] Hematocrit Auto (Bld) [Volum e fraction]Ordered By: Deshawn Aurelio on 01-22-2023 Hematocrit (Bld) [Volume fraction] 52.4 % 40-54 [facility] Laboratory - Chemistry and C hemistry - challengeOrdered By: [facility] 01-[facility]2023 ALP [Catalytic activity/Vol] 99 U/L 45-117 [facility] ALT [Catalytic activity/Vol] 84 U/L 16-61 [facility] CO2 [Moles/Vol] 32.0 mmol/L 21.0-32.0 [facility] Globulin (S) [Mass/Vol] 4.2 g/dL 2.2-4.2 [facility] Urea nitrogen/Creatinine [Mass ratio] 12.6 mg/mg 10-20 [facility] Laboratory - Hematology and Cell countsOrdered By: [facility] on 01-22-2023 Erythrocyte distribution width (RBC) [Entitic vol] 49.1 fL 35.1-43.9 [facility] Erythrocyte distribution width (RBC) [Ratio] 13.3 % 11.6-14.6 [facility] Immature granulocytes/100 WBC (Bld) 0.100 % 0.0-0.9 [facility] Comment on above: IG% - Immature Granu locytes (promyelocytes, myelocytes and metamyelocytes) > 1% indicates that a LEFT SHIFT is Present. MCH (RBC) [Entitic mass] 32.7 pg 27.0-32.0 [facility] Nucleated RBC/100 WBC (Bld) [Ratio] 0 % 0-5 [facility] MCHC Auto (RBC) [Mass/Vol]Or dered By: [facility] on 01-22-2023 MCHC (RBC) [Mass/Vol] 32.4 g/dL 32-36 [facility] No Panel InformationOrdered By: [facility] on 01-22-2023 Estimated GFR (MDRD) Amer 65 mL/min >60 [facility] Comment on above: GFR Calc Estimated GFR (MDRD) Non-Af Amer 54 mL/min >60 [facility] Comment on above: Non- GFR Calc Platelets bldOrdered By: Valorie Rebollar on 01-22-2023 Platelets (Bld) [#/Vol] 193 10*3/uL 150-450 [facility] Serum or plasma albumin elida urement (mass/volume)Ordered By: Deshawn Rebollar on 01-22-2023 Albumin [Mass/Vol] 3.4 g/dL 3.2-5.0 [facility] Serum or plasma albumin/glob ulin mass ratioOrdered By: Deshawn Rebollar on 01-22-2023 Albumin/Globulin [Mass ratio] 0.8 {ratio} 0.9-2.4 [facility] Serum or plasma calcium elida urement (mass/volume)Ordered By: Deshawn Rebollar on 01-22-2023 Calcium [Mass/Vol] 10.1 mg/dL 8.5-10.1 [facility] Serum or plasma cholesterol in HDL measurement (mass/volume)Ordered By: Deshawn Rebollar on 01-22-2023 Cholesterol in HDL [Mass/Vol] 35 mg/dL >40 [facility] Comment on above: The drugs N-Acetylcy steine and Metamizole may falsely depress this assay. Reference Range HDL <40 mg/dL Low HDL Cholesterol HDL >or= 60 mg/dL High HDL Cholesterol Serum or plasma cholesterol in VLDL measurement (mass/volume)Ordered By: Deshawn Rebollar on 01-22-2023 Cholesterol in VLDL [Mass/Vol] 25 mg/dL 5-40 [facility] Serum or plasma creatinine m easurement (mass/volume)Ordered By: Deshawn Rebollar on 01-22-2023 Creatinine [Mass/Vol] 1.35 mg/dL 0.70-1.30 [facility] Comment on above: The validity of the calculated GFR & GFRAA in patients over 70 years has not been determined. Clinical correlation is essential. Serum or plasma low density lipoprotein (LDL) cholesterol measurement (mass/volume)Ordered By: Deshawn Rebollar on 01-22-2023 Cholesterol in LDL [Mass/Vol] 63 mg/dL 0-130 [facility] Serum or plasma urea nitroge n measurement (mass/volume)Ordered By: Deshawn Rebollar on 01-22-2023 Urea nitrogen [Mass/Vol] 17 mg/dL 7 [facility] Thin prep Papanicolaou smear with manual screeningOrdered By: Deshawn Rebollar on 01-22-2023 Thin prep Papanicolaou smear with manual screening 49 U/L [facility] Thin prep Papanicolaou smear with manual screening 2 - [facility] Laboratory - CoagulationOrde red By: SYMONE RICKETTS on 01-04-2023 INR Coag (Bld) [Relative time] 2.7 {INR} [facility] Comment on above: Critical Value > 4.0 Whole blood prothrombin time Ordered By: SYMONE RICKETTS on 01-04-2023 PT Coag (Bld) [Time] 29.4 s 11.7-14.9 [facility] Laboratory - CoagulationOrde red By: SYMONE RICKETTS on 12-01-2022 INR Coag (Bld) [Relative time] 2.7 {INR} [facility] Comment on above: Critical Value > 4.0 Whole blood prothrombin time Ordered By: SYMONE RICKETTS on 12-01-2022 PT Coag (Bld) [Time] 29.2 s 11.7-14.9 [facility] Laboratory - Coagulationon 0 11-01-2022 INR Coag (Bld) [Relative time] 3.3 {INR} [facility] Comment on above: Critical Value > 4.0 Whole blood prothrombin time on 11-01-2022 PT Coag (Bld) [Time] 35.1 s 11.7-14.9 [facility] INR in Blood by Coagulation assayon 08-23-2022 INR Coag (Bld) [Relative time] 2.8 {INR} [facility] Laboratory - Coagulationon 0 08-23-2022 PT Coag (PPP) [Time] 29.5 s 11.7-14.9 [facility] No Panel Informationon 08-23 Digoxin Level 1.55 ng/mL 0.80-2.00 [facility] Laboratory - Coagulationon 0 07-19-2022 INR Coag (Bld) [Relative time] 2.5 {INR} [facility] Comment on above: Critical Value > 4.0 Whole blood prothrombin time on 07-19-2022 PT Coag (Bld) [Time] 29.1 s 11.7-14.9 [facility] Laboratory - Coagulationon 1 08-22-2021 INR Coag (Bld) [Relative time] 2.3 {INR} [facility] Comment on above: Critical Value > 4.0 Whole blood prothrombin time on 06-21-2022 PT Coag (Bld) [Time] 27.1 s 11.7-14.9 [facility] Laboratory - Coagulationon 1 07-17-2021 INR Coag (Bld) [Relative time] 2.4 {INR} [facility] Comment on above: Critical Value > 4.0 Whole blood prothrombin time on 05-17-2022 PT Coag (Bld) [Time] 28.1 s 11.7-14.9 [facility] Laboratory - Coagulationon 1 INR Coag (Bld) [Relative time] 2.8 {INR} [facility] Comment on above: Critical Value > 4.0 Whole blood prothrombin time on 04-12-2022 PT Coag (Bld) [Time] 32.3 s 11.7-14.9 [facility] Laboratory - Coagulationon 0 03-17-2022 INR Coag (Bld) [Relative time] 2.3 {INR} [facility] Work Phone: Comment on above: Critical Value > 4.0 Whole blood prothrombin time on 03-17-2022 PT Coag (Bld) [Time] 27.1 s 11.7-14.9 [facility] Work Phone: Laboratory - Coagulationon 0 02-08-2022 INR Coag (Bld) [Relative time] 2.8 {INR} [facility] Work Phone: Comment on above: Critical Value > 4.0 Whole blood prothrombin time on 02-08-2022 PT Coag (Bld) [Time] 32.6 s 11.7-14.9 [facility] Work Phone: Laboratory - Coagulationon 0 01-04-2022 INR Coag (Bld) [Relative time] 2.1 {INR} [facility] Work Phone: Comment on above: Critical Value > 4.0 Whole blood prothrombin time on 01-04-2022 PT Coag (Bld) [Time] 25.1 s 11.7-14.9 [facility] Work Phone: Laboratory - Coagulationon 0 11-30-2021 INR Coag (Bld) [Relative time] 2.4 {INR} [facility] Work Phone: Comment on above: Critical Value > 4.0 Whole blood prothrombin time on 11-30-2021 PT Coag (Bld) [Time] 28.1 s 11.7-14.9 [facility] Work Phone: Laboratory - Coagulationon 0 10-12-2021 INR Coag (Bld) [Relative time] 2.7 {INR} [facility] Work Phone: Comment on above: Critical Value > 4.0 Whole blood prothrombin time on 10-12-2021 PT Coag (Bld) [Time] 31.4 s 11.7-14.9 [facility] Work Phone: Laboratory - Coagulationon 0 09-08-2021 INR Coag (Bld) [Relative time] 2.5 {INR} [facility] Work Phone: Comment on above: Critical Value > 4.0 Whole blood prothrombin time on 09-08-2021 PT Coag (Bld) [Time] 29.1 s 11.7-14.9 [facility] Work Phone: Basophil percentageon 2021 WBC (Bld) [#/Vol] 8.4 10*3/uL 4.4-11.0 [facility] Work Phone: Blood erythrocytes count (nu mber/volume)on 09-07-2021 RBC (Bld) [#/Vol] 5.15 10*6/uL 4.6-6.[address] [facility] Work Phone: [phone] Blood hemoglobin measurement (mass/volume)on 09-07-2021 Hemoglobin (Bld) [Mass/Vol] 16.6 g/dL 13.0-16.5 [facility] Work Phone: Blood platelet mean volumeon 09-07-2021 Platelet mean volume (Bld) [Entitic vol] 9.6 fL 6.2-12.0 [facility] Work Phone: Determination of erythrocyte mean corpuscular volume (MCV)on 09-07-2021 MCV (RBC) [Entitic vol] 98.8 fL 80-94 [facility] Work Phone: Hematocrit Auto (Bld) [Volum e fraction]on 09-07-2021 Hematocrit (Bld) [Volume fraction] 50.9 % 40-54 [facility] Work Phone: Laboratory - Hematology and Cell countson 09-07-2021 Erythrocyte distribution width (RBC) [Entitic vol] 47.8 fL 35.1-43.9 [facility] Work Phone: Erythrocyte distribution width (RBC) [Ratio] 13.1 % 11.6-14.6 [facility] Work Phone: [phone] MCH (RBC) [Entitic mass] 32.2 pg 27.0-32.0 [facility] Work Phone: MCHC Auto (RBC) [Mass/Vol]on 09-07-2021 MCHC (RBC) [Mass/Vol] 32.6 g/dL 32-36 [facility] Work [facility]: Platelets bldon 09-07-2021 Platelets (Bld) [#/Vol] 220 10*3/uL 150-450 [facility] Work Phone: [phone] INR in Blood by Coagulation assayon 08-09-2021 INR Coag (Bld) [Relative time] 2.5 {INR} [facility] Work Phone: Laboratory - Coagulationon 0 08-09-2021 PT Coag (PPP) [Time] 26.6 s 11.7-14.9 [facility] Work Phone: INR in Blood by Coagulation assayon 06-13-2021 INR Coag (Bld) [Relative time] 3.6 {INR} [facility] Work Phone: Laboratory - Coagulationon 1 08-14-2020 PT Coag (PPP) [Time] 35.2 s 11.7-14.9 [facility] Work Phone: Vital Signs Date Time Vital Sign Value Performing Clinician Faci lity 03-10-2025 07:19-0400 Body mass index (BMI) [Ratio] 23 kg/m2 Deshawn Rebollar MD Work Phone: [facility] 03-10-2025 07:19-0400 Body weight 77.11 kg Deshawn Rebollar MD Work Phone: [facility] 03-10-2025 07:19-0400 Diastolic blood pressure 71 mm[Hg] Deshawn Rebollar MD Work Phone: [facility] 03-10-2025 07:19-0400 Heart rate 66 /min Deshawn Rebollar MD Work Phone: [facility] 03-10-2025 07:19-0400 Respiratory rate 18 /min Deshawn Rebollar MD Work Phone: [facility] 03-10-2025 07:19-0400 SaO2% (BldA) [Mass fraction] 98 % Deshawn Rebollar MD Work Phone: [facility] 03-10-2025 07:19-0400 Systolic blood pressure 151 mm[Hg] Deshawn Rebollar MD Work Phone: [facility] 12-06-2024 20:37-0400 Body mass index (BMI) [Ratio] 25.9 kg/m2 Deshawn Rebollar MD Work Phone: [facility] 11-05-2024 20:35-0400 Body mass index (BMI) [Ratio] 25.9 kg/m2 Deshawn Rebollar MD Work Phone: [facility] 10-06-2024 21:45-0400 Body mass index (BMI) [Ratio] 25.9 kg/m2 Deshawn Rebollar MD Work Phone: [facility] 09-08-2024 13:23-0500 Body height 182.88 cm Deshawn Rebollar MD Work Phone: [facility] 09-08-2024 13:23-0500 Body mass index (BMI) [Ratio] 23.7 kg/m2 Deshawn Rebollar MD Work Phone: [facility] 09-08-2024 13:23-0500 Body weight 79.37 kg Deshawn Rebollar MD Work Phone: [facility] 09-08-2024 13:23-0500 Diastolic blood pressure 81 mm[Hg] Deshawn Rebollar MD Work Phone: [facility] 09-08-2024 13:23-0500 Heart rate 69 /min Deshawn Rebollar MD Work Phone: [facility] 09-08-2024 13:23-0500 Respiratory rate 18 /min Deshawn Rebollar MD Work Phone: [facility] 09-08-2024 13:23-0500 SaO2% (BldA) [Mass fraction] 93 % Deshawn Rebollar MD Work Phone: [facility] 09-08-2024 13:23-0500 Systolic blood pressure 156 mm[Hg] Deshawn Rebollar MD Work Phone: [facility] 09-06-2024 03:43-0500 Body mass index (BMI) [Ratio] 25.9 kg/m2 Deshawn Rebollar MD Work Phone: [facility] 07-19-2024 08:40-0500 Heart rate 99 /min Deshawn Rebollar MD Work Phone: [facility] 07-19-2024 08:35-0500 Body temperature 97.9 [degF] Deshawn Rebollar MD Work Phone: [facility] 07-19-2024 08:35-0500 Diastolic blood pressure 79 mm[Hg] Deshawn Rebollar MD Work Phone: [facility] 07-19-2024 08:35-0500 Respiratory rate 16 /min Deshawn Rebollar MD Work Phone: [facility] 07-19-2024 08:35-0500 SaO2% (BldA) [Mass fraction] 94 % Deshawn Rebollar MD Work Phone: [facility] 07-19-2024 08:35-0500 Systolic blood pressure 116 mm[Hg] Deshawn Rebollar MD Work Phone: [facility] 07-19-2024 05:34-0500 Body mass index (BMI) [Ratio] 20.5 kg/m2 Deshawn Rebollar MD Work Phone: [facility] 07-19-2024 05:34-0500 Body weight 68.7 kg Deshawn Rebollar MD Work Phone: [facility] 07-17-2024 14:30-0500 Inhaled oxygen flow rate 2 L/min Deshawn Rebollar MD Work Phone: [facility] 07-16-2024 10:44-0500 Body height 182.9 cm Braydon Saucedo MD Work Phone: [facility] [employer] 07-16-2024 10:44-0500 Body mass index (BMI) [Ratio] 24.25 kg/m2 Braydon Saucedo MD Work Phone: [facility] [employer] 07-16-2024 10:44-0500 Body weight 81.1 kg Braydon Saucedo MD Work Phone: [facility] [employer] 07-16-2024 10:44-0500 Diastolic blood pressure 80 mm[Hg] Braydon Saucedo MD Work Phone: [employer] [facility] [employer] 07-16-2024 10:44-0500 Heart rate 68 /min Braydon Saucedo MD Work Phone: [facility] [employer] 07-16-2024 10:44-0500 Systolic blood pressure 112 mm[Hg] Braydon Saucedo MD Work Phone: [employer] [facility] [employer] 07-09-2024 03:48-0500 Body mass index (BMI) [Ratio] 25.9 kg/m2 Deshawn Rebollar MD Work Phone: [facility] 06-07-2024 22:42-0500 Body mass index (BMI) [Ratio] 25.9 kg/m2 Deshawn Rebollar MD Work Phone: [facility] 11-06-2023 10:44-0400 Diastolic blood pressure 74 mm[Hg] Ambika O'Shell HEAD SWAMPER - [employer]ER Work Phone: [facility] [employer] 11-06-2023 10:44-0400 Systolic blood pressure 118 mm[Hg] Ambika O[employer]Shell HEAD SWAMPER - [employer]ER Work Phone: [facility] 11-06-2023 10:28-0400 Body height 182.9 cm Ambika O'Shell HEAD SWAMPER - [employer] Work Phone: [facility] 11-06-2023 10:28-0400 Body mass index (BMI) [Ratio] 25.36 kg/m2 Ambika O'Shell HEAD SWAMPER - [employer] Work Phone: [facility] 11-06-2023 10:28-0400 Body weight 84.82 kg Ambika O'Shell HEAD SWAMPER - [employer] Work Phone: [facility] 11-06-2023 10:28-0400 Heart rate 74 /min Ambika O'Shell HEAD SWAMPER - [employer]ER Work Phone: [facility] 11-06-2023 10:28-0400 SaO2% (BldA) [Mass fraction] 97 % Ambika O'Shell HEAD SWAMPER - [employer]ER Work Phone: [facility] 09-06-2023 22:09-0500 Body mass index (BMI) [Ratio] 25.9 kg/m2 [facility] 08-08-2023 21:40-0500 Body mass index (BMI) [Ratio] 25.9 kg/m2 [facility] 07-08-2023 20:53-0500 Body mass index (BMI) [Ratio] 25.9 kg/m2 [facility] 06-08-2023 03:04-0500 Body mass index (BMI) [Ratio] 25.9 kg/m2 [facility] 05-08-2023 22:46-0400 Body mass index (BMI) [Ratio] 25.9 kg/m2 [facility] 04-08-2023 01:42-0400 Body mass index (BMI) [Ratio] 25.9 kg/m2 [facility] 03-08-2023 21:52-0400 Body mass index (BMI) [Ratio] 25.9 kg/m2 [facility] 02-16-2023 16:51-0400 Body height 182.88 cm [facility] 02-16-2023 16:51-0400 Body mass index (BMI) [Ratio] 25.2 kg/m2 [facility] 02-16-2023 16:51-0400 Body temperature 97.8 [degF] [facility] 02-16-2023 16:51-0400 Body weight 84.36 kg [facility] 02-16-2023 16:51-0400 Diastolic blood pressure 82 mm[Hg] [facility] 02-16-2023 16:51-0400 Heart rate 79 /min [facility] 02-16-2023 16:51-0400 Respiratory rate 18 /min [facility] 02-16-2023 16:51-0400 SaO2% (BldA) [Mass fraction] 98 % [facility] 02-16-2023 16:51-0400 Systolic blood pressure 161 mm[Hg] [facility] 02-06-2023 00:10-0400 Body mass index (BMI) [Ratio] 25.9 kg/m2 [facility] 01-05-2023 21:13-0400 Body mass index (BMI) [Ratio] 25.9 kg/m2 [facility] 12-07-2022 08:10-0400 Body mass index (BMI) [Ratio] 25.9 kg/m2 [facility] 11-05-2022 00:32-0400 Body mass index (BMI) [Ratio] 25.9 kg/m2 [facility] 10-06-2022 21:30-0400 Body mass index (BMI) [Ratio] 25.9 kg/m2 [facility] 09-25-2022 09:32-0400 Body mass index (BMI) [Ratio] 26.96 kg/m2 Braydon Saucedo MD Work Phone: [facility] 09-25-2022 09:32-0400 Body weight 90.17 kg Braydon Saucedo MD Work Phone: [facility] 09-25-2022 09:32-0400 Diastolic blood pressure 80 mm[Hg] Braydon Saucedo MD Work Phone: [facility] 09-25-2022 09:32-0400 Heart rate 76 /min Braydon Saucedo MD Work Phone: [facility] 09-25-2022 09:32-0400 SaO2% (BldA) [Mass fraction] 98 % Braydon Sauecdo MD Work Phone: [facility] 09-25-2022 09:32-0400 Systolic blood pressure 130 mm[Hg] Braydon Saucedo MD Work Phone: [facility] 09-05-2022 19:51-0500 Body mass index (BMI) [Ratio] 25.9 kg/m2 [facility] 08-09-2022 07:53-0500 Body mass index (BMI) [Ratio] 25.9 kg/m2 [facility] 07-08-2022 22:52-0500 Body mass index (BMI) [Ratio] 25.9 kg/m2 Dr. Vin Zuñiga Work Phone: [facility] 06-07-2022 22:45-0500 Body mass index (BMI) [Ratio] 25.9 kg/m2 Dr. Vin Zuñiga Work Phone: [facility] 05-09-2022 10:02-0400 Body mass index (BMI) [Ratio] 25.9 kg/m2 Dr. Vin Zuñiga Work Phone: [facility] 04-07-2022 20:26-0400 Body mass index (BMI) [Ratio] 25.9 kg/m2 Dr. Vin Zuñiga Work Phone: [facility] 03-08-2022 22:25-0400 Body mass index (BMI) [Ratio] 25.9 kg/m2 [facility] Work Phone: 01-06-2022 06:44-0400 Body mass index (BMI) [Ratio] 25.9 kg/m2 [facility] Work Phone: 12-06-2021 20:19-0400 Body mass index (BMI) [Ratio] 25.9 kg/m2 [facility] Work Phone: 11-06-2021 02:42-0400 Body mass index (BMI) [Ratio] 25.9 kg/m2 [facility] Work Phone: 10-07-2021 01:00-0400 Body mass index (BMI) [Ratio] 25.9 kg/m2 [facility] Work Phone: 09-06-2021 09:22-0500 Body mass index (BMI) [Ratio] 25.9 kg/m2 [facility] Work Phone: 09-06-2021 08:22-0500 Body mass index (BMI) [Ratio] 25.9 kg/m2 [facility] Work Phone: 07-10-2021 02:40-0500 Body mass index (BMI) [Ratio] 25.9 kg/m2 [facility] Work Phone: 06-08-2021 01:04-0500 Body mass index (BMI) [Ratio] 25.9 kg/m2 [facility] Work Phone: Encounters Encounter Date Encounter Type Care Provider Facility Start: 05-09-2025 ambulatory Deshawn Rebollar Facility:[facility] Start: 04-29-2025 End: 04-29-2025 ambulatory Deshawn Rebollar Facility:[facility] Start: 04-03-2025 End: 04-03-2025 ambulatory Deshawn Rebollar MD Work Phone: -Laboratory Specimen Start: 04-03-2025 End: 04-03-[address] Deshawn Rebollar MD -Laboratory Specimen Work Phone: Start: 04-03-2025 End: 04-03-2025 ambulatory Deshawn Rebollar Facility:[facility] Start: 03-25-2025 End: 04-07-2025 ambulatory Deshawn Rebollar MD Work Phone: -Laboratory Start: 03-25-2025 End: 04-07-[address] Deshawn Rebollar MD -Laboratory Work Phone: Start: 03-10-2025 End: 03-10-2025 Patient encounter procedure Fe DUKES -[facility] Work Phone: Start: 03-10-2025 End: 03-10-2025 ambulatory Deshawn Rebollar MD Work Phone: -[facility] Start: 03-03-2025 End: 03-03-[address] Deshawn Rebollar MD -Laboratory Work Phone: Start: 03-03-2025 End: 03-03-2025 ambulatory Deshawn Rebollar MD Work Phone: -Laboratory Start: 02-03-2025 End: 02-05-2025 ambulatory Deshawn Rebollar MD Work Phone: -Laboratory Start: 02-03-2025 End: 02-05-[address] Deshawn Rebollar MD -Laboratory Work Phone: Start: 12-30-2024 End: 12-30-[address] Deshawn Rebollar MD -Laboratory Work Phone: Start: 12-30-2024 End: 12-30-2024 ambulatory Deshawn Rebollar MD Work Phone: -Laboratory Start: 11-25-2024 End: 11-25-2024 ambulatory Deshawn Rebollar MD Work Phone: [facility] Work Phone: Start: 11-25-2024 End: 11-25-[address] Deshawn Rebollar MD -Laboratory Work Phone: Start: 10-14-2024 End: 11-05-[address] Deshawn Rebollar MD -Laboratory Work Phone: Start: 10-14-2024 End: 11-05-2024 ambulatory Deshawn Rebollar Facility:[facility] Start: 09-30-2024 End: 09-30-[address] Deshawn Rebollar MD -Laboratory Work Phone: Start: 09-30-[address] Deshawn Rebollar MD -Laboratory Work Phone: Start: 09-30-2024 End: 09-30-2024 ambulatory Deshawn Rebollar MD Work Phone: [facility] Work Phone: Start: 09-18-2024 End: 09-18-2024 ambulatory Deshawn Rebollar MD Work Phone: [facility] Work Phone: Start: 09-18-2024 End: 09-18-[address] Deshawn Rebollar MD -Laboratory, [facility] Start: 09-18-2024 End: 09-18-20[facility] Start: 09-08-2024 End: 09-08-[address] Dmitri Francisco MD -[facility] Work Phone: Start: 09-08-2024 End: 09-08-2024 ambulatory Deshawn Rebollar Facility:[facility] Start: 09-02-2024 End: 09-05-[address] Deshawn Rebollar MD -Laboratory Work Phone: Start: 09-02-2024 End: 09-05-2024 ambulatory Deshawn Aurelio Facility:[facility] Start: 07-29-2024 End: 07-29-[address] Deshawn Rebollar MD -Laboratory, [facility] Start: 07-29-2024 End: 07-29-2024 ambulatory Deshawn Aurelio Facility:[facility] Start: 07-19-2024 Non-patient / Non-visit Dr. Roem peter MD -[facility] Work Phone: Start: 07-18-2024 Non-patient / Non-visit Dr. Rome peter MD -[facility] Work Phone: Start: 07-17-2024 ambulatory [facility] Facility:[facility] Start: 07-17-2024 Non-patient / Non-visit Dr. Beata YUSUF -[facility] Start: 07-17-2024 Non-patient / Non-visit Dr. Rome peter MD -[facility] Work Phone: Start: 07-17-2024 [facility] Start: 07-17-2024 End: 07-19-2024 Evaluation and management of inpatient Dr. Rome Stanley MD -Medical Surgical 3 Work Phone: Start: 07-16-2024 End: 07-16-2024 Office outpatient visit 25 minutes Braydon Saucedo MD Work Phone: [facility] Comment on above: Permanent atrial fib rillation (HCC) (Primary Dx) Start: 07-16-2024 End: 07-16-2024 ambulatory [facility] Start: 06-12-2024 End: 06-12-[address] Deshawn Rebollar MD -Laboratory Work Phone: Start: 06-12-2024 End: 06-12-2024 ambulatory [facility] Facility:[facility] Start: 06-10-2024 End: 06-10-2024 Refill Adriana Granados HEAD SWAMPER - [employer] Work Phone: [facility] Start: 05-28-2024 End: 05-28-2024 Refill Kathy Negrete RN [facility] Start: 05-27-2024 End: 05-27-2024 Refill Adriana Granados HEAD SWAMPER - [employer] Work Phone: [facility] Start: 05-14-2024 End: 06-07-2024 ambulatory [facility] Facility:[facility] Start: 02-25-2024 End: 02-25-2024 Refill Ambika O'Shell HEAD SWAMPER - [employer]PA[employer]BLER Work Phone: [facility] Comment on above: Permanent atrial fib rillation (HCC) (Primary Dx) Start: 12-13-2023 Refill Adriana Mancuso senia HEAD SWAMPER - REPA[employer]SEMBLER Work Phone: [facility] Start: 11-21-2023 Telephone encounter Braydon Saucedo MD Work Phone: [facility] Comment on above: Med Management Start: 11-06-2023 End: 11-06-2023 Office outpatient visit 25 minutes Ambika O'Shell HEAD SWAMPER - [employer]ER Work Phone: [facility] Comment on above: Permanent atrial fib rillation (HCC) (Primary Dx); Primary hypertension; Dyspnea on exertion Start: 10-03-2023 End: 10-06-2023 ambulatory [facility] Work Phone: Start: 10-03-2023 End: 10-06-2023 Discharged Recurring [facility]-Laboratory Work Phone: Start: 09-05-2023 End: 09-06-2023 ambulatory [facility] Work Phone: Start: 09-05-2023 End: 09-06-2023 Discharged Recurring [facility]-Laboratory Work Phone: Start: 08-08-2023 End: 08-08-2023 ambulatory [facility] Work Phone: Start: 08-08-2023 End: 08-08-2023 Discharged Recurring [facility]-Laboratory Work Phone: Start: 07-05-2023 End: 07-08-2023 Discharged Recurring [facility]-Laboratory Work Phone: Start: 06-18-2023 Refill Braydon tomlinson MD Work Phone: [facility] Comment on above: Permanent atrial fib rillation (HCC) (Primary Dx) Start: 06-07-2023 End: 06-07-2023 ambulatory [facility] Work Phone: Start: 06-07-2023 End: 06-07-2023 Discharged Recurring [facility]-Laboratory Work Phone: Start: 05-02-2023 End: 05-02-2023 Discharged Recurring [facility]-Laboratory Work Phone: Start: 04-17-2023 End: 04-17-2023 ambulatory [facility] Work Phone: Start: 04-17-2023 End: 04-17-2023 Patient encounter procedure [facility] Start: 04-04-2023 End: 04-04-2023 ambulatory [facility] Work Phone: Start: 04-04-2023 End: 04-04-2023 Discharged Recurring [facility]-Laboratory Work Phone: Start: 03-26-2023 End: 03-26-2023 ambulatory [facility] Work Phone: Start: 03-26-2023 End: 03-26-2023 Patient encounter procedure [facility]-Cat Scan, [facility] Work Phone: Start: 03-08-2023 End: 03-08-2023 Discharged Recurring [facility]-Laboratory Work Phone: Start: 02-28-2023 Refbren Mancuso [facility] HEAD SWAMPER - REPAIR [employer] ASSEMBLER Work Phone: [facility] Start: 02-16-2023 End: 02-16-2023 Emergency department patient visit [facility]-Emergency Department Work Phone: Start: 02-16-2023 End: 02-16-2023 Patient encounter procedure [facility]-Cat Scan, [facility] Work Phone: Start: 02-05-2023 End: 02-05-2023 ambulatory [facility] Work Phone: Start: 02-05-2023 End: 02-05-2023 Patient encounter procedure [facility]-Laboratory, [place] Work Phone: Start: 02-01-2023 End: 02-05-2023 ambulatory [facility] Work Phone: Start: 02-01-2023 End: 02-05-2023 Discharged Recurring [facility]-Laboratory Work Phone: Start: 01-22-2023 End: 01-22-2023 ambulatory [facility] Work Phone: Start: 01-22-2023 End: 01-22-2023 Patient encounter procedure [facility]-Laboratory, [place] Work Phone: Start: 01-04-2023 End: 01-04-2023 ambulatory [facility] Work Phone: Start: 01-04-2023 End: 01-04-2023 Discharged Recurring [facility]-Laboratory Work Phone: Start: 12-01-2022 End: 12-01-2022 ambulatory [facility] Work Phone: Start: 12-01-2022 End: 12-01-2022 Discharged Recurring [facility]-Laboratory Start: 11-02-2022 Anticoagulant drug monitoring Charisse Amaya HEAD SWAMPER - [employer]ER Work Phone: [facility] Start: 11-02-2022 Telephone encounter Mirtha Coon [facility] Comment on above: Labs Only Start: 11-01-2022 End: 11-05-2022 ambulatory [facility] Work Phone: Start: 11-01-2022 End: 11-05-2022 Discharged Recurring [facility]-Laboratory Start: 09-28-2022 End: 10-06-2022 Discharged Recurring [facility]-Laboratory Start: 09-25-2022 End: 09-25-2022 Office outpatient visit 25 minutes Braydon Saucedo MD Work Phone: [facility] Comment on above: Permanent atrial fib rillation (CMS/HCC) ([facility]) Start: 08-28-2022 Telephone encounter Mirtha [facility]Z [facility] Comment on above: Orders (Standing ord er for INR) Start: 08-23-2022 End: 08-23-2022 ambulatory [facility] Work Phone: Start: 08-23-2022 End: 08-23-2022 Discharged Recurring [facility]-Laboratory Start: 08-01-2022 Refill Braydon tomlinson MD Work Phone: [id number] Start: 07-28-2022 Refill Vin Zuñiga MD Work Phone: [facility] Start: 07-19-2022 End: 07-19-[address] Vin Zuñiga Work Phone: [facility] Work Phone: Start: 07-19-2022 End: 07-19-[address] Vin Zuñiga Work Phone: [facility]-Laboratory Start: 07-14-2022 Refill Braydon tomlinson MD Work Phone: [facility] Comment on above: Paroxysmal atrial fi brillation (CMS/HCC) (HCC) (Primary Dx) Start: 06-21-2022 End: 06-21-[address] Vin Zuñiga Work Phone: [facility] Work Phone: Start: 06-21-2022 End: 06-21-[address] Vin Zuñiga Work Phone: [facility]-Laboratory Start: 05-17-2022 End: 06-07-[address] Vin Zuñiga Work Phone: [facility] Work Phone: Start: 05-17-2022 End: 06-07-[address] Vin Zuñiga Work Phone: [facility]-Laboratory Start: 04-20-2022 Non-patient / Non-visit Dr. Peter Work Phone: [facility] Start: 04-20-2022 End: 04-20-[address] Vin Zuñiga Work Phone: [facility] Work Phone: Start: 04-20-2022 End: 04-20-[address] Vin Zuñiga Work Phone: [facility]-Cardiovascul ar Services Start: 04-12-2022 End: 04-12-[address] Vin Zuñiga Work Phone: [facility] Work Phone: Start: 04-12-2022 End: 04-12-[address] Vin Zuñiga Work Phone: [facility]-Laboratory Start: 04-12-[address] Jolie Zuñiga Work Phone: [facility]-Laboratory Start: 03-17-2022 End: 03-17-2022 ambulatory [facility] Work Phone: Start: 03-17-2022 End: 03-17-2022 Discharged Recurring [facility]-Laboratory Start: 02-08-2022 End: 02-08-2022 Discharged Recurring [facility]-Laboratory Start: 01-04-2022 End: 01-04-2022 Discharged Recurring [facility]-Laboratory Start: 11-30-2021 End: 11-30-2021 Discharged Recurring [facility] Start: 10-12-2021 End: 10-12-2021 Discharged Recurring [facility] Start: 09-08-2021 End: 10-06-2021 Discharged Recurring [facility] Start: 08-09-2021 End: 08-09-2021 Discharged Recurring [facility] Start: 06-13-2021 End: 07-09-2021 Discharged Recurring [facility] Start: 10-25-2018 Patient encounter procedure BRAYDON Ferrara [facility] Procedures Date Procedure Procedure Detail Performing Clinician Start: 07-17-2024 Bacterial nucleic ac id assay Deshawn Rebollar MD Work Phone: Start: 07-17-2024 Blood culture Deshawn calderón MD Work Phone: Start: 07-17-2024 Legionella pneumophi la antigen assay Deshawn Rebollar MD Work Phone: Start: 07-17-2024 Nucleic acid assay Chase Rebollar MD Work Phone: Start: 07-17-2024 Sars-cov-2 Deshawn jacobson MD Work Phone: Start: 07-17-2024 SARS-CoV-2, Influenz a & RSV (PCR) Deshawn Rebollar MD Work Phone: Start: 07-17-2024 Streptococcus pneumo niae antigen assay Deshawn Rebollar MD Work Phone: Start: 07-17-2024 Urine culture Deshawn calderón MD Work Phone: Start: 07-17-2024 Plain chest X-ray Justyn Rebollar MD Work Phone: Start: 11-06-2023 Ecg routine ecg w/le ast 12 lds trcg only w/o i&r Braydon Saucedo MD Work Phone: Start: 04-17-2023 Positron emission tomography with computed tomography Start: 03-26-2023 CT of chest without contrast Start: 02-16-2023 CT of abdomen and pe lvis without contrast Start: 02-05-2023 Urine culture Start: 02-05-2023 Diagnostic radiograp hy of abdomen, decubitus and erect Start: 09-25-2022 Ecg routine ecg w/le ast 12 lds trcg only w/o i&r Braydon Saucedo MD Work Phone: Start: 09-19-2021 Lipid 1996 panel - S kunal or Plasma Braydon Saucedo MD Work Phone: Plan of Treatment Date Care Activity Detail Author Start: 09-19-2026 Lipid panel Lipid Panel [facility] Start: [facility] Start: 07-17-2024 End: 07-18-2024 [facility] Start: 07-17-2024 Ambulation without limitation [facility] Start: 07-17-2024 Assessment of risk o f venous thromboembolism [facility] Start: 07-17-2024 Elevation of affecte d extremity [facility] Start: 07-17-2024 Elevation of head of bed [facility] Start: 07-17-2024 Inhalation therapy procedure [facility] Start: 07-17-2024 Insertion of cathete r into peripheral vein [facility] Start: 07-17-2024 Measuring intake and output [facility] Start: 07-17-2024 Notification of physician [facility] Start: 07-17-2024 Oxygen therapy [facility] Start: 07-17-[address] Patient [address] [facility] Start: 07-17-2024 Providing care accor ding to standard [facility] Start: 07-17-2024 Referral to occupati onal therapist [facility] Start: 07-17-2024 Referral to service [facility] Start: 07-17-2024 Following clinical pathway protocol [facility] Start: 07-17-2024 Care planning and pr oblem solving actions [facility] Start: 07-17-2024 Hospital admission, emergency, from emergency room, medical nature [facility] Start: 07-17-2024 Admission procedure [facility] Start: 07-17-2024 Patient referral to dietitian [facility] Start: 07-14-2024 End: 07-14-2024 Patient encounter procedure 07/14/2024 2:45 PM EST Office Visit [facility] [address] [place] [id number] Braydon Saucedo MD [address] [place] [address] [facility] Start: 05-07-2024 End: 05-07-2024 Patient encounter procedure 05/07/2024 9:00 AM EDT Office Visit [facility] [address] [place] [phone] Braydon Saucedo MD [address] [place] [address] [facility] Start: 03-09-2024 COVID-19 Vaccine ( season) COVID-19 Vaccine ( season) [facility] Start: 03-09-2024 Influenza vaccination [facility] Start: 02-25-2024 End: 02-24-2025 Digoxin level Digoxin level Lab Routine Permanent atrial fibrillation (HCC) Expected: 02/25/2024 (Approximate), Expires: 02/24/2025 [employer] Work Phone: Comment on above: Expected: 02/25/2024 (Approximate), Expires: 02/24/2025 Start: 06-18-2023 End: 06-18-2024 Basic metabolic 1998 panel - Serum or Plasma Basic metabolic panel Lab Routine Permanent atrial fibrillation (CMS/HCC) (HCC) Expected: 06/18/2023 (Approximate), Expires: 06/18/2024 [employer] Work Phone: Comment on above: Expected: 06/18/2023 (Approximate), Expires: 06/18/2024 Start: 03-09-2023 COVID-19 Vaccine ( season) COVID-19 Vaccine ( season) [facility] Start: 03-09-2023 Influenza vaccination Influenza Vacc ine (#1) [facility] Start: 02-05-2023 Bacteria identified in Urine by Culture Urine Culture [facility] Start: 02-05-2023 Diagnostic radiograp hy of abdomen, decubitus and erect [employer] Inc Decub and/or Erect [facility] Start: 10-19-2022 Medicare Annual Well ness (AWV) Medicare Annual Wellness (AWV) [facility] Start: 09-25-2022 End: 09-25-2022 Patient encounter procedure 09/25/2022 Office Visit Cardiology Braydon Saucedo MD [address] [address] [facility] Start: 09-21-2022 End: 09-21-2022 Patient encounter procedure 09/21/2022 Office Visit Family Medicine Vin Zuñiga MD [address] [place] [address], [place] [address] [facility] Start: 07-14-2022 End: 07-14-2023 Digoxin level Digoxin level Lab Routine Paroxysmal atrial fibrillation (CMS/HCC) (HCC) Expected: 07/14/2022 (Approximate), Expires: 07/14/2023 [facility] Work Phone: Comment on above: Expected: 07/14/2022 (Approximate), Expires: 07/14/2023 Start: 03-09-2022 Influenza vaccination Influenza Vacc ine (#1) [facility] Start: 08-01-2021 COVID-19 Vaccine (4 - Booster for Moderna series) COVID-19 Vaccine (4 - Booster for Moderna series) [facility] Start: 08-13-2017 DTaP/Tdap/Td Vaccine s (2 - Td or Tdap) DTaP/Tdap/Td Vaccines (2 - Td or Tdap) [facility] Start: 2013 RSV Immunization for Adults (1 - 1-dose 75+ series) RSV Immunization for Adults (1 - 1-dose 75+ series) [facility] Start: 06-13-2011 Pneumococcal Vaccine : 50+ Years (2 of 2 - PCV) Pneumococcal Vaccine: 50+ Years (2 of 2 - PCV) [facility] Start: 06-13-2011 Pneumococcal Vaccine : 65+ Years (2 - PCV) Pneumococcal Vaccine: 65+ Years (2 - PCV) [facility] Start: 06-13-2011 Pneumococcal Vaccine : 65+ Years (2 of 2 - PCV) Pneumococcal Vaccine: 65+ Years (2 of 2 - PCV) [facility] Start: 1998 RSV Immunization age d 60 or older (1 - 1-dose 60+ series) RSV Immunization aged 60 or older (1 - 1-dose 60+ series) [facility] Start: 1988 Zoster Vaccines (1 of 2) Zoste r Vaccines (1 of 2) [facility] Start: 1956 Diabetes mellitus screening Diabetes Screening [facility] Start: 1950 Depression Screening Depression Scre ening [facility] Start: 1938 Hepatitis B Vaccines (1 of 3 - 3-dose series) Hepatitis B Vaccines (1 of 3 - 3-dose series) [employer] Start: 1938 Medicare Annual Well ness (AWV) Medicare Annual Wellness (AWV) [facility] [employer] Start: 1938 Thyroid stimulating hormone measurement TSH Level [employer] ECG 12 lead ECG 12 lead CV E CG Routine Permanent atrial fibrillation (HCC) Primary hypertension 11/06/2023 10:28 AM EDT [employer] Work Phone: ECG 12 lead - CLINIC PERFORMED ECG 12 lead - CLINIC PERFORMED CV ECG Routine Permanent atrial fibrillation (CMS/HCC) (HCC) 09/25/2022 9:39 AM EDT [employer] Work Phone: Patient referral [facility] Work Phone: End: 08-28-2023 Prothrombin time (PT) in Blood by Coagulation assay Protime-INR Lab Routine Paroxysmal atrial fibrillation (CMS/HCC) (HCC) 52 Occurrences starting 08/28/2022 until 08/28/2023 [employer] Work Phone: Comment on above: 52 Occurrences start ing 08/28/2022 until 08/28/2023 [facility] Immunizations Immunization Date Immunization Notes Care Provider Elana perkins 07-17-2024 tetanus toxoid, redu rica diphtheria toxoid, and acellular pertussis vaccine, adsorbed Deshawn Rebollar MD Work Phone: [facility] 04-27-2023 influenza virus vacc ine, unspecified formulation Braydon Saucedo MD Work Phone: [facility] [employer] 05-15-2022 influenza virus vacc ine, unspecified formulation Adriana Granados [employer] Work Phone: [facility] [employer] 05-18-2021 Influenza, High-dose Seasonal, Quadrivalent, Preservative Free Braydon Saucedo MD Work Phone: [facility] [employer] 05-18-2021 influenza virus vacc ine, unspecified formulation Braydon Saucedo MD Work Phone: [facility] [employer] 03-30-2020 Influenza, High-dose Seasonal, Quadrivalent, Preservative Free Braydon Saucedo MD Work Phone: [facility] [employer] 05-20-2019 influenza, high dose seasonal, preservative-free Braydon Saucedo MD Work Phone: [facility] [employer] 04-30-2018 influenza, high dose seasonal, preservative-free Braydon Saucedo MD Work Phone: [facility] 06-12-2017 influenza, high dose seasonal, preservative-free Braydon Saucedo MD Work Phone: [facility] 06-09-2015 influenza, high dose seasonal, preservative-free Braydon Saucedo MD Work Phone: [facility] 06-13-2010 pneumococcal polysaccharide vaccine, 23 marquez Saucedo MD Work Phone: [facility] 08-13-2007 tetanus toxoid, redu rica diphtheria toxoid, and acellular pertussis vaccine, adsorbed Braydon Saucedo MD Work Phone: [facility] 09-16-2006 pneumococcal polysaccharide vaccine, 23 marquez Saucedo MD Work Phone: [facility] Payers Date Payer Category Payer Self-pay [id number] 2016 [facility] - [facility]LY [facility], [facility] [id number] 2016 Unknown 2016 Unknown [id number] 2010 Medicare 2010 Medicare [id number] 1938 Unknown [id number] [id number]. 2.668 Unknown [id number] Unknown [id number] 2.16.840.1.543822.3.579. 2.462 Unknown [id number] 2.16.840.1.284684.3.579. 2.462 Unknown [id number] 2.16.840.1.262845.3.579. 2.462 Unknown [id number] 2.16.840.1.170676.3.579. 2.462 Unknown [id number] 2.16.840.1.094943.3.579. 2.462 Unknown [id number] 2.16.840.1.090799.3.579. 2.462 Unknown [id number] 2.16.840.1.597453.3.579. 2.462 Unknown [id number] 2.16.840.1.487632.3.579. 2.462 Unknown [id number] 2.16.840.1.025497.3.579. 2.462 Unknown [id number] 2.16.840.1.834730.3.579. 2.462 Unknown [id number] 2.16.840.1.175194.3.579. 2.462 Unknown [id number] 2.16.840.1.487563.3.579. 2.462 Unknown [id number] 2.16.840.1.232441.3.579. 2.462 Unknown [id number] 2.16.840.1.573935.3.579. 2.462 Unknown [id number] 2.16.840.1.009786.3.579. 2.462 Unknown [id number] 2.16.840.1.796684.3.579. 2.462 Unknown [id number] 2.16.840.1.068150.3.579. 2.462 Unknown [id number] 2.16.840.1.004299.3.579. 2.462 Unknown [id number] 2.16.840.1.269645.3.579. 2.462 Unknown [id number] 2.16.840.1.546169.3.579. 2.462 Unknown [id number] 2.16.840.1.996892.3.579. 2.462 Unknown [id number] 2.16.840.1.863599.3.579. 2.462 Social History Date Type Detail Facility Start: 12-08-2019 End: 12-08-2019 Tobacco smoking status WIIS Unknown if ever smoked [facility] Start: 12-08-2019 [facility] Start: 1940 Sex Assigned At Male [facility] Start: 11-06-2023 End: 07-17-2024 Tobacco smoking status WIIS Ex-smoker [facility] Start: 1960 End: 1988 History of tobacco use Current smoker [facility] Start: 1960 End: 1988 History of tobacco use Cigarette Smoker [facility] Start: 09-25-2022 End: 11-06-2023 Alcohol intake Current non-drinker of alcohol (finding) [facility] Start: 1940 Sex Assigned At Not on file [facility] Start: 09-15-2022 End: 09-25-2022 Exposure to SARS-CoV-2 (event) Not sure [facility] Start: 09-25-2022 End: 11-06-2023 History of Social function [facility] Start: 09-25-2022 End: 11-06-2023 Tobacco use panel [facility] Start: 11-06-2023 Tobacco use and exposure Smokeless tobacco non-user [facility] Start: 02-06-2022 End: 10-06-2024 Sex Male (finding) [facility] Goals Date Patient Goal Desired Activity /State Functional Status Date Assessment Result Facility 07-19-2024 Functional status Up ad shahzad Hallie [facility] Work Phone: Mental Status Date Assessment Result Facility 07-19-2024 Cognitive function Voice/Name [facility] Work Phone: Clinical Notes 07-14-2022 to 03-10-2025 Note Date & Type Note Facility 03-10-2025 Evaluation note Diagnosis Onset Date Resolution Atrial fibrillation acute 2024 11:01am LBBB (left bundle branch block) acute March 10, 025 11:01am Left ventricular systolic dysfunction (LVSD) acute March 10 025 11:01am [facility] Work Phone: 1(901) 455-574003-03-2025 Evaluation note* Diagnosis Onset Date Resolution Status Admit Date Atrial fibrillation acute September 08, 2024 1:19pm LBBB (left bundle branch block) acut e September 08, 2024 1:19pm Left ventricular systolic dysfunction (LVSD) acute September 08 1:19pm [facility] Work Phone: 1(577) 157-208501-11-2025 [facility] [address] [place] [address] Discharge Summary 07/19/24 0944 MR#: [id number] Acct: [id number] Name: RAYMOND JONES Rep #: [id number] : 1940 83 From: [place] Stanley MD PCP: Dr. Deshawn Rebollar MD Status:ADM IN Location: [place] [address] Providers Date of Admission: 07/17/24 Date of Discharge: 07/19/24 Primary Care Physician: Deshawn Rebollar MD Reason For Visit: PNEUMONIA Diagnosis Discharge Diagnosis (1) Fall: Status: Acute Code(s): W19.XXXA - Unspecified fall, initial encounter (2) Elevated brain natriuretic peptide (BNP) level: Status: Acute Code(s): R79.89 - Other specified abnormal findings of blood chemistry (3) Hypoxia: Status: Acute Code(s): R09.02 - Hypoxemia Plan Patient is an 83-year-old gentleman presented with progressive generalized weakness patient was found to have acute hypoxia with elevated proBNP bibasilar infiltrate low-grade fever and leukocytosis admitted to [facility] bed for further management 1. Acute hypoxia ??? Suspected to be secondary to combination of congestive heart failure and suspected pneumonia admitted to regular nursing floor where patient is currently being managed ??? 07/18/2024; patient hypoxia improving. 2. Pneumonia - Suspected to be secondary to streptococcal pneumonia, Blood and sputum cultures sent. Also requested for COVID assay as well as acute viral respiratory panel. Patient placed on Rocephin and Zithromax and placed on oxygen titrated to keep Pulse Ox greater than 90 3. Acute congestive heart failure with reduced ejection fraction - Admitted to monitored bed patient started on Lasix ordered 2D echo for EF assessment 2D did show ??? The left ventricular ejection fraction is 40 %. Normal LV size. There is mild to moderate global hypokinesis of the left ventricle. Moderate concentric left ventricular hypertrophy. Mild focal aortic valve calcification. The study was technically difficult. The study was technically limited. Contrast injection was performed. Discharged on lasix, aldactone amd TEJAS I 4. Elevated troponins - due to demand ischemia from hypoxia, 2D echo ordered for regional wall motion abnormality 5. Paroxysmal A-fib Rate controlled on metoprolol and digoxin, patient is on systemic anticoagulation with warfarin continued ordered daily PT/INR for further evaluation 6. Hypertension ??? Blood pressure controlled, home medications continued with dose adjustment as needed 7. Hypothyroidism ??? Patient is on levothyroxine home dose continued 8. Physical deconditioning ??? Requested for PT OT eval and secondary social studies teacher to assist with discharge planning 9. DVT prophylaxis ??? Patient is on warfarin no need for additional measures Time spent in the patient's overall evaluation,decision-making process, review of diagnostic data, adjustment of management, discussion with other providers, nursing nursing and ancillary staff involved in patient's care documentation, 35 Minutes Medications at Discharge Home Medications digoxin 250 mcg (0.25 mg) tablet 0.25 mg PO DAILY 02/26/19 fluticasone propionate 50 mcg/actuation nasal spray,suspension 2 spray NASAL DAILY 02/26/19 metoprolol succinate 25 mg tablet,extended release 24 hr 25 mg PO BID 02/26/19 levothyroxine 25 mcg tablet (Synthroid) 25 mcg PO DAILY 07/17/24 multivitamin (Daily Multi-Vitamin tablet) 1 tab PO DAILY 07/17/24 omega 3 350 mg-dha 235 mg-epa 90 mg-fish oil 597 mg capsule,delay rel ([place]-3) 1 cap PO DAILY 07/17/24 spironolactone 25 mg tablet 12.5 mg PO BID 07/17/24 warfarin 2.5 mg tablet 2.5 mg PO DAILY 07/17/24 cefdinir 300 mg capsule 300 mg PO BID #10 caps 07/19/24 furosemide 20 mg tablet 20 mg PO DAILY #30 tabs 07/19/24 lisinopril 2.5 mg tablet 2.5 mg PO DAILY #30 tabs 07/19/24 Physical Exam Narrative GENERAL: cooperative HEENT: Atraumatic; normocephalic EYES; Anicteric, Normal Conjunctiva NECK; supple, normal thyroid, RESPIRATORY: Diminished to auscultation CARDIOVASCULAR: Regular S1 S2, GI: soft, normoactive bowel sounds, : No Renal angle tenderness; EXTREMITIES: No edema, no clubbing, MUSCULOSKELETAL: no muscle wasting NEURO: Awake; no lateralizing signs. SKIN: No Rash PSYCH; Flat affect Weight / BMI Weight Weight: 68.7 kg Body Mass Index (BMI) 20.5 ABG / Lab / Microbiology Data 07/19/24 06:27 07/19/24 06:27 Laboratory: Laboratory Results - last 24 hr 07/18/24 05:26: Phosphorus 3.3 07/19/24 06:27: WBC 9.9, RBC 4.80, Hgb 15.7, Hct 46.4, MCV 96.7 H, MCH 32.7 H, MCHC 33.8, RDW Std Deviation 45.6 H, RDW Coeff of Hillary 12.9, Plt Count 241, MPV 9.7, Immature Gran % (Auto) 0.400, Neut % (Auto) 53.9, Lymph % (Auto) 27.3, [place] % (Auto) 12.7 H, Eos % (Auto) 4.8, Baso % (Auto) 0.9, Absolute Neuts (auto) 5.4, Absolute Lymphs (auto) 2.71, Nucleated (more content not included)...[facility]01-09-2025 Evaluation note* Diagnosis Onset Date Resolution Status Admit Date Elevated brain natriuretic peptide (BNP) level resolved July 17, 2024 9:35am Fall resolved July 17 9:35am Hypoxia resolved Jaye 9th, 2 025 9:35am Pneumonia resolved July 17, 2 025 9:35am Skin tear resolved July 17, 2 025 9:35am Weakness resolved July 17, 2 025 9:35am Atrial fibrillation acute September 08, 2024 1:19pm LBBB (left bundle branch block) acute September 08, 2024 1:19pm Left ventricular systolic dysfunction (LVSD) acute September 08 1:19pm [facility] Work Phone: 1(536) 688-488101-08-2025 History of Present illness Narrative* Braydon Saucedo MD - 07/16/2024 10:45 AM EST [facility] Cardiology Note Chief Complaint: Chief Complaint Patient presents with 6 Month Follow-up History of Present Illness: Raymond Jones is a 83 y.o. male presents for follow-up of permanent atrial fibrillation. He has anew left bundle branch block underwent nuclear stress testing demonstrating normal LV function and no ischemia. Overall he is feeling good. He likes to walk about 15-20 minutes/day if the weather is favorable. There is no lightheadedness presyncope syncope or awareness of his arrhythmia. He does not find his heart rates to be elevated according to his watch. Past Medical History: Past Medical History: Diagnosis Date Ankylosing spondylitis (HCC) Cor pulmonale (chronic) (HCC) GERD (gastroesophageal reflux disease) History of electrophysiologic study 07/19/2009 History of shingles 2020 Hypertension Macular degeneration Orthostatic hypotension Permanent atrial fibrillation (HCC) CHADsV 3 - (HTN, 77yrs) Pulmonary HTN (HCC) PVD (peripheral vascular disease) (HCC) Tricuspid insufficiency Venous insufficiency (chronic) (peripheral) Past Surgical History Past Surgical History: Procedure Laterality Date ABLATION OF DYSRHYTHMIC FOCUS 02/27/2013 Mapping and ablation of typical caviotricuspid isthmus dependent right atrial flutter CAPSULOTOMY, HAND 02/14/2013 02/27/13,10/29/14,11/19/14 CARDIAC PROCEDURE Left 07/17/2009 HEMORRHOID SURGERY Family History Family History Problem Relation Name Age of Onset Heart disease Father Other ([id number]) Brother Lev stents Other ([id number]) Sister Melanie heart valve replacement in her 40s Social History Social History Tobacco Use Smoking status: Former Current packs/day: 0.00 Types: Cigarettes Quit date: 1958 Years since quittin.7 Smokeless tobacco: Never Substance Use Topics Alcohol use: No Drug use: No Comment: Caffeine: 1 large cup of coffee a day and occasional pop Allergies: No Known Allergies Medications: Current Outpatient Medications: Calcium Carb-Cholecalciferol (CALCIUM PLUS VITAMIN D3 PO), Take by mouth See administration instructions. 2 daily, Disp: , Rfl: digoxin (Lanoxin) 250 MCG tablet, Take 1 tablet (250 mcg) by mouth daily., Disp: 90 tablet, Rfl: 3 Esomeprazole Magnesium (NEXIUM PO), Take by mouth See administration instructions. As needed, Disp:, Rfl: fluticasone (Flonase) 50 MCG/ACT nasal spray, Administer 2 sprays into each nostril daily., Disp: 16 g, Rfl: 3 metoprolol succinate XL (Toprol-XL) 25 MG 24 hr tablet, TAKE 1 TABLET TWICE A DAY, Disp: 180 tablet, Rfl: 3 Multiple Vitamin (multivitamin) tablet, Take 1 tablet by mouth daily., Disp: , Rfl: omega-3 (Fish Oil) 1000 MG capsule, Take 1,000 mg by mouth See administration instructions. 2 daily, Disp: , Rfl: spironolactone (Aldactone) 25 MG tablet, TAKE ONE-HALF (1/2) TABLET DAILY, Disp: 45 tablet, Rfl: 3 tamsulosin (Flomax) 0.4 MG 24 hr capsule, Take 1 capsule (0.4 mg) by mouth daily., Disp: 90 capsule, Rfl: 1 warfarin (Coumadin) 4 MG tablet, TAKE 1 TABLET DAILY OR DIRECTED (Patient taking differently: Take 2.5 mg by mouth daily. TAKE 1 TABLET DAILY OR DIRECTED), Disp: 90 tablet, Rfl: 3 Multiple Vitamins-Minerals (Systane ICaps AREDS2) tablet, Take by mouth See administration instructions. 2 daily (Patient not taking: Reported on 07/16/2024), Disp: , Rfl: Review of Systems: Review of Systems Constitutional: Negative. Negative for activity change, chills, diaphoresis, fatigue and fever. HENT: Negative. Negative for nosebleeds and trouble swallowing. Eyes: Negative. Negative for discharge and visual disturbance. Respiratory: Negative. Negative for apnea, cough, chest tightness, shortness of breath and wheezing. Cardiovascular: Negative. Negative for chest pain, palpitations and leg swelling. Gastrointestinal: Negative. Negative for abdominal distention, abdominal pain, blood in stool, diarrhea, nausea and vomiting. Endocrine: Negative. Negative for cold intolerance and heat intolerance. Genitourinary: Negative. Negative for hematuria. Musculoskeletal: Negative. Negative for gait problem and myalgias. Skin: Negative. Negative for color change and rash. Neurological: Negative. Negative for dizziness, seizures, syncope, facial asymmetry, speech difficulty, weakness, light-headedness, numbness and headaches. Hematological: Negative. Does not bruise/bleed easily. Psychiatric/Behavioral: Negative. Negative for dysphoric mood. Physical Examination: Vitals: Vitals: 07/16/24 1044 BP: 112/80 BP Location: Right arm Patient Position: Sitting BP Cuff Size: Adult Pulse: 68 Weight: 178 lb 12.8 oz (81.1 kg) Height: 6' (1.829 m) Body mass index is 24.25 kg/m . Physical Exam Vitals reviewed. Constitutional: Appearance: Normal appearance. HENT: Head: Normocephalic. Right Ear: External ear normal. Left Ear: External ear normal. Nose: Nose normal. Mouth/Throat: Mouth: Mucous membranes are moist. Eyes: Pupils: Pupils are equal, round, and reactive to light. Cardiovascular: Rate and Rhythm: Normal rate. Rhythm irregular. Heart sounds: No murmur heard. Pulmonary: Effort: No respiratory distress. Musculoskeletal: General: Normal range of motion. Right lower leg: No edema. Left lower leg: No edema. Skin: General: Skin is warm and dry. Coloration: Skin is not jaundiced. Neurological: General: No focal deficit present. Mental Status: He is alert. Motor: No weakness. Gait: Gait normal. Psychiatric: Mood and Affect: Mood normal. Behavior: Behavior normal. Thought Content: Thought content normal. Judgment: Judgment normal. Laboratory Tests: Lab Results Component Value Date WBC 11.8 02/05/2023 HGB 17.1 02/05/2023 HCT 52.0 02/05/2023 MCV 98.9 02/05/2023 Lab Results Component Value Date GLUCOSE 142 (A) 02/05/2023 CALCIUM 10.1 02/05/2023 NA 133 (A) 02/05/2023 K 3.3 (A) 02/05/2023 CO2 28 02/05/2023 CL 97 (A) 02/05/2023 BUN 14 02/05/2023 CREATININE 1.28 (A) 02/05/2023 @LASTCMP@ Lab Results Component Value Date CHOL 166 09/19/2021 CHOL 155 09/15/2020 CHOL 146 09/08/2019 Lab Results Component Value Date TRIG 141 09/19/2021 TRIG 112 09/15/2020 TRIG 139 09/08/2019 Lab Results Component Value Date HDL 29 (L) 09/19/2021 HDL 35 (L) 09/15/2020 HDL 30 (L) 09/08/2019 No results found for: LDLCALC Assessment and Plan: Atrial fibrillation: Permanent, asymptomatic, and rate controlled on digoxin 250 mcg daily with metoprolol succinate 25 mg twice daily. No signs or symptoms of congestive failure. He will also continue spironolactone 25 and his warfarin for an INR between 2 and 3. Hypertension: Under good control on the present regimen. We will continue. Overall he is doing very well. documented in this [facility]12-03-2024 Telephone encounter Note* Telephone Encounter - Adia Castillo RN - 06/10/2024 8:05 AM EST CARMELA - 10/30 [facility] 08/02 SAQIB CBC - 7/23 CMP - 7/23 [id number] Miscellaneous Notes* Telephone Encounter - Adia Castillo RN - 06/10/2024 8:05 AM EST CARMELA 10/30 SAQIB CBC - 7 CMP - 7/23 documented in this [facility]11-20-2024 Telephone encounter Note* Telephone Encounter - Kathy Negrete RN - 05/28/2024 4:12 PM EST OV 10/2023 LO 03/2024 dig level 1.0 [facility] [id number] Miscellaneous Notes* Telephone Encounter - Kathy Negrete RN - 05/28/2024 4:12 PM EST OV 10/2023 LO 03/2024 dig level 1.0 documented in this [facility]11-19-2024 Telephone encounter Note* Telephone Encounter - Agustina Arzola RN - 05/27/2024 1:31 PM EST CARMELA-10/30 LO CBC-04/01 INR UP TO DATE [facility] [id number] Miscellaneous Notes* Telephone Encounter - Agustina Arzola RN - 05/27/2024 1:31 PM EST CARMELA-10/30 LO CBC-04/01 INR UP TO DATE documented in this [facility]08-21-2024 Telephone encounter Note* Telephone Encounter - Josefina Sheets November - 02/27/2024 2:38 PM EDT I faxed lab order to [facility] outpt lab and mailed a copy to the pt's home. Left detailed message on VM. [place] [id number] Telephone encounter Note* Telephone Encounter - Agustina Arzola RN - 02/25/2024 2:18 PM EDT Called and LVM for patient that we need lab work done and he should not take digoxin on whatever day he decides to get lab work done and to also not take the digoxin after lab work until he hears from us [facility] [id number] Miscellaneous Notes* Telephone Encounter - Agustina Arzola RN - 02/25/2024 2:18 PM EDT Called and LVM for patient that we need lab work done and he should not take digoxin on whatever day he decides to get lab work done and to also not take the digoxin after lab work until he hears from us * Telephone Encounter - Agustina Arzola RN - 02/25/2024 2:12 PM EDT CARMELA-10/30 LO DIG-2/23 CMP-7 documented in this encounterSWood County HospitalDafvyc09-76-1123 Telephone encounter Note* Telephone Encounter - Agustina Arzola RN - 02/25/2024 2:12 PM EDT CARMELA-10/30 LO DIG-2/23 CMP-723 [facility] [id number] Telephone encounter Note* Telephone Encounter - EZEKIEL Ayala CNP - 12/13/2023 10:40 AM EDT Call to patient and spoke with his results of stress test given. It was negative for ischemia.I will ask my clerk secretary to send a copy to his primary care physician as he has follow-up next month. [facility] [id number] Miscellaneous Notes* Telephone Encounter - EZEKIEL Ayala CNP - 12/13/2023 10:40 AM EDT Call to patient and spoke with his results of stress test given. It was negative for ischemia.I will ask my clerk secretary to send a copy to his primary care physician as he has follow-up next month. * Telephone Encounter - Josefina Sheets November - 12/12/2023 9:25 AM EDT Results received from [facility]. Sent to stat scan. Printed and placed on [employer] desk for review. * Telephone Encounter - Josefina Sheets November - 12/11/2023 10:36 AM EDT PC from spouse asking if we had received nuc ST results from [facility]. Reviewed chart---no results. Fax sent to [facility] Med records requesting those results. * Telephone Encounter - Bobbi Gonzales - 12/05/2023 3:40 PM EDT Pt's spouse lvm requesting results of stress test done in [place] on 11/26/23. Results are not in the chart that I can see. Lvm to inform pt I will send request via fax * Telephone Encounter - Kathy Negrete RN - 11/21/2023 3:47 PM EDT Tried to call back number provided its in algerian Called other line Spoke with audie BB 24 hours prior he has 630 am spot will take am meds after testing * Telephone Encounter - Josefina Sheets November - 11/21/2023 8:28 AM EDT Pt is to have nuclear stress test on 11/26/23. Advised to call office to see if he is to hold any of his heart medications. documented in this [facility]06-06-2024 Telephone encounter Note* Telephone Encounter - Bobbi Gonzales RN - 12/13/2023 9:10 AM EDT CARMELA 11-06-23 05-07-24 06-15-23 BMP/Creat 1.33 in Care Everywhere [facility] [id number] Miscellaneous Notes* Telephone Encounter - Bobbi Gonzales RN - 12/13/2023 9:10 AM EDT CARMELA 11-06-23 05-07-24 06-15-23 BMP/Creat 1.33 in Care Everywhere documented in this [facility]06-05-2024 Telephone encounter Note* Telephone Encounter - Josefina Sheets November - 12/12/2023 9:25 AM EDT Results received from [facility]. Sent to stat scan. Printed and placed on [employer] desk for review. [facility] [id number] Telephone encounter Note* Telephone Encounter - Josefina Sheets November - 12/11/2023 10:36 AM EDT PC from spouse asking if we had received nuc ST results from [facility]. Reviewed chart---no results. Fax sent to [facility] Med records requesting those results. [facility] [id number] Telephone encounter Note* Telephone Encounter - Bobbi Gonzales - 12/05/2023 3:40 PM EDT Pt's spouse lvm requesting results of stress test done in [place] on 11/26/23. Results are not in the chart that I can see. Lvm to inform pt I will send request via fax [facility] [id number] Miscellaneous Notes* Telephone Encounter - Bobbi Gonzales - 12/05/2023 3:40 PM EDT Pt's spouse lvm requesting results of stress test done in [place] on 11/26/23. Results are not in the chart that I can see. Lvm to inform pt I will send request via fax * Telephone Encounter - Kathy Negrete RN - 11/21/2023 3:47 PM EDT Tried to call back number provided its in [place]ger[place] Called other line Spoke with hold BB 24 hours prior he has 630 am spot will take am meds after testing * Telephone Encounter - Josefina Sheets November - 11/21/2023 8:28 AM EDT Pt is to have nuclear stress test on 11/26/23. Advised to call office to see if he is to hold any of his heart medications. documented in this encounterSWood County HospitalMbtywf96-14-1918 Miscellaneous Notes* Telephone Encounter - Josefina Sheets November - 02/27/2024 2:38 PM EDT I faxed lab order to [facility] outpt lab and mailed a copy to the pt's home. Left detailed message on VM. * Telephone Encounter - Agustina Arzola RN - 02/25/2024 2:18 PM EDT Called and LVM for patient that we need lab work done and he should not take digoxin on whatever day he decides to get lab work done and to also not take the digoxin after lab work until he hears from us * Telephone Encounter - Agustina Arzola RN - 02/25/2024 2:12 PM EDT CARMELA-10/30 LO NOV-05/01 DIG-08/31 CMP-01/28 documented in this encounterSWood County HospitalOyxkhk46-15-3349 Telephone encounter Note* Telephone Encounter - Kathy Negrete RN - 11/21/2023 3:47 PM EDT Tried to call back number provided its in [place] Called other line Spoke with hold BB 24 hours prior he has 630 am spot will take am meds after testing [facility] [id number] Telephone encounter Note* Telephone Encounter - Josefina Sheets November - 11/21/2023 8:28 AM EDT Pt is to have nuclear stress test on 11/26/23. Advised to call office to see if he is to hold any of his heart medications. [facility] [id number] Miscellaneous Notes* Telephone Encounter - Josefina Sheets November - 12/12/2023 9:25 AM EDT Results received from [facility]. Sent to stat scan. Printed and placed on [employer] desk for review. * Telephone Encounter - Josefina Sheets November - 12/11/2023 10:36 AM EDT PC from spouse asking if we had received nuc ST results from [facility]. Reviewed chart---no results. Fax sent to [facility] Med records requesting those results. * Telephone Encounter - Bobbi Gonzales - 12/05/2023 3:40 PM EDT Pt's spouse lvm requesting results of stress test done in [place] on 11/26/23. Results are not in the chart that I can see. Lvm to inform pt I will send request via fax * Telephone Encounter - Kathy Negrete RN - 11/21/2023 3:47 PM EDT Tried to call back number provided its in [place] Called other line Spoke with hold BB 24 hours prior he has 630 am spot will take am meds after testing * Telephone Encounter - Josefina Sheets November - 11/21/2023 8:28 AM EDT Pt is to have nuclear stress test on 11/26/23. Advised to call office to see if he is to hold any of his heart medications. documented in this [facility]05-04-2024 Miscellaneous Notes* Telephone Encounter - Josefina Sheets November - 12/11/2023 10:36 AM EDT PC from spouse asking if we had received nuc ST results from [facility]. Reviewed chart---no results. Fax sent to [facility] Med records requesting those results. * Telephone Encounter - Bobbi Gonzales - 12/05/2023 3:40 PM EDT Pt's spouse lvm requesting results of stress test done in [place] on 11/26/23. Results are not in the chart that I can see. Lvm to inform pt I will send request via fax * Telephone Encounter - Kathy Negrete RN - 11/21/2023 3:47 PM EDT Tried to call back number provided its in [place] Called other line Spoke with hold BB 24 hours prior he has 630 am spot will take am meds after testing * Telephone Encounter - Josefina Stephen - 11/21/2023 8:28 AM EDT Pt is to have nuclear stress test on 11/26/23. Advised to call office to see if he is to hold any of his heart medications. documented in this encounterSWood County [id number] Evaluation + Plan note* Assessment & Plan Note - EZEKIEL Ayala CNP - 11/06/2023 11:00 AM EDT Associated Problem(s): Dyspnea on exertion For the past 2 weeks he has been short of breath upon rising and with activity. He also notes pressure in his chest. His EKG reveals a new left bundle branch block. I have ordered a nuclear stress test given his permanent A-fib and his left bundle. [facility] [id number] Evaluation + Plan note* Assessment & Plan Note - EZEKIEL Ayala CNP - 11/06/2023 11:00 AM EDTAssociated Problem(s): Permanent atrial fibrillation (HCC) His ventricular rates are well-controlled on digoxin 250 mcg daily as well as metoprolol succinate 25 mg twice daily. His warfarin should be continued to an INR goal of 2-3. This is managed by his primary care physician. [facility] [id number] Miscellaneous Notes* Assessment & Plan Note - EZEKIEL Ayala CNP - 11/06/2023 11:00 AM EDTAssociated Problem(s): Dyspnea on exertion For the past 2 weeks he has been short of breath upon rising and with activity. He also notes pressure in his chest. His EKG reveals a new left bundle branch block. I have ordered a nuclear stress test given his permanent A-fib and his left bundle. * Assessment & Plan Note - EZEKIEL Ayala CNP - 11/06/2023 11:00 AM EDT Associated Problem(s): Permanent atrial fibrillation (HCC) His ventricular rates are well-controlled on digoxin 250 mcg daily as well as metoprolol succinate 25 mg twice daily. His warfarin should be continued to an INR goal of 2-3. This is managed by his primary care physician. * Assessment & Plan Note - EZEKIEL Ayala CNP - 11/06/2023 10:59 AM EDT Associated Problem(s): Hypertension Well-controlled on his current drug regimen. He follows a low-sodium diet. He tends to be orthostatic therefore he is not on an antihypertensive regimen. documented in this [facility]04-30-2024 Evaluation + Plan note* Assessment & Plan Note - EZEKIEL Ayala CNP - 11/06/2023 10:59 AM EDT Associated Problem(s): Hypertension Well-controlled on his current drug regimen. He follows a low-sodium diet. He tends to be orthostatic therefore he is not on an antihypertensive regimen. [facility] [id number] History of Present illness Narrative* EZEKIEL Ayala CNP - 11/06/2023 10:30 AM EDT Images from the original note were not included. [facility] [address] [facility] [id number] Dept: [phone] Dept Visit type: Established : 1940 Reason for Visit: 1 Year Follow-up (Permanent atrial fibrillation) Assessment and Plan 1. Permanent atrial fibrillation (HCC) Assessment & Plan: His ventricular rates are well-controlled on digoxin 250 mcg daily as well as metoprolol succinate 25 mg twice daily. His warfarin should be continued to an INR goal of 2-3. This is managed by his primary care physician. Orders: - ECG 12 lead 2. Primary hypertension Assessment & Plan: Well-controlled on his current drug regimen. He follows a low-sodium diet. He tends to be orthostatic therefore he is not on an antihypertensive regimen. Orders: - ECG 12 lead 3. Dyspnea on exertion Assessment & Plan: For the past 2 weeks he has been short of breath upon rising and with activity. He also notes pressure in his chest. His EKG reveals a new left bundle branch block. I have ordered a nuclear stress test given his permanent A-fib and his left bundle. Orders: - Nuclear REGADENOSON stress test with myocardial perfusion Follow up in about 6 months (around 05/07/2024), or With JKS. Subjective Raymond Jones is a 82 y.o. male known to Dr Saucedo with a history of HTN, Permanent atrial fibrillation treated with low-dose metoprolol and digoxin/Warfarin. He was last seen in September 2022 at whichtime he was stable. No changes were made. He presents for past due annual follow-up Raymond Jones presents for evaluation with his . He states for the last couple of weeks he has had shortness of breath upon waking in the morning and then it resolves. He also notes shortness of breath and chest pressure gardening. He denies dizziness syncope or near syncope. He is compliant with his warfarin which is managed by his primary care physician and he denies melena hematochezia or hematuria. Review of Systems Constitutional: Negative for chills, diaphoresis and fever. HENT: Negative for nosebleeds. Eyes: Negative for visual disturbance. Respiratory: Positive for chest tightness and shortness of breath (In the morning and doing gardening). Negative for wheezing. Cardiovascular: Positive for chest pain (Chest pressure which is exertional). Negative for palpitations and leg swelling. Gastrointestinal: Negative for abdominal pain, blood in stool and diarrhea. Genitourinary: Negative for hematuria. Musculoskeletal: Negative for myalgias. Neurological: Negative for dizziness and syncope. Hematological: Does not bruise/bleed easily. No Known Allergies Outpatient Medications Prior to Visit Medication Sig Dispense Refill Calcium Carb-Cholecalciferol (CALCIUM PLUS VITAMIN D3 PO) Take by mouth See administration instructions. 2 daily digoxin (Lanoxin) 250 MCG tab;et TAKE 1 TABLET DAILY 90 tablet 3 Esomeprazole Magnesium (NEXIUM PO) Take by mouth See administration instructions. As needed fluticasone (Flonase) 50 MCG/ACT nasal spray Administer 2 sprays into each nostril daily. 16 g 3 metoprolol succinate XL (Toprol-XL) 25 MG 24 hr tablet Take 1 tablet (25 mg) by mouth 2 times daily. 180 tablet 3 Multiple Vitamin (multivitamin) tablet Take 1 tablet by mouth daily. Multiple Vitamins-Minerals (Systane ICaps AREDS2) tablet Take by mouth See administration instructions. 2 daily omega-3 (Fish Oil) 1000 MG capsule Take 1,000 mg by mouth See administration instructions. 2 daily spironolactone (Aldactone) 25 MG tablet Take 0.5 tablets (12.5 mg) by mouth daily. 45 tablet 1 tamsulosin (Flomax) 0.4 MG 24 hr capsule Take 1 capsule (0.4 mg) by mouth daily. 90 capsule 1 warfarin (Jantoven) 4 MG tablet TAKE 1 TABLET DAILY OR DIRECTED Strength: 4 mg 90 tablet 3 No facility-administered medications prior to visit. Past Medical History: Diagnosis Date Ankylosing spondylitis (HCC) Cor pulmonale (chronic) (HCC) GERD (gastroesophageal reflux disease) History of electrophysiologic study 07/19/2009 History of shingles 2020 Hypertension Macular degeneration Orthostatic hypotension Permanent atrial fibrillation (HCC) CHADsV 3 - (HTN, 75yrs) Pulmonary HTN (HCC) PVD (peripheral vascular disease) (HCC) Tricuspid insufficiency Venous insufficiency (chronic) (peripheral) Social History Tobacco Use Smoking status: Former Packs/day: 0 Types: Cigarettes Start date: 1958 Quit date: 1988 Years since quittin.9 Smokeless tobacco: Never Substance Use Topics Alcohol use: No Past Surgical History: Procedure Laterality Date ABLATION OF DYSRHYTHMIC FOCUS 02/27/2013 Mapping and ablation of typical caviotricuspid isthmus dependent right atrial flutter CAPSULOTOMY, HAND 02/14/2013 02/27/13,10/29/14,11/19/14 CARDIAC PROCEDURE Left 07/17/2009 HEMORRHOID SURGERY Family History Problem Relation Name Age of Onset Heart disease Father Other ([id number]) Brother Lev santana Other ([id number]) Sister Melanie heart valve replacement in her 40s Objective Vitals: 11/06/23 1028 11/06/23 1044 BP: (!) 160/70 118/74 BP Location: Left arm Patient Position: Sitting BP Cuff Size: Small adult Pulse: 74 SpO2: 97% Weight: 187 lb (84.8 kg) Height: 6' (1.829 m) Physical Exam Constitutional: General: He is not in acute distress. Appearance: He is not diaphoretic. HENT: Head: Normocephalic. Nose: Nose normal. Mouth/Throat: Mouth: Mucous membranes are moist. Pharynx: No oropharyngeal exudate. Eyes: General: No scleral icterus. Right eye: No discharge. Left eye: No discharge. Neck: Thyroid: No thyromegaly. Vascular: No carotid bruit or JVD. Cardiovascular: Rate and Rhythm: Normal rate. Rhythm irregularly irregular. Pulses: Normal pulses. Heart sounds: Normal heart sounds. Pulmonary: Effort: Pulmonary effort is normal. Breath sounds: Normal breath sounds. Abdominal: General: Bowel sounds are normal. There is no distension. Palpations: There is no hepatomegaly. Tenderness: There is no abdominal tenderness. Musculoskeletal: General: Normal range of motion. Cervical back: Normal range of motion. Right lower leg: No edema. Left lower leg: No edema. Skin: General: Skin is warm and dry. Neurological: Mental Status: He is oriented to person, place, and time. Psychiatric: Mood and Affect: Mood normal. Behavior: Behavior normal. Data Reviewed and Summarized No results found for: EFBP, PLVEF, LVEFPHYS, LVEF2D, EF Review of tests/labs done/ordered within my specialty: EKG in office: Atrial fibrillation with a ventricular rate of 74 bpm new bundle branch block Review of tests/labs done/ordered outside my specialty: Independent interpretation of tests: EZEKIEL Ayala CNP documented in this [facility]04-30-2024 Instructions* Patient Instructions* EZEKIEL Ayala CNP - 11/06/2023 10:30 AM EDT Stress test to be scheduled documented in this [facility]12-12-2023 Telephone encounter Note* Telephone Encounter - Josefina Stephen RN - 06/19/2023 10:40 AM EST Lab order printed and mailed to pt with note [facility] [id number] Miscellaneous Notes* Telephone Encounter - Josefina Stephen RN - 06/19/2023 10:40 AM EST Lab order printed and mailed to pt with note * Addendum Note - EZEKIEL Garcia CNP - 06/18/2023 3:49 PM ESTAddended by: ADRIANA GRANADOS on: 06/18/2023 03:49 PM Modules accepted: Orders * Telephone Encounter - Josefina Stephen RN - 06/18/2023 3:47 PM EST PC to PCP last labs from 01/28 and these are in the chart * Telephone Encounter - Kathy Negrete RN - 06/18/2023 3:17 PM EST OV 09/2022 JKS 01/2023 CMP 3.3 K Na 133 CL 97 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 1.28 Pls see if any recent BMP from PCP thanks CBC WNL Seen yearly documented in this encounterSWood County HospitalDoodfi22-08-5402 Note* Addendum Note - EZEKIEL Garcia CNP - 06/18/2023 3:49 PM ESTAddended by: ADRIANA GRANADOS on: 06/18/2023 03:49 PM Modules accepted: Orders [facility] [id number] Note* Addendum Note - EZEKIEL Garcia CNP - 06/18/2023 3:49 PM ESTAddended by: ADRIANA GRANADOS on: 06/18/2023 03:49 PM Modules accepted: Orders [facility] [id number] Note* Addendum Note - EZEKIEL Garcia CNP - 06/18/2023 3:49 PM ESTAddended by: ADRIANA GRANADOS on: 06/18/2023 03:49 PM Modules accepted: Orders [id number] Miscellaneous Notes* Addendum Note - EZEKIEL Garcia CNP - 06/18/2023 3:49 PM ESTAddended by: ADRIANA GRANADOS on: 06/18/2023 03:49 PM Modules accepted: Orders * Telephone Encounter - Josefina Stephen RN - 06/18/2023 3:47 PM EST PC to PCP last labs from 01/28 and these are in the chart * Telephone Encounter - Kathy Negrete RN - 06/18/2023 3:17 PM EST OV 09/2022 JKS 01/2023 CMP 3.3 K Na 133 CL 97 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 OPERATOR 1.28 Pls see if any recent BMP from PCP thanks [facility] WNL Seen yearly documented in this encounterSWood County [id number] Telephone encounter Note* Telephone Encounter - Josefina Stephen RN - 06/18/2023 3:47 PM EST PC to PCP last labs from 01/28 and these are in the [id number] Telephone encounter Note* Telephone Encounter - Kathy Negrete RN - 06/18/2023 3:17 PM EST OV 09/2022 JKS 01/2023 CMP 3.3 K Na 133 CL 97 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 OPERATOR 1.28 Pls see if any recent BMP from PCP thanks CBC WNL Seen yearly [id number] Telephone encounter Note* Telephone Encounter - Kathy Negrete RN - 02/28/2023 7:10 AM EDT OV 09/2022 seen yearly 08/2022 dig level 1.6 [facility] [id number] Miscellaneous Notes* Telephone Encounter - Kathy Negrete RN - 02/28/2023 7:10 AM EDT OV 09/2022 seen yearly 08/2022 dig level 1.6 documented in this [facility]04-27-2023 History of Present illness Narrative* EZEKIEL Pereira CNP - 11/02/2022 3:56 PM EDT 11/02/2022- I advised he hold today and continue same dosing, recheck INR 2 weeks. documented in this [facility]04-27-2023 Telephone encounter Note* Telephone Encounter - Mirtha Calles - 11/02/2022 2:14 PM EDT Received fax from [facility] with results from 11/01/22 PT: 35.1 and INR: 3.3. [facility] [id number] Miscellaneous Notes* Telephone Encounter - Mirtha Calles - 11/02/2022 2:14 PM EDT Received fax from [facility] with results from 11/01/22 PT: 35.1 and INR: 3.3. documented in this [facility]03-20-2023 History of Present illness Narrative* Braydon Saucedo MD - 09/25/2022 9:45 AM EDT [facility] Cardiology Note Chief Complaint: Chief Complaint Patient presents with 1 Year Follow-up History of Present Illness: Raymond Jones is a 81 y.o. male presenting for his yearly follow-up in the state of permanent atrial fibrillation treated with low-dose metoprolol and digoxin. Heart rates tend to be 70 to 80 bpm. No lightheadedness presyncope or syncope. He denies lower extremity edema. Energy is not as good as it was last year but still allows him to exercise and perform activities of daily living without significant issue. Past Medical History: Past Medical History: Diagnosis Date Ankylosing spondylitis (HCC) Cor pulmonale (chronic) (HCC) GERD (gastroesophageal reflux disease) History of electrophysiologic study 07/19/2009 History of shingles 2020 Hypertension Macular degeneration Orthostatic hypotension Permanent atrial fibrillation (CMS/HCC) (HCC) CHADsV 3 - (HTN, 77yrs) Pulmonary HTN (HCC) PVD (peripheral vascular disease) (HCC) Tricuspid insufficiency Venous insufficiency (chronic) (peripheral) Past Surgical History Past Surgical History: Procedure Laterality Date ABLATION OF DYSRHYTHMIC FOCUS 02/27/2013 Mapping and ablation of typical caviotricuspid isthmus dependent right atrial flutter CAPSULOTOMY, HAND 02/14/2013 02/27/13,10/29/14,11/19/14 CARDIAC PROCEDURE Left 07/17/2009 HEMORRHOID SURGERY Family History Family History Problem Relation Name Age of Onset Heart disease Father Other ([id number]) Brother Lev santana Other ([id number]) Sister Melanie heart valve replacement in her 40s Social History Social History Tobacco Use Smoking status: Former Packs/day: 0.00 Types: Cigarettes Start date: 1958 Quit date: 1988 Years since quittin.8 Smokeless tobacco: Never Substance Use Topics Alcohol use: No Drug use: No Comment: Caffeine: 1 large cup of coffee a day and occasional pop Allergies: No Known Allergies Medications: Current Outpatient Medications: Calcium Carb-Cholecalciferol (CALCIUM PLUS VITAMIN D3 PO), Take by mouth See administration instructions. 2 daily, Disp: , Rfl: digoxin (Lanoxin) 250 MCG tab;et, Take 1 tablet (250 mcg) by mouth daily., Disp: 90 tablet, Rfl: 2 Esomeprazole Magnesium (NEXIUM PO), Take by mouth See administration instructions. As needed, Disp:, Rfl: fluticasone (Flonase) 50 MCG/ACT nasal spray, Administer 2 sprays into each nostril daily., Disp: 16 g, Rfl: 3 metoprolol succinate XL (Toprol-XL) 25 MG 24 hr tablet, Take 1 tablet (25 mg) by mouth 2 times daily., Disp: 180 tablet, Rfl: 1 Multiple Vitamin (multivitamin) tablet, Take 1 tablet by mouth daily., Disp: , Rfl: Multiple Vitamins-Minerals (Systane ICaps AREDS2) tablet, Take by mouth See administration instructions. 2 daily, Disp: , Rfl: omega-3 (Fish Oil) 1000 MG capsule, Take 1,000 mg by mouth See administration instructions. 2 daily, Disp: , Rfl: spironolactone (Aldactone) 25 MG tablet, Take 0.5 tablets (12.5 mg) by mouth daily., Disp: 45 tablet, Rfl: 1 tamsulosin (Flomax) 0.4 MG 24 hr capsule, Take 1 capsule (0.4 mg) by mouth daily., Disp: 90 capsule, Rfl: 1 warfarin (Jantoven) 4 MG tablet, TAKE 1 TABLET DAILY OR DIRECTED Strength: 4 mg, Disp: 90 tablet, Rfl: 1 Review of Systems: Review of Systems Constitutional: Negative. Negative for activity change, chills, diaphoresis, fatigue and fever. HENT: Negative. Negative for nosebleeds and trouble swallowing. Eyes: Negative. Negative for discharge and visual disturbance. Respiratory: Negative. Negative for apnea, cough, chest tightness, shortness of breath and wheezing. Cardiovascular: Negative. Negative for chest pain, palpitations and leg swelling. Gastrointestinal: Negative. Negative for abdominal distention, abdominal pain, blood in stool, diarrhea, nausea and vomiting. Endocrine: Negative. Negative for cold intolerance and heat intolerance. Genitourinary: Negative. Negative for hematuria. Musculoskeletal: Negative. Negative for gait problem and myalgias. Skin: Negative. Negative for color change and rash. Neurological: Negative. Negative for dizziness, seizures, syncope, facial asymmetry, speech difficulty, weakness, light-headedness, numbness and headaches. Hematological: Negative. Does not bruise/bleed easily. Psychiatric/Behavioral: Negative. Negative for dysphoric mood. Physical Examination: Vitals: Vitals: 09/25/22 0932 BP: 130/80 BP Location: Right arm Patient Position: Sitting BP Cuff Size: Adult Pulse: 76 SpO2: 98% Weight: 198 lb 12.8 oz (90.2 kg) Body mass index is 26.96 kg/m . Physical Exam Vitals reviewed. Constitutional: Appearance: Normal appearance. HENT: Head: Normocephalic. Right Ear: External ear normal. Left Ear: External ear normal. Nose: Nose normal. Mouth/Throat: Mouth: Mucous membranes are moist. Eyes: Pupils: Pupils are equal, round, and reactive to light. Cardiovascular: Rate and Rhythm: Rhythm irregular. Heart sounds: No murmur heard. Pulmonary: Breath sounds: No wheezing or rales. Musculoskeletal: General: Normal range of motion. Right lower leg: No edema. Left lower leg: No edema. Skin: General: Skin is warm and dry. Coloration: Skin is not jaundiced. Neurological: General: No focal deficit present. Mental Status: He is alert. Motor: No weakness. Gait: Gait normal. Psychiatric: Mood and Affect: Mood normal. Behavior: Behavior normal. Thought Content: Thought content normal. Judgment: Judgment normal. Laboratory Tests: Lab Results Component Value Date WBC 8.4 09/07/2021 HGB 16.6 (H) 09/07/2021 MCV 98.8 09/07/2021 Lab Results Component Value Date GLUCOSE 116 (H) 09/19/2021 CALCIUM 9.9 09/19/2021 NA 139 09/19/2021 K 4.4 09/19/2021 CO2 31 (H) 09/19/2021 CL 100 09/19/2021 BUN 18 (H) 09/19/2021 CREATININE 1.20 09/19/2021 @[facility]@ Lab Results Component Value Date CHOL 166 09/19/2021 CHOL 155 09/15/2020 CHOL 146 09/08/2019 Lab Results Component Value Date TRIG 141 09/19/2021 TRIG 112 09/15/2020 TRIG 139 09/08/2019 Lab Results Component Value Date HDL 29 (L) 09/19/2021 HDL 35 (L) 09/15/2020 HDL 30 (L) 09/08/2019 No results found for: LDLCALC Assessment and Plan: Atrial fibrillation: Permanent and rate controlled. We will continue metoprolol and digoxin. Anticoagulation continues with warfarin and he tells me his INR has been stable recently. Hypertension under good control on the beta-vincenzo plus Aldactone 12.5 mg daily. Overall is doing very well we will see him in a year documented in this [facility]02-20-2023 Telephone encounter Note* Telephone Encounter - Josefina Sheets November - 08/28/2022 3:40 PM EST New lab orders faxed dlm [place] [id number] Miscellaneous Notes* Telephone Encounter - Josefina Sheets November - 08/28/2022 3:40 PM EST New lab orders faxed dlm * Telephone Encounter - Mirtha Calles - 08/28/2022 9:14 AM EST Sonia from [facility] call and requested new standing order for INR be faxed to [phone]. documented in this [facility]02-20-2023 Telephone encounter Note* Telephone Encounter - Mirtha Calles - 08/28/2022 9:14 AM EST Sonia from [facility] call and requested new standing order for INR be faxed to [phone]. [facility] [id number] Telephone encounter Note* Telephone Encounter - Kathy Negrete RN - 08/01/2022 10:11 AM EST OV 05/2021 JKS INR compliant 09/2021 CMP WNL, CBC WNL Seen yearly next is 09/25/22 [place] [id number] Miscellaneous Notes* Telephone Encounter - Kathy Negrete RN - 08/01/2022 10:11 AM EST OV 05/2021 JKS INR compliant 09/2021 CMP WNL, CBC WNL Seen yearly next is 09/25/22 * Telephone Encounter - Josefina Stephen RN - 08/01/2022 10:07 AM EST Spouse calling in for refill on metoprolol 25 mg bid, spironolactone 25 mg 1/2 tab daily, and warfarin 4 mg daily to [facility] documented in this encounterSWood County [id number] Telephone encounter Note* Telephone Encounter - Josefina Stephen RN - 08/01/2022 10:07 AM EST Spouse calling in for refill on metoprolol 25 mg bid, spironolactone 25 mg 1/2 tab daily, and warfarin 4 mg daily to [facility] [id number] Miscellaneous Notes* Telephone Encounter - EZEKIEL Stanley CNP - 07/28/2022 7:46 AM EST Reviewed chart. Refill appropriate. RX sent. * Telephone Encounter - Alma Franklin - 07/28/2022 7:20 AM EST Prescription Request: Last medication check: 04/10/2022 Last physical exam: 09/19/2021 Next scheduled appointment: 09/21/2022 CSA on file (date): none Last urine drug screen: none Last date of refill on this medication 03/06/2022 90 days 1 refill documented in this encounterSWood County [id number] Telephone encounter Note* Telephone Encounter - EZEKIEL Stanley CNP - 07/28/2022 7:46 AM EST Reviewed chart. Refill appropriate. RX sent. [facility] [id number] Telephone encounter Note* Telephone Encounter - Alma Franklin - 07/28/2022 7:20 AM EST Prescription Request: Last medication check: 04/10/2022 Last physical exam: 09/19/2021 Next scheduled appointment: 09/21/2022 CSA on file (date): none Last urine drug screen: none Last date of refill on this medication 03/06/2022 90 days 1 refill [facility] [id number] Telephone encounter Note* Telephone Encounter - Josefina Stephen RN - 07/14/2022 3:55 PM EST Lab order printed and mailed to pt along with note [facility] [id number] Miscellaneous Notes* Telephone Encounter - Josefina Stephen RN - 07/14/2022 3:55 PM EST Lab order printed and mailed to pt along with note * Telephone Encounter - Kathy Negrete RN - 07/14/2022 1:47 PM EST OV 05/2021 seen yearly no dig level since 2019 pls mail lab slip * Telephone Encounter - Josefina Stephen RN - 07/14/2022 1:33 PM EST Spouse calling today for refill on digoxin 250 mcg to [facility]. This is their new mail ordersupplier. documented in this [facility]01-06-2023 Telephone encounter Note* Telephone Encounter - Kathy Negrete RN - 07/14/2022 1:47 PM EST OV 05/2021 seen yearly no dig level since 2019 pls mail lab slip [facility] [id number] Telephone encounter Note* Telephone Encounter - Josefina Stephen RN - 07/14/2022 1:33 PM EST Spouse calling today for refill on digoxin 250 mcg to [facility]. This is their new mail ordersupplier. [facility] noteNo assessment information availableWUC Medical Center Work Phone: Evaluation note* Diagnosis Permanent atrial fibrillation (CMS/HCC) (HCC) Atrial fibrillation documented in this encounter [facility] note* Diagnosis Paroxysmal atrial fibrillation (CMS/HCC) (HCC)- Primary Atrial fibrillation documented in this encounter [facility] note* Diagnosis Permanent atrial fibrillation (HCC)- Primary Atrial fibrillation documented in this encounter [facility] note* Diagnosis Permanent atrial fibrillation (HCC)- Primary Atrial fibrillation documented in this encounter [facility] note* Diagnosis Permanent atrial fibrillation (HCC)- Primary Atrial fibrillation Primary hypertension Unspecified essential hypertension Dyspnea on exertion Other dyspnea and respiratory abnormality documented in this encounter [facility] note* Diagnosis Permanent atrial fibrillation (HCC)- Primary Atrial fibrillation documented in this encounter [facility] note* Diagnosis Permanent atrial fibrillation (HCC)- Primary Atrial fibrillation documented in this encounter [facility] note* Diagnosis Paroxysmal atrial fibrillation (CMS/HCC) (HCC)- Primary Atrial fibrillation [facility] Diagnosis Paroxysmal atrial fibrillation (CMS/HCC) (HCC)- Primary Atrial fibrillation documented in this encounter [facility] [place] [facility]* Diagnosis Permanent atrial fibrillation (HCC)- Primary Atrial fibrillation Primary hypertension Unspecified essential hypertension Dyspnea on exertion Other dyspnea and respiratory abnormality Permanent atrial fibrillation (HCC)- Primary Atrial fibrillation documented in this encounter [facility]Eval[facility] [place] [facility]* Diagnosis Onset Date Resolution Status Admit Date Atrial fibrillation acute Septe mb2024 11:01am LBBB (left bundle branch block) acute March 10 11:01am Left ventricular systolic dysfunction (LVSD) acute March 11:01am [facility] Work Phone: Reason for referral (narrative)No reason for referral information availableWUC Medical Center Work Phone: Summary Purpose Family History No Family History Records Found Relationship Condition Age at Onset Recorded Date/T shruthi father Cardiac disease Unknown brother Cardiac disease Unknown sister History of heart valve replacement Unknow n Advance Directives No Advanced Directives Records Found Advance Directive Response Recorded Date/ Time Living Will Yes December 08, 2019 1 0:13am Power of Growth Hacker Yes December 08, 2019 10:13am Advance Directive Response Recorded Date/ Time Living Will Yes December 08, 2019 9 :13am Power of Growth Hacker Yes December 08, 2019 9:13am Advance Directive Response Recorded Date/ Time Living Will Yes June 07 11:42pm Do you have a Healthcare Power of Growth Hacker? Yes June 07, 2024 11:42pm Living Will Yes July 09 4:48am Do you have a Healthcare Power of Growth Hacker? Yes July 09, 2024 4:48am Living Will Yes July 17 1:02pm Do you have a Healthcare Power of Growth Hacker? Yes July 17, 2024 1:02pm Name of Medical Power of Growth Hacker July 17, 2024 1:02pm Living Will Yes September 06, 2024 4:43am Do you have a Healthcare Power of Growth Hacker? Yes September 06, 2024 4:43am Advance Directive Response Recorded Date/ Time Living Will Yes July 09 4:48am Do you have a Healthcare Power of Growth Hacker? Yes July 09, 2024 4:48am Living Will Yes October 06, 2024 9:45pm Do you have a Healthcare Power of Growth Hacker? Yes October 06, 2024 9:45pm Living Will Yes November 05, 2024 8:35pm Do you have a Healthcare Power of Growth Hacker? Yes November 05, 2024 8:35pm Living Will Yes September 06, 2024 4:43am Do you have a Healthcare Power of Growth Hacker? Yes September 06, 2024 4:43am Advance Directive Response Recorded Date/ Time Living Will Yes October 06, 2024 9:45pm Do you have a Healthcare Power of Growth Hacker? Yes October 06, 2024 9:45pm Living Will Yes November 05, 2024 8:35pm Do you have a Healthcare Power of Growth Hacker? Yes November 05, 2024 8:35pm Living Will Yes September 06, 2024 4:43am Do you have a Healthcare Power of Growth Hacker? Yes September 06, 2024 4:43am Living Will Yes December 06, 2024 8 :37pm Do you have a Healthcare Power of Growth Hacker? Yes December 06, 2024 8:37pm Advance Directive Response Recorded Date/ Time Living Will Yes October 06, 2024 9:45pm Do you have a Healthcare Power of Growth Hacker? Yes October 06, 2024 9:45pm Living Will Yes November 05, 2024 8:35pm Do you have a Healthcare Power of Growth Hacker? Yes November 05, 2024 8:35pm Living Will Yes December 06, 2024 8 :37pm Do you have a Healthcare Power of Growth Hacker? Yes December 06, 2024 8:37pm Advance Directive Response Recorded Date/ Time Living Will Yes November 05, 2024 8:35pm Do you have a Healthcare Power of Growth Hacker? Yes November 05, 2024 8:35pm Living Will Yes December 06, 2024 8 :37pm Do you have a Healthcare Power of Growth Hacker? Yes December 06, 2024 8:37pm Advance Directive Response Recorded Date/ Time Living Will Yes December 06, 2024 8 :37pm Do you have a Healthcare Power of Growth Hacker? Yes December 06, 2024 8:37pm Chief Complaint and Reason for Visit Chief Complaint S/O INR S/O INR S/O INR Chief Complaint S/O INR S/O INR S/O INR S/O INR Chief Complaint S/O INR S/O INR S/O INR S/O INR PERIPHERAL VASCULAR DISEASE Chief Complaint S/O INR S/O INR S/O INR PERIPHERAL VASCULAR DISEASE Chief Complaint S/O INR S/O INR S/O INR PERIPHERAL VASCULAR DISEASE S/O INR Chief Complaint S/O INR S/O INR PERIPHERAL VASCULAR DISEASE S/O INR S/O INR Chief Complaint S/O INR PERIPHERAL VASCULAR DISEASE S/O INR S/O INR S/O INR Chief Complaint S/O INR S/O INR S/O INR S/O INR NEED ORDER Chief Complaint S/O INR S/O INR S/O INR NEED ORDER S/O INR EORDER Chief Complaint S/O INR S/O INR S/O INR NEED ORDER S/O INR EORDER Unspecified abdominal pain ABD PAIN Chief Complaint S/O INR S/O INR NEED ORDER S/O INR EORDER Unspecified abdominal pain ABD PAIN S/O INR-FINGERSTICK SOLITARY PULMONARY NODULE Chief Complaint S/O INR NEED ORDER S/O INR EORDER Unspecified abdominal pain ABD PAIN S/O INR-FINGERSTICK SOLITARY PULMONARY NODULE S/O INR-FINGERSTICK Chief Complaint S/O INR NEED ORDER S/O INR EORDER Unspecified abdominal pain ABD PAIN S/O INR-FINGERSTICK SOLITARY PULMONARY NODULE S/O INR-FINGERSTICK Solitary pulmonary nodule Chief Complaint Unspecified abdomina l pain ABD PAIN S/O INR-FINGERSTICK SOLITARY PULMONARY NODULE S/O INR-FINGERSTICK Solitary pulmonary nodule S/O INR-FINGERSTICK S/O INR-FINGERSTICK Chief Complaint Solitary pulmonary n odule S/O INR-FINGERSTICK S/O INR-FINGERSTICK S/O INR-FINGERSTICK S/O INR-FINGERSTICK Chief Complaint S/O INR-FINGERSTICK S/O INR-FINGERSTICK S/O INR-FINGERSTICK S/O INR-FINGERSTICK Chief Complaint Admit Date S/O INR-FINGERSTICK June 12, 2024 8 :56am PNEUMONIA July 17, 2024 9: 35am weakness fall July 17, 2024 9: 41am PNEUMONIA July 18, 2024 7 :24am PNEUMONIA July 19, 2024 9 :44am S/O INR-FINGERSTICK September 02, 2024 10:16am CHF (Aurelio) September 08, 2024 1:19 pm S/O INR-FINGERSTICK September 30, 2024 10: 17am Reason for Visit Admit Date Elevated brain natriuretic peptide (BNP) level July 17, 2024 9:35am Fall July 17, 2024 9: 35am Hypoxia July 17, 2024 9: 35am Pneumonia July 17, 2024 9: 35am Skin tear July 17, 2024 9: 35am Weakness July 17, 2024 9: 35am Atrial fibrillation September 08, 2024 1:19 pm LBBB (left bundle branch block) September 1:19pm Left ventricular systolic dysfunction (L VSD) September 08, 2024 1:19pm Chief Complaint Admit Date S/O INR-FINGERSTICK September 02, 2024 10:16am CHF (Aurelio) September 08, 2024 1:19 pm S/O INR-FINGERSTICK September 30, 2024 10: 17am S/O INR-FINGERSTICK October 14, 2024 10:1 6am S/O INR-FINGERSTICK November 25, 2024 9:29a m Reason for Visit Admit Date Atrial fibrillation September 08, 2024 1:19 pm LBBB (left bundle branch block) September 1:19pm Left ventricular systolic dysfunction (L VSD) September 08, 2024 1:19pm Chief Complaint Admit Date CHF (Aurelio) September 08, 2024 1:19 pm S/O INR-FINGERSTICK September 30, 2024 10: 17am S/O INR-FINGERSTICK October 14, 2024 10:1 6am S/O INR-FINGERSTICK November 25, 2024 9:29a m S/O INR-FINGERSTICK December 30, 2024 9:38 am Chief Complaint Admit Date S/O INR-FINGERSTICK October 14, 2024 10:1 6am S/O INR-FINGERSTICK November 25, 2024 9:29a m S/O INR-FINGERSTICK December 30, 2024 9:38 am S/O INR-FINGERSTICK February 03, 2025 9:31 am Chief Complaint Admit Date S/O INR-FINGERSTICK November 25, 2024 9:29a m S/O INR-FINGERSTICK December 30, 2024 9:38 am S/O INR-FINGERSTICK February 03, 2025 9:31 am S/O INR-FINGERSTICK March 03, 2025 10 :07am Chief Complaint Admit Date S/O INR-FINGERSTICK November 25, 2024 9:29a m S/O INR-FINGERSTICK December 30, 2024 9:38 am S/O INR-FINGERSTICK February 03, 2025 9:31 am S/O INR-FINGERSTICK March 03, 2025 10 :07am 6 M FU March 10, 2025 11:01am Reason for Visit Admit Date Atrial fibrillation March 10, 2025 11:01am LBBB (left bundle branch block) Septembe 2024 11:01am Left ventricular systolic dysfunction (L VSD) March 10, 2025 11:01am Chief Complaint Admit Date S/O INR-FINGERSTICK December 30, 2024 9:38 am S/O INR-FINGERSTICK February 03, 2025 9:31 am S/O INR-FINGERSTICK March 03, 2025 10 :07am 6 M FU March 10, 2025 11:01am S/O INR-FINGERSTICK March 25, 2025 10:06am Reason for Referral Specialty Diagnoses / Procedures Referred By Lucy arango Referred To Contact Diagnoses Dyspnea on exertion Procedures Nuclear REGADENOSON stress test with myocardial perfusion [place] [address] Referral ID Status Reason Start Date Expiration Date V isits Requested Visits Authorized [id number] Pending Review 11/06/2023 10/31/2024 1 1 Additional Source Comments (unrecognized sect ion and content) No Status Records FoundNo Status Records FoundNo Status Records Found INFORMATION SOURCE (unrecogn ized section and content) DATE CREATED AUTHOR [facility]/28/2018 [facility] DATE CREATED AUTHOR AUTHOR'S ORGANIZ ATION 05/07/2025 [facility] [employer] [facility] DATE CREATED AUTHOR AUTHOR'S ORGANIZ ATION 05/10/2025 [facility] Goals (unrecognized section and content) Goals may be documented in a n alternate sectionGoals may be documented in an alternate sectionGoals may be documented in an alternate sectionGoals may be documented in an alternate sectionGoals may be documented in an alternate sectionGoals may be documented in an alternate sectionGoals may be documented in an alternate sectionGoals may be documented in an alternate sectionGoals may be documented in an alternate sectionGoals may be documented in an alternate sectionGoals may be documented in an alternate sectionGoals may be documented in an alternate sectionGoals may be documented in an alternate sectionGoals may be documented in an alternate sectionGoals may be documented in an alternate sectionGoals may be documented in an alternate sectionGoals may be documented in an alternate sectionGoals may be documented in an alternate sectionGoals may be documented in an alternate sectionGoals may be documented in an alternate sectionGoals may be documented in an alternate sectionGoals may be documented in an alternate sectionGoals may be documented in an alternate sectionGoals may be documented in an alternate sectionGoals may be documented in an alternate sectionGoals may be documented in an alternate sectionGoals may be documented in an alternate sectionGoals may be documented in an alternate sectionGoals may be documented in an alternate sectionGoals may be documented in an alternate sectionGoals may be documented in an alternate section Care Teams (unrecognized sec tion and content) Team Status: Active Member Role Status Dates Dr. Vin Zuñiga MD Family Provider Active Dr. Vin Zuñiga MD Primary Care Provider Active Team Status: Active Member Role Status Dates Dr. Vin Zuñiga MD Primary Care Provider Active Dr. Juan Carlos Meyer MD Attending Provider Active Dr. Tamiko Correia DPM Referring Provider Active Team Status: Inactive Member Role Status Dates Dr. Vin Zuñiga MD Primary Care Provider Active Team Status: Inactive Member Role Status Dates Dr. Vin Zuñiga MD Primary Care Provider Active LILIAM ASHBY Attending Provider, Referring Provid er Active Team Status: Inactive Member Role Status Dates Dr. Vin Zuñiga MD Primary Care Provider Active LILIAM ASHBY Attending Provider, Referring Provid er Active BETHANIE PLAZA Other Provider Active NELLY TY Other Provider Active Director Of Enterprise Architecture Relationship Specialty Start Date End Date Fab Guerrero MD [address] [facility] [address] [place] [id number] PCP - General Family Medicine 09/25/22 Director Of Enterprise Architecture Relationship Specialty Start Date End Date Fab Guerrero MD [address] [facility] [address] [place] [address] PCP - General Family Medicine 09/25/22 Director Of Enterprise Architecture Relationship Specialty Start Date End Date Fab Guerrero MD [address] [facility] [address] [place] [address] PCP - General Family Medicine 09/25/22 Team Status: Inactive Member Role Status Dates Dr. Vin Zuñiga MD Primary Care Provider Active LILIAM ASHBY Attending Provider, Referring Provid er Active NELLY TY Other Provider Active ERNST SIMON Other Provider Active Team Status: Inactive Member Role Status Dates Dr. Vin Zuñiga MD Primary Care Provider Active ERNST SIMON Attending Provid er, Referring Provider, Other Provider Active Team Status: Active Member Role Status Dates Dr. Vin Zuñiga MD Family Provider Active Deshawn Rebollar MD Primary Care Provider Active Team Status: Inactive Member Role Status Lester Rebollar MD Primary Care Provide r, Attending Provider, Referring Provider Active Team Status: Inactive Member Role Status ERNST Valencia Attending Provid er, Referring Provider, Other Provider Active Deshawn Rebollar MD Primary Care Provider Active Team Status: Active Member Role Status Lester Rebollar MD Primary Care Provider Active Dr. Ezra Ross MD Attending Provider, Referri ng Provider Active Team Status: Inactive Member Role Status Lester Rebollar MD Primary Care Provider Active Dr. Ezra Ross MD Attending Provider, Referri ng Provider Active Team Status: Active Member Role Status Lester Rebollar MD Primary Care Provide r, Attending Provider, Referring Provider Active Team Status: Inactive Member Role Status Lester Rebollar MD Primary Care Provider Active Ed Physician Provider Emergency Provider Active Director Of Enterprise Architecture Relationship Specialty Start Date End Date Fab Guerrero MD [address] [facility] [address] [place] [address] PCP - General Family Medicine 09/25/22 Team Status: Inactive Member Role Status Dates Deshawn Rebollar MD Primary Care Provider, Attending Prov ider Active Team Status: Inactive Member Role Status Dates Deshawn Rebollar MD Primary Care Provider Active Ed Physician Provider Attending Provider, Emergency Pr ovider Active Director Of Enterprise Architecture Relationship Specialty Start Date End Date Fab Guerrero MD [address] [facility] [address] [place] [phone] PCP - General Family Medicine 09/25/22 Director Of Enterprise Architecture Relationship Specialty Start Date End Date Fab Guerrero MD [address] [facility] [address] [place] [phone] PCP - General Family Medicine 09/25/22 Team Status: Inactive Member Role Status Dates Deshawn Rebollar MD Primary Care Provide r, Attending Provider, Referring Provider Active DARWIN MENDOZA Other Provider Active Director Of Enterprise Architecture Relationship Specialty Start Date End Date Deshawn Rebollar MD [address] [facility] [address] [place], [place] [id number] PCP - General Family Medicine 11/06/23 Director Of Enterprise Architecture Relationship Specialty Start Date End Date Deshawn Rebollar MD [address] [place] [address] [address] [place], [place] [id number] PCP - General Family Medicine 11/06/23 Director Of Enterprise Architecture Relationship Specialty Start Date End Date Deshawn Rebollar MD [address] [facility] [address] [place], [place] [id number] PCP - General Family Medicine 11/06/23 Director Of Enterprise Architecture Relationship Specialty Start Date End Date Deshawn Rebollar MD [address] [facility] [address] [place] [address] PCP - General Family Medicine 11/06/23 Director Of Enterprise Architecture Relationship Specialty Start Date End Date Deshawn Rebollar MD [address] [facility] [address] [place] [address] PCP - General Family Medicine 11/06/23 Director Of Enterprise Architecture Relationship Specialty Start Date End Date Deshawn Rebollar MD [address] [place] [address] [address] [place] [address] PCP - General Family Medicine 11/06/23 Director Of Enterprise Architecture Relationship Specialty Start Date End Date Deshawn Rebollar MD [address] [place] [address] [address] [place], [place] [address] PCP - General Family Medicine 11/06/23 Director Of Enterprise Architecture Relationship Specialty Start Date End Date Vin Zuñiga MD [address] [place] [address], [place] [address] PCP - General 12/07/18 Director Of Enterprise Architecture Relationship Specialty Start Date End Date Vin Zuñiga MD [address] [place] [address], [place] [address] PCP - General 12/07/18 Director Of Enterprise Architecture Relationship Specialty Start Date End Date Vin Zuñiga MD [address] [place] [address], [place] [address] PCP - General 12/07/18 Director Of Enterprise Architecture Relationship Specialty Start Date End Date Vin Zuñiga MD [address] [place], [place] [address], [place] [id number] PCP - General 12/07/18 Director Of Enterprise Architecture Relationship Specialty Start Date End Date Deshawn Rebollar MD [address] [facility] [address] [place] [address] PCP - General Family Medicine 11/06/23 Team Status: Active Member Role Status Lester Rebollar MD Primary Care Provider Active Team Status: Inactive Member Role Status Lester Rebollar MD Primary Care Provider Active St art: June 12, 2024 End: June 12, 2024 Deshawn Rebollar MD Attending Provider Active Start : June 12, 2024 End: June 12, 2024 Deshawn Rebollar MD Referring Provider Active Start : June 12, 2024 End: June 12, 2024 DARWIN MENDOZA Other Provider Active Start: June 12, 2024 End: June 12, 2024 Team Status: Inactive Member Role Status Lester Rebollar MD Primary Care Provider Active St art: July 17, 2024 End: July 19, 2024 Guillermo Mishra MD Emergency Provider Active Star t: July 17, 2024 End: July 19, 2024 Dr. Rome Stanley MD Admit Provider Active Star t: July 17, 2024 End: July 19, 2024 Dr. Rome Stanley MD Attending Provider Active Start: July 17, 2024 End: July 19, 2024 Team Status: Active Member Role Status Lester Rebollar MD Primary Care Provider Active St art: July 17, 2024 Guillermo Mishra MD Emergency Provider Active Star t: July 17, 2024 Dr. Rome Stanley MD Attending Provider Active Start: July 17, 2024 Team Status: Active Member Role Status Lester Rebollar MD Primary Care Provider Active St art: July 17, 2024 Dr. Giovani Sosa MD Attending Provider Active S tart: July 17, 2024 Team Status: Active Member Role Status Lester Rebollar MD Primary Care Provider Active St art: July 18, 2024 Guillermo Mishra MD Emergency Provider Active Star t: July 18, 2024 Dr. Rome Stanley MD Admit Provider Active Star t: July 18, 2024 Dr. Rome Stanley MD Attending Provider Active Start: July 18, 2024 Dr. Rome Stanley MD Other Provider Active Star t: July 18, 2024 Team Status: Active Member Role Status Lester Rebollar MD Primary Care Provider Active St art: July 19, 2024 Guillermo Mishra MD Emergency Provider Active Star t: July 19, 2024 Dr. Rome Stanley MD Admit Provider Active Star t: July 19, 2024 Dr. Rome Stanley MD Attending Provider Active Start: July 19, 2024 Dr. Rome Stanley MD Other Provider Active Star t: July 19, 2024 Team Status: Inactive Member Role Status Lester Rebollar MD Primary Care Provider Active St art: July 29, 2024 End: July 29, 2024 Deshawn Rebollar MD Attending Provider Active Start : July 29, 2024 End: July 29, 2024 Deshawn Rebollar MD Referring Provider Active Start : July 29, 2024 End: July 29, 2024 Team Status: Inactive Member Role Status Lester Rebollar MD Primary Care Provider Active St art: September 02, 2024 End: September 05, 2024 Deshawn Rebollar MD Attending Provider Active Start : September 02, 2024 End: September 05, 2024 Deshawn Rebollar MD Referring Provider Active Start : September 02, 2024 End: September 05, 2024 DARWIN MENDOAZ Other Provider Active Start: September 02, 2024 End: September 05, 2024 Team Status: Inactive Member Role Status Lester Rebollar MD Primary Care Provider Active St art: September 08, 2024 End: September 08, 2024 Deshawn Rebollar MD Referring Provider Active Start : September 08, 2024 End: September 08, 2024 Dr. Dmitri Francisco MD Attending Provider Active Start: September 08, 2024 End: September 08, 2024 Team Status: Inactive Member Role Status Lester Rebollar MD Primary Care Provider Active St art: September 18, 2024 End: September 18, 2024 Deshawn Rebollar MD Attending Provider Active Start : September 18, 2024 End: September 18, 2024 Deshawn Rebollar MD Referring Provider Active Start : September 18, 2024 End: September 18, 2024 Team Status: Active Member Role Status Lester Rebollar MD Primary Care Provider Active St art: September 30, 2024 Deshawn Rebollar MD Attending Provider Active Start : September 30, 2024 Deshawn Rebollar MD Referring Provider Active Start : September 30, 2024 DARWIN MENDOZA Other Provider Active Start: September 30, 2024 Team Status: Inactive Member Role Status Lester Rebollar MD Primary Care Provider Active St art: September 30, 2024 End: September 30, 2024 Deshawn Rebollar MD Attending Provider Active Start : September 30, 2024 End: September 30, 2024 Deshawn Rebollar MD Referring Provider Active Start : September 30, 2024 End: September 30, 2024 DARWIN MENDOZA Other Provider Active Start: September 30, 2024 End: September 30, 2024 Team Status: Inactive Member Role Status Lester Rebollar MD Primary Care Provider Active St art: October 14, 2024 End: November 05, 2024 Deshawn Rebollar MD Attending Provider Active Start : October 14, 2024 End: November 05, 2024 Deshawn Rebollar MD Referring Provider Active Start : October 14, 2024 End: November 05, 2024 DARWIN MENDOZA Other Provider Active Start: October 14, 2024 End: November 05, 2024 Team Status: Inactive Member Role Status Lester Rebollar MD Primary Care Provider Active St art: November 25, 2024 End: November 25, 2024 Deshawn Rebollar MD Attending Provider Active Start : November 25, 2024 End: November 25, 2024 Deshawn Rebollar MD Referring Provider Active Start : November 25, 2024 End: November 25, 2024 DARWIN MENDOZA Other Provider Active Start: November 25, 2024 End: November 25, 2024 Team Status: Active Member Role/Relationship Status Lester Rebollar MD Primary Care Provider Active Team Status: Inactive Member Role/Relationship Status Lester Rebollar MD Primary Care Provider Active St art: September 08, 2024 End: September 08, 2024 Deshawn Rebollar MD Referring Provider Active Start : September 08, 2024 End: September 08, 2024 Dr. Dmitri Francisco MD Attending Provider Active Start: September 08, 2024 End: September 08, 2024 Team Status: Inactive Member Role/Relationship Status Lester Rebollar MD Primary Care Provider Active St art: September 18, 2024 End: September 18, 2024 Deshawn Rebollar MD Attending Provider Active Start : September 18, 2024 End: September 18, 2024 Deshawn Rebollar MD Referring Provider Active Start : September 18, 2024 End: September 18, 2024 Team Status: Inactive Member Role/Relationship Status Lester Rebollar MD Primary Care Provider Active St art: September 30, 2024 End: September 30, 2024 Deshawn Rebollar MD Attending Provider Active Start : September 30, 2024 End: September 30, 2024 Deshawn Rebollar MD Referring Provider Active Start : September 30, 2024 End: September 30, 2024 DARWIN MENDOZA Other Provider Active Start: September 30, 2024 End: September 30, 2024 Team Status: Inactive Member Role/Relationship Status Lester Rebollar MD Primary Care Provider Active St art: October 14, 2024 End: November 05, 2024 Deshawn Rebollar MD Attending Provider Active Start : October 14, 2024 End: November 05, 2024 Deshawn Rebollar MD Referring Provider Active Start : October 14, 2024 End: November 05, 2024 DARWIN MENDOZA Other Provider Active Start: October 14, 2024 End: November 05, 2024 Team Status: Inactive Member Role/Relationship Status Lester Rebollar MD Primary Care Provider Active St art: November 25, 2024 End: November 25, 2024 Deshawn Rebollar MD Attending Provider Active Start : November 25, 2024 End: November 25, 2024 Deshawn Rebollar MD Referring Provider Active Start : November 25, 2024 End: November 25, 2024 DARWIN MENDOZA Other Provider Active Start: November 25, 2024 End: November 25, 2024 Team Status: Inactive Member Role/Relationship Status Lester Rebollar MD Primary Care Provider Active St art: December 30, 2024 End: December 30, 2024 Deshawn Rebollar MD Attending Provider Active Start : December 30, 2024 End: December 30, 2024 Deshawn Rebollar MD Referring Provider Active Start : December 30, 2024 End: December 30, 2024 DARWIN MENDOZA Other Provider Active Start: December 30, 2024 End: December 30, 2024 Team Status: Inactive Member Role/Relationship Status Lester Rebollar MD Primary Care Provider Active St art: October 14, 2024 End: November 05, 2024 Deshawn Rebollar MD Attending Provider Active Start : October 14, 2024 End: November 05, 2024 Deshawn Rebollar MD Referring Provider Active Start : October 14, 2024 End: November 05, 2024 DARWIN MENDOZA Other Provider Active Start: October 14, 2024 End: November 05, 2024 Team Status: Inactive Member Role/Relationship Status Dates Deshawn Rebollar MD Primary Care Provider Active St art: November 25, 2024 End: November 25, 2024 Deshawn Rebollar MD Attending Provider Active Start : November 25, 2024 End: November 25, 2024 Deshawn Rebollar MD Referring Provider Active Start : November 25, 2024 End: November 25, 2024 DARWIN MENDOZA Other Provider Active Start: November 25, 2024 End: November 25, 2024 Team Status: Inactive Member Role/Relationship Status Lester Rebollar MD Primary Care Provider Active St art: December 30, 2024 End: December 30, 2024 Deshawn Rebollar MD Attending Provider Active Start : December 30, 2024 End: December 30, 2024 Deshawn Rebollar MD Referring Provider Active Start : December 30, 2024 End: December 30, 2024 DARWIN MENDOZA Other Provider Active Start: December 30, 2024 End: December 30, 2024 Team Status: Inactive Member Role/Relationship Status Lester Rebollar MD Primary Care Provider Active St art: February 03, 2025 End: February 05, 2025 Deshawn Rebollar MD Attending Provider Active Start : February 03, 2025 End: February 05, 2025 Deshawn Rebollar MD Referring Provider Active Start : February 03, 2025 End: February 05, 2025 DARWIN MENDOZA Other Provider Active Start: February 03, 2025 End: February 05, 2025 Team Status: Inactive Member Role/Relationship Status Lester Rebollar MD Primary Care Provider Active St art: November 25, 2024 End: November 25, 2024 Deshawn Rebollar MD Attending Provider Active Start : November 25, 2024 End: November 25, 2024 Deshawn Rebollar MD Referring Provider Active Start : November 25, 2024 End: November 25, 2024 DARWIN MENDOZA Other Provider Active Start: November 25, 2024 End: November 25, 2024 Team Status: Inactive Member Role/Relationship Status Lester Rebollar MD Primary Care Provider Active St art: December 30, 2024 End: December 30, 2024 Deshawn Rebollar MD Attending Provider Active Start : December 30, 2024 End: December 30, 2024 Deshawn Rebollar MD Referring Provider Active Start : December 30, 2024 End: December 30, 2024 DARWIN MENDOZA Other Provider Active Start: December 30, 2024 End: December 30, 2024 Team Status: Inactive Member Role/Relationship Status Lester Rebollar MD Primary Care Provider Active St art: February 03, 2025 End: February 05, 2025 Deshawn Rebollar MD Attending Provider Active Start : February 03, 2025 End: February 05, 2025 Deshawn Rebollar MD Referring Provider Active Start : February 03, 2025 End: February 05, 2025 DARWIN MENDOZA Other Provider Active Start: February 03, 2025 End: February 05, 2025 Team Status: Inactive Member Role/Relationship Status Lester Rebollar MD Primary Care Provider Active St art: March 03, 2025 End: March 03, 2025 Deshawn Rebollar MD Attending Provider Active Start : March 03, 2025 End: March 03, 2025 Deshawn Rebollar MD Referring Provider Active Start : March 03, 2025 End: March 03, 2025 DARWIN MENDOZA Other Provider Active Start: March 03, 2025 End: March 03, 2025 Team Status: Inactive Member Role/Relationship Status Lester Rebollar MD Primary Care Provider Active St art: March 10, 2025 End: March 10, 2025 Deshawn Rebollar MD Referring Provider Active Start : March 10, 2025 End: March 10, 2025 Fe Priest SALES ENABLEMENT SPECIALIST, SALES ENABLEMENT SPECIALIST-C Attending Provider Active Start: March 10, 2025 End: March 10, 2025 Team Status: Active Member Role/Relationship Status Lester Rebollar MD Primary care physician Active Team Status: Inactive Member Role/Relationship Status Lester Rebollar MD Primary care physician Active S tart: December 30, 2024 End: December 30, 2024 Deshawn Rebollar MD Attending physician Active Star t: December 30, 2024 End: December 30, 2024 Deshawn Rebollar MD Referring Provider Active Start : December 30, 2024 End: December 30, 2024 DARWIN MENDOZA Nurse Practitioner Active Sta rt: December 30, 2024 End: December 30, 2024 Team Status: Inactive Member Role/Relationship Status Lester Rebollar MD Primary care physician Active S tart: February 03, 2025 End: February 05, 2025 Deshawn Rebollar MD Attending physician Active Star t: February 03, 2025 End: February 05, 2025 Deshawn Rebollar MD Referring Provider Active Start : February 03, 2025 End: February 05, 2025 DARWIN MENDOZA Nurse Practitioner Active Sta rt: February 03, 2025 End: February 05, 2025 Team Status: Inactive Member Role/Relationship Status Lester Rebollar MD Primary care physician Active S tart: March 03, 2025 End: March 03, 2025 Dehsawn Rebollar MD Attending physician Active Star t: March 03, 2025 End: March 03, 2025 Deshawn Rebollar MD Referring Provider Active Start : March 03, 2025 End: March 03, 2025 DARWIN MENDOZA Nurse Practitioner Active Sta rt: March 03, 2025 End: March 03, 2025 Team Status: Inactive Member Role/Relationship Status Lester Rebollar MD Primary care physician Active S tart: March 10, 2025 End: March 10, 2025 Deshawn Rebollar MD Referring Provider Active Start : March 10, 2025 End: March 10, 2025 Fe Priest SALES ENABLEMENT SPECIALIST, SALES ENABLEMENT SPECIALIST-C Attending physician Active Start: March 10, 2025 End: March 10, 2025 Team Status: Inactive Member Role/Relationship Status Lester Rebollar MD Primary care physician Active S tart: March 25, 2025 End: April 07, 2025 Deshawn Rebollar MD Attending physician Active Star t: March 25, 2025 End: April 07, 2025 Deshawn Rebollar MD Referring Provider Active Start : March 25, 2025 End: April 07, 2025 DARWIN MENDOZA Nurse Practitioner Active Sta rt: March 25, 2025 End: April 07, 2025 Team Status: Active Member Role/Relationship Status Dates Deshawn Rebollar MD Primary care physician Active S tart: April 03, 2025 Deshawn Rebollar MD Attending physician Active Star t: April 03, 2025 Deshawn Rebollar MD Referring Provider Active Start : April 03, 2025 Team Status: Inactive Member Role/Relationship Status Dates Deshawn Rebollar MD Primary care physician Active S tart: April 03, 2025 End: April 03, 2025 Deshawn Rebollar MD Attending physician Active Star t: April 03, 2025 End: April 03, 2025 Deshawn Rebollar MD Referring Provider Active Start : April 03, 2025 End: April 03, 2025 Reason for Visit (unrecogniz ed section and content) Reason Comments 1 Year Follow-up Reason Onset Date Comments Labs Only 11/02/2022 Reason Comments Med Refill Reason Onset Date Comments Med Refill 06/18/2023 Reason Comments 1 Year Follow-up Permanent atrial fib rillation Reason Onset Date Comments Med Management 11/21/2023 Reason Onset Date Comments Med Refill 02/25/2024 Reason Onset Date Comments Med Refill 05/28/2024 Reason Onset Date Comments Med Refill 07/14/2022 Digoxin Reason Onset Date Comments Med Refill 07/28/2022 Reason Onset Date Comments Med Refill 08/01/2022 Metoprolol/warfa rin/spironolactone Reason Onset Date Comments Orders 08/28/2022 Standing order f or INR Reason Comments 6 Month Follow-up FOR RECORDS PERTAINING TO PATIENTS WHO ARE OR HAVE BEEN ENROLLED IN A CHEMICAL DEPENDENCY/SUBSTANCEABUSE PROGRAM, SOME INFORMATION MAY BE OMITTED. This clinical summary was aggregated from multiple sources. Caution should be exercised in using it in the provision of clinical care. This summary normalizes information from multiple sources, and as a consequence, information in this document may materially change the coding, format and clinical context of patient data. In addition, data may be omitted in some cases. CLINICAL DECISIONS SHOULD BE BASED ON THE PRIMARY CLINICAL RECORDS. [employer] provides no warranty or guarantee of the accuracy or completeness of information in this document.
[2025-06-26] MEDS: 0.9% Normal Saline (1000mL) 1,000 ML 100 ML IV (16:09)
[2025-06-26] MEDS: Metoprolol(XL)Succ 25 MG Tablet PO (20:55)
[2025-06-26] MEDS: 0.9% Saline Lock 10 ML Syringe IV (20:56)
[2025-06-26] MEDS: Multivitamin (Healthy Eyes) Capsule 1 CAP PO (20:57)
[2025-06-27] VITALS (10 sets, daily range): BP systolic 124–151; BP diastolic 70–95; PULSE 77–100; RESP 16–28; TEMP 36.8–37.4; O2SAT 89–98
[2025-06-27] MEDS: 0.9% Normal Saline (1000mL) 1,000 ML 100 ML IV (02:27)
[2025-06-27 05:30] LABS: Hematocrit 37.1 % (40-54); Hemoglobin 12.9 g/dL (13.0-16.5); Immature Granulocytes Count 0.050 X10^3/uL (0.0-0.0); Mean Corp Hgb Conc 34.8 g/dL (32-36); Mean Corpuscular Volume 102.5 fL (80-94); Mean Platelet Vol. 9.7 fl (6.2-12.0); NRBC Flagged by Analyzer 0 % (0-5); Platelet Count 173 K/mm3 (150-450); RBC Distribution Width CV 14.9 % (11.6-14.6); RBC Distribution Width SD 47.8 fl (35.1-43.9); Red Blood Count 3.62 M/mm3 (4.6-6.2); White Blood Count 11.6 K/mm3 (4.4-11.0)
[2025-06-27 06:11] LABS: Anion Gap 10 (5-15); BUN 21 mg/dL (4-19); BUN/Creat Ratio 18.7 RATIO (10-20); Calcium,Total 8.6 mg/dL (7.6-11.0); Carbon Dioxide 22.4 mmol/L (21.0-32.0); Chloride 105 mmol/L (98-108); Estimated Creatinine Clearance 51.18 ml/min (50-250); Glucose 100 mg/dL (70-99); Potassium 4.2 mmol/L (3.3-5.1)
[2025-06-27] MEDS: Multivitamin (Healthy Eyes) Capsule 1 CAP PO ×2 (09:05→20:25)
[2025-06-27] MEDS: Metoprolol(XL)Succ 25 MG Tablet PO ×2 (09:07→20:24)
[2025-06-27] MEDS: Cholecalciferol (Vit D3) 125 MCG CAPSULE (5,000 UNITS) PO (09:07)
[2025-06-27] MEDS: Fluticasone 0.05% 1 SPRAY NASAL.SRY 2 SPRAY NASAL (09:08)
[2025-06-27] MEDS: 0.9% Saline Lock 10 ML Syringe IV ×2 (09:10→20:26)
[2025-06-27] MEDS: Azithromycin 500 MG in 0.9% Normal Saline (250mL Bag) 250 ML 255 MG IV (09:17)
[2025-06-27] MEDS: Ceftriaxone 2 GM in 0.9% Normal Saline (50mL MB+) 50 ML IV (10:25)
--- NOTE | 2025-06-27 13:05 | CASEMGMT ---
TIMOTHY SANCHEZ Assessment: Face to Face with pt for initial transition planning/care coordination assessment. RN DANIEL introduced self and role at [facility], pt voices understanding and consents to assessment. Pt is A&O x4 and answers all questions appropriately at this time. Pt sitting up in bed in no distress on RA. Care providers, pharmacy, and demographics verified/updated. Admitting Dx: sepsis d/t pna PCP:[facility] Specialists:[facility]acy: [facility] Insurance: [employer] Prescription Benefit: yes LNOK: Rosita Quiñonez, ; Tae Quiñonez, son Living Arrangements: Pt lives with in a single story home with 1 step to enter. Pt reports he is I in ADL/IADLs. Pt states most IADLs pt and perform together. Pt denies concerns at home. Transportation: Pt drives self and denies concerns with transportation. DME:walker, cane, walk in shower with chair HHC/SNF: Denies hx of Pt states no concerns with going home at time of dc. No PT or OT recommended. Pt states no further concerns/needs. CM to follow. Advised pt to ask CM if any further questions/concerns/needs arise, voices understanding. Pt Goal: Home Plan: Home Aj AGUIRRE CM
[2025-06-27] MEDS: Warfarin (PBKC) 3 MG Tablet PO (17:27)
--- NOTE | 2025-06-27 23:53 | EKG12_ITS ---
Test Reason : CP Blood Pressure : */* mmHG Vent. Rate : 96 BPM Atrial Rate : * BPM P-R Int : * ms QRS Dur : 134 ms QT Int : 348 ms P-R-T Axes : * -2 184 degrees QTcB Int : 439 ms Atrial fibrillation Left bundle branch block Abnormal ECG When compared with ECG of 26-Jun-2025 10:20, MANUAL COMPARISON REQUIRED DATA IS UNCONFIRMED Confirmed by Christopher Polanco ([id number]), assignment editor SUSANNA BROWNING ([id number]) on 06/30/2025 11:37:11 AM Also confirmed by Christopher Polanco ([id number]), assignment editor SUSANNA BROWNING ([id number]) on 07/01/2025 9:45:07 AM Referred By: Confirmed By: Christopher Polanco
--- NOTE | 2025-06-27 23:58 | NURSING ---
Notified that pt c/o shortness of breath. This RN to room. VS assessed. Pt states he got up to the bathroom and began having shortness of breath and dull, 3/10 chest discomfort. Denies pain radiating. Endorses associated shortness of breath. STAT EKG requested. Pt requested shortness of breath is improving.
[2025-06-28] VITALS (7 sets, daily range): BP systolic 124–142; BP diastolic 67–72; PULSE 76–100; RESP 16–18; TEMP 36.4–37.4; O2SAT 95–97
[2025-06-28 06:07] LABS: Hematocrit 37.5 % (40-54); Hemoglobin 13.5 g/dL (13.0-16.5); Immature Granulocytes Count 0.040 X10^3/uL (0.0-0.0); Mean Corp Hgb Conc 36.0 g/dL (32-36); Mean Corpuscular Volume 102.2 fL (80-94); Mean Platelet Vol. 9.8 fl (6.2-12.0); NRBC Flagged by Analyzer 0 % (0-5); Platelet Count 189 K/mm3 (150-450); RBC Distribution Width CV 14.9 % (11.6-14.6); RBC Distribution Width SD 46.7 fl (35.1-43.9); Red Blood Count 3.67 M/mm3 (4.6-6.2); White Blood Count 11.5 K/mm3 (4.4-11.0)
[2025-06-28 06:29] LABS: Anion Gap 11 (5-15); BUN 20 mg/dL (4-19); BUN/Creat Ratio 16.3 RATIO (10-20); Calcium,Total 8.8 mg/dL (7.6-11.0); Carbon Dioxide 22.5 mmol/L (21.0-32.0); Chloride 103 mmol/L (98-108); Estimated Creatinine Clearance 48.19 ml/min (50-250); Glucose 106 mg/dL (70-99); Potassium 4.2 mmol/L (3.3-5.1)
[2025-06-28 08:45] LABS: Prothrombin Time (Protime)PT. 25.9 SECONDS (11.7-14.9)
[2025-06-28] MEDS: Fluticasone 0.05% 1 SPRAY NASAL.SRY 2 SPRAY NASAL (08:55)
[2025-06-28] MEDS: Cholecalciferol (Vit D3) 125 MCG CAPSULE (5,000 UNITS) PO (08:56)
[2025-06-28] MEDS: Multivitamin (Healthy Eyes) Capsule 1 CAP PO ×2 (08:56→20:25)
[2025-06-28] MEDS: Metoprolol(XL)Succ 25 MG Tablet PO ×2 (08:56→20:25)
[2025-06-28] MEDS: Azithromycin 500 MG in 0.9% Normal Saline (250mL Bag) 250 ML 255 MG IV (09:04)
--- NOTE | 2025-06-28 10:13 | PCM.PROGNOTE ---
Subjective Subjective Patient seen and examined with his nurse by his bedside. He had no active complaints and had an uneventful night. Review of systems is otherwise negative. He remains on 2L of oxygen. Objective Data Objective Data Vital Signs: Vital Signs Temp Pulse Resp BP Pulse Ox O2 Del Method O2 Flow Rate 98.1 F 76 18 134/71 H 96 Nasal Cannula 2 06/28/25 08:55 06/28/25 08:56 06/28/25 08:55 06/28/25 08:56 06/28/25 08:55 06/28/25 08:55 06/28/25 08:55 Oxygen Flow Rate (L/min) 2 Oxygen Delivery Method Nasal Cannula Weight: 170 lb 0.01 oz Body Mass Index (BMI) 23.0 Intake & Output: Intake and Output for Last 24 Hours 06/26/25 06/27/25 06/28/25 23:59 23:59 23:59 Intake Total 2545 / 2545 2905.00 / 2905.00 Balance 2545 / 2545 2905.00 / 2905.00 Lab / Micro Data 06/28/25 05:48 06/28/25 05:48 Labs: Laboratory Results - last 24 hr 06/28/25 05:48: WBC 11.5 H, RBC 3.67 L, Hgb 13.5, Hct 37.5 L, MCV 102.2 H, MCH 36.8 H, MCHC 36.0, RDW Std Deviation 46.7 H, RDW Coeff of Hillary 14.9 H, Plt Count 189, MPV 9.8, Immature Gran % (Auto) 0.300, Neut % (Auto) 74.0 H, Lymph % (Auto) 14.8 L, [place] % (Auto) 9.4, Eos % (Auto) 1.2, Baso % (Auto) 0.3, Absolute Neuts (auto) 8.5 H, Absolute Lymphs (auto) 1.70, Nucleated RBC % 0, Sodium 137, Potassium 4.2, Chloride 103, Carbon Dioxide 22.5, Anion Gap 11, BUN 20 H, Creatinine 1.20, Estim Creat Clear Calc 48.19 L, Est GFR (MDRD) Non-Af 59 L, BUN/Creatinine Ratio 16.3, Glucose 106 H, Calcium 8.8 06/28/25 08:31: PT 25.9 H, INR 2.3 Micro: Microbiology 06/26/25 11:10 Blood Culture (Wb) - Left Forearm Blood Culture - Preliminary No growth in 48 hours. 06/26/25 11:10 Blood Culture (Wb) - Left Forearm Blood Culture - Preliminary No growth in 48 hours. 06/26/25 10:45 Urine, Clean Catch Urine Culture - Final Mixed Gram Positive Organisms 06/26/25 17:03 Mucosa - Nasopharyngeal Respiratory Panel (PCR) - Final 06/26/25 10:45 Urine, Clean Catch Legionella Antigen - Final 06/26/25 10:45 Urine, Clean Catch Streptococcus pneumoniae Antigen (M - Final 06/26/25 10:40 Mucosa - Nose SARS-CoV-2, Influenza & RSV (PCR) - Final Physical Exam Const alert, oriented x3 and no apparent distress Constitutional Narrative: frail, weak General Appearance: cooperative HEENT normocephalic, head/scalp atraumatic, moist oral mucous membranes and oropharynx normal Eyes EOMs intact bilaterally and conjunctivae normal Neck supple and no JVD Lymph Lymphatic: no lymphedema noted Resp Resp Narrative: moderately diminished breath sounds bibasally. Coarse crackles in left lower lung field, no wheezing. on 2L of oxygen by nasal canula Cardio S1 normal heart sound, S2 normal heart sound and no murmurs Cardio Narrative: afib, now rate controlled GI normal to inspection, nondistended, normoactive bowel sounds, soft to palpation, non-tender and non-distended Extremity full ROM and no clubbing, cyanosis or edema General Extremity: no tenderness to palpation of joints or extremities Skin General Skin Exam: no breakdown Neuro oriented x3, moves all extremities and no focal motor deficits Sensorium / Orientation: awake Motor Exam: strength 5/5 throughout Psych affect normal Appearance: appropriate Assessment & Plan Assessment/Plan (1) Sepsis: (2) Pneumonia: PLAN: Plan #Severe Sepsis due to pneumonia Admitted with a complaint of shortness of breath. WBCs elevated at 12.2 and lactic acid is 4. Chest x-ray does show evidence of pneumonia. Hydrated with IV fluid normal saline at 125 cc/h. on IV ceftriaxone and azithromycin. Urine for strep and legionella negative. blood and sputum cultures pending. #A-fib: Was in RVR on admission but heart rate is now controlled. On metoprolol. Also on Coumadin. INR today is 2.3 #Hypertension: on lisinopril, metoprolol and spironolactone #Hypothyroidism: on synthroid #Heart failure: Not in exacerbation. On Lasix and metoprolol as well as spironolactone and lisinopril. lasix and spironolactone held on admission due to sepsis. Will resume #GERD: On PPI DVT prophylaxis: not indicated as patient already on coumadin. IINR is 2.3 Code status:full code # Charges/Coding Visit Charges Inpatient E&M: 08894 Subs Hosp L2
[2025-06-28] MEDS: Ceftriaxone 2 GM in 0.9% Normal Saline (50mL MB+) 50 ML IV (10:14)
--- NOTE | 2025-06-28 10:22 | PN_ITS ---
Subjective Subjective LATE ENTRY PROGRESS NOTE FOR 06/27/2025 Patient was seen and examined with his nurse by his bedside. He had no active complaints. Review of systems was otherwise negative. His breathing had improved. He did remain on 2L of oxygen. He remained hemodynamically stable. Objective Data Objective Data Vital Signs: Vital Signs Temp Pulse Resp BP Pulse Ox O2 Del Method O2 Flow Rate 98.1 F 76 18 134/71 H 96 Nasal Cannula 2 06/28/25 08:55 06/28/25 08:56 06/28/25 08:55 06/28/25 08:56 06/28/25 08:55 06/28/25 08:55 06/28/25 08:55 Oxygen Flow Rate (L/min) 2 Oxygen Delivery Method Nasal Cannula Weight: 170 lb 0.01 oz Body Mass Index (BMI) 23.0 Intake & Output: Intake and Output for Last 24 Hours 06/26/25 06/27/25 06/28/25 23:59 23:59 23:59 Intake Total 2545 / 2545 2905.00 / 2905.00 Balance 2545 / 2545 2905.00 / 2905.00 Lab / Micro Data 06/28/25 05:48 06/28/25 05:48 Labs: Laboratory Results - last 24 hr 06/28/25 05:48: WBC 11.5 H, RBC 3.67 L, Hgb 13.5, Hct 37.5 L, MCV 102.2 H, MCH 36.8 H, MCHC 36.0, RDW Std Deviation 46.7 H, RDW Coeff of [place] 14.9 H, Plt Count 189, MPV 9.8, Immature Gran % (Auto) 0.300, Neut % (Auto) 74.0 H, Lymph % (Auto) 14.8 L, [place] % (Auto) 9.4, Eos % (Auto) 1.2, Baso % (Auto) 0.3, Absolute Neuts (auto) 8.5 H, Absolute Lymphs (auto) 1.70, Nucleated RBC % 0, Sodium 137, Potassium 4.2, Chloride 103, Carbon Dioxide 22.5, Anion Gap 11, BUN 20 H, Creatinine 1.20, Estim Creat Clear Calc 48.19 L, Est GFR (MDRD) Non-Af 59 L, BUN/Creatinine Ratio 16.3, Glucose 106 H, Calcium 8.8 06/28/25 08:31: PT 25.9 H, INR 2.3 Micro: Microbiology 06/26/25 11:10 Blood Culture (Wb) - Left Forearm Blood Culture - Preliminary No growth in 48 hours. 06/26/25 11:10 Blood Culture (Wb) - Left Forearm Blood Culture - Preliminary No growth in 48 hours. 06/26/25 10:45 Urine, Clean Catch Urine Culture - Final Mixed Gram Positive Organisms 06/26/25 17:03 Mucosa - Nasopharyngeal Respiratory Panel (PCR) - Final 06/26/25 10:45 Urine, Clean Catch Legionella Antigen - Final 06/26/25 10:45 Urine, Clean Catch Streptococcus pneumoniae Antigen (M - Final 06/26/25 10:40 Mucosa - Nose SARS-CoV-2, Influenza & RSV (PCR) - Final Physical Exam Const alert, oriented x3 and no apparent distress Constitutional Narrative: frail, weak General Appearance: cooperative HEENT normocephalic, head/scalp atraumatic, moist oral mucous membranes and oropharynx normal Eyes EOMs intact bilaterally and conjunctivae normal Neck supple and no JVD Lymph Lymphatic: no lymphedema noted Resp Resp Narrative: moderately diminished breath sounds bibasally. Few crackles in left lower lung base, no wheezing. on 2L of oxygen by nasal canula Cardio S1 normal heart sound, S2 normal heart sound and no murmurs Cardio Narrative: afib, now rate controlled GI normal to inspection, nondistended, normoactive bowel sounds, soft to palpation, non-tender and non-distended Extremity full ROM and no clubbing, cyanosis or edema General Extremity: no tenderness to palpation of joints or extremities Skin General Skin Exam: no breakdown Neuro oriented x3, moves all extremities and no focal motor deficits Sensorium / Orientation: awake Motor Exam: strength 5/5 throughout Psych affect normal Appearance: appropriate Assessment & Plan Assessment/Plan (1) Sepsis: (2) Pneumonia: PLAN: Plan #Severe Sepsis due to pneumonia * Admitted with a complaint of shortness of breath. * WBCs elevated at 12.2 and lactic acid is 4. Chest x-ray does show evidence of pneumonia. * Hydrated with IV fluid normal saline at 125 cc/h. * on IV ceftriaxone and azithromycin. Urine for strep and legionella negative. * blood and sputum cultures pending. #A-fib: Was in RVR on admission but heart rate is now controlled. On metoprolol. Also on Coumadin. INR today is 2.1 #Hypertension: on lisinopril, metoprolol and spironolactone #Hypothyroidism: on synthroid #Heart failure: * Not in exacerbation. On Lasix and metoprolol as well as spironolactone and lisinopril. * lasix and spironolactone held on admission due to sepsis. * #GERD: On PPI DVT prophylaxis: not indicated as patient already on coumadin. INR is 2.1 Code status:full code * # Charges/Coding Visit Charges Inpatient E&M: 41733 Subs Hosp L2
--- NOTE | 2025-06-28 10:47 | PCM.CONS.C ---
Assessment & Plan Assessment/Plan (1) Sepsis: (2) Pneumonia: (3) Left ventricular systolic dysfunction (LVSD): (4) Atrial fibrillation: QUALIFIERS: Atrial fibrillation type: permanent Qualified Code(s): I48.21 - Permanent atrial fibrillation PLAN: Plan Sepsis CAP -continue antibiotics, wean O2 as able HFrEF mild -last EF reported at 40% -suspect acute on chronic exacerbation, in conjunction with community acquired pneumonia -continue home lasix 20mg -give one time dose 40mgIV lasix now, monitor daily weights, I&O -continue home spironolactone, lisinopril Atrial fibrillation -permanent, rate controlled -continue digoxin, metop XL, warfarin at home doses HPI Consult Data Date of Consult: 06/28/25 HPI Narrative HPI Narrative: ROMAN JONES, is a 84 M PMH HTN, DLD, mild , HFrEF (EF 40%), permanent AFib on wrfarin presenting with shortness of breath on exertion, pleuritic chest pain. Diagnosed with LLL pneumonia, started on antibiotics. He reports having a long history of atrial fibrillation that is rate controlled, and no issues with this. Endorses some fevers and chills at home as well.On arrival to ED, BP 150s, O2 sat 95% room air, HR 100. Started on ceftriaxone, and admitted for further management. Patient reports he feels fair today. Overall no complaints, no episodes of AF RVR overnight. Upon further questioning, also notes new orthopnea. CXR personally reviewed, notable for patchy opacity in left lung, but also some cephalization of the vasculature. [facility] Medical History Shingles Venous insufficiency Tricuspid insufficiency PVD (peripheral vascular disease) Orthostatic hypotension Macular degeneration Hypertension GERD (gastroesophageal reflux disease) Cor pulmonale CHF (congestive heart failure) Pulmonary hypertension Ankylosing spondylitis Hypothyroidism Atrial fibrillation Home Medications ?Medication ?Instructions ?Recorded ?Last Taken ?Type digoxin 250 mcg (0.25 mg) tablet 0.25 mg PO DAILY 02/26/19 07/16/24 History fluticasone propionate 50 2 spray NASAL DAILY 02/26/19 07/16/24 History mcg/actuation nasal spray,suspension levothyroxine 25 mcg tablet 25 mcg PO DAILY 07/17/24 07/16/24 History (Synthroid) multivitamin (Daily Multi-Vitamin 1 tab PO DAILY 07/17/24 07/16/24 History tablet) omega 3 350 mg-dha 235 mg-epa 90 1 cap PO DAILY 07/17/24 07/16/24 History mg-fish oil 597 mg capsule,delay rel ([place]-3) spironolactone 25 mg tablet 12.5 mg PO BID 07/17/24 07/16/24 History warfarin 2.5 mg tablet 3 mg PO DAILY 07/17/24 07/16/24 History furosemide 20 mg tablet 20 mg PO DAILY #30 tabs 07/19/24 Unknown Rx lisinopril 2.5 mg tablet 2.5 mg PO DAILY #30 tabs 07/19/24 Unknown Rx cholecalciferol (vitamin D3) 125 125 mcg PO QDAY 08/12/24 Unknown History mcg (5,000 unit) capsule vitamins A,C,S-wvvr-lahnsz 4,296 1 cap PO BID 08/12/24 Unknown History mcg-226 mg-90 mg capsule (PreserVision AREDS) metoprolol succinate 25 mg 25 mg PO BID 09/08/24 Unknown History tablet,extended release 24 hr Allergy/AdvReac Type Severity Reaction Status Date / Time No Known Allergies Allergy Verified 06/26/25 10:14 Family History Father Heart disease Brother Heart disease Sister Heart valve replaced Surgical History History of hand surgery History of cardiac radiofrequency ablation Social History Smoking Status: Former smoker Physical Exam Narrative Gen NAD aox3 neck: +JVD CV: irregular rate, rhyhtm, RUSB 3/6 murmur noted respiratory: Crackles in b/l lung [place], on supplemental o2 abd: soft nontender extrem: WWP hands and feet skin: scattered bruises Charges/Coding Visit Charges Inpatient E&M: 83302 Init Hosp L2 Objective Data Vital Signs: Vital Signs Temp Pulse Resp BP Pulse Ox O2 Del Method O2 Flow Rate 98.1 F 76 18 134/71 H 96 Nasal Cannula 2 06/28/25 08:55 06/28/25 08:56 06/28/25 08:55 06/28/25 08:56 06/28/25 08:55 06/28/25 08:55 06/28/25 08:55 Oxygen Flow Rate (L/min) 2 Oxygen Delivery Method Nasal Cannula Weight: 170 lb 0.01 oz Body Mass Index (BMI) 23.0 Intake & Output: Intake and Output for Last 24 Hours 06/26/25 06/27/25 06/28/25 23:59 23:59 23:59 Intake Total 2545 / 2545 2905.00 / 2905.00 255 / 255 Balance 2545 / 2545 2905.00 / 2905.00 255 / 255 Lab / Micro Data 06/28/25 05:48 06/28/25 05:48 Labs: Laboratory Results - last 24 hr 06/28/25 05:48: WBC 11.5 H, RBC 3.67 L, Hgb 13.5, Hct 37.5 L, MCV 102.2 H, MCH 36.8 H, MCHC 36.0, RDW Std Deviation 46.7 H, RDW Coeff of [place] 14.9 H, Plt Count 189, MPV 9.8, Immature Gran % (Auto) 0.300, Neut % (Auto) 74.0 H, Lymph % (Auto) 14.8 L, [place] % (Auto) 9.4, Eos % (Auto) 1.2, Baso % (Auto) 0.3, Absolute Neuts (auto) 8.5 H, Absolute Lymphs (auto) 1.70, Nucleated RBC % 0, Sodium 137, Potassium 4.2, Chloride 103, Carbon Dioxide 22.5, Anion Gap 11, BUN 20 H, Creatinine 1.20, Estim Creat Clear Calc 48.19 L, Est GFR (MDRD) Non-Af 59 L, BUN/Creatinine Ratio 16.3, Glucose 106 H, Calcium 8.8 06/28/25 08:31: PT 25.9 H, INR 2.3 Micro: Microbiology 06/26/25 11:10 Blood Culture (Wb) - Left Forearm Blood Culture - Preliminary No growth in 48 hours. 06/26/25 11:10 Blood Culture (Wb) - Left Forearm Blood Culture - Preliminary No growth in 48 hours. 06/26/25 10:45 Urine, Clean Catch Urine Culture - Final Mixed Gram Positive Organisms Cardiology Labs/Tests 06/28/25 05:48: WBC 11.5 H, RBC 3.67 L, Hgb 13.5, Hct 37.5 L, MCV 102.2 H, MCH 36.8 H, MCHC 36.0, Plt Count 189, MPV 9.8, Immature Gran % (Auto) 0.300, Neut % (Auto) 74.0 H, Lymph % (Auto) 14.8 L, [place] % (Auto) 9.4, Eos % (Auto) 1.2, Baso % (Auto) 0.3, Absolute Neuts (auto) 8.5 H, Nucleated RBC % 0, Sodium 137, Potassium 4.2, Chloride 103, Carbon Dioxide 22.5, Anion Gap 11, BUN 20 H, Creatinine 1.20, Est GFR (MDRD) Non-Af 59 L, BUN/Creatinine Ratio 16.3, Glucose 106 H, Calcium 8.8 06/28/25 08:31: PT 25.9 H, INR 2.3 Rhythm: EKG: ECHO: Stress Test: Cardiac Cath: PCI: CT Surgery: Holter monitor: EPS: PPM: CXR: Chest CT Scan: BISHOP Risk Score for UA/STEMI Assesmment (YES = 1) Risk Stratification Applicable: Yes Age > or = 65: Yes > or = 3 CAD risk factors (HTN, Hypercholesterolemia, Diabetes, family hx, current smoker): Yes Known CAD (Stenosis > or = 50%): No ASA used in past 7 days: No Severe angina (> or = 2 episodes in 24 hrs): No EKG ST change > or = 0.5mm: No Positive cardiac markers: No Score BISHOP Risk Score of mortality/ recurrent ischemic event over the next 14 days: 2 = 8.3% - Low Risk
[2025-06-28] MEDS: 0.9% Saline Lock 10 ML Syringe IV (11:19)
[2025-06-28] MEDS: Warfarin (PBKC) 3 MG Tablet PO (17:16)
[2025-06-29] VITALS (10 sets, daily range): BP systolic 111–142; BP diastolic 62–78; PULSE 78–95; RESP 16–18; TEMP 36.2–37.1; O2SAT 89–96
[2025-06-29] MEDS: 0.9% Saline Lock 10 ML Syringe IV (05:12)
[2025-06-29 06:05] LABS: Hematocrit 38.0 % (40-54); Hemoglobin 13.9 g/dL (13.0-16.5); Immature Granulocytes Count 0.040 X10^3/uL (0.0-0.0); Mean Corp Hgb Conc 36.6 g/dL (32-36); Mean Corpuscular Volume 102.4 fL (80-94); Mean Platelet Vol. 9.7 fl (6.2-12.0); NRBC Flagged by Analyzer 0 % (0-5); Platelet Count 210 K/mm3 (150-450); RBC Distribution Width CV 15.3 % (11.6-14.6); RBC Distribution Width SD 47.0 fl (35.1-43.9); Red Blood Count 3.71 M/mm3 (4.6-6.2); White Blood Count 9.2 K/mm3 (4.4-11.0)
[2025-06-29 06:26] LABS: Anion Gap 13 (5-15); BUN 21 mg/dL (4-19); BUN/Creat Ratio 16.4 RATIO (10-20); Calcium,Total 9.2 mg/dL (7.6-11.0); Carbon Dioxide 25.8 mmol/L (21.0-32.0); Chloride 102 mmol/L (98-108); Estimated Creatinine Clearance 45.54 ml/min (50-250); Glucose 102 mg/dL (70-99); Potassium 3.9 mmol/L (3.3-5.1)
[2025-06-29] MEDS: Metoprolol(XL)Succ 25 MG Tablet PO ×2 (08:35→20:23)
[2025-06-29] MEDS: Cholecalciferol (Vit D3) 125 MCG CAPSULE (5,000 UNITS) PO (08:36)
[2025-06-29] MEDS: Multivitamin (Healthy Eyes) Capsule 1 CAP PO ×2 (08:36→20:23)
[2025-06-29] MEDS: Ceftriaxone 2 GM in 0.9% Normal Saline (50mL MB+) 50 ML IV (08:36)
[2025-06-29] MEDS: Fluticasone 0.05% 1 SPRAY NASAL.SRY 2 SPRAY NASAL (08:36)
--- NOTE | 2025-06-29 08:50 | PN.CARD_ITS ---
Subjective Subjective Patient seen and examined currently laying in the bed on 2 L nasal cannula with fair O2 saturation. Review of telemetry patient remains in atrial fibrillation however very well rate controlled with heart rate on average appears to be around 80 bpm. Some very rare and infrequent episodes of tachycardia. Patient overall hemodynamically stable denies any concerning cardiovascular complaints or issues specifically no chest pain, lightheadedness/dizziness, shortness of breath appears to be improving each day. He questions whether or not he would need to be on oxygen when he goes home otherwise all cardiovascular questions answered. Objective Data Vital Signs: Vital Signs Temp Pulse Resp BP Pulse Ox O2 Del Method O2 Flow Rate 97.2 F L 78 18 136/73 H 93 Nasal Cannula 2 06/29/25 08:33 06/29/25 08:35 06/29/25 08:33 06/29/25 08:33 06/29/25 08:33 06/29/25 08:33 06/29/25 08:33 Oxygen Flow Rate (L/min) 2 Oxygen Delivery Method Nasal Cannula Weight: 170 lb 0.01 oz Body Mass Index (BMI) 23.0 Intake & Output: Intake and Output for Last 24 Hours 06/27/25 06/28/25 06/29/25 23:59 23:59 23:59 Intake Total 2905.00 / 2905.00 785 / 785 Output Total 650 / 650 Balance 2905.00 / 2905.00 785 / 410 -650 / -650 Lab / Micro Data Attestation: I reviewed the patient's lab results. Lab results narrative: Labs were personally reviewed and discussed with the patient. 06/29/25 05:39 06/29/25 05:39 Labs: Laboratory Results - last 24 hr 06/29/25 05:39: WBC 9.2, RBC 3.71 L, Hgb 13.9, Hct 38.0 L, MCV 102.4 H, MCH 37.5 H, MCHC 36.6 H, RDW Std Deviation 47.0 H, RDW Coeff of [place] 15.3 H, Plt Count 210, MPV 9.7, Immature Gran % (Auto) 0.400, Neut % (Auto) 62.0, Lymph % (Auto) 21.2, [place] % (Auto) 10.6 H, Eos % (Auto) 5.0, Baso % (Auto) 0.8, Absolute Neuts (auto) 5.7, Absolute Lymphs (auto) 1.96, Nucleated RBC % 0, Sodium 141, Potassium 3.9, Chloride 102, Carbon Dioxide 25.8, Anion Gap 13, BUN 21 H, C reatinine 1.27 H, Estim Creat Clear Calc 45.54 L, Est GFR (MDRD) Non-Af 55 L, BUN/Creatinine Ratio 16.4, Glucose 102 H, Calcium 9.2 Micro: Microbiology 06/26/25 11:10 Blood Culture (Wb) - Left Forearm Blood Culture - Preliminary No growth in 48 hours. 06/26/25 11:10 Blood Culture (Wb) - Left Forearm Blood Culture - Preliminary No growth in 48 hours. 06/26/25 10:45 Urine, Clean Catch Urine Culture - Final Mixed Gram Positive Organisms Rhythm Strip Rhythm Strip: A-fib (Patient with atrial fibrillation and left bundle branch block mostly rate controlled. No significant arrhythmias appreciated otherwise.) Cardiology Labs/Tests 06/29/25 05:39: WBC 9.2, RBC 3.71 L, Hgb 13.9, Hct 38.0 L, MCV 102.4 H, MCH 37.5 H, MCHC 36.6 H, Plt Count 210, MPV 9.7, Immature Gran % (Auto) 0.400, Neut % (Auto) 62.0, Lymph % (Auto) 21.2, [place] % (Auto) 10.6 H, Eos % (Auto) 5.0, Baso % (Auto) 0.8, Absolute Neuts (auto) 5.7, Nucleated RBC % 0, Sodium 141, Potassium 3.9, Chloride 102, Carbon Dioxide 25.8, Anion Gap 13, BUN 21 H, Creatinine 1.27 H, Est GFR (MDRD) Non-Af 55 L, BUN/Creatinine Ratio 16.4, Glucose 102 H, Calcium 9.2 Rhythm: EKG: ECHO: Stress Test: Cardiac Cath: PCI: CT Surgery: Holter monitor: EPS: PPM: CXR: Chest CT Scan: Physical Exam Const alert, oriented x3 and no apparent distress Orientation / Consciousness: awake HEENT normocephalic Eyes PERRL Neck no JVD Resp normal respiratory effort Resp Narrative: Decreased breath sounds in bilateral lung [place]. No wheezes, rales, or rhonchi appreciated. Cardio Cardio Narrative: Irregular rate and irregular rhythm. Unable to appreciate any significant murmurs, rubs, or gallops. Peripheral Pulses: radial pulses present and posterior tibial pulses present GI normal to inspection, nondistended, normoactive bowel sounds and non-tender Extremity no clubbing, cyanosis or edema Extremity Narrative: Patient moves all extremities Skin no rashes or lesions noted Neuro Neuro Narrative: No focal neurological deficits appreciated Psych Psych Narrative: Appropriate mood and affect Assessment & Plan Assessment/Plan (1) Persistent atrial fibrillation: PLAN: ? Patient overall rate controlled on current medications including metoprolol succinate and digoxin. ? Recommend continuation of current medications with goal heart rate less than 110 bpm at rest. ? Most recent INR noted to be 2.3 is at goal. Recommend continuation of current Coumadin dosing strategy with goal INR 2?3 ? At this point no further recommendations from cardiology standpoint. Cardiology will drop to standby please call with questions. Patient should follow-up in office with his vehicle monitor technician after discharge for monitoring. (2) Acute on chronic combined systolic and diastolic congestive heart failure: PLAN: ? Resolved. Initial exacerbation likely related to sepsis and pneumonia. Currently back on p.o. diuretics after what appears to be 1 dose of IV Lasix. ? Patient currently on GDMT with metoprolol succinate, lisinopril, and spironolactone. With noted HFrEF and CKD patient would likely benefit from SGLT2 inhibitor. Recommend consideration for either Farxiga or Jardiance which can be started as outpatient. ? Recommend avoiding excessive fluids and salt. Daily weights during admission. As noted above cardiology drop in standby. Please call with questions. (3) Acute respiratory failure with hypoxemia: PLAN: ? O2 saturation stable on 2 L nasal cannula. ? Recommend weaning O2 as tolerated for goal O2 saturation greater than 90%. Consideration for evaluating patient for home O2 at time of discharge. ? Further management per hospitalist team. (4) Hypertension: PLAN: ? Blood pressure overall with good control. Recommend continuation of current medications for goal blood pressures less than 150/90 (5) Chronic kidney disease, stage III (moderate): PLAN: ? Serum creatinine overall stable. Recommend close monitoring and avoiding nephrotoxic medications and treatments. PLAN: Plan ? As noted above recommend continuation of current treatment. Weaning O2 as tolerated. Monitor INR for goal of 2?3 and avoid nephrotoxic medications and treatments. ? Recommend maintaining goal electrolytes with potassium greater than 4.0 and magnesium greater than 2.0. Further management per hospitalist team ? Cardiology will drop to standby. Please call with questions. Patient should follow-up in office with his vehicle monitor technician after discharge for monitoring. Charges/Coding Visit Charges Inpatient E&M: 85795 Subs Hosp L2
[2025-06-29] MEDS: Azithromycin 500 MG in 0.9% Normal Saline (250mL Bag) 250 ML 255 MG IV (09:48)
--- NOTE | 2025-06-29 13:01 | PN.HOSP_ITS ---
Reason for Visit Chief Complaint: shortness of breath Subjective Subjective Patient was seen and examined today, he does not complain to this examiner any shortness of breath or chest pain. 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 Does not appear that an echocardiogram was obtained since July of this year. Patient is still currently on 2 L of nasal cannula oxygen. Objective Data Objective Data Vital Signs: Vital Signs Temp Pulse Resp BP Pulse Ox O2 Del Method O2 Flow Rate 97.2 F L 78 18 136/73 H 93 Nasal Cannula 2 06/29/25 08:33 06/29/25 08:35 06/29/25 08:33 06/29/25 08:33 06/29/25 08:33 06/29/25 08:33 06/29/25 08:33 Oxygen Flow Rate (L/min) 2 Oxygen Delivery Method Nasal Cannula Weight: 77.111 kg Body Mass Index (BMI) 23.0 Intake & Output: Intake and Output for Last 24 Hours 06/27/25 06/28/25 06/29/25 23:59 23:59 23:59 Intake Total 2905.00 / 2905.00 785 / 785 305 / 305 Output Total 650 / 650 Balance 2905.00 / 2905.00 785 / 410 -345 / -345 Lab / Micro Data 06/29/25 05:39 06/29/25 05:39 Labs: Laboratory Results - last 24 hr 06/29/25 05:39: WBC 9.2, RBC 3.71 L, Hgb 13.9, Hct 38.0 L, MCV 102.4 H, MCH 37.5 H, MCHC 36.6 H, RDW Std Deviation 47.0 H, RDW Coeff of Hillary 15.3 H, Plt Count 210, MPV 9.7, Immature Gran % (Auto) 0.400, Neut % (Auto) 62.0, Lymph % (Auto) 21.2, [place] % (Auto) 10.6 H, Eos % (Auto) 5.0, Baso % (Auto) 0.8, Absolute Neuts (auto) 5.7, Absolute Lymphs (auto) 1.96, Nucleated RBC % 0, Sodium 141, Potassium 3.9, Chloride 102, Carbon Dioxide 25.8, Anion Gap 13, BUN 21 H, C reatinine 1.27 H, Estim Creat Clear Calc 45.54 L, Est GFR (MDRD) Non-Af 55 L, BUN/Creatinine Ratio 16.4, Glucose 102 H, Calcium 9.2 Micro: Microbiology 06/26/25 11:10 Blood Culture (Wb) - Left Forearm Blood Culture - Preliminary No growth in 48 hours. 06/26/25 11:10 Blood Culture (Wb) - Left Forearm Blood Culture - Preliminary No growth in 48 hours. 06/26/25 10:45 Urine, Clean Catch Urine Culture - Final Mixed Gram Positive Organisms 06/26/25 17:03 Mucosa - Nasopharyngeal Respiratory Panel (PCR) - Final 06/26/25 10:45 Urine, Clean Catch Legionella Antigen - Final 06/26/25 10:45 Urine, Clean Catch Streptococcus pneumoniae Antigen (M - Final 06/26/25 10:40 Mucosa - Nose SARS-CoV-2, Influenza & RSV (PCR) - Final Rhythm Strip Rhythm Strip: A-fib (Patient with atrial fibrillation and left bundle branch block mostly rate controlled. No significant arrhythmias appreciated otherwise.) Physical Exam Const alert and no apparent distress Constitutional Narrative: Patient appears older than stated age General Appearance: cooperative, well kempt and well developed Orientation / Consciousness: awake, oriented to person and oriented to place HEENT normocephalic, head/scalp atraumatic and moist oral mucous membranes Eyes PERRL, EOMs intact bilaterally and conjunctivae normal Neck supple, no JVD, thyroid normal and no carotid bruits General: trachea midline Resp normal respiratory effort, no retractions, no use of accessory muscles and clear to auscultation bilaterally Auscultation: Negative for rales, rhonchi or wheezes Cardio regular rate, regular rhythm, S1 normal heart sound, S2 normal heart sound, no murmurs, no rub and no gallops GI normal to inspection, nondistended, normoactive bowel sounds, soft to palpation, non-tender and non-distended Extremity no clubbing, cyanosis or edema Skin no rashes or lesions noted General Skin Exam: no breakdown Neuro CN's II-XII intact bilaterally, moves all extremities, no focal motor deficits and no sensory deficits noted Sensorium / Orientation: awake, alert, oriented to person and oriented to place Speech: speech normal Psych affect normal Assessment & Plan Assessment/Plan (1) Acute respiratory failure with hypoxemia: PLAN: Plan 1. Severe sepsis-secondary to community-acquired pneumonia-patient remains on ceftriaxone and Zithromax at this time #2 hypoxia secondary to #1-patient still on nasal cannula oxygen #3 chronic atrial fibrillation-patient is anticoagulated on warfarin and is on metoprolol at this time-rate appears to be controlled #4 chronic use of anticoagulants-patient is on warfarin #5 hypothyroidism-patient is currently on Synthroid #6 essential hypertension-patient is on metoprolol and lisinopril, these will be adjusted as necessary Total clinical time spent by myself addressing the patient's medical issues, reviewing all of her data, and collaborating with patient's care team: 35 minutes Charges/Coding Visit Charges Inpatient E&M: 71928 Subs Hosp L2
[2025-06-29] MEDS: Warfarin (PBKC) 3 MG Tablet PO (16:27)
--- NOTE | 2025-06-29 20:26 | NURSING ---
Pt requested medications early, tolerated well. will continue to monitor
[2025-06-30 04:29] VITALS: BP 142/88; PULSE 98; RESP 22; TEMP 36.2; O2SAT 91
[2025-06-30 07:04] LABS: Hematocrit 38.7 % (40-54); Hemoglobin 14.1 g/dL (13.0-16.5); Immature Granulocytes Count 0.030 X10^3/uL (0.0-0.0); Mean Corp Hgb Conc 36.4 g/dL (32-36); Mean Corpuscular Volume 100.5 fL (80-94); Mean Platelet Vol. 9.9 fl (6.2-12.0); NRBC Flagged by Analyzer 0 % (0-5); Platelet Count 226 K/mm3 (150-450); RBC Distribution Width CV 14.6 % (11.6-14.6); RBC Distribution Width SD 46.7 fl (35.1-43.9); Red Blood Count 3.85 M/mm3 (4.6-6.2); White Blood Count 9.8 K/mm3 (4.4-11.0)
[2025-06-30 07:32] LABS: Anion Gap 13 (7-18); BUN 21 mg/dL (4-19); BUN/Creat Ratio 16.9 RATIO (10-20); Calcium,Total 9.3 mg/dL (7.6-11.0); Carbon Dioxide 24.8 mmol/L (20.0-29.0); Chloride 101 mmol/L (96-106); Estimated Creatinine Clearance 47.02 ml/min (50-250); Glucose 100 mg/dL (70-99); Potassium 4.0 mmol/L (3.5-5.1)
[2025-06-30 09:06] VITALS: BP 142/72; PULSE 105; RESP 16; TEMP 36.4; O2SAT 94
[2025-06-30] MEDS: Fluticasone 0.05% 1 SPRAY NASAL.SRY 2 SPRAY NASAL (09:12)
[2025-06-30] MEDS: Multivitamin (Healthy Eyes) Capsule 1 CAP PO (09:14)
[2025-06-30 09:15] VITALS: PULSE 105
[2025-06-30] MEDS: Metoprolol(XL)Succ 25 MG Tablet PO (09:15)
[2025-06-30] MEDS: Cholecalciferol (Vit D3) 125 MCG CAPSULE (5,000 UNITS) PO (09:15)
[2025-06-30] MEDS: Ceftriaxone 2 GM in 0.9% Normal Saline (50mL MB+) 50 ML IV (09:23)
[2025-06-30] MEDS: Azithromycin 500 MG in 0.9% Normal Saline (250mL Bag) 250 ML 255 MG IV (10:00)
[2025-06-30 11:34] VITALS: O2SAT 90; O2SAT 94
--- NOTE | 2025-06-30 11:45 | CM.UR ---
TIMOTHY CM note: Home O2 amb testing has been completed. Pt does not qualify for home O2. Delma DELONG RN CM
--- NOTE | 2025-06-30 11:58 | PCM.DC ---
Discharge Instructions DC O2, CPAP, BIPAP needs Home O2 Discharge instructions: No Dressing / Incision Discharge Activity: Return to Normal Activity Weight Bearing Status: Full weight bearing Follow Up Care Test Results: Test results from this visit will be discussed in further detail at your follow-up appointment, if applicable. Discharge Plan Admission Admit Date/Time: 06/26/25 14:35 Primary Reason for Your Visit: Left sided pneumonia Attending Provider: Alfonso Melgoza Primary Care Provider: Deshawn Rebollar Consulting Providers: Giovani Sosa; Vivi Ortega; Christopher Polanco Discharge Orders/Prescriptions Prescriptions: Continued PreserVision AREDS 4,296 mcg-226 mg-90 mg capsule 1 cap PO BID cholecalciferol (vitamin D3) 125 mcg (5,000 unit) capsule 125 mcg PO QDAY metoprolol succinate 25 mg tablet extended release 24 hr 25 mg PO BID digoxin 250 MCG tablet 0.25 mg PO DAILY fluticasone propionate 1 SPRAY spray,suspension 2 spray NASAL DAILY spironolactone 25 mg tablet 12.5 mg PO BID multivitamin [Daily Multi-Vitamin] Tablet 1 tab PO DAILY [place]-3 350 mg-235 mg- 90 mg-597 mg capsule,delayed release(DR/EC) 1 cap PO DAILY warfarin 2.5 mg tablet 3 mg PO DAILY levothyroxine [Synthroid] 25 mcg tablet 25 mcg PO DAILY furosemide 20 mg Tablet 20 mg PO DAILY Qty: 30 0RF lisinopril 2.5 mg tablet 2.5 mg PO DAILY Qty: 30 0RF Referrals / Follow Up: Deshawn Rebollar MD [Primary Care Provider, Family Practice] - See Referral Note Referral Note: in two weeks, you will need a repeat chest x-ray done Disposition Disposition (needs filled in before D/C Order can be placed): Home, Self Care
--- NOTE | 2025-06-30 12:12 | PCM.DC.SUM ---
Providers Date of Admission: 06/26/25 Date of Discharge: 06/30/25 Primary Care Physician: Deshawn Rebollar MD Consultations 06/29/25 10:16 Consult: Cardiology Routine Consulting Provider: Christopher Polanco Reason for Consult: possible pacer malfunction EMERGENT Consult: No MD Notified: Yes Date Notified: 06/29/25 Time Notified: 10:16 Method of Notification: ED Physician Initiated Reason For Visit: SEPSIS DUE TO PNEUMONIA Diagnosis Discharge Diagnosis (1) Acute respiratory failure with hypoxemia: Status: Acute Code(s): J96.01 - Acute respiratory failure with hypoxia Plan 1. Severe sepsis-secondary to community-acquired pneumonia-patient remains on ceftriaxone and Zithromax at this time #2 hypoxia secondary to #1-patient still on nasal cannula oxygen #3 chronic atrial fibrillation-patient is anticoagulated on warfarin and is on metoprolol at this time-rate appears to be controlled #4 chronic use of anticoagulants-patient is on warfarin #5 hypothyroidism-patient is currently on Synthroid #6 essential hypertension-patient is on metoprolol and lisinopril, these will be adjusted as necessary #7 cardiomyopathy with ejection fraction of 40%-etiology unclear #8 chronic congestive heart failure with reduced ejection fraction Acute congestive heart failure was ruled out Total clinical time spent by myself addressing the patient's medical issues, reviewing all of her data, and collaborating with patient's care team: 35 minutes Medications at Discharge Home Medications digoxin 250 mcg (0.25 mg) tablet 0.25 mg PO DAILY 02/26/19 fluticasone propionate 50 mcg/actuation nasal spray,suspension 2 spray NASAL DAILY 02/26/19 levothyroxine 25 mcg tablet (Synthroid) 25 mcg PO DAILY 07/17/24 multivitamin (Daily Multi-Vitamin tablet) 1 tab PO DAILY 07/17/24 omega 3 350 mg-dha 235 mg-epa 90 mg-fish oil 597 mg capsule,delay rel ([place]-3) 1 cap PO DAILY 07/17/24 spironolactone 25 mg tablet 12.5 mg PO BID 07/17/24 warfarin 2.5 mg tablet 3 mg PO DAILY 07/17/24 furosemide 20 mg tablet 20 mg PO DAILY #30 tabs 07/19/24 lisinopril 2.5 mg tablet 2.5 mg PO DAILY #30 tabs 07/19/24 cholecalciferol (vitamin D3) 125 mcg (5,000 unit) capsule 125 mcg PO QDAY 08/12/24 vitamins A,C,M-marm-psavoi 4,296 mcg-226 mg-90 mg capsule (PreserVision AREDS) 1 cap PO BID 08/12/24 metoprolol succinate 25 mg tablet,extended release 24 hr 25 mg PO BID 09/08/24 Hospital Course Operations None Procedures 2-D Echocardiogram Summary of Care Provided Minutes Spent on Discharge: 32 Hospital Course: This 84-year-old white male was seen in the emergency room at [facility] with a chief complaint of shortness of breath. He also stated he felt that he had palpitations. Patient has a history of atrial fibrillation. Patient also describes some chest heaviness. Workup in the ER included labs which showed an elevated white blood cell count of 12.2, BUN was slightly elevated at 23 and creatinine was 1.33. INR was 2.1, serum lactic acid was elevated at 4. Urinalysis showed no evidence of urinary tract infection. Patient was negative for influenza, COVID, and RSV. Chest x-ray showed a patchy left lung opacity consistent with pneumonia. Dextrocardia was noted to be present. Patient was admitted to PCU, he was placed on Rocephin and Zithromax and completed a 5-day course of both antibiotics. Patient was weaned off oxygen and did not require oxygen at the time of discharge home. Patient was seen in consultation by cardiology regarding his atrial fibrillation. On 06/30/2025, patient was seen and examined: On examination he appeared in good health and spirits. Vital signs as documented. Skin warm and dry and without overt rashes. Neck without JVD, neck was supple, trachea midline, thyroid was normal. Lungs clear bilaterally, normal air movement was noted. Heart exam notable for irregular rhythm, normal sounds and absence of murmurs, rubs or gallops. Abdomen unremarkable and without evidence of organomegaly, masses, or abdominal aortic enlargement. Bowel sounds are present, abdomen is not distended. Extremities nonedematous, no cyanosis was noted, no clubbing was noted. Neuro: Cranial nerves II through XII are grossly intact, no focal motor deficits were noted, sensation to light touch and pinprick intact, motor exam 5/5 throughout. Psych: Patient is alert and oriented x3, he does not appear anxious or depressed, he does not appear agitated. Patient was discharged home in stable condition on 06/30/2025 Weight / BMI Weight Weight: 77.111 kg Body Mass Index (BMI) 23.0 ABG / Lab / Microbiology Data 06/30/25 06:12 06/30/25 06:12 Laboratory: Laboratory Results - last 24 hr 06/30/25 06:12: WBC 9.8, RBC 3.85 L, Hgb 14.1, Hct 38.7 L, MCV 100.5 H, MCH 36.6 H, MCHC 36.4 H, RDW Std Deviation 46.7 H, RDW Coeff of Hillary 14.6, Plt Count 226, MPV 9.9, Immature Gran % (Auto) 0.300, Neut % (Auto) 54.6, Lymph % (Auto) 27.8, [place] % (Auto) 11.1 H, Eos % (Auto) 5.5 H, Baso % (Auto) 0.7, Absolute Neuts (auto) 5.4, Absolute Lymphs (auto) 2.73, Nucleated RBC % 0, Sodium 138, Potassium 4.0, Chloride 101, Carbon Dioxide 24.8, Anion Gap 13, BUN 21 H, Creatinine 1.23 H, Estim Creat Clear Calc 47.02 L, Est GFR (MDRD) Non-Af 57 L, BUN/Creatinine Ratio 16.9, Glucose 100 H, Calcium 9.3 Microbiology: Microbiology 06/26/25 11:10 Blood Culture (Wb) - Left Forearm Blood Culture - Preliminary No growth in 48 hours. 06/26/25 11:10 Blood Culture (Wb) - Left Forearm Blood Culture - Preliminary No growth in 48 hours. 06/26/25 10:45 Urine, Clean Catch Urine Culture - Final Mixed Gram Positive Organisms 06/26/25 17:03 Mucosa - Nasopharyngeal Respiratory Panel (PCR) - Final 06/26/25 10:45 Urine, Clean Catch Legionella Antigen - Final 06/26/25 10:45 Urine, Clean Catch Streptococcus pneumoniae Antigen (M - Final 06/26/25 10:40 Mucosa - Nose SARS-CoV-2, Influenza & RSV (PCR) - Final D/C Instructions Weight Bearing Status: Full weight bearing DC O2, CPAP, BIPAP Needs Home O2 Discharge instructions: No Meaningful Use Info Meaningful Use Meaningful Use Diagnoses (Choose all that apply): None applicable Discharge Plan Admission Admit Date/Time: 06/26/25 14:35 Primary Reason for Your Visit: Left sided pneumonia Attending Provider: Alfonso Melgoza Primary Care Provider: Deshawn Rebollar Consulting Providers: Giovani Sosa; Vivi Ortega; Christopher Polanco Discharge Orders/Prescriptions Prescriptions: Continued PreserVision AREDS 4,296 mcg-226 mg-90 mg capsule 1 cap PO BID cholecalciferol (vitamin D3) 125 mcg (5,000 unit) capsule 125 mcg PO QDAY metoprolol succinate 25 mg tablet extended release 24 hr 25 mg PO BID digoxin 250 MCG tablet 0.25 mg PO DAILY fluticasone propionate 1 SPRAY spray,suspension 2 spray NASAL DAILY spironolactone 25 mg tablet 12.5 mg PO BID multivitamin [Daily Multi-Vitamin] Tablet 1 tab PO DAILY [place]-3 350 mg-235 mg- 90 mg-597 mg capsule,delayed release(DR/EC) 1 cap PO DAILY warfarin 2.5 mg tablet 3 mg PO DAILY levothyroxine [Synthroid] 25 mcg tablet 25 mcg PO DAILY furosemide 20 mg Tablet 20 mg PO DAILY Qty: 30 0RF lisinopril 2.5 mg tablet 2.5 mg PO DAILY Qty: 30 0RF Referrals / Follow Up: Deshawn Rebollar MD [Primary Care Provider, Family Practice] - See Referral Note Referral Note: in two weeks, you will need a repeat chest x-ray done Disposition Disposition (needs filled in before D/C Order can be placed): Home, Self Care Charges/Coding Visit Charges Inpatient E&M: 85188 Disch Hosp >30min
--- NOTE | 2025-06-30 13:01 | PHA.DC.MR.R ---
Pharmacy [facility] Reconciliation Pharmacy Service has performed discharge medication reconciliation for this patient. The patient's discharge medication list was reviewed for discrepancies and discrepancies were resolved. Medications at Discharge Home Medications digoxin 250 mcg (0.25 mg) tablet 0.25 mg PO DAILY 02/26/19 fluticasone propionate 50 mcg/actuation nasal spray,suspension 2 spray NASAL DAILY 02/26/19 levothyroxine 25 mcg tablet (Synthroid) 25 mcg PO DAILY 07/17/24 multivitamin (Daily Multi-Vitamin tablet) 1 tab PO DAILY 07/17/24 omega 3 350 mg-dha 235 mg-epa 90 mg-fish oil 597 mg capsule,delay rel ([place]-3) 1 cap PO DAILY 07/17/24 spironolactone 25 mg tablet 12.5 mg PO BID 07/17/24 warfarin 2.5 mg tablet 3 mg PO DAILY 07/17/24 furosemide 20 mg tablet 20 mg PO DAILY #30 tabs 07/19/24 lisinopril 2.5 mg tablet 2.5 mg PO DAILY #30 tabs 07/19/24 cholecalciferol (vitamin D3) 125 mcg (5,000 unit) capsule 125 mcg PO QDAY 08/12/24 vitamins A,C,H-mtke-avtjgg 4,296 mcg-226 mg-90 mg capsule (PreserVision AREDS) 1 cap PO BID 08/12/24 metoprolol succinate 25 mg tablet,extended release 24 hr 25 mg PO BID 09/08/24
[2025-06-30 13:13] VITALS: BP 128/73; PULSE 103; RESP 16; TEMP 36.7; O2SAT 92
== END 2025-06-30 13:26 | disposition home or self-care (01) | DRG 871 ==
LOC: ED 12:35 → PCU 14:39
PROVIDERS: Admitting Provider Student in an Organized Health Care Education/Training Program; Emergency Provider Emergency Medicine; PCP Family Medicine; Visit Provider Internal Medicine
DX: A41.9 Sepsis, unspecified organism (principal); J18.9 Pneumonia, unspecified organism; J96.01 Acute respiratory failure with hypoxia; I42.9 Cardiomyopathy, unspecified; I13.0 Hypertensive heart and chronic kidney disease with heart failure and stage 1 through stage 4 chronic kidney disease, or unspecified chronic kidney disease; I48.21 Permanent atrial fibrillation; I50.22 Chronic systolic (congestive) heart failure; Q24.0 Dextrocardia; I27.81 Cor pulmonale (chronic); Z66 Do not resuscitate; N18.30 Chronic kidney disease, stage 3 unspecified; E03.9 Hypothyroidism, unspecified; R65.20 Severe sepsis without septic shock; I44.7 Left bundle-branch block, unspecified; K21.9 Gastro-esophageal reflux disease without esophagitis; Z79.899 Other long term (current) drug therapy; Z87.891 Personal history of nicotine dependence; Z79.01 Long term (current) use of anticoagulants
CPT/HCPCS: 36415; 36416; 71046; 80048; 80162; 81001; 83605; 85025; 85610; 85730; 87040; 87086; 87088; 87449; 87631; 87633; 87641; 93005; 97161; 97165; 99285; A4216; J0696; J1938

== ENCOUNTER → 2025-07-07 | Outpatient (CLI) | payer MEDICARE, BC, SELFPAY ==
--- NOTE | 2025-07-07 10:17 | RAD_ITS ---
PROCEDURE: CHEST PA AND LATERAL 07/07/2025 REASON FOR EXAM: Fever and cough TECHNIQUE: Procedure Code: RADCXR Modality: DX Procedure: CHEST PA AND LATERAL COMPARISON: 06/26/2025 FINDINGS: Hardware: None Heart: Stable dextrocardia again noted. Mediastinum: The mediastinal contour is unremarkable. Stable peripheral calcifications in the thoracic aorta. Lungs: Lungs are mildly hyperexpanded with partial but not yet complete resolution of the previously noted left lower lobe infiltrate and effusion. Follow-up recommended to ensure complete resolution. Right lung is clear Bones: Degenerative changes are identified within the thoracic spine. RAD/Chest PA and Lateral IMPRESSION: Near-complete resolution of previously noted left lower lobe infiltrate with sm all effusion. Follow-up recommended to ensure complete resolution Stable dextrocardia Reading Location: [id number]
== END | disposition home or self-care (01) ==
LOC: MTRAD 10:16
PROVIDERS: PCP Family Medicine; Referring Provider Family Medicine; Visit Provider Family Medicine
DX: J18.9 Pneumonia, unspecified organism (principal)
CPT/HCPCS: 71046